=== PATIENT | female | born 1990 | race Caucasian/White ===

== ENCOUNTER 2017-08-26 15:57 | Emergency (ER) | payer OTHER ==
[~2017-08-26] VITALS: Ht 165.1 cm; Wt 72.6 kg
[~2017-08-26 15:57] MED LIST: FLEXERIL10 MG PO; PRENATAL COMPL1 EACH PO; PROVENTIL HFA6.7 GM INH; TYLENOL325 MG PO; [UNRECOGNIZED DRUG - REMARK] NEB
== END 2017-08-26 17:53 | disposition home or self-care (01) ==
LOC: ED 15:57
DX: S16.1XXA Strain of muscle, fascia and tendon at neck level, initial encounter (principal); S20.212A Contusion of left front wall of thorax, initial encounter; S50.01XA Contusion of right elbow, initial encounter; W17.89XA Other fall from one level to another, initial encounter
CPT/HCPCS: 71046; 72040; 73080; 99283

== ENCOUNTER 2017-08-29 15:35 | Emergency (ER) | payer OTHER ==
[~2017-08-29] VITALS: Ht 165.1 cm; Wt 77.1 kg
== END 2017-08-29 17:35 | disposition home or self-care (01) ==
LOC: ED 15:35
DX: S16.1XXA Strain of muscle, fascia and tendon at neck level, initial encounter (principal); S40.012A Contusion of left shoulder, initial encounter; S50.12XA Contusion of left forearm, initial encounter; F17.200 Nicotine dependence, unspecified, uncomplicated; Z79.899 Other long term (current) drug therapy; W06.XXXA Fall from bed, initial encounter; Y92.149 Unspecified place in prison as the place of occurrence of the external cause
CPT/HCPCS: 72040; 73030; 73090; 99283

== ENCOUNTER 2019-03-11 09:33 | Emergency (ER) | payer OTHER ==
[~2019-03-11] VITALS: Ht 165.1 cm; Wt 77.5 kg
[2019-03-11] MEDS ORDERED: VENTOLIN HFA18 GM INH (09:54)
[2019-03-11] MEDS ORDERED: REGLAN10 MG PO (13:06)
== END 2019-03-11 13:41 | disposition home or self-care (01) ==
LOC: ED 09:33
DX: R11.2 Nausea with vomiting, unspecified (principal); F17.200 Nicotine dependence, unspecified, uncomplicated
CPT/HCPCS: 80053; 84703; 85025; 85651; 86141; 96361; 96374; 96375; 99284-25; J1200; J2405; J2765; J7120

== ENCOUNTER 2019-04-05 13:41 | Emergency (ER) | payer OTHER ==
[~2019-04-05] VITALS: Ht 165.1 cm; Wt 77.5 kg
--- OUTSIDE RECORDS SUMMARY | ~2019-04-05 | XMS | Encounter Summary ---
Demographics + + + | Address | [address] | | | [place] [address] | + + + | Home Phone | | + + + | Preferred Language | Unknown | + + + | Marital Status | Single | + + + | Judaism Affiliation | Unknown | + + + | Race | Unknown | + + + | Ethnic Group | Unknown | + + + Author + + + | Author | [facility] | | | and rPashanthana | + + + | Organization | [facility] | | | and [place] | + + + | Address | Unknown | + + + | Phone | Unavailable | + + + Support + + +---------+ + | Name | Relationship | Address | Phone | + + +---------+ + | Fausto Solomon | ECON | Unknown | | + + +---------+ + | Adrianna Reynoso | ECON | Unknown | | + + +---------+ + | Fausto Solomon | ECON | Unknown | | + + +---------+ + Care Team Providers + +------+ + | Care Information Delivery Analyst Name | Role | Phone | + +------+ + PCP | Unavailable | + +------+ + Encounter Details +--------+ + + + + | Date | Type | Department | Care Team | Description | +--------+ + + + + | 02/17/ | Orders Only | [facility] | [facility], | Osteomyelitis of | | 2019 | | MEDICAL CENTER ACUTE | MD Carol 833 | vertebra ([facility]) | | | | CARE FLOOR [address] | | | | | [address] | [place] [address] | | | | | [place], [place] | [phone] | | | | | [address] | | | | | | [phone] | | | +--------+ + + + [...] as of this encounter Plan of Treatment + +--------+ + + | Name | Priori | Associated Diagnoses | Order Schedule | | | ty | | | + +--------+ + + | Comprehensive Metabolic Panel | Routin | Osteomyelitis of | Expected: | | | e | vertebra ([facility]) | 06/12/2018, Expires: | | | | | 06/12/2019 | + +--------+ + + | Sedimentation Rate | Routin | Osteomyelitis of | Expected: | | | e | vertebra ([facility]) | 06/12/2018, Expires: | | | | | 06/12/2019 | + +--------+ + + | C-Reactive Protein | Routin | Osteomyelitis of | Expected: | | | e | vertebra ([facility]) | 06/12/2018, Expires: | | | | | 06/12/2019 | + +--------+ + + | CBC with Manual Differential | Routin | Osteomyelitis of | Expected: | | | e | vertebra ([facility]) | 06/12/2018, Expires: | | | | | 06/13/2019 | + +--------+ + + | Vancomycin, Trough | Routin | Osteomyelitis of | Expected: | | | e | vertebra ([facility]) | 06/12/2018, Expires: | | | | | 06/12/2019 | + +--------+ + + | Creatinine | Routin | Osteomyelitis of | Expected: | | | e | vertebra ([facility]) | 06/12/2018, Expires: | | | | | 06/12/2019 | + +--------+ + + documented as of this encounter Visit Diagnoses + + | Diagnosis | + + | Osteomyelitis of vertebra (HCC) Unspecified osteomyelitis, other specified site | + + documented in this encounter"
--- OUTSIDE RECORDS SUMMARY | ~2019-04-05 | XMS | Encounter Summary ---
Demographics + + + | Address | [address] | | | [place] [address] | + + + | Home Phone | | + + + | Preferred Language | Unknown | + + + | Marital Status | Single | + + + | Sikh Affiliation | Unknown | + + + | Race | Unknown | + + + | Ethnic Group | Unknown | + + + Author + + + | Author | [facility] | | | and Prashanthana | + + + | Organization | [facility] | | [...] Team Providers + +------+ + | Care Health Education Director Name | Role | Phone | + +------+ + PCP | Unavailable | + +------+ + Encounter Details +--------+ + + + + | Date | Type | Department | Care Team | Description | +--------+ + + + + | 02/17/ | Orders Only | [facility] | [facility], | Osteomyelitis of | | 2019 | | MEDICAL CENTER ACUTE | MD Carol [address] | vertebra ([facility]) | | | | CARE FLOOR [address] | | | | | [address] | [place] [address] | | | | | [place], [place] | [phone] | | | | | [address] | | | | | | [phone] | | | +--------+ + + + [...] Expected: | | | e | vertebra ([facility]) | 06/12/2018, Expires: | | | | | 06/12/2019 | + +--------+ + + | Sedimentation Rate | Routin | Osteomyelitis of | Expected: | | | e | vertebra ([facility]) | 06/12/2018, Expires: | | | | | 06/12/2019 | + +--------+ + + | C-Reactive Protein | Routin | Osteomyelitis of | Expected: | | | e | vertebra ([facility]) | 06/12/2018, Expires: | | | | | 06/12/2019 | + +--------+ + + | CBC with Manual Differential | Routin | Osteomyelitis of | Expected: | | | e | vertebra ([facility]) | 06/12/2018, Expires: | | | | | 06/13/2019 | + +--------+ + + | Vancomycin, Trough | Routin | Osteomyelitis of | Expected: | | | e | vertebra ([facility]) | 06/12/2018, Expires: | | | | | 06/12/2019 | + +--------+ + + | Creatinine | Routin | Osteomyelitis of | Expected: | | | e | vertebra ([facility]) | 06/12/2018, Expires: | | | | | 06/12/2019 | + +--------+ + + documented as of this encounter Visit Diagnoses + + | Diagnosis | + + | Osteomyelitis of vertebra (HCC) Unspecified osteomyelitis, other specified site | + + documented in this encounter"
--- OUTSIDE RECORDS SUMMARY | ~2019-04-05 | XMS | Clinical Summary ---
Demographics + + + | Address | [address] | | | [place] [address] | + + + | Home Phone | | + + + | Preferred Language | Unknown | + + + | Marital Status | Single | + + + | Voodoo Affiliation | Unknown | + + + | Race | Unknown | + + + | Ethnic Group | Unknown | + + + Author + + + | Author | [facility] | | | and Prashanthana | + + + | Organization | [facility] | | | and [place] | + + + | Address | Unknown | + + + | Phone | Unavailable | + + + Support + + +---------+ + | Name | Relationship | Address | Phone | + + +---------+ + | Fausto Solomon | ECON | Unknown | | + + +---------+ + | AngelesAdrianna | ECON | Unknown | | + + +---------+ + | Fausto Solomon | ECON | Unknown | | + + +---------+ + Care Team Providers + +------+ + | Care Acetone Recovery Worker Name | Role | Phone | + +------+ + PCP | Unavailable | + +------+ + Allergies No Known [...] Noted Date | + + + | IV drug abuse | 06/11/2018 | + + + | IVDA (intravenous drug abuse) complicating | 06/10/2018 | + + + | Vertebral osteomyelitis | 06/10/2018 | + + + | LBP | 06/10/2018 | + + + Encounters +--------+ + + + + | Date | Type | Specialty | Care Team | Description | +--------+ + + + + | 02/23/ | Orders Only | Internal Medicine | Heidi, | Vertebral | | 2018 | | | MD Carol | osteomyelitis (HCC) | | | | | | (Primary Dx) | +--------+ + + + + | 02/17/ | Orders Only | Internal Medicine | Heidi, | Osteomyelitis of | | 2018 | | | MD Carol | vertebra (HCC) | +--------+ + + + + from Last 3 Months Immunizations + + + + | Name | Dates Previously Given | Next Due | + + + [...] Filed Vital Signs + + + + | Vital Sign | Reading | Time Taken | + + + + | Blood Pressure | 142/90 | 06/15/2018 1140 PST | + + + + | Pulse | 106 | 06/15/2018 1140 PST | + + + + | Temperature | 37 C (98.6 F) | 06/15/2018 1140 PST | + + + + | Respiratory Rate | 16 | 06/15/2018 1140 PST | + + + + | Oxygen Saturation | - | - | + + + + | Inhaled Oxygen | - | - | | Concentration | | | + + + + | Weight | 73.5 kg (162 lb 0.6 | 06/15/2018 1140 PST | | | oz) | | + + + + | Height | 165.1 cm (5' 5") | 06/15/2018 1140 PST | + + + + | Body Mass Index | 26.96 | 06/15/2018 1140 PST | + + + + Plan of Treatment + + + + + | Health Maintenance | Due Date | Last Done | Comments | + + + + + | Vaccine: | | | | | Dtap/Tdap/Td (1 - | 7 | | | | Tdap) | | | | + + + + + | Cervical Cancer | | | | | Screening (Pap) | 8 | | | + + + + + | Vaccine: Influenza | | | | | (#1) | 9 | | | + + + + + Results Not on filefrom Last 3 Months
--- OUTSIDE RECORDS SUMMARY | ~2019-04-05 | XMS | Clinical Summary ---
Demographics + + + | Address | [address] | | | [place] [address] | + + + | Home Phone | | + + + | Preferred Language | Unknown | + + + | Marital Status | Single | + + + | Scientology Affiliation | Unknown | + + + | Race | Unknown | + + + | Ethnic Group | Unknown | + + + Author + + + | Author | [facility] (Historical as of | | | 02-18-19) | + + + | Organization | [facility] (Historical as of | | | 02-18-19) | + + + | Address | Unknown | + + + | Phone | Unavailable | + + + Support + + +---------+ + | Name | Relationship | Address | Phone | + + +---------+ + | Fausto Solomon | ECON | Unknown | | + + +---------+ + | Detailed,Message | ECON | Unknown | | + + +---------+ + | Adrianna Reynoso | ECON | Unknown | | + + +---------+ + Care Team Providers + +------+ + | Care Java Software Architect Name | Role | Phone | + +------+ + | None, Per Pt | PP | [phone] | + +------+ + Allergies No Known Allergies Current Medications + + +---------+---------+------+------+-------+ | Prescription | Sig. | Disp. | Refills | Star | End | Statu | | | | | | t | Date | s | | | | | | Date | | | + + +---------+---------+------+------+-------+ | albuterol | Take 2.5 mg by | | | | | Activ | | (PROVENTIL) (2.5 | nebulization every 6 | | | | | e | | MG/3ML) 0.083% | (six) hours as | | | | | | | nebulizer | needed. Indications: | | | | | | | solutionIndications: | Acute Bronchospasm | | | | | | | Acute | | | | | | | | Bronchospastic | | | | | | | | Disease | | | | | | | + + +---------+---------+------+------+-------+ | MV-Min-Fe | Take by mouth. | | | | | Activ | | Fum-FA-DHA | | | | | | e | | ( 1 PO) | | | | | | | + + +---------+---------+------+------+-------+ | docusate calcium | Take 1 capsule by | 90 | 3 | 06/2 | | Activ | | (SURFAK) 240 MG | mouth daily. | capsule | | 3/20 | | e | | capsule | | | | 14 | | | + + +---------+---------+------+------+-------+ | labetalol | Take 1 tablet by | 60 | 11 | 06/2 | | Activ | | (NORMODYNE) 200 MG | mouth every 12 | tablet | | 3/20 | | e | | tablet | (twelve) hours. | | | 14 | | | + + +---------+---------+------+------+-------+ | ferrous gluconate | Take 1 tablet by | 90 | 3 | 06/2 | | Activ | | (FERGON) 324 MG | mouth daily with | tablet | | 3/20 | | e | | tablet | breakfast. | | | 14 | | | + + +---------+---------+------+------+-------+ Active Problems + + + | Problem | Noted Date | + + + | IV drug abuse ([facility]) | 06/11/2018 | + + + | IVDA (intravenous drug abuse) complicating ([facility]) | 06/10/2018 | + + + | Vertebral osteomyelitis ([facility]) | 06/10/2018 | + + + | LBP | 06/10/2018 | + + + Immunizations + + + + | Name | Dates Previously Given | Next Due | + + + + | INFLUENZA PF, | 06/11/2018 (Deferred: ) | | | QUADRIVALENT | | | | (PED/ADOL/ADULT) | | | + + + + | Pneumococcal | 06/11/2018 (Deferred: ), 09/28/2012 | | | Polysaccharide | | | | 23-valent | | | + + + + Family History + + +------+ + | Medical History | Relation | Name | Comments | + + +------+ + | Asthma | Brother | | | + + +------+ + | Cancer | Brother | | | + + +------+ + | Cancer | Cousin | | | + + +------+ + | Asthma | Father | | | + + +------+ + | Diabetes type II | Maternal | | | | | Grandmoth | | | | | er | | | + + +------+ + | Hypertension | Maternal | | | | | Grandmoth | | | | | er | | | + + +------+ + | Diabetes type II | Mother | | | + + +------+ + | Hypertension | Mother | | | + + +------+ + | Hypertension | Sister | | | + + +------+ + + +------+--------+ + | Relation | Name | Status | Comments | + +------+--------+ + | Brother | | | | + +------+--------+ + | Cousin | | | | + +------+--------+ + | Father | | | | + +------+--------+ + | Maternal Grandmother | | | | + +------+--------+ + | Mother | | | | + +------+--------+ + | Sister | | | | + +------+--------+ + Social History + + + +--------+------+ | Tobacco Use | Types | Packs/Day | Years | Date | | | | | Used | | + + + +--------+------+ | Current Every Day | Cigarettes | 0.25 | 10 | | | Smoker | | | | | + + + +--------+------+ + +---+---+---+ | Smokeless Tobacco: | | | | | Never Used | | | | + +---+---+---+ + + | Tobacco Cessation: Counseling Given: Yes | + + + + +---------+ + | Alcohol Use | Drinks/We | oz/Week | Comments | | | ek | | | + + +---------+ + | No | | | | + + +---------+ + + + + | Sex Assigned at | Date Recorded | | | | + + + | Not on file | | + + + Last Filed Vital Signs + + + + | Vital Sign | Reading | Time Taken | + + + + | Blood Pressure | 142/90 | 06/15/2018 11:38 AM PST | + + + + | Pulse | 106 | 06/15/2018 11:38 AM PST | + + + + | Temperature | 37 C (98.6 F) | 06/15/2018 11:38 AM PST | + + + + | Respiratory Rate | 16 | 06/15/2018 11:38 AM PST | + + + + | Oxygen Saturation | 98% | 06/15/2018 11:38 AM PST | + + + + | Inhaled Oxygen | - | - | | Concentration | | | + + + + | Weight | 73.5 kg (162 lb 0.6 | 06/12/2018 7:50 PM PST | | | oz) | | + + + + | Height | 165.1 cm (5' 5") | 06/10/2018 9:28 AM PST | + + + + | Body Mass Index | 26.96 | 06/12/2018 7:50 PM PST | + + + + Plan [...] | Pneumococcal 19-64 | | | | | (PPSV23 only) Medium | | | | | Risk | | | | + + + + + Results Not on filefrom Last 3 Months Insurance + +--------+ +------+-------+ + | Payer | Benefi | Subscriber | Type | Phone | Address | | | t Plan | ID | | | | | | / | | | | | | | Group | | | | | + +--------+ +------+-------+ + | MEDICAID | [place] | [id number] | | | [address] | | | N | | | | [place] | | | [place] | | | | [phone] | | | ELIGIBILITY SUPERVISOR | | | | | + +--------+ +------+-------+ + + +--------+ +--------+ + + | Guarantor Name | Accoun | Relation to | Date | Phone | Billing Address | | | t Type | Patient | of | | | | | | | | | | + +--------+ +--------+ + + | SOLANGE PEDERSON | Person | Self | [birth year] Home: | [address] | | | [place] | | 1989 | [phone] | [address] [place] | | | [place] | | | [phone] | [phone] | + +--------+ +--------+ + +
--- OUTSIDE RECORDS SUMMARY | ~2019-04-05 | XMS | Clinical Summary ---
Demographics + + + | Address | [address] | | | [place] [address] | + + + | Home Phone | | + + + | Preferred Language | Unknown | + + + | Marital Status | Single | + + + | Zoroastrian Affiliation | Unknown | + + + | Race | Unknown | + + + | Ethnic Group | Unknown | + + + Author + + + | Author | [facility] | | | and Prashanthana | + + + | Organization | [facility] | | | [...] Team Providers + +------+ + | Care Clerk Guide Name | Role | Phone | + [...]
--- OUTSIDE RECORDS SUMMARY | ~2019-04-05 | XMS | Clinical Summary ---
Demographics + + + | Address | [address] | | | [place] [address] | + + + | Home Phone | | + + + | Preferred Language | Unknown | + + + | Marital Status | Single | + + + | Mormon Affiliation | Unknown | + + + | Race | Unknown | + + + | Ethnic Group | Unknown | + + + Author + + + | Author | [facility] (Historical as of | | | 02-18-19) | + + + | Organization | [facility] (Historical as of | | | [...] Team Providers + +------+ + | Care Cardiac Nurse Practitioner Name | Role | Phone | + [...] + + + | IV drug abuse ([facility]) | 06/11/2018 | + + + | IVDA (intravenous drug abuse) complicating ([facility]) | 06/10/2018 | + + + | Vertebral osteomyelitis ([facility]) | 06/10/2018 | + + + | [...] +------+-------+ + | MEDICAID | [place] | [id number] | | | [address] | | | N | | | | [place] | | | [place] | | | | [phone] | | | POWDER PRESS OPERATOR | | | | | + +--------+ [...] Self | [birth year] | Home: | [address] | | | [place] | | 1989 | [phone] | [address] [place] [address] | | | [place] | | | [phone] | [phone] | + +--------+ +--------+ + +
--- OUTSIDE RECORDS SUMMARY | ~2019-04-05 | XMS | Encounter Summary ---
Demographics + + + | Address | [address] | | | [place] [address] | + + + | Home Phone | | + + + | Preferred Language | Unknown | + + + | Marital Status | Single | + + + | Samaritan Affiliation | Unknown | + + + | Race | Unknown | + + + | Ethnic Group | Unknown | + + + Author + + + | Author | [facility] | | | and Prashanthana | + + + | Organization | [facility] | | [...] | | + + +---------+ + | Fasuto Solomon | ECON | Unknown | | + + +---------+ + Care Team Providers + +------+ + | Care Food Service Lead Name | Role | Phone | + +------+ + PCP | Unavailable | + +------+ + Encounter Details +--------+ + + + + | Date | Type | Department | Care Team | Description | +--------+ + + + + | 02/23/ | Orders Only | [facility] | [place], | Vertebral | | 2019 | | MEDICAL CENTER ACUTE | MD Carol [address] | osteomyelitis (HCC) | | | | CARE FLOOR [address] | (Primary Dx) | | | | [address] | [place] [address] | | | | | [place], [place] | [phone] | | | | | [address] | | | | | | [phone] | | | +--------+ + + + [...] | | + +--------+ + + | Misc Lab Referral | Routin | Vertebral | 1 Occurrences | | | e | osteomyelitis (HCC) | starting 02/23/2019 | | | | | until 06/12/2019 | + +--------+ + + documented as of this encounter Visit Diagnoses + + | Diagnosis | + + | Vertebral osteomyelitis (HCC) - Primary Unspecified osteomyelitis, other specified | | site | + + documented in this encounter"
--- OUTSIDE RECORDS SUMMARY | ~2019-04-05 | XMS | Encounter Summary ---
Demographics + + + | Address | [address] | | | [place] [address] | + + + | Home Phone | | + + + | Preferred Language | Unknown | + + + | Marital Status | Single | + + + | Catholic Affiliation | Unknown | + + + | Race | Unknown | + + + | Ethnic Group | Unknown | + + + Author + + + | Author | [facility] | | | and Prashanthana | + + + | Organization | [facility] | | | and [...] Team Providers + +------+ + | Care Technician Submarine Cable Equipment Name | Role | Phone | + +------+ + PCP | Unavailable | + +------+ + Encounter Details +--------+ + + + + | Date | Type | Department | Care Team | Description | +--------+ + + + + | 02/23/ | Orders Only | [facility] | [place], | Vertebral | | 2019 | | MEDICAL CENTER ACUTE | MD Carol [address] | osteomyelitis (HCC) | | | | CARE FLOOR [address] | (Primary Dx) | | | | [address] | [place] [address] | | | | | [place], [place] | [phone] | | | | | [address] | | | | | | [phone] | | | +--------+ + + + [...]
[~2019-04-05 13:41] MED LIST changes: +CEPHALEXIN500 MG PO; +METHADONE HCL10 MG; +REGLAN10 MG PO; +VENTOLIN HFA18 GM INH
--- OUTSIDE RECORDS SUMMARY | 2019-04-05 13:44 | XMS ---
PreManage Notification: ELIZABETH MCKEON Security Hadoop Developer Events No recent Security Events currently on file CRITERIA MET - Group Notification - [facility] - Has Care Guidelines - [facility] - 2 Visits in 30 Days CARE PROVIDERS LEGACY PATIENT Primary Care Current [employer] PHONE: Unknown [facility] Primary Care Current [employer] PHONE: Unknown Chantel Guajardo Case or Chlorine Cell Tender 07/27/2016-[facility] PHONE: [phone] Guidelines Source: [facility] [place] Guidelines Date: 03/20/2019 Care Coordination: Receives mental health services with [employer].\T\nbsp; Please contact [employer] for mental health concerns.\T\nbsp; Myriam/Dre Richard:\T\nbsp; [phone]\T\nbsp; Ajit:\T\nbsp; [phone]. Care History Medical/Surgical 04/05/2019 [facility] CASE MANAGEMENT REFERRAL MADE- PATIENT HAS [facility] AND NO PCP. E.D. VISIT COUNT (12 MO.) [address] [facility] NOTE: Visits indicate total known visits. ED/UCC VISIT TRACKING (12 MO.) [facility]05[facility]2019 [facility] [place] [facility] COMPLAINT: - ABD PAIN 04/04/2019 17:59 [facility] [place] TYPE: Emergency COMPLAINT: - ABDOMINAL CRAMPING 03/11/2019 09:34 WARREN Hinds TYPE: Emergency COMPLAINT: - WITHDRAWLS, VOMMITING DIAGNOSES: - Nausea with vomiting, unspecified - Nicotine dependence, unspecified, uncomplicated 06/25/2018 01:31 [facility] [place] TYPE: Emergency DIAGNOSES: - Subacute osteomyelitis, other site - BACK TROUBLE [facility]10[facility]2018 [facility] DIAGNOSES: - Pain, unspecified - Osteomyelitis of vertebra, lumbar region 06/10/2018 00:45 [facility] DIAGNOSES: - LOWER BACK PAIN - Low back pain 06/06/2018 18:41 [facility] [place] [facility] DIAGNOSES: - Low back pain - Back pain and leg pain 04/27/2018 21:27 [facility] [place] [facility] COMPLAINT: - UNCONCIOUS 04/16/2018 16:11 Jame Solis [facility] [place] TYPE: Emergency COMPLAINT: - LOW BACK PAIN INPATIENT VISIT TRACKING (12 MO.) 06/10/2018 04:47 [facility] [place] TYPE: General Medicine DIAGNOSES: - Osteomyelitis of vertebra, lumbar region - Pain, unspecified - Osteomyelitis of vertebra, site unspecified [email or web address]
== END 2019-04-05 14:24 | disposition home or self-care (01) ==
LOC: ED 13:41
DX: N39.0 Urinary tract infection, site not specified (principal); Z87.891 Personal history of nicotine dependence
CPT/HCPCS: 99283

== ENCOUNTER 2019-11-25 18:39 | Emergency (ER) | payer SELFPAY ==
[~2019-11-25] VITALS: Ht 165.1 cm; Wt 99.8 kg
--- OUTSIDE RECORDS SUMMARY | ~2019-11-25 | XMS | Encounter Summary ---
Demographics + + + | Address | [address] | | | [place] [address] | + + + | Home Phone | | + + + | Preferred Language | Unknown | + + + | Marital Status | Single | + + + | Jewish Affiliation | Unknown | + + + | Race | Unknown | + + + | Ethnic Group | Unknown | + + + Author + + + | Author | [facility] | | | and [place] | + + + | Organization | [facility] | | | and [place] | + + + | Address | Unknown | + + + | Phone | Unavailable | + + + Support + + +---------+ + | Name | Relationship | Address | Phone | + + +---------+ + | Adrianna Reynoso | ECON | Unknown | | + + +---------+ + | Vicente Scott | ECON | Unknown | | + + +---------+ + Care Team Providers + +------+ + | Care Sketcher Name | Role | Phone | + +------+ + PCP | Unavailable | + +------+ + Encounter Details +--------+ + + + + | Date | Type | Department | Care Team | Description | +--------+ + + + + | 01/27/ | Emergency | [facility] | Adal [facility] | Abdominal Pain, | | 2007 | | [facility] | [place] [address] | Periumbilic | | | [facility] | [address] [place], [place] | | | | | [address] | [address] | | | | | [place], [place] | [phone] | | | | | [address] | | | | | | [phone] | | | +--------+ + + + + Social History + +-------+ +--------+------+ | Tobacco Use | Types | Packs/Day | Years | Date | | | | | Used | | + +-------+ +--------+------+ | Never Assessed | | | | | + +-------+ +--------+------+ + + + | Sex Assigned at | Date Recorded | | | | + + + | Not on file | | + + + + + + + | Job Start Date | Occupation | Industry | + + + + | Not on file | Not on file | Not on file | + + + + + + + + | Travel History | Travel Start | Travel End | + + + + + + | No recent travel history available. | + + documented as of this encounter Plan of Treatment Not on filedocumented as of this encounter Visit Diagnoses + + | Diagnosis | + + | Abdominal pain, periumbilic | + + documented in this encounter"
--- OUTSIDE RECORDS SUMMARY | ~2019-11-25 | XMS | Encounter Summary ---
Demographics + + + | Address | [address] | | | [place] [address] | + + + | Home Phone | | + + + | Preferred Language | Unknown | + + + | Marital Status | Single | + + + | Taoist Affiliation | Unknown | + + + | Race | Unknown | + + + | Ethnic Group | Unknown | + + + Author + + + | Author | [facility] | | | and [place] | + + + | Organization | [facility] | | | and [...] Team Providers + +------+ + | Care Staff Physician Name | Role | Phone | + +------+ + | Evelyn Whitehead DO | PCP | | + +------+ + Encounter Details +--------+ + + + + | Date | Type | Department | Care Team | Description | +--------+ + + + + | 11/01/ | Routine | [facility] | Shlomo Wright, | [place]: 38w4d | | 2020 | | [facility] | [address] | | | | | [facility] | [address] [place], | | | | | [address] | [place] [address] | | | | | [address] [place], | [phone] | | | | | [place] [address] | | | | | | [phone] | | | +--------+ + + + + Social History + +-------+ +--------+------+ | Tobacco Use | Types | Packs/Day | Years | Date | | | | | Used | | + +-------+ +--------+------+ | Current Every Day | | 0.25 | | | | Smoker | | | | | + +-------+ +--------+------+ + +---+---+---+ | Smokeless Tobacco: | | | | | Never Used | | | | + +---+---+---+ + + + | Sex Assigned at [...] + + documented as of this encounter Last Filed Vital Signs + + + + + | Vital Sign | Reading | Time Taken | Comments | + + + + + | Blood Pressure | 135/82 | 11/02/2019 1:51 PM | | | | | PDT | | + + + + + | Pulse | - | - | | + + + + + | Temperature | - | - | | + + + + + | Respiratory Rate | - | - | | + + + + + | Oxygen Saturation | - | - | | + + + + + | Inhaled Oxygen | - | - | | | Concentration | | | | + + + + + | Weight | 99 kg (218 lb 4.1 | 11/02/2019 1:51 PM | | | | oz) | PDT | | + + + + + | Height | - | - | | + + + + + | Body Mass Index | 35.77 | 10/19/2019 3:05 PM | | | | | PDT | | + + + + + documented in this encounter Progress Notes Shlomo Wright MD - 11/02/2019 2:20 PM [id number] x5 38w4d BP 135/82 | Wt 99 kg (218 lb 4.1 oz) | BMI 35.77 kg/m TWG:Not found. Pre weight:Pregravid weight not on file Concerns: None She is doing well, continues methadone. Follow up in 1 week Consider induction next week. "I, Shlomo Wright MD , personally performed the services described in this documentation, as scribed by ELIZABETH Andrews in my presence, and is both accurate and complete". Amelia Prajapati , Return To Service Inspector - 11/02/2019 2:20 PM [id number] x5 38w4d BP 135/82 | Wt 99 kg (218 lb 4.1 oz) | BMI 35.77 kg/m TWG:Not found. Pre weight:Pregravid weight not on file Concerns: None d ocumented in this encounter Plan of Treatment Not on filedocumented as of this encounter Visit Diagnoses + + | Diagnosis | + + | Supervision of high risk , antepartum - Primary | + + | Intravenous drug use during in third trimester | + + | Methadone use (HCC) Opioid type dependence, unspecified | + + | Tobacco abuse Tobacco use disorder | + + documented in this encounter
--- OUTSIDE RECORDS SUMMARY | ~2019-11-25 | XMS | Clinical Summary ---
Demographics + + + | Address | [address] | | | [place] [address] | + + + | Home Phone | | + + + | Preferred Language | Unknown | + + + | Marital Status | Single | + + + | Adventism Affiliation | Unknown | + + + | Race | Unknown | + + + | Ethnic Group | Unknown | + + + Author + + + | Author | [facility] | | | and [place] | + + + | Organization | [facility] | | | and [...] Team Providers + +------+ + | Care Bottled Beverage Inspector Name | Role | Phone | + +------+ + | Evelyn Whitehead DO | PCP | | + +------+ + Allergies No Known Allergies Medications + + + +---------+------+------+-------+ | Medication | Sig | Dispensed | Refills | Star | End | Statu | | | | | | t | Date | s | | | | | | Date | | | + + + +---------+------+------+-------+ | MV-MIN-FE | Take by mouth. | | 0 | 03/2 | | Activ | | FUM-FA-DHA PO | | | | 6/20 | | e | | | | | | 13 | | | + + + +---------+------+------+-------+ | albuterol 2.5 mg/3 | Take 2.5 mg by | | 0 | 03/2 | | Activ | | mL nebulizer | nebulization every 6 | | | 6/20 | | e | | solution | (six) hours as | | | 13 | | | | | needed. Indications: | | | | | | | | Acute Bronchospasm | | | | | | + + + +---------+------+------+-------+ | methadone 10 mg | Take 75 mg by mouth | | 0 | | | Activ | | tablet | Daily. | | | | | e | + + + +---------+------+------+-------+ | aspirin 81 mg | | | 0 | 12/2 | | Activ | | chewable tablet | | | | 8/20 | | e | | | | | | 19 | | | + + + +---------+------+------+-------+ | NARCAN 4 MG/0.1ML | | | 0 | 09/2 | | Activ | | | | | | 320 | | e | | | | | | 19 | | | + + + +---------+------+------+-------+ | albuterol 90 | Inhale 2 puffs into | 1 | 0 | 03/1 | 03/1 | Activ | | mcg/puff inhaler | the lungs every 4 | Inhaler | | 9/ | 9/20 | e | | | hours as needed. | | | 20 | 21 | | + + + +---------+------+------+-------+ | famotidine | take 1 tablet by | 60 | 0 | 05/1 | | Activ | | (PEPCID) 20 mg | mouth twice a day | tablet | | 3/20 | | e | | tabletIndications: | | | | 20 | | | | Heartburn in | | | | | | | | in third | | | | | | | | trimester | | | | | | | + + + +---------+------+------+-------+ | acetaminophen | Take 2 tablets by | 30 | 0 | 05/1 | | Activ | | (TYLENOL) 500 mg | mouth every 8 hours. | tablet | | 8/20 | | e | | tablet | | | | 20 | | | + + + +---------+------+------+-------+ | ibuprofen | Take 1 tablet by | 30 | 0 | 05/1 | | Activ | | (ADVIL,MOTRIN) 800 | mouth every 8 hours. | tablet | | 8/20 | | e | | MG tablet | | | | 20 | | | + + + +---------+------+------+-------+ | labetalol | Take 1 tablet by | 60 | 0 | 05/1 | | Activ | | (NORMODYNE) 200 mg | mouth 2 times daily. | tablet | | 8/20 | | e | | tablet | | | | 20 | | | + + + +---------+------+------+-------+ | docusate sodium | Take 100 mg by mouth | 60 | 0 | 05/1 | | Activ | | (COLACE) 100 MG | Twice daily as | capsule | | 820 | | e | | capsule | needed for | | | 20 | | | | | Constipation. | | | | | | + + + +---------+------+------+-------+ | famotidine | Take 1 tablet by | 60 | 0 | 04/1 | 11/02 | Disco | | (PEPCID) 20 mg | mouth 2 times daily. | tablet | | 3/20 | 3/20 | ntinu | | tabletIndications: | | | | 20 | 20 | ed | | Heartburn in | | | | | | | | in third | | | | | | | | trimester | | | | | | | + + + +---------+------+------+-------+ | azithromycin | Take 2 tablets by | 6 | 0 | 04/1 | 05/1 | Disco | | (ZITHROMAX) 250 mg | mouth on day 1, and | tablet | | 6/20 | 8/20 | ntinu | | tabletIndications: | 1 tablet by mouth | | | 20 | 20 | ed | | Nasal congestion | every day | | | | | | + + + +---------+------+------+-------+ Active Problems + + + | Problem | Noted Date | + + + | Normal spontaneous vaginal delivery | 11/19/2019 | + + + | Delivery outcome of single liveborn male | 11/19/2019 | + + + | Gestational hypertension, third trimester | 11/18/2019 | + + + | 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 Presently on | | methadone. [facility] | + + + + + | Tobacco abuse | 09/12/2019 | + + + + + | Overview: 11/10/2019: reports cut back to 1-2 cigarettes per | | day | + + + + + | History of gestational hypertension | 09/12/2019 | + + + + + | Overview: 09/21/2019 | | | | low-dose aspirin since early in the . | + + + + + | Supervision of high risk , antepartum | 04/25/2019 | + + + + + | Overview: 09/21/2019 | | | | 1. Drug abuse -history of both methamphetamine and heroin use; on | | methadone, ongoing tobacco use. - recommend growth ultrasound | | every 4-6 weeks.2. Per ED notes 04/04/19 for UTI - placed on | | Cephalexin. SYLVIE 07/17/19 negative culture ordered today.3. Hx of | | elevated BP in previous pregnancies - started on 1.5 tabs ASA | | daily. Protein/creat urine was normal . Late to | | care1. Drug abuse - on methadone, methamphetamine, tobacco use. - | | recommend growth ultrasound every 4-6 weeks.2. Per ED notes | | 04/04/19 for UTI - placed on Cephalexin. SYLVIE 07/17/19 negative3. Hx | | of elevated BP in previous pregnancies - started on 1.5 tabs ASA | | daily. Protein/creat urine was normal . Late to | | careEstablished with aubrey DONNIE Wright | + + + + + | IV drug abuse | 06/11/2018 | + + + + + | Overview: 09/21/2019 | | | | history of heroin use, last time apparently early in the | | . Presently on methadone.M[facility]: [facility] 75[facility] | + + + + + | Intravenous drug use in | 06/10/2018 | + + + | Mild intermittent asthma without complication | 06/03/2015 | + + + + + | Overview: 09/21/2019 | | | | she continues to use an inhaler almost daily. She continues to | | smoke, though states less than a pack a day. Admitted Good | | [facility] 05/28/2015 | + + + + + | Generalized anxiety disorder | 12/16/2011 | + + + | Depression during in third trimester | 12/16/2011 | + + + | H/O chlamydia infection | 10/06/2011 | + + + + + | Overview: 09/21/2019 | | | | GC and Chlamydia screen early in this were negative. | | Positive Chlamydia (January 11, 2014 positive for chlamydia | | treated)Dx Name changed by system update on 04/16/2017 | + + + + + | Allergic rhinitis | 01/09/2010 | + + + | Obesity | 06/15/2007 | + + + Resolved Problems + + + + | Problem | Noted | Resolved | | | Date | Date | + + + + | History of retained placenta | 11/18/19 | | | | 20 | 0 | + + + + | Encounter for induction of labor | 11/18/19 | | | | 20 | 0 | + + + + | Methamphetamine abuse | 09/12/19 | | | | 20 | 0 | + + + + | Trichimoniasis | 06/29/20 | | | | 19 | 0 | + + + + + + | Overview: Found on June 2019 | + + + + + + | Vertebral osteomyelitis | 06/10/20 | | | | 18 | 0 | + + + + | LBP | 06/10/20 | | | | 18 | 0 | + + + + Encounters +--------+ + + + + | Date | Type | Specialty | Care Team | Description | +--------+ + + + + | 11/17/ | Anesthesia | Anesthesiology | Lebron Rodriguez, | | 2019 | Event | | DOCK CLERK | | +--------+ + + + + | 11/17/ | Hospital | Obstetrics and | Sammy Colunga, | | | 2019 - | Encounter | Gynecology | MD | | | | | | | | | 11/19/ | | | | | | 2019 | | | | | +--------+ + + + + | 11/15/ | Routine | Obstetrics and | Henrietta Soto | GA: 40w4d | | 2020 | | Gynecology | LILO Marie | | +--------+ + + + + | 11/13/ | Refill | Obstetrics and | Shlomo Wright, | Medication Refill | | 2019 | | Gynecology | MD | | +--------+ + + + + | 11/12/ | Telephone | Obstetrics and | Tanya Nix RN | Scheduled Induction | | 2020 | | Gynecology | | | +--------+ + + + + | 11/09/ | Routine | Obstetrics and | Ashley Ramirez, | GA: 39w5d | | 2019 | | Gynecology | MD | | +--------+ + + + + | 11/01/ | Routine | Obstetrics and | Shlomo Wright, | GA: 38w4d | | 2019 | | Gynecology | MD | | +--------+ + + + + | 10/18/ | Routine | Obstetrics and | Shlomo Wright, | GA: 36w4d | | 2019 | | Gynecology | MD | | +--------+ + + + + | 10/11/ | Routine | Obstetrics and | Shlomo Wright, | GA: 35w4d | | 2019 | | Gynecology | MD | | +--------+ + + + + | 10/11/ | Hospital | Radiology | Shlomo Wright, | Methadone use (HCC); | | 2019 | Encounter | | MD | Tobacco abuse; | | | | | | Supervision of high | | | | | | risk , | | | | | | antepartum | +--------+ + + + + | 10/11/ | Orders Only | Obstetrics and | Shlomo Wright, | Supervision of high | | 2019 | | Gynecology | MD | risk , | | | | | | antepartum (Primary | | | | | | Dx); Methadone use | | | | | | ([facility]); Tobacco abuse | +--------+ + + + + | 09/20/ | Initial | Obstetrics and | Shlomo Wright, | GA: 32w4d | | 2019 | | Gynecology | MD | | +--------+ + + + + | 09/20/ | Orders Only | | Lindsey Wu, | Supervision of high | 2019 | | | Coater Associate | risk , | | | | | | antepartum | +--------+ + + + + | 09/13/ | Documentati | Obstetrics and | Tres, | Other (Referral - | | 2020 | on | Gynecology | Carol Gaviria MD | [facility] | | | | | | [facility] [[email or web address]], | | | | | | ) | +--------+ + + + + from Last 3 Months Immunizations + + + + | Name | Administration Dates | Next Due | + + + + | PNEUMOCOCCAL | 09/28/2012 | | | POLYSACCHARIDE | | | | 23-VALENT (PPSV23) | | | + + + + Family History + + +------+ + | Medical History | Relation | Name | Comments | + + +------+ + | Asthma | Brother | | | + + +------+ + | Cancer | Brother | | | + + +------+ + | Asthma | Father | | | + + +------+ + | Diabetes, NIDDM | Maternal | | | | | Grandmoth | | | | | er | | | + + +------+ + | Hypertension | Maternal | | | | | Grandmoth | | | | | er | | | + + +------+ + | Diabetes, NIDDM | Mother | | | + + +------+ + | Hypertension | Mother | | | + + +------+ + | Cancer | Other | | | + + +------+ + | Hypertension | Sister | | | + + +------+ + + +------+--------+ + | Relation | Name | Status | Comments | + +------+--------+ + | Brother | | | | + +------+--------+ + | Brother | | | | + +------+--------+ + | Father | | | | + +------+--------+ + | Maternal Grandmother | | | | + +------+--------+ + | Mother | | | | + +------+--------+ + | Other | | | | + +------+--------+ + | Sister | | | | + +------+--------+ + Social History + +-------+ +--------+------+ | [...] recent travel history available. | + + Last Filed Vital Signs + + + + + | Vital Sign | Reading | Time Taken | Comments | + + + + + | Blood Pressure | 138/88 | 11/20/2019 7:24 AM | | | | | PDT | | + + + + + | Pulse | 87 | 11/20/2019 7:24 AM | | | | | PDT | | + + + + + | Temperature | 36.7 C (98.1 F) | 11/20/2019 7:24 AM | | | | | PDT | | + + + + + | Respiratory Rate | 16 | 11/20/2019 7:24 AM | | | | | PDT | | + + + + + | Oxygen Saturation | 96% | 11/20/2019 7:24 AM | | | | | PDT | | + + + + + | Inhaled Oxygen | - | - | | | Concentration | | | | + + + + + | Weight | 103 kg (227 lb 1.2 | 11/18/2019 8:08 PM | | | | oz) | PDT | | + + + + + | Height | 166.4 cm (5' 5.5") | 11/18/2019 8:08 PM | | | | | PDT | | + + + + + | Body Mass Index | 37.21 | 11/18/2019 8:08 PM | | | | | PDT | | + + + + + Plan of Treatment + + + + + | Health Maintenance | Due Date | Last Done | Comments | + + + + + | Cervical Cancer | | | | | Screening (Pap) | 8 | | | + + + + + | Vaccine: Influenza | | 07/12/2012, 04/11/2010, | | | (Season Ended) | 0 | 04/12/2009, Additional history | | | | | exists | | + + + + + | Vaccine: | | 09/12/2019, 12/18/2014 | | | Dtap/Tdap/Td (3 - | 0 | | | | Td) | | | | + + + + + | Vaccine: | Completed | 09/28/2012 | | | Pneumococcal 19-64 | | | | + + + + + Procedures + +--------+ + + + | Procedure Name | Priori | Date/Time | Associated Diagnosis | Comments | | | ty | | | | + +--------+ + + + | CBC NO DIFFERENTIAL | Routin | 11/19/2019 | | Results for this | | | e | 5:22 AM | | procedure are in the | | | | PDT | | results section. | + +--------+ + + + | ANE EPIDURAL NOTE | Routin | 11/18/2019 | | Results for this | | | e | 11:43 PM | | procedure are in the | | | | PDT | | results section. | + +--------+ + + + | PROTEIN, URINE, | Routin | 11/18/2019 | | Results for this | | RANDOM | e | 10:08 PM | | procedure are in the | | | | PDT | | results section. | + +--------+ + + + | CREATININE, URINE, | Routin | 11/18/2019 | | Results for this | | RANDOM | e | 10:08 PM | | procedure are in the | | | | PDT | | results section. | + +--------+ + + + | PROTEIN/CREATININE | Routin | 11/18/2019 | | Results for this | | RATIO, URINE | e | 10:08 PM | | procedure are in the | | | | PDT | | results section. | + +--------+ + + + | TYPE AND SCREEN | STAT | 11/18/2019 | | Results for this | | | | 8:26 PM | | procedure are in the | | | | PDT | | results section. | + +--------+ + + + | URIC ACID | STAT | 11/18/2019 | | Results for this | | | | 8:16 PM | | procedure are in the | | | | PDT | | results section. | + +--------+ + + + | LACTATE | STAT | 11/18/2019 | | Results for this | | DEHYDROGENASE | | 8:16 PM | | procedure are in the | | | | PDT | | results section. | + +--------+ + + + | ALT | STAT | 11/18/2019 | | Results for this | | | | 8:16 PM | | procedure are in the | | | | PDT | | results section. | + +--------+ + + + | AST | STAT | 11/18/2019 | | Results for this | | | | 8:16 PM | | procedure are in the | | | | PDT | | results section. | + +--------+ + + + | CREATININE | STAT | 11/18/2019 | | Results for this | | | | 8:16 PM | | procedure are in the | | | | PDT | | results section. | + +--------+ + + + | BUN | STAT | 11/18/2019 | | Results for this | | | | 8:16 PM | | procedure are in the | | | | PDT | | results section. | + +--------+ + + + | CBC NO DIFFERENTIAL | STAT | 11/18/2019 | | Results for this | | | | 8:16 PM | | procedure are in the | | | | PDT | | results section. | + +--------+ + + + | STREP B SCREEN | Routin | 10/19/2019 | Supervision of | Results for this | | | e | 3:31 PM | high risk , | procedure are in the | | | | PDT | antepartum | results section. | + +--------+ + + + | US OB FOLLOW UP | Routin | 10/12/2019 | Methadone use | Results for this | | TRANSABDOMINAL | e | 3:12 PM | (HCC) Tobacco abuse | procedure are in the | | | | PDT | Supervision of | results section. | | | | | high risk , | | | | | | antepartum | | + +--------+ + + + | MRSA NAAT | Routin | 09/21/2019 | Supervision of | Results for this | | | e | 2:56 PM | high risk , | procedure are in the | | | | PDT | antepartum | results section. | + +--------+ + + + from Last 3 Months Results CBC no Differential (11/19/2019 5:22 AM PDT)Only the most recent of 2 results within the kenneth period is included. + + + + + + | Component | Value | Ref Range | Performed | Pathologist | | | | | At | Signature | + + + + + + | WBC | 16.77 (H) | 3.80 - 11.00 | [facility] | | | | | K/uL | LABORATORY | | + + + + + + | RBC | 4.09 | 3.70 - 5.10 | [facility] | | | | | M/uL | LABORATORY | | + + + + + + | Hemoglobin | 11.5 | 11.3 - 15.5 | [facility] | | | | | g/dL | LABORATORY | | + + + + + + | Hematocrit | 35.2 | 34.0 - 46.0 % | [facility] | | | | | | LABORATORY | | + + + + + + | MCV | 86.1 | 80.0 - 100.0 fl | [facility] | | | | | | LABORATORY | | + + + + + + | MCH | 28.1 | 27.0 - 34.0 pg | [facility] | | | | | | LABORATORY | | + + + + + + | MCHC | 32.7 | 32.0 - 35.5 | [facility] | | | | | g/dL | LABORATORY | | + + + + + + | RDW-SD | 40.8 | 37 - 53 fl | [facility] | | | | | | LABORATORY | | + + + + + + | Platelet | 204 | 150 - 400 K/uL | [facility] | | | Count | | | LABORATORY | | + + + + + + | MPV | 10.3Comment: NO NORMAL | fl | [facility] | | | | [facility] | | LABORATORY | | | | performed at [facility], [address], | | | | | | [place] [address] | | | | + + + + + + + + | Specimen | + + | Blood | + + + + + + + | Performing | Address | City/State/Zipcode | Phone Number | | Organization | | | | + + + + + | [facility] | [address] | [place] [address] | [phone] | + + + + + Neuraxial (11/18/2019 11:43 PM PDT) + + + | Narrative | Performed At | + + + | Lebron Rodriguez CRNA 11/18/2019 11:43 PM Neuraxial Procedure | | | Note 11/18/2019 11:18 PM Procedure: combined spinal-epidural | | | Indication: labor analgesia Preprocedure check: patient identified, | | | procedure and rescue equipment checked, preevaluation including | | | airway assessment complete, risks/benefits discussed, consent | | | obtained, timeout performed and monitors applied Preparation: | | | chlorhexidine/isopropyl alcohol, Procedure level: L2-3 Approach: | | | midline Needle: Tuohy Needle size: 17 g Needle length: 4 in Loss | | | of resistance: 8 cm Catheter depth at skin: 18 cm Medication | | | administered through: catheter Negative findings: no blood aspirated, | | | no CSF and no paresthesia Test dose response: negative Attempts: 1 | | | Ease of procedure: easy Dressing: transparent dressing and tape | | | Performing provider: Lebron Rodriguez CRNA Authorizing provider: Lebron Rodriguez CRNA Please see anesthesia record or flowsheet | | | for vital sign documentation and see anesthesia record or MAR for | | | additional medication documentation. | | + + + Protein/Creatinine Ratio, Urine (11/18/2019 10:08 PM PDT) + + + + + + | Component | Value | Ref Range | Performed | Pathologist | | | | | At | Signature | + + + + + + | PRO/CREA | 0.222Comment: Testing | | [facility] | | | RATIO,URINE | performed at [facility], [address] | | LABORATORY | | | | [address], | | | | | | [place] [address] | | | | + + + + + + + + | Specimen | + + | Urine - Urine | | specimen obtained by | | clean catch | | procedure (specimen) | + + + + + + + | Performing | Address | City/State/Zipcode | Phone Number | | Organization | | | | + + + + + | [facility] | [address] | [place] [address] | [phone] | + + + + + Protein, Urine, Random (11/18/2019 10:08 PM PDT) + + + + + + | Component | Value | Ref Range | Performed | Pathologist | | | | | At | Signature | + + + + + + | Protein, | 10Comment: NO NORMAL | mg/dL | [facility] | | | Urine | [facility] | | LABORATORY | | | | performed at [facility], [address], | | | | | | [place] [address] | | | | + + + + + + + + | Specimen | + + | | + + + + + + + | Performing | Address | City/State/Zipcode | Phone Number | | Organization | | | | + + + + + | [facility] | [address] | [place] [address] | [phone] | + + + + + Creatinine, Urine, Random (11/18/2019 10:08 PM PDT) + + + + + + | Component | Value | Ref Range | Performed | Pathologist | | | | | At | Signature | + + + + + + | Creatinine, | 45.0Comment: NO NORMAL | mg/dL | [facility] | | | random | [facility] | | LABORATORY | | | urine | performed at [facility], [address], | | | | | | [place] [address] | | | | + + + + + + + + | Specimen | + + | | + + + + + + + | Performing | Address | City/State/Zipcode | Phone Number | | Organization | | | | + + + + + | [facility] | [address] | [place] [address] | [phone] | + + + + + Type and Screen (11/18/2019 8:26 PM PDT) + + + + + + | Component | Value | Ref Range | Performed | Pathologist | | | | | At | Signature | + + + + + + | ABO Rh | O POSITIVE | | [facility] | | | | | | LABORATORY | | + + + + + + | Antibody | NEGATIVE | | [facility] | | | Screen | | | LABORATORY | | + + + + + + | BB BAND | [id number] | | [facility] | | | | | | LABORATORY | | + + + + + + | BB BAND | Testing performed at | | [facility] | | | | [facility];[address] | | LABORATORY | | | | [address];[place] [address] | | | | + + + + + + + + | Specimen | + + | Blood | + + + + + + + | Performing | Address | City/State/Zipcode | Phone Number | | Organization | | | | + + + + + | [facility] | [address] | [place] [address] | [phone] | + + + + + ALT (11/18/2019 8:16 PM PDT) + + + + + + | Component | Value | Ref Range | Performed | Pathologist | | | | | At | Signature | + + + + + + | ALT | 10Comment: Testing | 10 - 65 U/L | [facility] | | | | performed at [facility];[address] | | LABORATORY | | | | [address];[place] | | | | | | [address] | | | | + + + + + + + + | Specimen | + + | Blood | + + + + + + + | Performing | Address | City/State/Zipcode | Phone Number | | Organization | | | | + + + + + | [facility] | [address] [facility] | [place] [address] | [phone] | + + + + + Uric Acid (11/18/2019 8:16 PM PDT) + + + + + + | Component | Value | Ref Range | Performed | Pathologist | | | | | At | Signature | + + + + + + | Uric Acid | 6.7Comment: Testing | 2.2 - 7.1 mg/dL | [facility] | | | | performed at [facility];[address] | | LABORATORY | | | | [address];[place], [place] | | | | | | [address] | | | | + + + + + + + + | Specimen | + + | Blood | + + + + + + + | Performing | Address | City/State/Zipcode | Phone Number | | Organization | | | | + + + + + | [facility] | [address] | [place] [address] | [phone] | + + + + + BUN (11/18/2019 8:16 PM PDT) + + + + + + | Component | Value | Ref Range | Performed | Pathologist | | | | | At | Signature | + + + + + + | BUN | 9Comment: Testing | 8 - 25 mg/dL | [facility] | | | | performed at [facility];[address] | | LABORATORY | | | | [address];[place] | | | | | | [address] | | | | + + + + + + + + | Specimen | + + | Blood | + + + + + + + | Performing | Address | City/State/Zipcode | Phone Number | | Organization | | | | + + + + + | [facility] | [address] | [place] [address] | [phone] | + + + + + AST (11/18/2019 8:16 PM PDT) + + + + + + | Component | Value | Ref Range | Performed | Pathologist | | | | | At | Signature | + + + + + + | AST | 21Comment: Testing | 10 - 45 U/L | [facility] | | | | performed at [facility];[address] | | LABORATORY | | | | [address];[place], [place] | | | | | | [address] | | | | + + + + + + + + | Specimen | + + | Blood | + + + + + + + | Performing | Address | City/State/Zipcode | Phone Number | | Organization | | | | + + + + + | [facility] | [address] | [place] [address] | [phone] | + + + + + Lactate Dehydrogenase (11/18/2019 8:16 PM PDT) + + + + + + | Component | Value | Ref Range | Performed | Pathologist | | | | | At | Signature | + + + + + + | LDH TOTAL | 247 (H)Comment: Testing | 120 - 246 U/L | [facility] | | | | performed at [facility];[address] | | LABORATORY | | | | [address];[place] | | | | | | [address] | | | | + + + + + + + + | Specimen | + + | Blood | + + + + + + + | Performing | Address | City/State/Zipcode | Phone Number | | Organization | | | | + + + + + | [facility] | [address] | [place] [address] | [phone] | + + + + + Creatinine (11/18/2019 8:16 PM PDT) + + + + + + | Component | Value | Ref Range | Performed | Pathologist | | | | | At | Signature | + + + + + + | Creatinine | 0.66 | 0.50 - 1.00 | [facility] | | | | | mg/dL | LABORATORY | | + + + + + + | Estimated | >60Comment: GFR <60: | >60 | [facility] | | | GFR | CHRONIC KIDNEY DISEASE, | mL/min/1.73m2 | LABORATORY | | | | IF FOUND OVER A 3 MONTH | | | | | | PERIOD.GFR <15: KIDNEY | | | | | | FAILURE.FOR | | | | | | AMERICANS, MULTIPLY THE | | | | | | CALCULATED GFR BY | | | | | | 1.210.This eGFR is | | | | | | calculated using the | | | | | | MDRD IDMS traceable | | | | | | equation.Testing | | | | | | performed at [facility] [place];[address] | | | | | | [facility];[place], [place] | | | | | | [address] | | | | + + + + + + + + | Specimen | + + | Blood | + + + + + + + | Performing | Address | City/State/Zipcode | Phone Number | | Organization | | | | + + + + + | [facility] | [address] | [place] [address] | [phone] | + + + + + Strep B screen (10/19/2019 3:31 PM PDT) + + + + + + | Component | Value | Ref Range | Performed | Pathologist | | | | | At | Signature | + + + + + + | RESULT | NO GROUP B STREP | | REFERENCE | | | | ISOLATED | | LAB | | | | | | [facility] | | | | | | LABORATORY | | + + + + + + | RESULT | Testing performed at | | REFERENCE | | | | TCL;[address] | | LAB | | | | [address];[place] | | [facility] | | | | [id number]: Testing | | LABORATORY | | | | performed at TCL, [address], | | | | | | [place] [address] | | | | + + + + + + + + | Specimen | + + | Tissue - Structure | | of lower third of | | vagina (body | | structure) | + + + + + + + | Performing | Address | City/State/Zipcode | Phone Number | | Organization | | | | + + + + + | REFERENCE LAB | [address] [place] [address] | [place], [place] | [phone] | | [facility] | Blvd. | [address] | | | LABORATORY | | | | + + + + + | REFERENCE LAB | [address] [place], [place] [address] | [place] | | | [facility] | Blvd. | [address] | | | LABORATORY | | | | + + + + + US OB Follow Up Transabdominal (10/12/2019 3:12 PM PDT) + + | Specimen | + + | | + + + + + | Narrative | Performed At | + + + | Indication ========= Growth, ISMAEL Method | [facility] | | ====== Transabdominal ultrasound examination. View: Sufficient | | | ========= Nieto . Number of fetuses: | | | 1. Dating ====== | | | Date | | | Details | | | | | | Gest. age CLINT External assessment | | | | | | | | | | | | 35 w + 4 d 11/12/2019 U/S | | | 10/12/2019 | | | based upon AC, BPD, Femur, HC | | | 35 w + 1 d | | | 11/15/2019 Assigned dating | | | Dating performed on 10/12/2019, based on the external | | | assessment 35 | | | w + 4 d 11/12/2019 General | | | Evaluation Cardiac activity present. FHR 135 | | | bpm. Presentation cephalic. Placenta Placental site: anterior. | | | Amniotic fluid MVP 4.3 cm. ISMAEL 12.6 cm. Q1 4.3 cm, Q2 4.1 cm, Q3 4.3 | | | cm, Q4 0.0 cm. Biometry Main | | | Biometry: BPD | | | 86.1 mm | | | 34w 5d 31% | | | Hadlock OFD | | | 117.8 mm | | | -/- 78% | | | Nicolaides HC | | | 322.8 mm | | | 36w 3d 40% | | | Hadlock AC | | | 303.3 mm | | | 34w 2d 23% | | | Hadlock Femur | | | 68.1 mm | | | 35w 0d 29% | | | Hadlock HC / AC | | | 1.06 | | | -/- 77% | | | Jeronimo Weight Calculation: EFW | | | 2,507 g | | | 34w 4d | | | 28% Hadlock EFW (lb,oz) | | | 5 lb 8 oz | | | EFW by | | | Hadlock ([id number]) Head / Face / Neck Biometry: Cephalic | | | index 0.73 | | | | | | 6% Chitty | | | Extremities / Bony Struc Biometry: FL / BPD | | | 0.79 | | | -/- | | | Hadlock FL / HC | | | 0.21 | | | -/- | | | Hadlock FL | | | / AC 0.22 | | | -/- | | | | | | Hadlock Other Structures Biometry: AF MVP | | | 4.3 cm | | | | | | ISMAEL | | | 12.6 | | | cm | | | FHR | | | 135 | | | bpm | | | Financial Solutions Advisor Comments Measurements compatible | | | with dates. The patient received thermal prints. Impression | | | ========= Nieto IUP. Biometrics reveal estimated weight | | | of 2507 g, 28th percentile overall. Measurements relatively | | | symmetric. Amniotic fluid normal with an ISMAEL of 12.6 Maximum | | | vertical pocket of 4.3. Recommendation Good | | | interval growth, normal fluid, Reassuring ultrasound findings. | | | at | | | 15:40 | | + + + + + | Procedure Note | + + | Nima, Rad Results In - 10/12/2019 3:40 PM PDT Indication ========= Growth, ISMAEL | | Method ====== Transabdominal ultrasound examination. View: Sufficient | | ========= Nieto . Number of fetuses: 1. Dating ====== | | Date Details | | Gest. age | | CLINT External assessment | | | | 35 w + 4 d 11/12/2019 U/S 10/12/2019 | | based upon AC, BPD, Femur, HC | | 35 w + 1 d 11/15/2019 Assigned dating | | Dating performed on 10/12/2019, based on the external assessment | | 35 w + 4 d 11/12/2019 General Evaluation | | Cardiac activity present. FHR 135 bpm. Presentation cephalic. Placenta | | Placental site: anterior. Amniotic fluid MVP 4.3 cm. ISMAEL 12.6 cm. Q1 4.3 cm, Q2 4.1 cm, | | Q3 4.3 cm, Q4 0.0 cm. Biometry Main Biometry: BPD | | 86.1 mm 34w 5d | | 31% Hadlock OFD | | 117.8 mm -/- 78% | | Nicolaides HC 322.8 | | mm 36w 3d 40% Hadlock AC | | 303.3 mm 34w | | 2d 23% Hadlock Femur | | 68.1 mm 35w 0d 29% | | Hadlock HC / AC 1.06 | | -/- 77% Jeronimo | | Weight Calculation: EFW 2,507 | | g 34w 4d 28% Hadlock | | EFW (lb,oz) 5 lb 8 oz EFW by | | Hadlock ([id number]-FL) Head / Face / Neck Biometry: Cephalic | | index 0.73 | | 6% Chitty Extremities / Bony Struc Biometry: | | FL / BPD 0.79 | | -/- Hadlock FL / HC | | 0.21 -/- | | Hadlock FL / AC | | 0.22 -/- | | Hadlock Other Structures Biometry: AF MVP | | 4.3 cm | | ISMAEL 12.6 | | cm | | FHR 135 bpm | | Financial Solutions Advisor Comments Measurements compatible with dates. The | | patient received thermal prints. Impression ========= Nieto IUP. Biometrics reveal | | estimated weight of 2507 g, 28th percentile overall. Measurements relatively | | symmetric. Amniotic fluid normal with an ISMAEL of 12.6 Maximum vertical pocket of 4.3. | | Recommendation Good interval growth, normal fluid, Reassuring ultrasound | | findings. | |EFW by Hadgelacio ([id number]) | |Head / Face / Neck Biometry: | |Cephalic index 0.73 6% Chitty | |Extremities / Bony Struc Biometry: | |FL / BPD 0.79 -/- Hadlock | |FL / HC 0.21 -/- Hadlock | |FL / AC 0.22 -/- Hadlock | |Other Structures Biometry: | |AF MVP 4.3 cm | |ISMAEL 12.6 cm | |FHR 135 bpm | | | |Financial Solutions Advisor Comments | | | | | |Measurements compatible with dates. The patient received thermal prints. | | | |Impression | |========= | | | |Nieto IUP. Biometrics reveal estimated weight of 2507 g, 28th percentile overall. Measurements relatively symmetric. Amniotic fluid normal with an ISMAEL of 12.6 | |Maximum vertical pocket of 4.3. | | | |Recommendation | | | | | |Good interval growth, normal fluid, Reassuring ultrasound findings. | | | | | | | + + + +---------+ + + | Performing | Address | City/State/Zipcode | Phone Number | | Organization | | | | + +---------+ + + | [facility] | | | | + +---------+ + + MRSA NAAT (09/21/2019 2:56 PM PDT) + + + + + + | Component | Value | Ref Range | Performed | Pathologist | | | | | At | Signature | + + + + + + | SOURCE: | [facility](NOSE) | | REFERENCE | | | | | | LAB | | | | | | [facility] | | | | | | LABORATORY | | + + + + + + | Result | NEGATIVEComment: Testing | MRSNEG | | | | | performed at [facility];[address] | | | [address] | | | | | | [address];[place] [address] | | | | + + + + + + + + | Specimen | + + | Tissue - Both | | anterior nares (body | | structure) | + + + + + + + | Performing | Address | City/State/Zipcode | Phone Number | | Organization | | | | + + + + + | REFERENCE LAB | [address] [place], [place] [address] | [place], [place] | [phone] | | [facility] | Blvd. | [address] | | | LABORATORY | | | | + + + + + | REFERENCE LAB | [facility] | [place], [place] | | | [facility] | Blvd. | [address] | | | LABORATORY | | | | + + + + + from Last 3 Months Insurance + +--------+ +--------+ +---------+--------+ | Payer | Benefi | Subscriber | Effect | Phone | Address | Type | | | t Plan | ID | maeve | | | | | | / | | Dates | | | | | | Group | | | | | | + +--------+ +--------+ +---------+--------+ | [employer] | [employer] | [id number] | | [phone] | | Medica | | MEDICAID HMO | HEALTH | | 020-Pr | 1 | | id | | | MDCD | | esent | | | | | | HMO [place] | | | | | | + +--------+ +--------+ +---------+--------+ + +--------+ +--------+ + + | Guarantor Name | Accoun | Relation to | Date | Phone | Billing Address | | | t Type | Patient | of | | | | | | | | | | + +--------+ +--------+ + + | BgSolange Lawrence | Person | Self [birth year] | [address] | | | al/Fam | | 1990 | [phone] | [address] | | | maria fernanda | | | 9 (Home) | [address] | + +--------+ +--------+ + + Advance Directives + + + + + | Type | Date Recorded | Patient | Explanation | | | | Rn Baby | | + + + + + | Power of | | | | | Vehicle Care Specialist | | | | + + + + + | Advance | 11/18/2019 7:35 | | | | Directive | PM | | | + + + + + + + + + + | Code Status | Date | Date | Comments | | | Activated | Inactivated | | + + + + + | Full Code | 11/18/2019 | 11/20/2019 | | | | 8:24 PM | 11:05 AM | | + + + + +
--- OUTSIDE RECORDS SUMMARY | ~2019-11-25 | XMS | Encounter Summary ---
Demographics + + + | Address | [address] | | | [place] [address] | + + + | Home Phone | | + + + | Preferred Language | Unknown | + + + | Marital Status | Single | + + + | Hindu Affiliation | Unknown | + + + | Race | Unknown | + + + | Ethnic Group | Unknown | + + + Author + + + | Author | [facility] | | | and [place] | + + + | Organization | [facility] | | | and [...] Team Providers + +------+ + | Care Manager Configuration Name | Role | Phone | + +------+ + | Evelyn Whitehead DO | PCP | | + +------+ + Encounter Details +--------+ + + + + | Date | Type | Department | Care Team | Description | +--------+ + + + + | 12/25/ | Orders Only | [facility] | Khari Cordova | | | 2013 | | CONVERSION DEP [address] | MD [address] | | | | | [address] | [address] [place], [place] | | | | | [place], [place] | [address] | | | | | [address] | [phone] | | | | | [phone] | | | +--------+ + + + [...] filedocumented as of this encounter Visit Diagnoses Not on filedocumented in this encounter"
--- OUTSIDE RECORDS SUMMARY | ~2019-11-25 | XMS | Encounter Summary ---
Demographics + + + | Address | [address] | | | [place] [address] | + + + | Home Phone | | + + + | Preferred Language | Unknown | + + + | Marital Status | Single | + + + | Presybeterian Affiliation | Unknown | + + + | Race | Unknown | + + + | Ethnic Group | Unknown | + + + Author + + + | Author | [facility] | | | and [place] | + + + | Organization | [facility] | | [...] Team Providers + +------+ + | Care Automotive Software Engineer Name | Role | Phone | + +------+ + | Evelyn Whitehead DO | PCP | | + +------+ + Reason for Visit + + + | Reason | Comments | + + + | Medication Refill | | + + + Encounter Details +--------+--------+ + + + | Date | Type | Department | Care Team | Description | +--------+--------+ + + + | 11/13/ | Refill | [facility] | Shlomo Wright, | Medication Refill | | 2019 | | [facility]ATED | [address] | | | | | [facility] | [address], | | | | | [address] | [place] [address] | | | | | [address], | [phone] | | | | | [place] [address] | | | | | | [phone] | | | +--------+--------+ + + + Social History + +-------+ [...] + | Diagnosis | + + | Heartburn in in third trimester | + + documented in this encounter"
--- OUTSIDE RECORDS SUMMARY | ~2019-11-25 | XMS | Encounter Summary ---
Demographics + + + | Address | [address] | | | [place] [address] | + + + | Home Phone | | + + + | Preferred Language | Unknown | + + + | Marital Status | Single | + + + | Moravian Affiliation | Unknown | + + + | Race | Unknown | + + + | Ethnic Group | Unknown | + + + Author + + + | Author | [facility] | | | and [place] | + + + | Organization | [facility] | | | and [...] Team Providers + +------+ + | Care Cdl Company Flatbed Driver Name | Role | Phone | + +------+ + | Evelyn Whitehead DO | PCP | | + +------+ + Reason for Visit + + + | Reason | Comments | + + + | Routine | | | Visit | | + + + Encounter Details +--------+ + + + + | Date | Type | Department | Care Team | Description | +--------+ + + + + | 11/15/ | Routine | [facility] | Henrietta Soto | [place]: 40w4d | | 2020 | | ASSOC[facility]ATED | [address] | | | | | [facility] | [address] | | | | | [address] | [place] [address] | | | | | [address], | [phone] | | | | | [place] [address] | | | | | | [phone] | | | +--------+ + + + [...] + + + | Blood Pressure | 144/86 | 11/16/2019 3:51 PM | | | | | PDT [...] + + + + | Weight | 101.6 kg (224 lb) | 11/16/2019 3:51 PM | | | | | PDT | | + + + + + | Height | - | - | | + + + + + | Body Mass Index | 36.71 | 10/19/2019 3:05 PM | | | | | PDT | | + + + + + documented in this encounter Patient Instructions Patient Instructions Henrietta Soto ARNP - 11/16/2019 3:40 PM PDTInduction on Wednesday at 4pm. Go to [facility] to check in. documented in this encounter Progress Notes Henrietta Soto ARNP - 11/16/2019 3:40 PM PDTComplaints: no complaints. Denies VB, LoF, consistent cx. Reports good movement. 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 Unable to leave more that a drip of urine, informed this would be check at L&D. Medical induction scheduled 11/19/19 @1600 Discussed signs of labor. F/U at induction. P Yaa Chino, Belt Changer - 11/16/2019 3:40 PM [id number] 40w4d BP 144/86 | Wt 90.7 kg (200 lb) | BMI 32.78 kg/m TWG:Not found. IWG: +2 LB Concerns: none. documented in this encounter Plan of Treatment Not on filedocumented as of this encounter Visit Diagnoses + + | Diagnosis | + + | Supervision of high risk , antepartum - Primary | + + documented in this encounter"
--- OUTSIDE RECORDS SUMMARY | ~2019-11-25 | XMS | Encounter Summary ---
Demographics + + + | Address | [address] | | | [place] [address] | + + + | Home Phone | | + + + | Preferred Language | Unknown | + + + | Marital Status | Single | + + + | Hindu Affiliation | Unknown | + + + | Race | Unknown | + + + | Ethnic Group | Unknown | + + + Author + + + | Author | [facility] | | | and [place] | + + + | Organization | [facility] | | | and [...] Team Providers + +------+ + | Care Principal Consultant Name | Role | Phone | + +------+ + PCP | Unavailable | + +------+ + Encounter Details +--------+ + + + + | Date | Type | Department | Care Team | Description | +--------+ + + + + | 06/10/ | Orders Only | [facility] | Hank Rico MD | | | 2017 | | CONVERSION [address] | [address] | | | | | [address] | [place] [address] | | | | | [place], [place] | [phone] | | | | | [address] | | | | | | [phone] | | | +--------+ + + + [...] Not on filedocumented as of this encounter Procedures + +--------+ + + + | Procedure Name | Priori | Date/Time | Associated Diagnosis | Comments | | | ty | | | | + +--------+ + + + | CULTURE, CSF, SMEAR | RASHAD | 06/10/2018 | | Results for this | | | | 11:50 AM | | procedure are in the | | | | PST | | results section. | + +--------+ + + + documented in this encounter Results Culture, CSF, Smear (06/10/2018 11:50 AM PST) + + | Specimen | + + | | + + + + + | Narrative | Performed At | + + + | Specimen Description CEREBROSPINAL FLUID | EXTERNAL LAB | | SPECIAL REQUESTS LUMBAR SPINE DISC | | | ASPIRATION GRAM STAIN NO CELLS OR | | | ORGANISMS SEEN | | | STAIN PERFORMED ON CYTOSPIN CULTURE | | | NO GROWTH 4 DAYS | | + + + + +---------+ + + | Performing | Address | City/State/Zipcode | Phone Number | | Organization | | | | + +---------+ + + | EXTERNAL LAB | | | | + +---------+ + + documented in this encounter Visit Diagnoses Not on filedocumented in this encounter"
--- OUTSIDE RECORDS SUMMARY | ~2019-11-25 | XMS | Encounter Summary ---
Demographics + + + | Address | [address] | | | [place] [address] | + + + | Home Phone | | + + + | Preferred Language | Unknown | + + + | Marital Status | Single | + + + | Nondenominational Affiliation | Unknown | + + + | Race | Unknown | + + + | Ethnic Group | Unknown | + + + Author + + + | Author | [facility] | | | and [place] | + + + | Organization | [facility] | | [...] Team Providers + +------+ + | Care Biology Instructor Name | Role | Phone | + +------+ + PCP | Unavailable | + +------+ + Encounter Details +--------+ + + + + | Date | Type | Department | Care Team | Description | +--------+ + + + + | 04/02/ | Hospital | [facility] | Hiren Becker MD | | | 2013 | Encounter | [facility] | [address] | | | | | [address] | [address] [place], | | | | | [address] | [place] [address] | | | | | [place], [place] | [phone] | | | | | [address] | | | | | | [phone] | | | +--------+ + + + [...] + + documented as of this encounter Discharge Summaries Hiren Becker MD - 10/05/2012 8:32 AM PDT Discharge Summaries by Hiren Becker MD at 10/05/1285 Author: Hiren Becker MD Service: (none) Author Type: Physician Filed: 10/13/12 0969 Date of Service: 10/05/12831 Status: Addendum Senior Project Manager: Hiren Becker MD (Physician) Related Notes: Original Note by Hiren Becker MD (Physician) filed at 10/06/12 1058 The patient was seen in my office for a second opinion as far as IUGR. She is 34 weeks 5 days, sent over to labor and delivery for monitoring and updated biometrics. Biometrics revealed a 35th percentile baby with an ISMAEL close to 9. The patient is without complaints, desires to remain . Plan is to follow up in 48 hours in our office or Wednesday with Dr. Martinez if I can get her in there. Disposition is to home since all data supports a normal . [facility] documented in this en counter Medications at Time of Discharge + + + +---------+ + + | Medication | Sig | Dispensed | Refills | Start | End Date | | | | | | Date | | + + + +---------+ + + | albuterol 2.5 mg/3 | Take 2.5 mg by | | 0 | 03// | | | mL nebulizer | nebulization every 6 | | | 13 | | | solution | (six) hours as | | | | | | | needed. Indications: | | | | | | | Acute Bronchospasm | | | | | + + + +---------+ + + | MV-MIN-FE | Take by mouth. | | 0 | 09/28/19 | | | FUM-FA-DHA PO | | | | 13 | | + + + +---------+ + + documented as of this encounter Progress Notes Hiren Becker MD - 10/04/2012 5:54 PM PDT Progress Notes by Hiren Becker MD at 10/04/121753 Author: Hiren Becker MD Service: (none) Author Type: Physician Filed: 10/05/121749 Date of Service: 10/04/121753 Status: Signed Senior Project Manager: Hiren Becker MD (Physician) Related Notes: Original Note by Hiren Becker MD (Physician) filed at 10/05/12 0831 [facility] Service: Obstetrics & Gynecology Triage Progress Note Hospital Day: LOS: 0 days SUBJECTIVE The patient is a 22 y.o. female at 34w4d admitted for observation. The patient with IUGR per visits with Dr. Reyez. The patient called me last Wednesday for a second opinion. We instructed her to come in for evaluation because I could not give a formal one over the phone. I have discussed this patient with both Dr. Reyez and Dr. Martinez. The patient came to see me in the office today, and I re-stressed to her that the best recommendation at this point would be updated biophysical, estimated weight and cord Dopplers to guide us in management of this patient. She says that the baby is moving well. She feels great. She denies any recent drug use. She has no bleeding, no discharge, no regular contractions. She was adamant that she would to stay as long as it was safe. Scheduled Medications Continuous Infusions PRN Medications OBJECTIVE Vital Signs: BP 136/74 | Pulse 106 | Temp(Src) 98.2 F (36.8 C) (Oral) | Resp 16 | LMP 02/06/2012 | B reastfeeding? Yes General: alert, appears stated age and cooperative Fundal Height: size less than dates FHT: Baseline FHR: 136 beats per minute TOCO: none Cervical Exam: Deferred Roper Score: Deferred DATA Radiology Review: Ultrasound: cord doppler PROBLEM LIST Active Problems: * No active hospital problems. * ASSESSMENT & PLAN Assessment: IUGR and Oligohydramnios Plan: Observation The patient was seen in the office and we are unable to obtain Doppler or additional ultrasounds at 4:40 p.m., so she is sent to labor and delivery. Plan is to obtain estimated weight, cord Doppler, and biophysical profile. I expect these will come back 1 of 3 statuses; one is totally reassuring, at which point I will discuss again with the patient the best management still is hospitalization with very close monitoring to try to get to a safe age, with the exception being if somehow the weight is surprisingly good, everything is surprisingly wonderful, continued expectant management outpatient is a good idea. Second, if they are moderate then definitely hospital management and, of course, if anything is more concerning, especially cord Doppler, then proceed with delivery. It is also stressed to the patient that I am seeing her as a second opinion; in no way do I desire to assume care of her or disagree with the management otherwise. I have explained to her that there are multiple ways to manage IUGR including expectant at 34, with delivery for 34 with severe IUGR; however, in her case I discussed with Dr. Martinez, who is adamant that continued with surveillance is the best case, and at this point I will await the testing and re-discuss this with her and again present her with the options. HIREN BECKER MD 10/04/2012 documented in this en counter Plan of Treatment Not on filedocumented as of this encounter Procedures + +--------+ + + + | Procedure Name | Priori | Date/Time | Associated Diagnosis | Comments | | | ty | | | | + +--------+ + + + | US BIOPHYSICAL | Routin | 10/04/2012 | | Results for this | | PROFILE WO NON | e | 6:56 PM | | procedure are in the | | STRESS | | PDT | | results section. | + +--------+ + + + | US OB LIMITED 1 OR | Routin | 10/04/2012 | | Results for this | | MORE FETUS | e | 6:56 PM | | procedure are in the | | | | PDT | | results section. | + +--------+ + + + documented in this encounter Results US BPP wo Non Stress (10/04/2012 6:56 PM PDT) + + | Specimen | + + | | + + + + + | Narrative | Performed At | + + + | [facility] BIOPHYSICAL PROFILE WO NON STRESS TESTING | | | 10/04/2012 6:02 PM HISTORY: 22 years. Female. Biophysical | | | profile requested to assess well being. Mother is . | | | TECHNIQUE: Imaging was performed using a curved array transabdominal | | | transducer. Grayscale, color flow and M-mode techniques were | | | utilized. COMPARISON: 09/30/2012 FINDINGS: The cervical os is | | | closed. The cervix length measures 5.4 cm. The placenta is | | | located anteriorly. Possible low lying placenta noted versus a | | | contraction. Tip of the placenta to os measures 2.5 cm. The | | | position: Cephalic. Amniotic fluid index: 8.5 cm. Previous | | | amniotic fluid index measured 7.8 cm on 09/30/2012. The largest single | | | pocket of amniotic fluid measures 4.4 cm. BIOPHYSICAL PROFILE: | | | Movement = 2 Tone = 2 Breathing = 2 AFV = 2 Biophysical Profile | | | Score = 8/8 heart rate = 147 beats/min IMPRESSION: 1. | | | Biophysical Profile Score = 8/8 2. heart rate = 147 | | | beats/min 3. Amniotic fluid index: 8.5 cm. Electronically | | | signed by John Schumacher DO on 10/04/2012 7:30 PM | | + + + + + | Procedure Note | + + | Enio Herring Conversion - 02/24/2019 10:43 PM [facility] | | PROFILE WO NON STRESS TESTING10/04/2012 6:02 PM HISTORY:22 years. Female. Biophysical | | profile requested to assess well being. Mother is . TECHNIQUE:Imaging was | | performed using a curved array transabdominal transducer. Grayscale, color flow and | | M-mode techniques were utilized. COMPARISON:09/30/2012 FINDINGS:The cervical os is | | closed. The cervix length measures 5.4 cm. The placenta is located anteriorly. | | Possible low lying placenta noted versus a contraction. Tip of the placenta to os | | measures 2.5 cm. The position: Cephalic. Amniotic fluid index: 8.5 cm.Previous | | amniotic fluid index measured 7.8 cm on 09/30/2012.The largest single pocket of amniotic | | fluid measures 4.4 cm. BIOPHYSICAL PROFILE:Movement = 2Tone = 2Breathing = 2AFV = | | 2Biophysical Profile Score = 8/8 heart rate = 147 beats/min IMPRESSION:1. | | Biophysical Profile Score = 8/82. heart rate = 147 beats/min3. Amniotic fluid | | index: 8.5 cm. | |FINDINGS: | |The cervical os is closed. The cervix length measures 5.4 cm. The placenta is located ant eriorly. Possible low lying placenta noted versus a contraction. Tip of the placenta to os measures 2.5 cm. | | | |The position: Cephalic. | | | |Amniotic fluid index: 8.5 cm. | |Previous amniotic fluid index measured 7.8 cm on 09/30/2012. | |The largest single pocket of amniotic fluid measures 4.4 cm. | | | |BIOPHYSICAL PROFILE: | |Movement = 2 | |Tone = 2 | |Breathing = 2 | |AFV = 2 | |Biophysical Profile Score = 8/8 | | | | heart rate = 147 beats/min | | | |IMPRESSION: | |1. Biophysical Profile Score = 8/8 | |2. heart rate = 147 beats/min | |3. Amniotic fluid index: 8.5 cm. | | | | | + + US OB Limited 1 or More Fetus (10/04/2012 6:56 PM PDT) + + | Specimen | + + | | + + + + + | Narrative | Performed At | + + + | [facility] US OB LIMITED 10/04/2012 6:02 PM HISTORY: 22 | | | years. Female. mother. Assess size, dates and | | | cord Dopplers. TECHNIQUE: Transabdominal ultrasound evaluation of | | | the pelvis performed. COMPARISON: None. FINDINGS: A single | | | intrauterine is identified in cephalic presentation. | | | MEASUREMENTS AND CALCULATIONS: Biparietal diameter: 8.56 cm = 48% = | | | 34 weeks 4 days. Head Circumference: 31.33 cm = 28% = 35 weeks 1 | | | days. Abdominal Circumference: 30.25 cm = 45% = 34 weeks 1 days. | | | Femur Length: 6.39 cm = 9% = 33 weeks 0 days. Humerus Length: 11.05 | | | cm = 40% = 33 weeks 6 days. Estimated Weight: 2324 g +/- 349 g | | | = 34.6%. Sonographic age based on current scan: 34 weeks, 2 days. | | | Ultrasound CLINT based on current scan: 11/13/2012. heart rate: | | | 157 beats/min. Cord Dopplers: Umbilical artery at placenta: Peak | | | systolic: 49.0 cm/sec. End diastolic: 19.8 cm/sec. Resistive index: | | | 0.60. Peak systolic / end diastolic ratio: 2.5 Umbilical artery | | | at abdominal cord insertion: Peak systolic: 55.3 cm/sec. End | | | diastolic: 20.3 cm/sec. Resistive index: 0.63. Peak systolic / end | | | diastolic ratio: 2.7 Middle cerebral artery: Peak systolic: 60.0 | | | cm/sec. End diastolic: 18.2 cm/sec. Resistive index: 0.70. Peak | | | systolic / end diastolic ratio: 3.3 Ratio of the MCA / UA peak | | | systolic to end diastolic ratios: 1.32 IMPRESSION: 1. Single, | | | living intrauterine at 34 weeks, 2 days. 2. heart | | | rate: 157 beats/min. 3. Umbilical cord and middle through artery | | | Doppler measurements as above. Ratio of the MCA / UA peak systolic | | | to end diastolic ratios: 1.32. | | + + + + + | Procedure Note | + + | Enio Herring Conversion - 02/24/2019 10:43 PM PDT [facility] OB LIMITED10/04/2012 | | 6:02 PM HISTORY:22 years. Female. mother. Assess size, dates and cord | | Dopplers. TECHNIQUE:Transabdominal ultrasound evaluation of the pelvis performed. | | COMPARISON:None. FINDINGS:A single intrauterine is identified in cephalic | | presentation. MEASUREMENTS AND CALCULATIONS:Biparietal diameter: 8.56 cm = 48% = 34 | | weeks 4 days.Head Circumference: 31.33 cm = 28% = 35 weeks 1 days.Abdominal | | Circumference: 30.25 cm = 45% = 34 weeks 1 days.Femur Length: 6.39 cm = 9% = 33 weeks 0 | | days.Humerus Length: 11.05 cm = 40% = 33 weeks 6 days.Estimated Weight: 2324 g +/- | | 349 g = 34.6%.Sonographic age based on current scan: 34 weeks, 2 days.Ultrasound CLINT | | based on current scan: 11/13/2012. heart rate: 157 beats/min. Cord | | Dopplers:Umbilical artery at placenta:Peak systolic: 49.0 cm/sec.End diastolic: 19.8 | | cm/sec.Resistive index: 0.60.Peak systolic / end diastolic ratio: 2.5 Umbilical artery | | at abdominal cord insertion:Peak systolic: 55.3 cm/sec.End diastolic: 20.3 | | cm/sec.Resistive index: 0.63.Peak systolic / end diastolic ratio: 2.7 Middle cerebral | | artery:Peak systolic: 60.0 cm/sec.End diastolic: 18.2 cm/sec.Resistive index: 0.70.Peak | | systolic / end diastolic ratio: 3.3 Ratio of the MCA / UA peak systolic to end diastolic | | ratios: 1.32 IMPRESSION:1. Single, living intrauterine at 34 weeks, 2 | | days.2. heart rate: 157 beats/min.3. Umbilical cord and middle through artery | | Doppler measurements as above. Ratio of the MCA / UA peak systolic to end diastolic | | ratios: 1.32. | |Femur Length: 6.39 cm = 9% = 33 weeks 0 days. | |Humerus Length: 11.05 cm = 40% = 33 weeks 6 days. | |Estimated Weight: 2324 g +/- 349 g = 34.6%. | |Sonographic age based on current scan: 34 weeks, 2 days. | |Ultrasound CLINT based on current scan: 11/13/2012. | | heart rate: 157 beats/min. | | | |Cord Dopplers: | |Umbilical artery at placenta: | |Peak systolic: 49.0 cm/sec. | |End diastolic: 19.8 cm/sec. | |Resistive index: 0.60. | |Peak systolic / end diastolic ratio: 2.5 | | | |Umbilical artery at abdominal cord insertion: | |Peak systolic: 55.3 cm/sec. | |End diastolic: 20.3 cm/sec. | |Resistive index: 0.63. | |Peak systolic / end diastolic ratio: 2.7 | | | |Middle cerebral artery: | |Peak systolic: 60.0 cm/sec. | |End diastolic: 18.2 cm/sec. | |Resistive index: 0.70. | |Peak systolic / end diastolic ratio: 3.3 | | | |Ratio of the MCA / UA peak systolic to end diastolic ratios: 1.32 | | | |IMPRESSION: | |1. Single, living intrauterine at 34 weeks, 2 days. | |2. heart rate: 157 beats/min. | |3. Umbilical cord and middle through artery Doppler measurements as above. Ratio of the M CA / UA peak systolic to end diastolic ratios: 1.32. | | | | | + + documented in this encounter Visit Diagnoses Not on filedocumented in this encounter"
--- OUTSIDE RECORDS SUMMARY | ~2019-11-25 | XMS | Encounter Summary ---
Demographics + + + | Address | [address] | | | [place] [address] | + + + | Home Phone | | + + + | Preferred Language | Unknown | + + + | Marital Status | Single | + + + | Confucianist Affiliation | Unknown | + + + | Race | Unknown | + + + | Ethnic Group | Unknown | + + + Author + + + | Author | [facility] | | | and [place] | + + + | Organization | [facility] | | [...] Team Providers + +------+ + | Care Casino Cashier Manager Name | Role | Phone | + +------+ + PCP | Unavailable | + +------+ + Encounter Details +--------+ + + + + | Date | Type | Department | Care Team | Description | +--------+ + + + + | 04/02/ | Hospital | [facility] | Hiren Becker MD | | | 2013 | Encounter | MEDICAL [facility]ENTER [facility] | [address] | | | | | [address] | [address] [place], | | | | | [address] | [place] [address] | | | | | [place], [place] | [phone] | | | | | [address] | | | | | | [phone] | | | +--------+ + + + [...] Service: (none) Author Type: Physician Filed: 10/13/12 0963 Date of Service: 10/05/12831 Status: Addendum Headwaiter/Headwaitress: Hiren Becker MD (Physician) Related Notes: Original [...] data supports a normal . [facility] documented in this [...] 10/05/121749 Date of Service: 10/04/121753 Status: Signed Headwaiter/Headwaitress: Hiren Becker MD (Physician) Related Notes: Original Note by Hiren Becker MD (Physician) filed at 10/05/12 0831 [facility] Service: Obstetrics & Gynecology Triage Progress [...]
--- OUTSIDE RECORDS SUMMARY | ~2019-11-25 | XMS | Encounter Summary ---
Demographics + + + | Address | [address] | | | [place] [address] | + + + | Home Phone | | + + + | Preferred Language | Unknown | + + + | Marital Status | Single | + + + | Pentecostal Affiliation | Unknown | + + + [...] Team Providers + +------+ + | Care Instrumentation And Controls Technician Name | Role | Phone | + +------+ + PCP | Unavailable | + +------+ + Encounter Details +--------+ + + + + | Date | Type | Department | Care Team | Description | +--------+ + + + + | 06/10/ | Hospital | [facility] | Ariel Bai DO | Pain; Osteomyelitis | | 2018 - | Encounter | [facility] | [address] | of lumbar spine | | | | CARE FLOOR [address] | [place] [address] | ([facility]); Vertebral | | 06/15/ | [address] | [phone] | osteomyelitis ([facility]) | | 2018 | | [place], [place] | | | | | | [address] | | | | | | [phone] | | | +--------+ + + + [...] + + + | Blood Pressure | 142/90 | 06/15/2018 11:40 AM | | | | | PST | | + + + + + | Pulse | 106 | 06/15/2018 11:40 AM | | | | | PST | | + + + + + | Temperature | 37 C (98.6 F) | 06/15/2018 11:40 AM | | | | | PST | | + + + + + | Respiratory Rate | 16 | 06/15/2018 11:40 AM | | | | | PST | | + + + + + | Oxygen Saturation | - | - | | + + + + + | Inhaled Oxygen | - | - | | | Concentration | | | | + + + + + | Weight | 73.5 kg (162 lb 0.6 | 06/15/2018 11:40 AM | | | | oz) | PST | | + + + + + | Height | 165.1 cm (5' 5") | 06/15/2018 11:40 AM | | | | | PST | | + + + + + | Body Mass Index | 26.96 | 06/15/2018 11:40 AM | | | | | PST | | + + + + + documented in this encounter Discharge Summaries Chucky Perez MD - 06/15/2018 12:20 PM PST Discharge Summaries by Chucky Perez DO at 06/15/18 1220 Author: Chucky Perez DO Service: Hospitalist Author Type: Physician Filed: 06/15/18 8540 Date of Service: 06/15/18 1220 Status: Signed Interface Analyst: Chucky Perez DO (Physician) [facility] Service: Hospitalist Discharge Summary Date of Admission: 06/10/2018 Date of Discharge (Left AMA): 06/15/2018 Discharge Physician: Chucky Perez DO Treatment Team: Consulting Physician: Carol Casillas MD Admitting Provider: Ariel Bai DO Discharge Diagnoses: Principal Problem: Vertebral osteomyelitis (HCC) Active Problems: LBP IV drug abuse (HCC) Resolved Problems: * No resolved hospital problems. * Procedures: * No surgery found * BRIEF HISTORY OF PRESENTATION: Elizabeth Pederson is a 28 y.o. female who presented to [facility] with LBP x several weeks and some off and on fevers. Admits to active IVDA with heroin. Denies history of problems/infections with IVDA in the past. [facility] transferred patient to [facility] for MRI l-spine, which was done this morning and shows osteomyelitis L4-5 with phlegmon. T he patient denies major neurologic deficits and can still walk, albeit somewhat limited from the back pain. Last IV heroin use was yesterday. She was intending to check herself into a rehab in [place], [place] soon because "these days your heroin is cut with all kinds of crazy stuff, it's not even heroin any more, and I need to be around to take care of my 5 kids." Roselia pappas now the kids' dad is taking care of the kids in [place]. HOSPITAL COURSE: Patient was admitted and treated for: Vertebral osteomyelitis - Presented worsening back pain, fevers withIVDA - MRI indicative of L4-L5 diskitis, osteomyelitis with anterior epidural phlegmon without a bscess - Neurosurgery consulted on admission, no indication for neurosurgical intervention, may ne ed re-imaging for evaluation for abscess formation - ID consulted, on Rocephin, Vancomycin; anticipate 6 weeks of IV antibiotics - Lumbar vertebral CT-guided needle biopsy on 06/10, cultures pending - TTE: No Vegetations; Blood cultures no growth to date - Continue antibiotics, pain control, Flexeril, Valium PRN Heroin IVDA - Reports she was wanting to quit - Was started on Methadone for her pain,addiction, 2.5 mg PO q6h PRN pain - Pain control significantly heating pad, will decrease Methadone back to 2.5 mg PRN;Incr eases should be by 2.5 mg PO per dose once per day History of asthma - Not in acute exacerbation - PRN albuterol Patient decided to leave AMA after of family member. Discussed at length that patient needed to continue with treatment with significant risks of leaving AMA. Past Medical History Diagnosis Date Anemia Anxiety Asthma Depression Smoking 1/2 pack a day or less 1/2 ppd for 9 yrs STD (sexually transmitted disease) Hx of Chlamydia Treated Substance abuse (HCC) Hx of meth last use 06-04-2012 Past Surgical History Procedure Laterality Date OVARIAN CYST REMOVAL No Known Allergies Prescriptions Prior to Admission Medication Sig Dispense Refill Last Dose albuterol (PROVENTIL) (2.5 MG/3ML) 0.083% nebulizer solution Take 2.5 mg by nebulizatio n every 6 (six) hours as needed. Indications: Acute Bronchospasm Taking at Unknown time docusate calcium (SURFAK) 240 MG capsule Take 1 capsule by mouth daily. 90 capsule 3 ferrous gluconate (FERGON) 324 MG tablet Take 1 tablet by mouth daily with breakfast. 9 0 tablet 3 labetalol (NORMODYNE) 200 MG tablet Take 1 tablet by mouth every 12 (twelve) hours. 60 tablet 11 MV-Min-Fe Fum-FA-DHA ( 1 PO) Take by mouth. Not Taking at Unknown t kenneth DISCHARGE EXAM Vital Signs: BP 142/90 (BP Location: Right upper arm) | Pulse 106 | Temp 98.6 F (37 C) (Oral) | R daphney 16 | Ht 1.651 m (5' 5") | Wt 73.5 kg (162 lb 0.6 oz) | SpO2 98% | ? No | BMI 26.96 kg/m Temp: [97.9 F (36.6 C)-99.3 F (37.4 C)] 98.6 F (37 C) (06/15 1138) BP: (119-145)/(72-104) 142/90 (06/15 1138) Heart Rate: [75-106] 106 (06/15 1138) Resp: [16-20] 16 (06/15 1138) SpO2: [96 %-100 %] 98 % (06/15 1138) Physical Exam Constitutional: She is oriented to person, place, and time. She appears well-developed and well-nourished. HENT: Head: Normocephalic and atraumatic. Eyes: Pupils are equal, round, and reactive to light. Conjunctivae are normal. Neck: Normal range of motion. Neck supple. No tracheal deviation present. No thyromegaly pr esent. Cardiovascular: Normal rate and regular rhythm. Pulmonary/Chest: Effort normal and breath sounds normal. No respiratory distress. Abdominal: Soft. Bowel sounds are normal. She exhibits no distension. There is no tendernes s. Musculoskeletal: She exhibits tenderness. She exhibits no edema. Neurological: She is alert and oriented to person, place, and time. No cranial nerve defici t. Coordination normal. Skin: Skin is warm and dry. Psychiatric: She has a normal mood and affect. Her behavior is normal. DATA CBC: Lab Results Component Value Date WBC 9.40 06/15/2018 RBC 3.94 06/15/2018 HGB 10.5 (L) 06/15/2018 HCT 32.0 (L) 06/15/2018 MCV 81.1 06/15/2018 MCH 26.6 (L) 06/15/2018 MCHC 32.8 06/15/2018 RDW 40.3 06/15/2018 PLT 394 06/15/2018 MPV 7.0 06/15/2018 DIFFTYPE AUTOMATED 06/15/2018 CMP: Lab Results Component Value Date NA 140 06/15/2018 K 3.9 06/15/2018 CL 105 06/15/2018 CO2 27 06/15/2018 ANIONGAP 12 06/15/2018 GLUF 80 06/15/2018 BUN 9 06/15/2018 CREATININE 0.5 06/15/2018 BCR 18 06/15/2018 CA 8.5 06/15/2018 PROT 6.6 06/15/2018 ALB 2.4 (L) 06/15/2018 GLOB 4.2 06/15/2018 BILITOT 0.2 06/15/2018 ALP 109 06/15/2018 AST 9 (L) 06/15/2018 ALT 14 06/15/2018 EGFR >60 06/15/2018 Discharge took 45 minutes, to include final examination, discussion of admission, and prepa ration of prescriptions, instructions for on-going care, follow-up and documentation of disc harge summary. Chucky Perez DO 06/15/2018 12:20 PM documented in this encoun ter Medications at Time of Discharge + + + +---------+ + + | Medication | Sig | Dispensed | Refills | Start | End Date | | | | | | Date | | + + + +---------+ + + | albuterol 2.5 mg/3 | Take 2.5 mg by | | 0 | 09/28/19 | | | mL nebulizer | nebulization [...] documented as of this encounter Progress Notes Conversion Transaction, Provider Unknown - 06/15/2018 12:42 PM PSTFormatting of this note m ight be different from the original. Nurse Progress Note by Lissette Rios RN at 06/15/18 1390 Author: Lissette Rios RN Service: (none) Author Type: Registered Nurse Filed: 06/15/18 1641 Date of Service: 06/15/181241 Status: Signed Interface Analyst: Lissette Rios RN (Registered Nurse) Patient stating she wants to leave. Dr. Perez discussed risks involved. Patient states her g randmother just , and she needs to check on her family. This RN attempted to offer alter natives, suggesting her family visit from [place]. Patient states this isn't possible. Ashley knapp also states she cannot even call family d/t long distance. This RN offered a calling ca rd, patient refused. Patient stating "I just want to leave, I just want this thing out". IV removed. AMA form signed. Security called for belongings. Per patient, a friend will provide transportation. Lissette Rios RN Chucky Purvis MD - 06/15/2018 11:35 AM PSTFormatting of this note might be different from the origin al. Progress Notes by Chucky Perez DO at 06/15/18 2552 Author: Chucky Perez DO Service: Hospitalist Author Type: Physician Filed: 12/06/21 1138 Date of Service: 06/15/181134 Status: Signed Interface Analyst: Chucky Perez DO (Physician) [facility] Service: Hospitalist Progress Note Pt: Elizabeth Pederson AGE/SEX: 28 y.o. female ROOM: 7105/7105-1 PCP: Per PT None : 1990 TODAY'S DATE: 06/15/2018 Hospital Day: LOS: 5 days Post-Op Day: * No surgery found * SUBJECTIVE Patient Summary: Per H&P: presented to [facility] with LBP x several week s and some off and on fevers. Admits to active IVDA with heroin. Denies history of problems/ infections with IVDA in the past. [facility] transferred patient to [facility] ED for MRI l-s pine, which was done this morning and shows osteomyelitis L4-5 with phlegmon. The patient de nies major neurologic deficits and can still walk, albeit somewhat limited from the back telly n. Last IV heroin use was yesterday. She was intending to check herself into a rehab in [facility], [place] soon because "these days your heroin is cut with all kinds of crazy stuff, it's n ot even heroin any more, and I need to be around to take care of my 5 kids." Right now the fadi mayo' dad is taking care of the kids in [place]. Events Overnight: Patient seen and examined. Reports having more difficulty overnight with back pain, anxiety. Afebrile. Tolerating PO diet. Pain now well controlled. Scheduled Medications cefTRIAXone 1 g Intravenous Q24H enoxaparin 40 mg Subcutaneous Q24H lidocaine 10 mL Intradermal Once sodium bicarbonate buffer 5 mL Infiltration Once sodium chloride 10 mL Intravenous Q8H vancomycin 1,250 mg Intravenous Q8H Continuous Infusions PRN Medications acetaminophen OR acetaminophen, albuterol, cyclobenzaprine, diazepam, methadone, ondans etron OR ondansetron, polyethylene glycol OBJECTIVE Vital Signs: BP (!) 137/104 (BP Location: Right upper arm) | Pulse 75 | Temp 98.6 F (37 C) (Oral) | Resp 16 | Ht 1.651 m (5' 5") | Wt 73.5 kg (162 lb 0.6 oz) | SpO2 100% | ? No | BMI 26.96 kg/m Temp: [97.9 F (36.6 C)-99.3 F (37.4 C)] 98.6 F (37 C) (06/15 815) BP: (119-145)/(72-104) 137/104 (06/15 815) Heart Rate: [75-93] 75 (06/15 815) Resp: [16-20] 16 (06/15 815) SpO2: [96 %-100 %] 100 % (06/15 815) GENERAL: Alert and oriented x3. No acute distress. HEENT: Moist mucous membranes. Pupils equally round and reactive to light. Extraocular musc les intact. HEART: Regular rhythm. No murmurs. LUNGS: Clear to auscultation bilaterally. ABDOMEN: Bowel sounds present. Nontender, nondistended. No guarding, no rebound. EXTREMITIES: Negative for clubbing, cyanosis, or edema. Decreased ROM of RLE secondary to p ain, improved NEUROLOGIC: Within normal limits. Cranial nerves II to XII grossly intact. SKIN: Wounds, ulcers, or skin lesions negative. DATA CBC: Lab Results Component Value Date WBC 9.40 06/15/2018 RBC 3.94 06/15/2018 HGB 10.5 (L) 06/15/2018 HCT 32.0 (L) 06/15/2018 MCV 81.1 06/15/2018 MCH 26.6 (L) 06/15/2018 MCHC 32.8 06/15/2018 RDW 40.3 06/15/2018 PLT 394 06/15/2018 MPV 7.0 06/15/2018 DIFFTYPE AUTOMATED 06/15/2018 CMP: Lab Results Component Value Date NA 140 06/15/2018 K 3.9 06/15/2018 CL 105 06/15/2018 CO2 27 06/15/2018 ANIONGAP 12 06/15/2018 GLUF 80 06/15/2018 BUN 9 06/15/2018 CREATININE 0.5 06/15/2018 BCR 18 06/15/2018 CA 8.5 06/15/2018 PROT 6.6 06/15/2018 ALB 2.4 (L) 06/15/2018 GLOB 4.2 06/15/2018 BILITOT 0.2 06/15/2018 ALP 109 06/15/2018 AST 9 (L) 06/15/2018 ALT 14 06/15/2018 EGFR >60 06/15/[address] Guided Needle Placement Result Date: 06/10/2018 CT-guided aspiration of L4-L5 disc. Electronically signed by Hank Rico MD on 018 1:23 PM Mri Lumbar Spine With And Without Contrast Result Date: 06/10/2018 1. L4-L5 diskitis and osteomyelitis. 2. L4 and L5 anterior epidural phlegmon with moderate central canal narrowing. 3. Enhancement of anterior paravertebral soft tissues at the L4 and L5 levels consistent with cellulitis/myositis. No abscess identified. RADIA Electronically signed by Jonas Olvera on Jun 10 2018 6:40AM Referring Provider Line: [phone] ID: [id number] Echo Cardiac Adult Complete Result Date: 06/10/2018 1. No vegetation visualized. PROBLEM LIST Principal Problem: Vertebral osteomyelitis (HCC) Active Problems: LBP IV drug abuse ([facility]) ASSESSMENT & PLAN Vertebral osteomyelitis - Presented worsening back pain, fevers withIVDA - MRI indicative of L4-L5 diskitis, osteomyelitis with anterior epidural phlegmon without a bscess - Neurosurgery consulted on admission, no indication for neurosurgical intervention, may ne ed re-imaging for evaluation for abscess formation - ID consulted, on Rocephin, Vancomycin; anticipate 6 weeks of IV antibiotics - Lumbar vertebral CT-guided needle biopsy on 06/10, cultures pending - TTE: No Vegetations; Blood cultures no growth to date - Continue antibiotics, pain control, Flexeril, Valium PRN Heroin IVDA - Reports she was wanting to quit - Was started on Methadone for her pain,addiction, 2.5 mg PO q6h PRN pain - Pain control significantly heating pad, will decrease Methadone back to 2.5 mg PRN;Incr eases should be by 2.5 mg PO per dose once per day History of asthma - Not in acute exacerbation - PRN albuterol Disposition: Continue antibiotics, pain control, awaiting placement Code Status: Full Code Chucky Perez DO 06/15/2018 11:35 AM Carol Serra MD - 06/15/2018 8:29 AM PST Progress Notes by Carol Casillas MD at 06/15/18828 Author: Carol Casillas MD Service: Infectious Disease Author Type: Physician Filed: 06/15/18 1227 Date of Service: 06/15/18828 Status: Signed Interface Analyst: Carol Casillas MD (Physician) [facility] Service: Infectious Disease Progress Note Hospital Day: LOS: 5 days Post-Op Day: * No surgery found * SUBJECTIVE Patient Summary: Re: Lumbar discitis/osteomyelitis From ID consult note on 06/10: The patient is a 28 y.o. female with significant past medica l history of substance abuse, uses IV heroin with last use the day prior to admission, anxie ty, depression, asthma, history of treated Chlamydia. The patient has been having low back pain for several weeks with intermittent fever. She de nies lower extremity weakness or numbness, bladder or bowel incontinence. She went to [facility] ER and transferred to the [facility] ER for lumbar spine MRI which showed L4-L5 osteomye litis/discitis with phlegmon. In the ER, she was afebrile, hemodynamically stable. CT-guided aspiration biopsy of the lumbar space was carried out prior to initiation of antibiotics. 2 sets of blood cultures were also obtained. Patient was started afterwards on IV vancomycin and ceftriaxone. The patient is currently very tired and sleepy. She denies nausea, vomiting, chest pain, co ugh. Events Overnight: Afebrile and hemodynamically stable. Reportedly was anxious and thomas d back pain last night. Pain better controlled this morning; currently resting. No reported diarrhea. Scheduled Medications cefTRIAXone 1 g Intravenous Q24H enoxaparin 40 mg Subcutaneous Q24H lidocaine 10 mL Intradermal Once sodium bicarbonate buffer 5 mL Infiltration Once sodium chloride 10 mL Intravenous Q8H vancomycin 1,250 mg Intravenous Q8H Continuous Infusions PRN Medications acetaminophen OR acetaminophen, albuterol, cyclobenzaprine, diazepam, methadone, ondans etron OR ondansetron, polyethylene glycol OBJECTIVE Vital Signs: BP (!) 137/104 (BP Location: Right upper arm) | Pulse 75 | Temp 98.6 F (37 C) (Oral) | Resp 16 | Ht 1.651 m (5' 5") | Wt 73.5 kg (162 lb 0.6 oz) | SpO2 100% | ? No | BMI 26.96 kg/m Temp: [97.9 F (36.6 C)-99.3 F (37.4 C)] 98.6 F (37 C) (06/15 1138) BP: (119-145)/(72-104) 142/90 (06/15 1138) Heart Rate: [75-106] 106 (06/15 1138) Resp: [16-20] 16 (06/15 1138) SpO2: [96 %-100 %] 98 % (06/15 1138) Physical Exam Vital signs have been reviewed Gen.: Not in acute physical distress; resting Lungs: No adventitious breath sounds Cardiovascular: Normal rate. Regular rhythm. No murmur or rubs Abdomen: No distention. Soft. Musculoskeletal: No inflamed looking joints. DATA CBC: Lab Results Component Value Date WBC 9.40 06/15/2018 RBC 3.94 06/15/2018 HGB 10.5 (L) 06/15/2018 HCT 32.0 (L) 06/15/2018 MCV 81.1 06/15/2018 MCH 26.6 (L) 06/15/2018 MCHC 32.8 06/15/2018 RDW 40.3 06/15/2018 PLT 394 06/15/2018 MPV 7.0 06/15/2018 DIFFTYPE AUTOMATED 06/15/2018 WBC: Lab Results Component Value Date WBC 9.40 06/15/2018 NEUTROABS 6.14 06/15/2018 LYMPHSABS 2.23 06/15/2018 LYMPHOPCT 23.75 06/15/2018 MONOPCT 5.85 06/15/2018 EOSABS 0.35 06/15/2018 EOSPCT 3.72 06/15/2018 BASOSABS 0.13 (H) 06/15/2018 BASOPCT 1.39 06/15/2018 CMP: Lab Results Component Value Date NA 140 06/15/2018 K 3.9 06/15/2018 CL 105 06/15/2018 CO2 27 06/15/2018 ANIONGAP 12 06/15/2018 GLUF 80 06/15/2018 BUN 9 06/15/2018 CREATININE 0.5 06/15/2018 BCR 18 06/15/2018 CA 8.5 06/15/2018 PROT 6.6 06/15/2018 ALB 2.4 (L) 06/15/2018 GLOB 4.2 06/15/2018 BILITOT 0.2 06/15/2018 ALP 109 06/15/2018 AST 9 (L) 06/15/2018 ALT 14 06/15/2018 EGFR >60 06/15/2018 Lab Results Component Value Date CRP 13.0 (H) 06/10/2018 Lab Results Component Value Date ESR 79 (H) 06/10/2018 Component Latest Ref Rng & Units 06/14/2018 1:42 PM VANCOMYCIN,TROUGH 10 - 20 ug/mL 16.3 Component Latest Ref Rng & Units 06/10/2018 5:43 PM Preg Test, Ur NEGATIVE NEGATIVE Component Latest Ref Rng & Units 06/11/2018 5:36 AM HIV1/HIV2 NON REACTIVE NON REACTIVE Component Latest Ref Rng & Units 06/11/2018 5:36 AM Hep A Total Ab NON REACTIVE NON REACTIVE HEP B SURFACE AG NON REACTIVE NON REACTIVE HEP B CORE AB,TOTAL NON REACTIVE NON REACTIVE HEP B SURFACE ANTIBODY <1.00 IV 2.76 (H) HEPATITIS C NON REACTIVE NON REACTIVE HEPATITIS INTERP No serologic evidence of HAV or HCV infection. Reactive anti HBs suggests vaccine or p revious Hepatitis B. Microbiology data: 06/10 blood cultures with no growth to date 06/10 lumbar disc aspirate with no growth Radiology data: MRI of the lumbar spine with and without contrast Impression 1. L4-L5 diskitis and osteomyelitis. 2. L4 and L5 anterior epidural phlegmon with moderate central canal narrowing. 3. Enhancement of anterior paravertebral soft tissues at the L4 and L5 levels consistent with cellulitis/myositis. No abscess identified. Brodie PATTEN Electronically signed by Jonas Olvera on Jun 10 2018 6:40AM Referring Provi pineda Line: [phone] ID: [id number] Transthoracic echocardiogram Impression 1. No vegetation visualized. PROBLEM LIST Principal Problem: Vertebral osteomyelitis (HCC) Active Problems: LBP IV drug abuse (HCC) ASSESSMENT & PLAN L4-L5 osteomyelitis/discitis with phlegmon but no abscess -Neurologically intact -This is in the context of IV drug use, with last use of heroin the day prior to admission -2 sets of blood cultures with no growth -CT-guided aspiration biopsy culture with no growth and Gram stain with no organisms; spec imen obtained off antibiotics -Transthoracic echocardiogram shows no evidence of endocarditis -Continue IV vancomycin with pharmacy monitoring dosing - currently therapeutic; recommend ed target trough of 15-20. Continue IV ceftriaxone. Given history of IV drug use, not safe for discharge with home IV antibiotic therapy. She will need to continue IV antibiotic treatment in a monitored setting -Case management consulted for IV antibiotics on discharge - 6 weeks duration. -Orders for IV vancomycin/ceftriaxone, antibiotic stop date 07/22/2018 in [facility] and paper art. Weekly lab orders also in place Discharge planning ongoing -PICC placement when there is definite discharge plan History of IV drug use -HIV negative -No evidence of hepatitis C infection; immune to hepatitis B most likely from vaccination - test negative -patient intends to proceed with stopping illicit drug use Code Status: Full Code CAROL CASILLAS MD 06/15/2018 onversion Membreno saction, Provider Unknown - 06/14/2018 2:25 PM PSTFormatting of this note might be differen t from the original. Pharmacy Note by Carrie Covarrubias RPH at 06/14/181424 Author: Carrie Covarrubias RPH Service: Pharmacy Author Type: Pharmacist Filed: 06/14/181424 Date of Service: 06/14/181424 Status: Signed Interface Analyst: Carrie Covarrubias RPH (Pharmacist) Clinical Pharmacy Note: Pharmacy Dosing Vancomycin; Day 5 Ht Readings from Last 1 Encounters: 06/10/18 1.651 m (5' 5") Wt Readings from Last 1 Encounters: 06/12/18 73.5 kg (162 lb 0.6 oz) Lab Results Component Value Date WBC 9.72 06/14/2018 Serum creatinine: 0.5 mg/dL 06/14/18 0509 Estimated creatinine clearance: 165.2 mL/min INDICATION: Osteomyelitis Recent level drawn 06/14 at 13:42 - 16.3 mcg/mL; trough goal 15 to 20 mcg/mL. Level within goal range. Continue current regimen: Vancomycin 1250 mg IV Q8H. Next level due 06/15 at 13:00. Carrie Covarrubias RPh 06/14/2018 2:24 PM onver maureen Transaction, Provider Unknown - 06/14/2018 10:45 AM PST Case Management by Mariya Sanchez RN at 06/14/18 1045 Author: Mariya Sanchez RN Service: (none) Author Type: Registered Nurse Filed: 06/14/18 1341 Date of Service: 06/14/18 104 Status: Addendum Interface Analyst: Mariya Sanchez RN (Registered Nurse) Related Notes: Original Note by Mariya Sanchez RN (Registered Nurse) filed at 06/14/18 1102 1045: spoke with Dr Perez- pt is medically ready for discharge. She will need a PICC placed once accepted. I called Darian at [facility] in [place]- no answer, left voice mail. 1055: Darian from [facility] called back saying that they are unable to accept the pt. She said that they have had these pt's in the past but that they seem to do better if they are not from the area. 1100: spoke with pt and informed him about other options- informed her about [facility] in [place], [place], and [place]. She said that she would prefer [place], referral sent to [facility]. Attended afternoon rounds with Dr Perez: working on placement. IV Abx for 6 weeks. Chucky Purvis MD - 06/14/2018 9:12 AM PSTFormatting of this note might be different from the origin al. Progress Notes by Chucky Perez DO at 06/14/18911 Author: Chucky Perez DO Service: Hospitalist Author Type: Physician Filed: 06/14/18914 Date of Service: 06/14/18911 Status: Signed Interface Analyst: Chucky Perez DO (Physician) [facility] Service: Hospitalist Progress Note Pt: Elizabeth Pederson AGE/SEX: 28 y.o. female ROOM: [address] [place] [address] PCP: Per PT None : 1990 TODAY'S DATE: 06/14/2018 Hospital Day: LOS: 4 days Post-Op Day: * No surgery found * SUBJECTIVE Patient Summary: Per H&P: presented to [facility] with LBP x several week s and some off and on fevers. Admits to active IVDA with heroin. Denies history of problems/ infections with IVDA in the past. [facility] transferred patient to [facility] ED for MRI l-s pine, which was done this morning and shows osteomyelitis L4-5 with phlegmon. The patient de nies major neurologic deficits and can still walk, albeit somewhat limited from the back telly n. Last IV heroin use was yesterday. She was intending to check herself into a rehab in [facility], [place] soon because "these days your heroin is cut with all kinds of crazy stuff, it's n ot even heroin any more, and I need to be around to take care of my 5 kids." Right now the fadi mayo' dad is taking care of the kids in [place]. Events Overnight: Patient seen and examined. Reports no significant problems overnigh t. Afebrile. Reports more muscle spasms of lower back. Tolerating PO diet. No changes in sen sation, loss of bladder/bowel. Ambulating well. Scheduled Medications cefTRIAXone 1 g Intravenous Q24H enoxaparin 40 mg Subcutaneous Q24H lidocaine 10 mL Intradermal Once sodium bicarbonate buffer 5 mL Infiltration Once sodium chloride 10 mL Intravenous Q8H vancomycin 1,250 mg Intravenous Q8H Continuous Infusions PRN Medications acetaminophen OR acetaminophen, albuterol, cyclobenzaprine, LORazepam, methadone, ondan setron OR ondansetron, polyethylene glycol OBJECTIVE Vital Signs: BP 141/88 (BP Location: Left upper arm) | Pulse 71 | Temp 98.8 F (37.1 C) (Oral) | R daphney 16 | Ht 1.651 m (5' 5") | Wt 73.5 kg (162 lb 0.6 oz) | SpO2 97% | ? No | BMI 26.96 kg/m Temp: [98 F (36.7 C)-99.2 F (37.3 C)] 98.8 F (37.1 C) (06/14 735) BP: (123-158)/(72-95) 141/88 (06/14 735) Heart Rate: [71-85] 71 (06/14 735) Resp: [16-20] 16 (06/14 735) SpO2: [96 %-98 %] 97 % (06/14 735) GENERAL: Alert and oriented x3. No acute distress. HEENT: Moist mucous membranes. Pupils equally round and reactive to light. Extraocular musc les intact. HEART: Regular rhythm. No murmurs. LUNGS: Clear to auscultation bilaterally. ABDOMEN: Bowel sounds present. Nontender, nondistended. No guarding, no rebound. EXTREMITIES: Negative for clubbing, cyanosis, or edema. Decreased ROM of RLE secondary to p ain, improved NEUROLOGIC: Within normal limits. Cranial nerves II to XII grossly intact. SKIN: Wounds, ulcers, or skin lesions negative. DATA CBC: Lab Results Component Value Date WBC 9.72 06/14/2018 RBC 3.99 06/14/2018 HGB 10.5 (L) 06/14/2018 HCT 32.2 (L) 06/14/2018 MCV 80.7 06/14/2018 MCH 26.2 (L) 06/14/2018 MCHC 32.5 06/14/2018 RDW 39.4 06/14/2018 PLT 383 06/14/2018 MPV 7.0 06/14/2018 DIFFTYPE AUTOMATED 06/14/2018 CMP: Lab Results Component Value Date NA 140 06/14/2018 K 3.8 06/14/2018 CL 105 06/14/2018 CO2 26 06/14/2018 ANIONGAP 13 06/14/2018 GLUF 79 06/14/2018 BUN 10 06/14/2018 CREATININE 0.5 06/14/2018 BCR 20 06/14/2018 CA 8.5 06/14/2018 PROT 6.8 06/14/2018 ALB 2.3 (L) 06/14/2018 GLOB 4.5 06/14/2018 BILITOT 0.1 06/14/2018 ALP 101 06/14/2018 AST 11 06/14/2018 ALT 14 06/14/2018 EGFR >60 06/14/[address] Guided Needle Placement Result Date: 06/10/2018 CT-guided aspiration of L4-L5 disc. Electronically signed by Hank Rico MD on 018 1:23 PM Mri Lumbar Spine With And Without Contrast Result Date: 06/10/2018 1. L4-L5 diskitis and osteomyelitis. 2. L4 and L5 anterior epidural phlegmon with moderate central canal narrowing. 3. Enhancement of anterior paravertebral soft tissues at the L4 and L5 levels consistent with cellulitis/myositis. No abscess identified. RADIA Electronically signed by Jonas Olvera on Jun 10 2018 6:40AM Referring Provider Line: [phone] ID: [id number] Echo Cardiac Adult Complete Result Date: 06/10/2018 1. No vegetation visualized. PROBLEM LIST Principal Problem: Vertebral osteomyelitis (HCC) Active Problems: LBP IV drug abuse (HCC) ASSESSMENT & PLAN Vertebral osteomyelitis - Presented worsening back pain, fevers withIVDA - MRI indicative of L4-L5 diskitis, osteomyelitis with anterior epidural phlegmon without a bscess - Neurosurgery consulted on admission, no indication for neurosurgical intervention, may ne ed re-imaging for evaluation for abscess formation - ID consulted, on Rocephin, Vancomycin; anticipate 6 weeks of IV antibiotics - Lumbar vertebral CT-guided needle biopsy on 06/10, cultures pending - TTE: No Vegetations; Blood cultures no growth to date - Continue antibiotics, pain control, will add Flexeril Heroin IVDA - Reports she was wanting to quit - Was started on Methadone for her pain,addiction, 2.5 mg PO q6h PRN pain - Pain control significantly heating pad, will decrease Methadone back to 2.5 mg PRN;Incr eases should be by 2.5 mg PO per dose once per day History of asthma - Not in acute exacerbation - PRN albuterol Disposition: Continue antibiotics, awaiting placement Code Status: Full Code Chucky Perez DO 06/14/2018 9:12 AM Carol Serra MD - 06/14/2018 8:30 AM PST Progress Notes by Carol Casillas MD at 06/14/18829 Author: Carol Casillas MD Service: Infectious Disease Author Type: Physician Filed: 06/14/18 103 Date of Service: 06/14/18829 Status: Signed Interface Analyst: Carol Casillas MD (Physician) [facility] Service: Infectious Disease Progress Note Hospital Day: LOS: 4 days Post-Op Day: * No surgery found * SUBJECTIVE Patient Summary: Re: Lumbar discitis/osteomyelitis From ID consult note on 06/10: The patient is a 28 y.o. female with significant past medica l history of substance abuse, uses IV heroin with last use the day prior to admission, anxie ty, depression, asthma, history of treated Chlamydia. The patient has been having low back pain for several weeks with intermittent fever. She de nies lower extremity weakness or numbness, bladder or bowel incontinence. She went to [facility] ER and transferred to the [facility] ER for lumbar spine MRI which showed L4-L5 osteomye litis/discitis with phlegmon. In the ER, she was afebrile, hemodynamically stable. CT-guided aspiration biopsy of the lumbar space was carried out prior to initiation of antibiotics. 2 sets of blood cultures were also obtained. Patient was started afterwards on IV vancomycin and ceftriaxone. The patient is currently very tired and sleepy. She denies nausea, vomiting, chest pain, co ugh. Events Overnight: No acute issues reported. Continues to have pain relief with curre nt pain medications. Afebrile. No new neurologic deficits. Scheduled Medications cefTRIAXone 1 g Intravenous Q24H enoxaparin 40 mg Subcutaneous Q24H lidocaine 10 mL Intradermal Once sodium bicarbonate buffer 5 mL Infiltration Once sodium chloride 10 mL Intravenous Q8H vancomycin 1,250 mg Intravenous Q8H Continuous Infusions PRN Medications acetaminophen OR acetaminophen, albuterol, LORazepam, methadone, ondansetron OR ond ansetron, polyethylene glycol OBJECTIVE Vital Signs: BP 141/88 (BP Location: Left upper arm) | Pulse 71 | Temp 98.8 F (37.1 C) (Oral) | R daphney 16 | Ht 1.651 m (5' 5") | Wt 73.5 kg (162 lb 0.6 oz) | SpO2 97% | ? No | BMI 26.96 kg/m Temp: [98 F (36.7 C)-99.2 F (37.3 C)] 98.8 F (37.1 C) (06/14 735) BP: (123-158)/(72-95) 141/88 (06/14 07) Heart Rate: [71-85] 71 (06/14 735) Resp: [16-20] 16 (06/14 735) SpO2: [96 %-98 %] 97 % (06/14 735) Physical Exam Vital signs have been reviewed Gen.: Not in acute physical distress HEENT: Normocephalic. Anicteric sclera. No conjunctival lesions. No nasal mucosal lesions. No oral thrush or ulcers. Supple neck with no cervical lymphadenopathy Lungs: No adventitious breath sounds Cardiovascular: Normal rate. Regular rhythm. No murmur or rubs Abdomen: No distention. Soft. No tenderness, rebound or guarding Musculoskeletal: No inflamed looking joints. No spine tenderness Neurologic: Oriented 3. Motor strength intact in lower extremities. Appreciates light karli ch at both lower extremities Psychiatric: Cooperative and appropriate affect DATA CBC: Lab Results Component Value Date WBC 9.72 06/14/2018 RBC 3.99 06/14/2018 HGB 10.5 (L) 06/14/2018 HCT 32.2 (L) 06/14/2018 MCV 80.7 06/14/2018 MCH 26.2 (L) 06/14/2018 MCHC 32.5 06/14/2018 RDW 39.4 06/14/2018 PLT 383 06/14/2018 MPV 7.0 06/14/2018 DIFFTYPE AUTOMATED 06/14/2018 WBC: Lab Results Component Value Date WBC 9.72 06/14/2018 NEUTROABS 6.55 06/14/2018 LYMPHSABS 2.16 06/14/2018 LYMPHOPCT 22.23 06/14/2018 MONOPCT 5.74 06/14/2018 EOSABS 0.31 06/14/2018 EOSPCT 3.18 06/14/2018 BASOSABS 0.14 (H) 06/14/2018 BASOPCT 1.48 06/14/2018 CMP: Lab Results Component Value Date NA 140 06/14/2018 K 3.8 06/14/2018 CL 105 06/14/2018 CO2 26 06/14/2018 ANIONGAP 13 06/14/2018 GLUF 79 06/14/2018 BUN 10 06/14/2018 CREATININE 0.5 06/14/2018 BCR 20 06/14/2018 CA 8.5 06/14/2018 PROT 6.8 06/14/2018 ALB 2.3 (L) 06/14/2018 GLOB 4.5 06/14/2018 BILITOT 0.1 06/14/2018 ALP 101 06/14/2018 AST 11 06/14/2018 ALT 14 06/14/2018 EGFR >60 06/14/2018 Component Latest Ref Rng & Units 06/13/2018 12:42 PM VANCOMYCIN,TROUGH 10 - 20 ug/mL 14.9 Lab Results Component Value Date ESR 79 (H) 06/10/2018 Lab Results Component Value Date CRP 13.0 (H) 06/10/2018 Component Latest Ref Rng & Units 06/10/2018 5:43 PM Preg Test, Ur NEGATIVE NEGATIVE Component Latest Ref Rng & Units 06/11/2018 5:36 AM HIV1/HIV2 NON REACTIVE NON REACTIVE Component Latest Ref Rng & Units 06/11/2018 5:36 AM Hep A Total Ab NON REACTIVE NON REACTIVE HEP B SURFACE AG NON REACTIVE NON REACTIVE HEP B CORE AB,TOTAL NON REACTIVE NON REACTIVE HEP B SURFACE ANTIBODY <1.00 IV 2.76 (H) HEPATITIS C NON REACTIVE NON REACTIVE HEPATITIS INTERP No serologic evidence of HAV or HCV infection. Reactive anti HBs suggests vaccine or p revious Hepatitis B. Microbiology data: 06/10 blood cultures with no growth to date 06/10 lumbar disc aspirate with no growth Radiology data: MRI of the lumbar spine with and without contrast Impression 1. L4-L5 diskitis and osteomyelitis. 2. L4 and L5 anterior epidural phlegmon with moderate central canal narrowing. 3. Enhancement of anterior paravertebral soft tissues at the L4 and L5 levels consistent with cellulitis/myositis. No abscess identified. R SANDOR Electronically signed by Jonas Olvera on Jun 10 2018 6:40AM Referring Provi pineda Line: [phone] ID: [id number] Transthoracic echocardiogram Impression 1. No vegetation visualized. PROBLEM LIST Principal Problem: Vertebral osteomyelitis (HCC) Active Problems: LBP IV drug abuse (HCC) ASSESSMENT & PLAN L4-L5 osteomyelitis/discitis with phlegmon but no abscess -Neurologically intact -This is in the context of IV drug use, with last use of heroin the day prior to admission -2 sets of blood cultures with no growth to date -CT-guided aspiration biopsy culture with no growth and Gram stain with no organisms; spec imen obtained off antibiotics -Transthoracic echocardiogram shows no evidence of endocarditis -Continue IV vancomycin with pharmacy monitoring dosing - currently therapeutic; recommend ed target trough of 15-20. Continue IV ceftriaxone. Given history of IV drug use, not safe for discharge with home IV antibiotic therapy. She will need to continue IV antibiotic treatment in a monitored setting -Case management consulted for IV antibiotics on discharge - 6 weeks duration. Patient pr efers discharge to SNF in [place] -Orders for IV vancomycin/ceftriaxone, antibiotic stop date 07/22/2018 in Epic and paper art. Weekly lab orders also in place -PICC placement only when there is definite discharge plan History of IV drug use -HIV negative -No evidence of hepatitis C infection; immune to hepatitis B most likely from vaccination - test negative -patient intends to proceed with stopping illicit drug use Case discussed with Dr. Perez Will follow peripherally while in-hospital Code Status: Full Code CAROL CASILLAS MD 06/14/2018 onversion Membreno saction, Provider Unknown - 06/14/2018 6:34 AM PSTFormatting of this note might be differen t from the original. Nurse Progress Note by Cherry Sierra RN at 06/14/18633 Author: Cherry Sierra RN Service: (none) Author Type: Registered Nurse Filed: 06/14/18633 Date of Service: 06/14/18633 Status: Signed Interface Analyst: Cherry Sierra RN (Registered Nurse) IV abx administered. No acute changes during shift. VSS. 24 hour chart check and end of ana cristina ft review completed. Cherry Sierra RN onver maureen Transaction, Provider Unknown - 06/13/2018 1:27 PM PST Progress Notes by Ara Kraus RPH at 06/13/181326 Author: Ara Kraus RPH Service: Pharmacy Author Type: Pharmacist Filed: 06/13/181326 Date of Service: 06/13/181326 Status: Signed Interface Analyst: Ara Kraus RPH (Pharmacist) Clinical Pharmacy Note: Vancomycin Day 4 Goal Trough: 15-20 mcg/mL Current dose: 1250 mg IV Q8H Last trough: 14.9 mcg/mL 06/13 @ 1242 Serum creatinine: 0.5 mg/dL 06/13/18 0454 Estimated creatinine clearance: 165.2 mL/min. Plan: Continue same dose. Next trough level 06/14 @ 1300. Elise Barry.D. 06/13/2018 1:24 PM Chucky Purvis MD - 06/13/2018 12:18 PM PSTFormatting of this note might be different from the origin al. Progress Notes by Chucky Perez DO at 06/13/18 1218 Author: Chucky Perez DO Service: Hospitalist Author Type: Physician Filed: 06/13/18 1222 Date of Service: 06/13/181217 Status: Signed Interface Analyst: Chucky Perez DO (Physician) [facility] Service: Hospitalist Progress Note Pt: Elizabeth Pederson AGE/SEX: 28 y.o. female ROOM: [address] [place] [address] PCP: Per PT None : 1990 TODAY'S DATE: 06/13/2018 Hospital Day: LOS: 3 days Post-Op Day: * No surgery found * SUBJECTIVE Patient Summary: Per H&P: presented to [facility] with LBP x several week s and some off and on fevers. Admits to active IVDA with heroin. Denies history of problems/ infections with IVDA in the past. [facility] transferred patient to [facility] ED for MRI l-s pine, which was done this morning and shows osteomyelitis L4-5 with phlegmon. The patient de nies major neurologic deficits and can still walk, albeit somewhat limited from the back telly n. Last IV heroin use was yesterday. She was intending to check herself into a rehab in [facility], [place] soon because "these days your heroin is cut with all kinds of crazy stuff, it's n ot even heroin any more, and I need to be around to take care of my 5 kids." Right now the fadi mayo' dad is taking care of the kids in [place]. Events Overnight: Patient seen and examined. Reports feeling better today, pain signi ficantly improved with heating pad. Afebrile. Tolerating PO diet. Ambulating. No chest pain, shortness of breath. Scheduled Medications cefTRIAXone 1 g Intravenous Q24H enoxaparin 40 mg Subcutaneous Q24H lidocaine 10 mL Intradermal Once sodium bicarbonate buffer 5 mL Infiltration Once sodium chloride 10 mL Intravenous Q8H vancomycin 1,250 mg Intravenous Q8H Continuous Infusions PRN Medications acetaminophen OR acetaminophen, albuterol, LORazepam, methadone, ondansetron OR ond ansetron, polyethylene glycol OBJECTIVE Vital Signs: BP 123/72 (BP Location: Left upper arm) | Pulse 85 | Temp 98.8 F (37.1 C) (Oral) | R daphney 20 | Ht 1.651 m (5' 5") | Wt 73.5 kg (162 lb 0.6 oz) | SpO2 97% | ? No | BMI 26.96 kg/m Temp: [98.4 F (36.9 C)-98.8 F (37.1 C)] 98.8 F (37.1 C) (06/13 1131) BP: (120-155)/(72-95) 123/72 (06/13 1131) Heart Rate: [72-95] 85 (06/13 1131) Resp: [17-20] 20 (06/13 1131) SpO2: [95 %-100 %] 97 % (06/13 1131) Weight: [73.5 kg (162 lb 0.6 oz)] 73.5 kg (162 lb 0.6 oz) (06/12 1950) GENERAL: Alert and oriented x3. No acute distress. HEENT: Moist mucous membranes. Pupils equally round and reactive to light. Extraocular musc les intact. HEART: Regular rhythm. No murmurs. LUNGS: Clear to auscultation bilaterally. ABDOMEN: Bowel sounds present. Nontender, nondistended. No guarding, no rebound. EXTREMITIES: Negative for clubbing, cyanosis, or edema. Decreased ROM of RLE secondary to p ain, improved NEUROLOGIC: Within normal limits. Cranial nerves II to XII grossly intact. SKIN: Wounds, ulcers, or skin lesions negative. DATA CBC: Lab Results Component Value Date WBC 9.84 06/13/2018 RBC 4.00 06/13/2018 HGB 10.5 (L) 06/13/2018 HCT 32.5 (L) 06/13/2018 MCV 81.3 06/13/2018 MCH 26.2 (L) 06/13/2018 MCHC 32.2 06/13/2018 RDW 40.3 06/13/2018 PLT 365 06/13/2018 MPV 7.1 06/13/2018 DIFFTYPE AUTOMATED 06/13/2018 CMP: Lab Results Component Value Date NA 141 06/13/2018 K 4.1 06/13/2018 CL 106 06/13/2018 CO2 28 06/13/2018 ANIONGAP 11 06/13/2018 GLUF 76 06/13/2018 BUN 10 06/13/2018 CREATININE 0.5 06/13/2018 BCR 20 06/13/2018 CA 8.6 06/13/2018 PROT 6.9 06/13/2018 ALB 2.4 (L) 06/13/2018 GLOB 4.5 06/13/2018 BILITOT 0.2 06/13/2018 ALP 102 06/13/2018 AST 9 (L) 06/13/2018 ALT 11 06/13/2018 EGFR >60 06/13/[address] Guided Needle Placement Result Date: 06/10/2018 CT-guided aspiration of L4-L5 disc. Electronically signed by Hank Rico MD on 018 1:23 PM Mri Lumbar Spine With And Without Contrast Result Date: 06/10/2018 1. L4-L5 diskitis and osteomyelitis. 2. L4 and L5 anterior epidural phlegmon with moderate central canal narrowing. 3. Enhancement of anterior paravertebral soft tissues at the L4 and L5 levels consistent with cellulitis/myositis. No abscess identified. RADIA Electronically signed by Jonas Olvera on Jun 10 2018 6:40AM Referring Provider Line: [phone] ID: [id number] Echo Cardiac Adult Complete Result Date: 06/10/2018 1. No vegetation visualized. PROBLEM LIST Principal Problem: Vertebral osteomyelitis (HCC) Active Problems: LBP IV drug abuse (HCC) ASSESSMENT & PLAN Vertebral osteomyelitis - Presented worsening back pain, fevers withIVDA - MRI indicative of L4-L5 diskitis, osteomyelitis with anterior epidural phlegmon without a bscess - Neurosurgery consulted on admission, no indication for neurosurgical intervention, may ne ed re-imaging for evaluation for abscess formation - ID consulted, on Rocephin, Vancomycin; anticipate 6 weeks of IV antibiotics - Lumbar vertebral CT-guided needle biopsy on 06/10, cultures pending - TTE: No Vegetations; Blood cultures no growth to date Heroin IVDA - Reports she was wanting to quit - Was started on Methadone for her pain,addiction, 2.5 mg PO q6h PRN pain - Pain control significantly heating pad, will decrease Methadone back to 2.5 mg PRN;Incr eases should be by 2.5 mg PO per dose once per day History of asthma - Not in acute exacerbation - PRN albuterol Disposition: Continue antibiotics, pain control, awaiting placement for continued IV antib iotics Code Status: Full Code Chucky Perez DO 06/13/2018 12:19 PM onAd [place] Unknown - 06/13/2018 10:11 AM PST Case Management by Derick Ulloa RN at 06/13/18 1011 Author: Derick Ulloa RN Service: (none) Author Type: Registered Nurse Filed: 06/13/18 1014 Date of Service: 06/13/18 1011 Status: Signed Interface Analyst: Derick Ulloa RN (Registered Nurse) 10:11 AM Met with Elizabeth and discussed the need of six weeks of IVAB and the need for he to discharge to a facility. She is not a candidate for home IVAB. She expressed interest of being in [facility] and wanting to be near her kids. She asked that I send a referral to [facility] in [facility]. I sent that referral and will be looking into other options for her. Carol Diaz MD - 06/13/2018 8:01 AM PST Progress Notes by Carol Casillas MD at 06/13/18 08 Author: Carol Casillas MD Service: Infectious Disease Author Type: Physician Filed: 06/13/18 1239 Date of Service: 06/13/18 08 Status: Signed Interface Analyst: Carol Casillas MD (Physician) [facility] Service: Infectious Disease Progress Note Hospital Day: LOS: 3 days Post-Op Day: * No surgery found * SUBJECTIVE Patient Summary: Re: Lumbar discitis/osteomyelitis From ID consult note on 06/10: The patient is a 28 y.o. female with significant past medica l history of substance abuse, uses IV heroin with last use the day prior to admission, anxie ty, depression, asthma, history of treated Chlamydia. The patient has been having low back pain for several weeks with intermittent fever. She de nies lower extremity weakness or numbness, bladder or bowel incontinence. She went to [facility] ER and transferred to the [facility] ER for lumbar spine MRI which showed L4-L5 osteomye litis/discitis with phlegmon. In the ER, she was afebrile, hemodynamically stable. CT-guided aspiration biopsy of the lumbar space was carried out prior to initiation of antibiotics. 2 sets of blood cultures were also obtained. Patient was started afterwards on IV vancomycin and ceftriaxone. The patient is currently very tired and sleepy. She denies nausea, vomiting, chest pain, co ugh. Events Overnight: Afebrile and hemodynamically stable. Feeling much better Back pain is much improved that she has not asked for pain medications today Has been ambulating in her room No lower extremity numbness No diarrhea No pruritus, new skin rash Discharge planning ongoing.- Patient talked to her deck officer about her medical cond ition. Patient expresses wanting to go to [place] since her family is there Scheduled Medications cefTRIAXone 1 g Intravenous Q24H enoxaparin 40 mg Subcutaneous Q24H lidocaine 10 mL Intradermal Once sodium bicarbonate buffer 5 mL Infiltration Once sodium chloride 10 mL Intravenous Q8H vancomycin 1,250 mg Intravenous Q8H Continuous Infusions PRN Medications acetaminophen OR acetaminophen, albuterol, LORazepam, methadone, ondansetron OR ond ansetron, polyethylene glycol OBJECTIVE Vital Signs: BP (!) 140/95 (BP Location: Left upper arm) | Pulse 72 | Temp 98.5 F (36.9 C) (Oral) | Resp 20 | Ht 1.651 m (5' 5") | Wt 73.5 kg (162 lb 0.6 oz) | SpO2 100% | ? No | BMI 26.96 kg/m Temp: [98.4 F (36.9 C)-98.8 F (37.1 C)] 98.8 F (37.1 C) (06/13 1131) BP: (120-155)/(72-95) 123/72 (06/13 1131) Heart Rate: [72-95] 85 (06/13 1131) Resp: [17-20] 20 (06/13 1131) SpO2: [95 %-100 %] 97 % (06/13 1131) Weight: [73.5 kg (162 lb 0.6 oz)] 73.5 kg (162 lb 0.6 oz) (06/12 1950) Physical Exam Vital signs have been reviewed Gen.: Not in acute physical distress HEENT: Normocephalic. Anicteric sclera. No conjunctival lesions. No nasal mucosal lesions. No oral thrush or ulcers. Supple neck with no cervical lymphadenopathy Lungs: No adventitious breath sounds Cardiovascular: Normal rate. Regular rhythm. No murmur or rubs Abdomen: No distention. Soft. No tenderness, rebound or guarding Musculoskeletal: No inflamed looking joints. No spine tenderness Neurologic: Oriented 3. Motor strength intact in lower extremities. Appreciates light karli ch at both lower extremities Psychiatric: Cooperative and appropriate affect DATA CBC: Lab Results Component Value Date WBC 9.84 06/13/2018 RBC 4.00 06/13/2018 HGB 10.5 (L) 06/13/2018 HCT 32.5 (L) 06/13/2018 MCV 81.3 06/13/2018 MCH 26.2 (L) 06/13/2018 MCHC 32.2 06/13/2018 RDW 40.3 06/13/2018 PLT 365 06/13/2018 MPV 7.1 06/13/2018 DIFFTYPE AUTOMATED 06/13/2018 WBC: Lab Results Component Value Date WBC 9.84 06/13/2018 NEUTROABS 6.52 06/13/2018 LYMPHSABS 2.41 06/13/2018 LYMPHOPCT 24.51 06/13/2018 MONOPCT 6.15 06/13/2018 EOSABS 0.20 06/13/2018 EOSPCT 2.04 06/13/2018 BASOSABS 0.11 (H) 06/13/2018 BASOPCT 1.10 06/13/2018 CMP: Lab Results Component Value Date NA 141 06/13/2018 K 4.1 06/13/2018 CL 106 06/13/2018 CO2 28 06/13/2018 ANIONGAP 11 06/13/2018 GLUF 76 06/13/2018 BUN 10 06/13/2018 CREATININE 0.5 06/13/2018 BCR 20 06/13/2018 CA 8.6 06/13/2018 PROT 6.9 06/13/2018 ALB 2.4 (L) 06/13/2018 GLOB 4.5 06/13/2018 BILITOT 0.2 06/13/2018 ALP 102 06/13/2018 AST 9 (L) 06/13/2018 ALT 11 06/13/2018 EGFR >60 06/13/2018 Component Latest Ref Rng & Units 06/12/2018 11:51 AM VANCOMYCIN,TROUGH 10 - 20 ug/mL 18.8 Lab Results Component Value Date CRP 13.0 (H) 06/10/2018 Lab Results Component Value Date ESR 79 (H) 06/10/2018 Component Latest Ref Rng & Units 06/10/2018 5:43 PM Preg Test, Ur NEGATIVE NEGATIVE Component Latest Ref Rng & Units 06/11/2018 5:36 AM HIV1/HIV2 NON REACTIVE NON REACTIVE Component Latest Ref Rng & Units 06/11/2018 5:36 AM Hep A Total Ab NON REACTIVE NON REACTIVE HEP B SURFACE AG NON REACTIVE NON REACTIVE HEP B CORE AB,TOTAL NON REACTIVE NON REACTIVE HEP B SURFACE ANTIBODY <1.00 IV 2.76 (H) HEPATITIS C NON REACTIVE NON REACTIVE HEPATITIS INTERP No serologic evidence of HAV or HCV infection. Reactive anti HBs suggests vaccine or p revious Hepatitis B. Component Latest Ref Rng & Units 06/11/2018 11:44 AM VANCOMYCIN,RANDOM ug/mL 15.52 Microbiology data: 06/10 blood cultures with no growth to date 06/10 lumbar disc aspirate culture with no growth to date; Gram stain shows no cells or [facility] Radiology data: MRI of the lumbar spine with and without contrast Impression 1. L4-L5 diskitis and osteomyelitis. 2. L4 and L5 anterior epidural phlegmon with moderate central canal narrowing. 3. Enhancement of anterior paravertebral soft tissues at the L4 and L5 levels consistent with cellulitis/myositis. No abscess identified. R SANDOR Electronically signed by Jonas Olvera, on Jun 10 2018 6:40AM Referring Provi pineda Line: [phone] ID: [id number] Transthoracic echocardiogram Impression 1. No vegetation visualized. PROBLEM LIST Principal Problem: Vertebral osteomyelitis (HCC) Active Problems: LBP IV drug abuse (HCC) ASSESSMENT & PLAN L4-L5 osteomyelitis/discitis with phlegmon but no abscess -Neurologically intact -This is in the context of IV drug use, with last use of heroin the day prior to admission -2 sets of blood cultures with no growth to date -CT-guided aspiration biopsy culture with no growth and Gram stain with no organisms; spec imen obtained off antibiotics -Transthoracic echocardiogram shows no evidence of endocarditis -Continue IV vancomycin with pharmacy monitoring dosing - currently therapeutic; recommend ed target trough of 15-20. Continue IV ceftriaxone. Given history of IV drug use, not safe for discharge with home IV antibiotic therapy. She will need to continue IV antibiotic treatment in a monitored setting -Case management consulted for IV antibiotics on discharge - 6 weeks duration. Patient pr efers discharge to SNF in [place] -Orders for IV vancomycin/ceftriaxone, antibiotic stop date 07/22/2018 in [facility] and paper art. Weakly lab orders also in place -PICC placement only when there is definite discharge plan History of IV drug use -HIV negative -No evidence of hepatitis C infection; immune to hepatitis B most likely from vaccination - test negative -patient intends to proceed with drug rehabiltation Code Status: Full Code CAROL CASILLAS MD 06/13/2018 onversion Membreno saction, Provider Unknown - 06/12/2018 12:54 PM PSTFormatting of this note might be differen t from the original. Pharmacy Note by Sandy Persaud RPH at 06/12/18 1837 Author: Sandy Persaud RPH Service: Pharmacy Author Type: Pharmacist Filed: 06/12/18 3223 Date of Service: 06/12/181253 Status: Signed Interface Analyst: Sandy Persaud RPH (Pharmacist) Clinical Pharmacy Note: Vanco Day 3 Scr = 0.5 WBC = 11.51 Estimated CrCl 163.1 ml/min Current regimen Vanco 1250mg (16mg/kg) IV q8h. Vanco Tr done at 1151 today was 18.8 (15-20 mcg/ml). Only 6 hr between late AM dose & Trough (instead of 7hr). Continue same regimen & recheck level tomorrow. Change admin times to [id number]. INDICATION: Osteomyelitis Pharmacist; SANDY PERSAUD 06/12/2018 12:53 PM Chucky Purvis MD - 06/12/2018 11:36 AM PSTFormatting of this note might be different from the origin al. Progress Notes by Chucky Perez DO at 06/12/18 1136 Author: Chucky Perez DO Service: Hospitalist Author Type: Physician Filed: 06/12/18 1146 Date of Service: 06/12/181135 Status: Signed Interface Analyst: Chucky Perez DO (Physician) [facility] Service: Hospitalist Progress Note Pt: Elizabeth Pederson AGE/SEX: 28 y.o. female ROOM: 7105/7105-1 PCP: Per PT None : 1990 TODAY'S DATE: 06/12/2018 Hospital Day: LOS: 2 days Post-Op Day: * No surgery found * SUBJECTIVE Patient Summary: Per H&P: presented to [facility] with LBP x several week s and some off and on fevers. Admits to active IVDA with heroin. Denies history of problems/ infections with IVDA in the past. [facility] transferred patient to [facility] ED for MRI l-s pine, which was done this morning and shows osteomyelitis L4-5 with phlegmon. The patient de nies major neurologic deficits and can still walk, albeit somewhat limited from the back telly n. Last IV heroin use was yesterday. She was intending to check herself into a rehab in [facility], [place] soon because "these days your heroin is cut with all kinds of crazy stuff, it's n ot even heroin any more, and I need to be around to take care of my 5 kids." Right now the fadi mayo' dad is taking care of the kids in [place]. Events Overnight: Patient seen and examined. Reports feeling better today, pain zeyad r controlled with heating pad. Afebrile. Tolerating PO diet. Did have some anxiety overnight , requiring Ativan. Scheduled Medications cefTRIAXone 1 g Intravenous Q24H enoxaparin 40 mg Subcutaneous Q24H influenza vaccine quadrivalent 0.5 mL Intramuscular Once Immunization lidocaine 10 mL Intradermal Once pneumococcal 23-valent vaccine 0.5 mL Intramuscular Once Immunization sodium bicarbonate buffer 5 mL Infiltration Once sodium chloride 10 mL Intravenous Q8H vancomycin 1,250 mg Intravenous Q8H Continuous Infusions PRN Medications acetaminophen OR acetaminophen, albuterol, LORazepam, methadone, ondansetron OR ond ansetron, polyethylene glycol OBJECTIVE Vital Signs: BP 131/77 (BP Location: Left upper arm) | Pulse 77 | Temp 98.9 F (37.2 C) (Oral) | R daphney 20 | Ht 1.651 m (5' 5") | Wt 71.6 kg (157 lb 14.4 oz) | SpO2 99% | ? No | BMI 26.28 kg/m Temp: [98 F (36.7 C)-98.9 F (37.2 C)] 98.9 F (37.2 C) (06/12 819) BP: (126-141)/(76-85) 131/77 (06/12 819) Heart Rate: [73-93] 77 (06/12 819) Resp: [20] 20 (06/12 819) SpO2: [99 %-100 %] 99 % (06/12 819) Weight: [71.6 kg (157 lb 14.4 oz)] 71.6 kg (157 lb 14.4 oz) (06/12 543) GENERAL: Alert and oriented x3. No acute distress. HEENT: Moist mucous membranes. Pupils equally round and reactive to light. Extraocular musc les intact. HEART: Regular rhythm. No murmurs. LUNGS: Clear to auscultation bilaterally. ABDOMEN: Bowel sounds present. Nontender, nondistended. No guarding, no rebound. EXTREMITIES: Negative for clubbing, cyanosis, or edema. Decreased ROM of RLE secondary to p ain, improved NEUROLOGIC: Within normal limits. Cranial nerves II to XII grossly intact. SKIN: Wounds, ulcers, or skin lesions negative. DATA CBC: Lab Results Component Value Date WBC 11.51 (H) 06/12/2018 RBC 3.88 06/12/2018 HGB 10.5 (L) 06/12/2018 HCT 31.3 (L) 06/12/2018 MCV 80.5 06/12/2018 MCH 27.0 06/12/2018 MCHC 33.6 06/12/2018 RDW 39.4 06/12/2018 PLT 370 06/12/2018 MPV 6.9 06/12/2018 DIFFTYPE AUTOMATED 06/12/2018 CMP: Lab Results Component Value Date NA 140 06/12/2018 K 4.0 06/12/2018 CL 103 06/12/2018 CO2 25 06/12/2018 ANIONGAP 16 06/12/2018 GLUF 91 06/12/2018 BUN 7 (L) 06/12/2018 CREATININE 0.5 06/12/2018 BCR 14 06/12/2018 CA 8.7 06/12/2018 PROT 7.4 06/12/2018 ALB 2.4 (L) 06/12/2018 GLOB 5.0 (H) 06/12/2018 BILITOT 0.2 06/12/2018 ALP 106 06/12/2018 AST 7 (L) 06/12/2018 ALT 10 06/12/2018 EGFR >60 06/12/[address] Guided Needle Placement Result Date: 06/10/2018 CT-guided aspiration of L4-L5 disc. Electronically signed by Hank Rico MD on 018 1:23 PM Mri Lumbar Spine With And Without Contrast Result Date: 06/10/2018 1. L4-L5 diskitis and osteomyelitis. 2. L4 and L5 anterior epidural phlegmon with moderate central canal narrowing. 3. Enhancement of anterior paravertebral soft tissues at the L4 and L5 levels consistent with cellulitis/myositis. No abscess identified. RADIA Electronically signed by Jonas Olvera on Jun 10 2018 6:40AM Referring Provider Line: [phone] ID: [id number] Echo Cardiac Adult Complete Result Date: 06/10/2018 1. No vegetation visualized. PROBLEM LIST Principal Problem: Vertebral osteomyelitis (HCC) Active Problems: LBP IV drug abuse (HCC) ASSESSMENT & PLAN Vertebral osteomyelitis - Presented worsening back pain, fevers with IVDA - MRI indicative of L4-L5 diskitis, osteomyelitis with anterior epidural phlegmon without a bscess - Neurosurgery consulted on admission, no indication for neurosurgical intervention, may ne ed re-imaging for evaluation for abscess formation - ID consulted, on Rocephin, Vancomycin; anticipate 6 weeks of IV antibiotics - Lumbar vertebral CT-guided needle biopsy on 06/10, cultures pending - TTE: No Vegetations; Blood cultures no growth to date Heroin IVDA - Reports she was wanting to quit - Was started on Methadone for her pain, addiction, 2.5 mg PO q6h PRN pain - Pain control improved with 5 mg PO q6h PRN, heating pad; Increases should be by 2.5 mg PO per dose once per day History of asthma - Not in acute exacerbation - PRN albuterol Disposition: Continue IV antibiotics, pain control Code Status: Full Code Chucky Perez DO 06/12/2018 11:36 AM aroseas, Carol Connors MD - 06/12/2018 9:54 AM PST Progress Notes by Carol Casillas MD at 06/12/18 0975 Author: Carol Casillas MD Service: Infectious Disease Author Type: Physician Filed: 06/12/18 1149 Date of Service: 06/12/1854 Status: Addendum Interface Analyst: Carol Casillas MD (Physician) Related Notes: Original Note by Carol Casillas MD (Physician) filed at 06/12/18 1142 [facility] Service: Infectious Disease Progress Note Hospital Day: LOS: 2 days Post-Op Day: * No surgery found * SUBJECTIVE Patient Summary: Re: Lumbar discitis/osteomyelitis From ID consult note on 06/10: The patient is a 28 y.o. female with significant past medica l history of substance abuse, uses IV heroin with last use the day prior to admission, anxie ty, depression, asthma, history of treated Chlamydia. The patient has been having low back pain for several weeks with intermittent fever. She de nies lower extremity weakness or numbness, bladder or bowel incontinence. She went to [facility] ER and transferred to the [facility] ER for lumbar spine MRI which showed L4-L5 osteomye litis/discitis with phlegmon. In the ER, she was afebrile, hemodynamically stable. CT-guided aspiration biopsy of the lumbar space was carried out prior to initiation of antibiotics. 2 sets of blood cultures were also obtained. Patient was started afterwards on IV vancomycin and ceftriaxone. The patient is currently very tired and sleepy. She denies nausea, vomiting, chest pain, co ugh. Events Overnight: Afebrile. Had been anxious overnight and noted nursing report the p atient had threatened to leave AGAINST MEDICAL ADVICE due to pain control. Patient was given methadone as needed. Feeling better today; lower back pain severity is less/better controlled. Heating pad is h elping No lower extremity weakness, numbness No bladder or bowel incontinence No pruritus or new skin rash Scheduled Medications cefTRIAXone 1 g Intravenous Q24H enoxaparin 40 mg Subcutaneous Q24H influenza vaccine quadrivalent 0.5 mL Intramuscular Once Immunization lidocaine 10 mL Intradermal Once pneumococcal 23-valent vaccine 0.5 mL Intramuscular Once Immunization sodium bicarbonate buffer 5 mL Infiltration Once sodium chloride 10 mL Intravenous Q8H vancomycin 1,250 mg Intravenous Q8H Continuous Infusions PRN Medications acetaminophen OR acetaminophen, albuterol, methadone, ondansetron OR ondansetron, p olyethylene glycol OBJECTIVE Vital Signs: BP 131/77 (BP Location: Left upper arm) | Pulse 77 | Temp 98.9 F (37.2 C) (Oral) | R daphney 20 | Ht 1.651 m (5' 5") | Wt 71.6 kg (157 lb 14.4 oz) | SpO2 99% | ? No | BMI 26.28 kg/m Temp: [98 F (36.7 C)-98.9 F (37.2 C)] 98.9 F (37.2 C) (06/12 819) BP: (126-141)/(76-85) 131/77 (06/12 819) Heart Rate: [73-93] 77 (06/12 819) Resp: [20] 20 (06/12 819) SpO2: [99 %-100 %] 99 % (06/12 819) Weight: [71.6 kg (157 lb 14.4 oz)] 71.6 kg (157 lb 14.4 oz) (06/12 543) Physical Exam Vital signs have been reviewed Gen.: Not in acute physical distress HEENT: Normocephalic. Anicteric sclera. No conjunctival lesions. No nasal mucosal lesions. No oral thrush or ulcers. Supple neck with no cervical lymphadenopathy Lungs: No adventitious breath sounds Cardiovascular: Normal rate. Regular rhythm. No murmur or rubs Abdomen: No distention. Soft. No tenderness, rebound or guarding Musculoskeletal: No inflamed looking joints Neurologic: Oriented 3. Motor strength intact in lower extremities. Appreciates light karli ch at both lower extremities Psychiatric: Cooperative and appropriate affect DATA CBC: Lab Results Component Value Date WBC 11.51 (H) 06/12/2018 RBC 3.88 06/12/2018 HGB 10.5 (L) 06/12/2018 HCT 31.3 (L) 06/12/2018 MCV 80.5 06/12/2018 MCH 27.0 06/12/2018 MCHC 33.6 06/12/2018 RDW 39.4 06/12/2018 PLT 370 06/12/2018 MPV 6.9 06/12/2018 DIFFTYPE AUTOMATED 06/12/2018 WBC: Lab Results Component Value Date WBC 11.51 (H) 06/12/2018 NEUTROABS 8.84 (H) 06/12/2018 LYMPHSABS 1.92 06/12/2018 LYMPHOPCT 16.71 06/12/2018 MONOPCT 4.77 06/12/2018 EOSABS 0.12 06/12/2018 EOSPCT 1.05 06/12/2018 BASOSABS 0.07 06/12/2018 BASOPCT 0.63 06/12/2018 CMP: Lab Results Component Value Date NA 140 06/12/2018 K 4.0 06/12/2018 CL 103 06/12/2018 CO2 25 06/12/2018 ANIONGAP 16 06/12/2018 GLUF 91 06/12/2018 BUN 7 (L) 06/12/2018 CREATININE 0.5 06/12/2018 BCR 14 06/12/2018 CA 8.7 06/12/2018 PROT 7.4 06/12/2018 ALB 2.4 (L) 06/12/2018 GLOB 5.0 (H) 06/12/2018 BILITOT 0.2 06/12/2018 ALP 106 06/12/2018 AST 7 (L) 06/12/2018 ALT 10 06/12/2018 EGFR >60 06/12/2018 Lab Results Component Value Date ESR 79 (H) 06/10/2018 Lab Results Component Value Date CRP 13.0 (H) 06/10/2018 Component Latest Ref Rng & Units 06/10/2018 5:43 PM Preg Test, Ur NEGATIVE NEGATIVE Component Latest Ref Rng & Units 06/11/2018 5:36 AM HIV1/HIV2 NON REACTIVE NON REACTIVE Component Latest Ref Rng & Units 06/11/2018 5:36 AM Hep A Total Ab NON REACTIVE NON REACTIVE HEP B SURFACE AG NON REACTIVE NON REACTIVE HEP B CORE AB,TOTAL NON REACTIVE NON REACTIVE HEP B SURFACE ANTIBODY <1.00 IV 2.76 (H) HEPATITIS C NON REACTIVE NON REACTIVE HEPATITIS INTERP No serologic evidence of HAV or HCV infection. Reactive anti HBs suggests vaccine or p revious Hepatitis B. Component Latest Ref Rng & Units 06/11/2018 11:44 AM VANCOMYCIN,RANDOM ug/mL 15.52 Microbiology data: 06/10 blood cultures with no growth to date 06/10 lumbar disc aspirate culture with no growth to date; Gram stain shows no cells or [facility] Radiology data: MRI of the lumbar spine with and without contrast Impression 1. L4-L5 diskitis and osteomyelitis. 2. L4 and L5 anterior epidural phlegmon with moderate central canal narrowing. 3. Enhancement of anterior paravertebral soft tissues at the L4 and L5 levels consistent with cellulitis/myositis. No abscess identified. R SANDOR Electronically signed by Jonas Olvera on Jun 10 2018 6:40AM Referring Provi pineda Line: [phone] ID: [id number] Transthoracic echocardiogram Impression 1. No vegetation visualized. PROBLEM LIST Principal Problem: Vertebral osteomyelitis (HCC) Active Problems: LBP IV drug abuse (HCC) ASSESSMENT & PLAN L4-L5 osteomyelitis/discitis with phlegmon but no abscess -Neurologically intact -This is in the context of IV drug use, with last use of heroin the day prior to admission -2 sets of blood cultures with no growth to date -CT-guided aspiration biopsy culture with no growth to date and Gram stain with no organis ms; specimen obtained off antibiotics -Transthoracic echocardiogram shows no evidence of endocarditis -Continue IV vancomycin with pharmacy monitoring dosing - currently therapeutic; recommend ed target trough of 15-20. Continue IV ceftriaxone. Given history of IV drug use, not safe for discharge with home IV antibiotic therapy. She will need to continue IV antibiotic treatment in a monitored setting -Case management for IV antibiotics on discharge - 6 weeks duration. Would discharge to [facility] be viable with Behavioral Health consult? -PICC placement only when there is definite discharge plan History of IV drug use -HIV negative -No evidence of hepatitis C infection; immune to hepatitis B most likely from vaccination - test negative -patient intends to proceed with drug rehabiltation Case discussed with Dr. Perez Code Status: Full Code CAROL CASILLAS MD 06/12/2018 onversion Membreno saction, Provider Unknown - 06/12/2018 6:07 AM PSTFormatting of this note might be differen t from the original. Nurse Progress Note by Hilda Gaujardo RN at 06/12/18606 Author: Hilda Guajardo RN Service: (none) Author Type: Registered Nurse Filed: 06/12/18643 Date of Service: 06/12/18606 Status: Addendum Interface Analyst: Hilda Guajardo RN (Registered Nurse) Related Notes: Original Note by Hilda Guajardo RN (Registered Nurse) filed at 8 0613 Patient initially anxious and restless threatening to leave AMA regarding pain control. NO C hospitalist approved a one-time dose of Ativan, however, patient reported minimal improvem ent with this intervention. Lead RN provided therapeutic communication, which helped to eas e the patient along with a heat pad. Patient's wishes to allow her to sleep were also respe cted; care clustered. VSS throughout shift, with exception for pain (exacerbated by movemen t); patient medicated with PRN methadone as orders allowed. No further concerns identified. Will continue to monitor. End of shift audit complete. 06/12/18 6:13 AM Hilda Guajardo RN onver maureen Transaction, Provider Unknown - 06/11/2018 8:07 PM PST Nurse Progress Note by Elizabeth Lyons RN at 06/11/182006 Author: Elizabeth Lyons RN Service: (none) Author Type: Registered Nurse Filed: 06/11/182009 Date of Service: 06/11/182006 Status: Signed Interface Analyst: Elizabeth Lyons RN (Registered Nurse) Lead RN answered patients call light at 1930- pt clearly in distress pacing the room and st ating she is anxious and in a significant amount of pain. She stated the methadone is not wo rking for her and if she could not get anything else to help her sleep or relax then she wan colten her IV out so she could leave AMA. She stated she understood that if she left she would most likely from the infection but her pain was so significant it would be worth it to sky marie. I contacted Dr. Mendoza and he ordered a one time dose of 0.5mg of ativan IV. Patient wa s agreeable to this plan and stated she just wanted to get comfortable and get some sleep. C onversation passed off to restaurant shift supervisor nurse Hilda and she medicated the patient with the ativan. Elizabeth Lyons RN onver maureen Transaction, Provider Unknown - 06/11/2018 6:38 PM PST Progress Notes by Jyoti Sanders RN at 06/11/181837 Author: Jyoti Sanders RN Service: (none) Author Type: Registered Nurse Filed: 06/11/181840 Date of Service: 06/11/181837 Status: Signed Interface Analyst: Jyoti Sanders RN (Registered Nurse) Pt A/O x4. Afebrile. VSS. Pt denies SOB, nausea and vomiting. Pt reports LBP, currently wit hdrawing from IVDU. Medicated with pain medication x2. Next PRN time for pain medication is at 2030. Pt rested in bed most of the day uncomfortably. Slept on and off most of the time. No acute changes since previous assessment. Will continue to monitor. End of shift chart aud it complete. Jyoti Sanders RN onver maureen Transaction, Provider Unknown - 06/11/2018 12:48 PM PST Pharmacy Note by Sandy Persaud RPH at 06/11/181247 Author: Sandy Persaud RPH Service: Pharmacy Author Type: Pharmacist Filed: 06/11/181247 Date of Service: 06/11/181247 Status: Signed Interface Analyst: Sandy Persaud RPH (Pharmacist) Clinical Pharmacy Note: Vancomycin Day 2 Scr = 0.5 WBC = 11.12 Estimated CrCl 165.2 ml/min Current regimen Vanco 1250mg IV q8h. Vanco Tr at 1200 (prior to 4th dose) was 15.52 (15-20 mcg/ml). Continue same regimen (not at steady state). Recheck level daily with q8h schedule. INDICATION: Osteomyelitis Pharmacist; SANDY PERSAUD 06/11/2018 12:47 PM onver maureencharo Huynh, Provider Unknown - 06/11/2018 11:39 AM PST Case Management by Nayla Julian RN at 06/11/18 8202 Author: Nayla Julian RN Service: (none) Author Type: Personnel Clerks Supervisor Filed: 06/11/18 2551 Date of Service: 06/11/18 1138 Status: Addendum Interface Analyst: Nayla Julian RN (Personnel Clerks Supervisor) Related Notes: Original Note by Nayla Julian RN (Personnel Clerks Supervisor) filed at 06/11/18 1143 06/11/18 1131 Discharge Planning Evaluation Admitting Diagnosis vertebral osteomyelitis Readmission No Living Arrangements Parent Support Systems Parent;Children;Friends/neighbors Type of Residence Private residence House type Apartment Independent with ADL's Yes Independent with Mobility Yes Home Care Services No Caregiver after Discharge No Mental Status Oriented Prior functional status independent Power of Cotton Puller No Anticipated Discharge Plan Post Acute Care Needs Other (comment) (IV ABX after dischage / drug rehab) Plan communicated to patient/family Yes Resources Financial concerns No Transportation issues No Patient/Family concerns No Prescription Plan Yes Name of Pharmacy [facility] Previous home health equipment No Vascular access device No Anticipated Disposition Facility Type Home Met with patient and discussed discharge planning, Pt is a 28 y.o., female admitted due to back pain. Pt currently lives with her mom. Pt's 5 kids are living with their dad. Pt plans to go to rehab so she can be a mom to her kids. Pt has a history of IV Heroin use. Pt wants to go to a rehab in [place]. Patient's PCP is: none, pt agreeable to having a new one in [place]- email sent to [employer] Patient's insurance: medicaid Coverage concerns: no Medication coverage/concerns: no Rx Bedside Delivery: no Community resources utilized / needed: IV ABX for 6 weeks, drug rehab Assistance in transportation: family Identification of any specific education / training: tbd Barriers to Discharge / Alternative housing needed: SNF for IV ABX or home Anticipated DCP: SNF or home Nayla Fearing RN CM Chucky Purvis MD - 06/11/2018 10:34 AM PSTFormatting of this note might be different from the origin al. Progress Notes by Chucky Perez DO at 06/11/18 1034 Author: Chucky Perez DO Service: Hospitalist Author Type: Physician Filed: 06/11/18 1050 Date of Service: 06/11/18 1034 Status: Signed Interface Analyst: Chucky Perez DO (Physician) [facility] Service: Hospitalist Progress Note Pt: Elizabeth Pederson AGE/SEX: 28 y.o. female ROOM: 7105/7105-1 PCP: Per PT None : 1990 TODAY'S DATE: 06/11/2018 Hospital Day: LOS: 1 day Post-Op Day: * No surgery found * SUBJECTIVE Patient Summary: Per H&P: presented to [facility] with LBP x several week s and some off and on fevers. Admits to active IVDA with heroin. Denies history of problems/ infections with IVDA in the past. [facility] transferred patient to [facility] ED for MRI l-s pine, which was done this morning and shows osteomyelitis L4-5 with phlegmon. The patient de nies major neurologic deficits and can still walk, albeit somewhat limited from the back telly n. Last IV heroin use was yesterday. She was intending to check herself into a rehab in [facility], [place] soon because "these days your heroin is cut with all kinds of crazy stuff, it's n ot even heroin any more, and I need to be around to take care of my 5 kids." Right now the fadi mayo' dad is taking care of the kids in [place]. Events Overnight: Patient seen and examined. Reports no significant problems overnigh t. Afebrile. Tolerating PO diet. Continued back pain, no significant changes overnight. No c hest pain, shortness of breath. Tolerating PO diet. Scheduled Medications cefTRIAXone 1 g Intravenous Q24H enoxaparin 40 mg Subcutaneous Q24H influenza vaccine quadrivalent 0.5 mL Intramuscular Once Immunization lidocaine 10 mL Intradermal Once pneumococcal 23-valent vaccine 0.5 mL Intramuscular Once Immunization sodium bicarbonate buffer 5 mL Infiltration Once sodium chloride 10 mL Intravenous Q8H vancomycin 1,250 mg Intravenous Q8H Continuous Infusions PRN Medications acetaminophen OR acetaminophen, albuterol, methadone, ondansetron OR ondansetron, p olyethylene glycol OBJECTIVE Vital Signs: BP 134/84 (BP Location: Right upper arm) | Pulse 74 | Temp 98.7 F (37.1 C) (Oral) | Resp 20 | Ht 1.651 m (5' 5") | Wt 73.6 kg (162 lb 3.2 oz) | SpO2 100% | ? N o | BMI 26.99 kg/m Temp: [96.9 F (36.1 C)-99.3 F (37.4 C)] 98.7 F (37.1 C) (06/11 812) BP: (112-153)/(65-99) 134/84 (06/11 812) Heart Rate: [61-120] 74 (06/11 812) Resp: [16-22] 20 (06/11 812) SpO2: [92 %-100 %] 100 % (06/11 812) Weight: [73.6 kg (162 lb 3.2 oz)] 73.6 kg (162 lb 3.2 oz) (06/11 352) GENERAL: Alert and oriented x3. No acute distress. HEENT: Moist mucous membranes. Pupils equally round and reactive to light. Extraocular musc les intact. HEART: Regular rhythm. No murmurs. LUNGS: Clear to auscultation bilaterally. ABDOMEN: Bowel sounds present. Nontender, nondistended. No guarding, no rebound. EXTREMITIES: Negative for clubbing, cyanosis, or edema. Decreased ROM of RLE secondary to p ain NEUROLOGIC: Within normal limits. Cranial nerves II to XII grossly intact. SKIN: Wounds, ulcers, or skin lesions negative. DATA CBC: Lab Results Component Value Date WBC 11.12 (H) 06/11/2018 RBC 4.31 06/11/2018 HGB 11.1 (L) 06/11/2018 HCT 34.9 06/11/2018 MCV 80.9 06/11/2018 MCH 25.7 (L) 06/11/2018 MCHC 31.7 (L) 06/11/2018 RDW 39.8 06/11/2018 PLT 396 06/11/2018 MPV 6.9 06/11/2018 DIFFTYPE AUTOMATED 06/11/2018 CMP: Lab Results Component Value Date NA 139 06/11/2018 K 4.1 06/11/2018 CL 104 06/11/2018 CO2 25 06/11/2018 ANIONGAP 14 06/11/2018 GLUF 83 06/11/2018 BUN 10 06/11/2018 CREATININE 0.5 06/11/2018 BCR 20 06/11/2018 CA 8.8 06/11/2018 PROT 7.5 06/10/2018 ALB 2.7 (L) 06/10/2018 GLOB 4.8 06/10/2018 BILITOT 0.2 06/10/2018 ALP 115 06/10/2018 AST 8 (L) 06/10/2018 ALT 8 (L) 06/10/2018 EGFR >60 06/11/[address] Guided Needle Placement Result Date: 06/10/2018 CT-guided aspiration of L4-L5 disc. Electronically signed by Hank Rico MD on 018 1:23 PM Mri Lumbar Spine With And Without Contrast Result Date: 06/10/2018 1. L4-L5 diskitis and osteomyelitis. 2. L4 and L5 anterior epidural phlegmon with moderate central canal narrowing. 3. Enhancement of anterior paravertebral soft tissues at the L4 and L5 levels consistent with cellulitis/myositis. No abscess identified. RADIA Electronically signed by Jonas Olvera on Jun 10 2018 6:40AM Referring Provider Line: [phone] ID: [id number] Echo Cardiac Adult Complete Result Date: 06/10/2018 1. No vegetation visualized. PROBLEM LIST Principal Problem: Vertebral osteomyelitis (HCC) Active Problems: LBP IV drug abuse (HCC) ASSESSMENT & PLAN Vertebral osteomyelitis - Presented worsening back pain, fevers with IVDA - MRI indicative of L4-L5 diskitis, osteomyelitis with anterior epidural phlegmon without a bscess - Neurosurgery consulted on admission, no indication for neurosurgical intervention, may ne ed re-imaging for evaluation for abscess formation - ID consulted, on Rocephin, Vancomycin; anticipate 6 weeks of IV antibiotics - Lumbar vertebral CT-guided needle biopsy on 06/10, cultures pending - TTE: No Vegetations; Blood cultures pending Heroin IVDA - Reports she was wanting to quit - Was started on Methadone for her pain, addiction, 2.5 mg PO q6h PRN pain - Reports no significant improvement with pain, will increase to 5 mg PO q6h PRN; Increases should be by 2.5 mg PO per dose once per day History of asthma - Not in acute exacerbation - PRN albuterol Disposition: Continue Vancomycin, Rocephin, increase Methadone, cultures pending Code Status: Full Code Chucky Perez DO 06/11/2018 10:35 AM Carol Serra MD - 06/11/2018 7:12 AM PST Progress Notes by Carol Casillas MD at 06/11/18711 Author: Carol Casillas MD Service: Infectious Disease Author Type: Physician Filed: 06/11/18 1522 Date of Service: 06/11/18711 Status: Signed Interface Analyst: Carol Casillas MD (Physician) [facility] Service: Infectious Disease Progress Note Hospital Day: LOS: 1 day Post-Op Day: * No surgery found * SUBJECTIVE Patient Summary: Re: Lumbar discitis/osteomyelitis From ID consult note on 06/10: The patient is a 28 y.o. female with significant past medica l history of substance abuse, uses IV heroin with last use the day prior to admission, anxie ty, depression, asthma, history of treated Chlamydia. The patient has been having low back pain for several weeks with intermittent fever. She de nies lower extremity weakness or numbness, bladder or bowel incontinence. She went to [facility] ER and transferred to the [facility] ER for lumbar spine MRI which showed L4-L5 osteomye litis/discitis with phlegmon. In the ER, she was afebrile, hemodynamically stable. CT-guided aspiration biopsy of the lumbar space was carried out prior to initiation of antibiotics. 2 sets of blood cultures were also obtained. Patient was started afterwards on IV vancomycin and ceftriaxone. The patient is currently very tired and sleepy. She denies nausea, vomiting, chest pain, co ugh. Events Overnight: T-max of 99.3F. Hemodynamically stable. Evaluated by neurosurgery yesterday with recommendation for continued medical management. Patient complains of 7 out of 10 lumbar pain; has difficulty getting comfortable. No lower extremity weakness or numbness No bladder or bowel incontinence No abdominal pain, nausea, vomiting or diarrhea No pruritus or new skin rash Scheduled Medications cefTRIAXone 1 g Intravenous Q24H enoxaparin 40 mg Subcutaneous Q24H influenza vaccine quadrivalent 0.5 mL Intramuscular Once Immunization lidocaine 10 mL Intradermal Once pneumococcal 23-valent vaccine 0.5 mL Intramuscular Once Immunization sodium bicarbonate buffer 5 mL Infiltration Once sodium chloride 10 mL Intravenous Q8H vancomycin 1,250 mg Intravenous Q8H Continuous Infusions PRN Medications acetaminophen OR acetaminophen, albuterol, methadone, ondansetron OR ondansetron, p olyethylene glycol OBJECTIVE Vital Signs: BP 125/81 (BP Location: Left upper arm) | Pulse 102 | Temp 98.7 F (37.1 C) (Oral) | Resp 20 | Ht 1.651 m (5' 5") | Wt 73.6 kg (162 lb 3.2 oz) | SpO2 100% | ? N o | BMI 26.99 kg/m Temp: [98.7 F (37.1 C)-99.3 F (37.4 C)] 98.7 F (37.1 C) (06/11 1211) BP: (112-139)/(76-93) 126/76 (06/11 1211) Heart Rate: [74-102] 81 (06/11 1211) Resp: [20] 20 (06/11 1211) SpO2: [96 %-100 %] 100 % (06/11 1211) Weight: [73.6 kg (162 lb 3.2 oz)] 73.6 kg (162 lb 3.2 oz) (06/11 352) Physical Exam Vital signs have been reviewed Gen.: Not in acute physical distress; appears uncomfortable HEENT: Normocephalic. Anicteric sclera. No conjunctival lesions. No nasal mucosal lesions. No oral thrush or ulcers. Supple neck with no cervical lymphadenopathy Lungs: No adventitious breath sounds Cardiovascular: Normal rate. Regular rhythm. No murmur or rubs Abdomen: No distention. Soft. No tenderness, rebound or guarding Musculoskeletal: No inflamed looking joints Neurologic: Oriented 3. Motor strength intact in lower extremities but hip flexion somewh at limited by pain. Appreciates light touch at both lower extremities Psychiatric: Cooperative and appropriate affect DATA CBC: Lab Results Component Value Date WBC 11.12 (H) 06/11/2018 RBC 4.31 06/11/2018 HGB 11.1 (L) 06/11/2018 HCT 34.9 06/11/2018 MCV 80.9 06/11/2018 MCH 25.7 (L) 06/11/2018 MCHC 31.7 (L) 06/11/2018 RDW 39.8 06/11/2018 PLT 396 06/11/2018 MPV 6.9 06/11/2018 DIFFTYPE AUTOMATED 06/11/2018 WBC: Lab Results Component Value Date WBC 11.12 (H) 06/11/2018 NEUTROABS 8.54 (H) 06/11/2018 LYMPHSABS 1.71 06/11/2018 LYMPHOPCT 15.40 06/11/2018 MONOPCT 4.91 06/11/2018 EOSABS 0.21 06/11/2018 EOSPCT 1.87 06/11/2018 BASOSABS 0.11 (H) 06/11/2018 BASOPCT 0.99 06/11/2018 CMP: Lab Results Component Value Date NA 139 06/11/2018 K 4.1 06/11/2018 CL 104 06/11/2018 CO2 25 06/11/2018 ANIONGAP 14 06/11/2018 GLUF 83 06/11/2018 BUN 10 06/11/2018 CREATININE 0.5 06/11/2018 BCR 20 06/11/2018 CA 8.8 06/11/2018 PROT 7.5 06/10/2018 ALB 2.7 (L) 06/10/2018 GLOB 4.8 06/10/2018 BILITOT 0.2 06/10/2018 ALP 115 06/10/2018 AST 8 (L) 06/10/2018 ALT 8 (L) 06/10/2018 EGFR >60 06/11/2018 Lab Results Component Value Date ESR 79 (H) 06/10/2018 Lab Results Component Value Date CRP 13.0 (H) 06/10/2018 Component Latest Ref Rng & Units 06/10/2018 5:43 PM Preg Test, Ur NEGATIVE NEGATIVE Component Latest Ref Rng & Units 06/11/2018 5:36 AM HIV1/HIV2 NON REACTIVE NON REACTIVE Component Latest Ref Rng & Units 06/11/2018 5:36 AM Hep A Total Ab NON REACTIVE NON REACTIVE HEP B SURFACE AG NON REACTIVE NON REACTIVE HEP B CORE AB,TOTAL NON REACTIVE NON REACTIVE HEP B SURFACE ANTIBODY <1.00 IV 2.76 (H) HEPATITIS C NON REACTIVE NON REACTIVE HEPATITIS INTERP No serologic evidence of HAV or HCV infection. Reactive anti HBs suggests vaccine or p revious Hepatitis B. Component Latest Ref Rng & Units 06/11/2018 11:44 AM VANCOMYCIN,RANDOM ug/mL 15.52 Microbiology data: 06/10 blood cultures with no growth to date 06/10 lumbar disc aspirate culture with no growth to date; Gram stain shows no cells or [facility] Radiology data: MRI of the lumbar spine with and without contrast Impression 1. L4-L5 diskitis and osteomyelitis. 2. L4 and L5 anterior epidural phlegmon with moderate central canal narrowing. 3. Enhancement of anterior paravertebral soft tissues at the L4 and L5 levels consistent with cellulitis/myositis. No abscess identified. Brodie PATTEN Electronically signed by Jonas Olvera on Jun 10 2018 6:40AM Referring Provi pineda Line: [phone] ID: [id number] Transthoracic echocardiogram Impression 1. No vegetation visualized. PROBLEM LIST ASSESSMENT & PLAN L4-L5 osteomyelitis/discitis with phlegmon but no abscess -Neurologically intact -This is in the context of IV drug use, with last use of heroin the day prior to admission -2 sets of blood cultures in process -CT-guided aspiration biopsy culture in process; specimen obtained off antibiotics -Transthoracic echocardiogram shows no evidence of endocarditis -Continue IV vancomycin with pharmacy monitoring dosing; recommended target trough of 15-2 0. Continue IV ceftriaxone. We will taper down antibiotics based on culture data. Anticipate 6 weeks of IV antibiotic treatment. Given history of IV drug use, not safe for discharge with home IV antibiotic therapy. She will need to continue IV antibiotic treatment in a monitored setting -We will defer specifics of pain management to the hospitalist service History of IV drug use -HIV negative -No evidence of hepatitis C infection; immune to hepatitis B most likely from vaccination - test negative -patient intends to proceed with rehab Case discussed with Dr. Perez Code Status: Full Code CAROL CASILLAS MD 06/11/2018 onversion Membreno saction, Provider Unknown - 06/11/2018 7:07 AM PSTFormatting of this note might be differen t from the original. Nurse Progress Note by Alexandra Torres RN at 06/11/18 0707 Author: Alexandra Torres RN Service: (none) Author Type: Registered Nurse Filed: 06/11/18708 Date of Service: 06/11/18706 Status: Signed Interface Analyst: Alexandra Torres RN (Registered Nurse) Patient rested well between interventions. Given PRN medication as ordered. Pt reports disc omfort, pain 10/10, intermittently diaphoretic. No acute events to note while under the care of this RN. Alexandra Jorge RN onver maureen Transaction, Provider Unknown - 06/10/2018 1:12 PM PST Nurse Progress Note by Kristy Mantilla RN at 06/10/18 1312 Author: Kristy Mantilla RN Service: Radiology Author Type: Registered Nurse Filed: 06/10/18 1313 Date of Service: 06/10/18 1312 Status: Signed Interface Analyst: Kristy Mantilla RN (Registered Nurse) Pt tolerated procedure fairly well, given 400mcg Fentanyl and 8mg Versed IV, was A&Ox4 when transferred back to floor via stretcher. Dressing c/d/i. VSS. Report to Manda ROMANO onver maureen Transaction, Provider Unknown - 06/10/2018 12:33 PM PST Progress Notes by DEANDRE Hartley at 06/10/18 1233 Author: DEANDRE Hartley Service: Pharmacy Author Type: Pharmacist Filed: 06/10/18 1235 Date of Service: 06/10/18 1233 Status: Attested Interface Analyst: DEANDRE Hartley (Pharmacist) Cosigner: Carrie Covarrubias RPH at 06/10/18 12 44 Attestation signed by Carrie Covarrubias RPH at 06/10/18 1244 The following was reviewed with the pharmacist and is in agreement with the pharmacy to dos e vancomycin orders per protocol. Clinical Pharmacy Note: Pharmacy Dosing Vancomycin; Day 1 Ht Readings from Last 1 Encounters: 06/10/18 1.651 m (5' 5") Wt Readings from Last 1 Encounters: 06/10/18 74.1 kg (163 lb 5.8 oz) Lab Results Component Value Date WBC 8.96 06/10/2018 Serum creatinine: 0.61 mg/dL 06/10/18 0745 Estimated creatinine clearance: 135.8 mL/min INDICATION: Osteomyelitis Will initiate vancomycin 1250mg IV q8H per protocol. The trough goal will be 15-20 mcg/mL. Patient is at low risk of accumulation and toxicity. Since patient is on Q8H dosing, levels will be drawn daily. Next level due 06/11 at 11:30. DEANDRE Hartley 06/10/2018 12:28 PM Hank Ruelas MD - 06/10/2018 11:36 AM PSTFormatting of this note might be different from the radha ginal. Progress Notes by Hank Rico MD at 06/10/18 1136 Author: Hank Rico MD Service: (none) Author Type: Physician Filed: 06/10/18 1137 Date of Service: 06/10/18 1136 Status: Signed Interface Analyst: Hank Rico MD (Physician) [facility] Service: Radiology Sedation Note See separate procedure note as indicated. Sedation type: Moderate Indications for procedural sedation: CT guided L4-L5 disc biopsy and aspiration Last meal: Yesterday Moderate Sedation Presedation Assessment completed immediately prior to procedure. ASA Classification: ASA 2: Patient with a mild systemic disease Mallampati Classification: II: Visibility of hard and soft palate, upper portion of tonsils and uvula Preparation: Plan explained to: patient Consent signed: yes Oximetry: yes Capnometry: yes IV access: yes Suction: yes school lunch monitor: yes Sedation agent(s) used: Versed, Fentanyl I personally supervised: sedation and procedure(s). Total sedation time: See nurse's notes for total time. Hank Rico MD 06/10/2018 onversion Transaction , Provider Unknown - 06/10/2018 9:59 AM PST Progress Notes by DEANDRE Hartley at 06/10/18958 Author: DEANDRE Hartley Service: Pharmacy Author Type: Pharmacist Filed: 06/10/18958 Date of Service: 06/10/18958 Status: Signed Interface Analyst: DEANDRE Hartley (Pharmacist) Cosigner: Rosa Herrmann RPH at 06/10/18 1021 Renal Dosing Monitoring: Elizabeth Pederson 28 year old female Pharmacy dosing for renal function per Dr. Bai. Serum creatinine: 0.61 mg/dL 06/10/18744 Estimated creatinine clearance: 135.8 mL/min At this time, no renal adjustments to medications are needed. Pharmacy will continue monitoring patient for appropriate dosing per renal function. 06/10/2018 09:50AM DEANDRE Hartley docume nted in this encounter Plan of Treatment Not on filedocumented as of this encounter Procedures + +--------+ + + + | Procedure Name | Priori | Date/Time | Associated Diagnosis | Comments | | | ty | | | | + +--------+ + + + | EXTERNAL LAB: CBC | Routin | 06/15/2018 | | Results for this | | | e | 5:57 AM | | procedure are in the | | | | PST | | results section. | + +--------+ + + + | MAGNESIUM | Routin | 06/15/2018 | | Results for this | | | e | 5:57 AM | | procedure are in the | | | | PST | | results section. | + +--------+ + + + | COMPREHENSIVE | Routin | 06/15/2018 | | Results for this | | METABOLIC PANEL | e | 5:57 AM | | procedure are in the | | | | PST | | results section. | + +--------+ + + + | VANCOMYCIN, TROUGH | Routin | 06/14/2018 | | Results for this | | | e | 1:42 PM | | procedure are in the | | | | PST | | results section. | + +--------+ + + + | EXTERNAL LAB: CBC | Routin | 06/14/2018 | | Results for this | | | e | 5:09 AM | | procedure are in the | | | | PST | | results section. | + +--------+ + + + | MAGNESIUM | Routin | 06/14/2018 | | Results for this | | | e | 5:09 AM | | procedure are in the | | | | PST | | results section. | + +--------+ + + + | COMPREHENSIVE | Routin | 06/14/2018 | | Results for this | | METABOLIC PANEL | e | 5:09 AM | | procedure are in the | | | | PST | | results section. | + +--------+ + + + | VANCOMYCIN, TROUGH | Routin | 06/13/2018 | | Results for this | | | e | 12:42 PM | | procedure are in the | | | | PST | | results section. | + +--------+ + + + | EXTERNAL LAB: CBC | Routin | 06/13/2018 | | Results for this | | | e | 4:54 AM | | procedure are in the | | | | PST | | results section. | + +--------+ + + + | MAGNESIUM | Routin | 06/13/2018 | | Results for this | | | e | 4:54 AM | | procedure are in the | | | | PST | | results section. | + +--------+ + + + | COMPREHENSIVE | Routin | 06/13/2018 | | Results for this | | METABOLIC PANEL | e | 4:54 AM | | procedure are in the | | | | PST | | results section. | + +--------+ + + + | VANCOMYCIN TROUGH | Routin | 06/12/2018 | | Results for this | | | e | 11:51 AM | | procedure are in the | | | | PST | | results section. | + +--------+ + + + | EXTERNAL LAB: CBC | Routin | 06/12/2018 | | Results for this | | | e | 5:40 AM | | procedure are in the | | | | PST | | results section. | + +--------+ + + + | MAGNESIUM | Routin | 06/12/2018 | | Results for this | | | e | 5:40 AM | | procedure are in the | | | | PST | | results section. | + +--------+ + + + | COMPREHENSIVE | Routin | 06/12/2018 | | Results for this | | METABOLIC PANEL | e | 5:40 AM | | procedure are in the | | | | PST | | results section. | + +--------+ + + + | VANCOMYCIN LEVEL | Routin | 06/11/2018 | | Results for this | | | e | 11:44 AM | | procedure are in the | | | | PST | | results section. | + +--------+ + + + | HIV 1 AND 2 ANTIBODY | Routin | 06/11/2018 | | Results for this | | DIFFERENTIATION | e | 5:36 AM | | procedure are in the | | | | PST | | results section. | + +--------+ + + + | EXTERNAL LAB: CBC | Routin | 06/11/2018 | | Results for this | | | e | 5:36 AM | | procedure are in the | | | | PST | | results section. | + +--------+ + + + | HEPATITIS PANEL, | Routin | 06/11/2018 | | Results for this | | CHRONIC | e | 5:36 AM | | procedure are in the | | | | PST | | results section. | + +--------+ + + + | BASIC METABOLIC | Routin | 06/11/2018 | | Results for this | | PANEL | e | 5:36 AM | | procedure are in the | | | | PST | | results section. | + +--------+ + + + | HCG, URINE, QUAL | Routin | 06/10/2018 | | Results for this | | | e | 5:43 PM | | procedure are in the | | | | PST | | results section. | + +--------+ + + + | CT GUIDED NEEDLE | Routin | 06/10/2018 | | Results for this | | PLACEMENT | e | 12:37 PM | | procedure are in the | | | | PST | | results section. | + +--------+ + + + | ECHO COMPLETE | Routin | 06/10/2018 | | Results for this | | | e | 11:20 AM | | procedure are in the | | | | PST | | results section. | + +--------+ + + + | CULTURE, BLOOD, 2ND | STAT | 06/10/2018 | | Results for this | | SPECIMEN (NON-ORD) | | 7:47 AM | | procedure are in the | | | | PST | | results section. | + +--------+ + + + | CULTURE, BLOOD | STAT | 06/10/2018 | | Results for this | | | | 7:46 AM | | procedure are in the | | | | PST | | results section. | + +--------+ + + + | EXTERNAL LAB: CBC | Routin | 06/10/2018 | | Results for this | | | e | 7:45 AM | | procedure are in the | | | | PST | | results section. | + +--------+ + + + | PTT | Routin | 06/10/2018 | | Results for this | | | e | 7:45 AM | | procedure are in the | | | | PST | | results section. | + +--------+ + + + | SEDIMENTATION RATE, | Routin | 06/10/2018 | | Results for this | | AUTOMATED | e | 7:45 AM | | procedure are in the | | | | PST | | results section. | + +--------+ + + + | PROTIME INR | Routin | 06/10/2018 | | Results for this | | | e | 7:45 AM | | procedure are in the | | | | PST | | results section. | + +--------+ + + + | C-REACTIVE PROTEIN | Routin | 06/10/2018 | | Results for this | | | e | 7:45 AM | | procedure are in the | | | | PST | | results section. | + +--------+ + + + | LACTIC ACID | Routin | 06/10/2018 | | Results for this | | | e | 7:45 AM | | procedure are in the | | | | PST | | results section. | + +--------+ + + + | COMPREHENSIVE | Routin | 06/10/2018 | | Results for this | | METABOLIC PANEL | e | 7:45 AM | | procedure are in the | | | | PST | | results section. | + +--------+ + + + | MRI LUMBAR SPINE W | Routin | 06/10/2018 | | Results for this | | WO CONTRAST | e | 5:43 AM | | procedure are in the | | | | PST | | results section. | + +--------+ + + + | XR LUMBAR SPINE 2 OR | Routin | 06/10/2018 | | Results for this | | 3 VW | e | 3:12 AM | | procedure are in the | | | | PST | | results section. | + +--------+ + + + documented in this encounter Results External Lab: CBC (06/15/2018 5:57 AM PST) + + + + + + | Component | Value | Ref Range | Performed | Pathologist | | | | | At | Signature | + + + + + + | WBC | 9.40 | 3.80 - 11.00 | EXTERNAL | | | | | K/uL | LAB | | + + + + + + | Red Blood | 3.94 | 3.70 - 5.10 | EXTERNAL | | | Cells | | M/uL | LAB | | | Counted | | | | | + + + + + + | Hemoglobin | 10.5 (L) | 11.3 - 15.5 | EXTERNAL | | | | | g/dL | LAB | | + + + + + + | Hematocrit, | 32.0 (L) | 34.0 - 46.0 % | EXTERNAL | | | POC | | | LAB | | + + + + + + | MCV | 81.1 | 80.0 - 100.0 fl | EXTERNAL | | | | | | LAB | | + + + + + + | MCH | 26.6 (L) | 27.0 - 34.0 pg | EXTERNAL | | | | | | LAB | | + + + + + + | MCHC | 32.8 | 32.0 - 35.5 | EXTERNAL | | | | | g/dL | LAB | | + + + + + + | RDW-CV | 40.3 | 37 - 53 fl | EXTERNAL | | | | | | LAB | | + + + + + + | Platelet | 394 | 150 - 400 K/uL | EXTERNAL | | | Count | | | LAB | | | Plasma | | | | | + + + + + + | MPV | 7.0 | fl | EXTERNAL | | | | | | LAB | | + + + + + + | Differentia | AUTOMATED | | EXTERNAL | | | l Type | | | LAB | | + + + + + + | % Segmented | 65.29 | % | EXTERNAL | | | | | | LAB | | | Neutrophils | | | | | + + + + + + | % | 23.75 | % | EXTERNAL | | | Lymphocytes | | | LAB | | + + + + + + | % Monocytes | 5.85 | % | EXTERNAL | | | | | | LAB | | + + + + + + | % | 3.72 | % | EXTERNAL | | | Eosinophils | | | LAB | | + + + + + + | % Basophils | 1.39 | % | EXTERNAL | | | | | | LAB | | + + + + + + | Absolute | 6.14 | 1.90 - 7.40 | EXTERNAL | | | Segmented | | K/uL | LAB | | | Neutrophils | | | | | + + + + + + | Absolute | 2.23 | 1.00 - 3.90 | EXTERNAL | | | Lymphocytes | | K/uL | LAB | | + + + + + + | Absolute | 0.55 | 0.00 - 0.80 | EXTERNAL | | | Monocytes | | K/uL | LAB | | + + + + + + | Absolute | 0.35 | 0.00 - 0.50 | EXTERNAL | | | Eosinophils | | K/uL | LAB | | + + + + + + | Absolute | 0.13 (H)Comment: Testing | 0.00 - 0.10 | EXTERNAL | | | Basophils | performed at [facility], [address] | LAB | | | | [address], | | | | | | [place] [address] | | | | + + + + + + + + | Specimen | + + | Blood specimen | | (specimen) | + + + +---------+ + + | Performing | Address | City/State/Zipcode | Phone Number | | Organization | | | | + +---------+ + + | EXTERNAL LAB | | | | + +---------+ + + Magnesium (06/15/2018 5:57 AM PST) + + + + + + | Component | Value | Ref Range | Performed | Pathologist | | | | | At | Signature | + + + + + + | Magnesium | 2.1Comment: Testing | 1.7 - 2.4 mg/dL | EXTERNAL | | | | performed at [facility], [address] | | LAB | | | | [address], | | | | | | [place] [address] | | | | + + + + + + + + | Specimen | + + | Blood specimen | | (specimen) | + + + +---------+ + + | Performing | Address | City/State/Zipcode | Phone Number | | Organization | | | | + +---------+ + + | EXTERNAL LAB | | | | + +---------+ + + Comprehensive Metabolic Panel (06/15/2018 5:57 AM PST) + + + + + + | Component | Value | Ref Range | Performed | Pathologist | | | | | At | Signature | + + + + + + | Na | 140 | 135 - 145 | EXTERNAL | | | | | mmol/L | LAB | | + + + + + + | K | 3.9 | 3.5 - 4.9 | EXTERNAL | | | | | mmol/L | LAB | | + + + + + + | Cl | 105 | 99 - 109 mmol/L | EXTERNAL | | | | | | LAB | | + + + + + + | CO2 | 27 | 23 - 32 mmol/L | EXTERNAL | | | | | | LAB | | + + + + + + | Anion Gap | 12 | 5 - 20 mmol/L | EXTERNAL | | | | | | LAB | | + + + + + + | Glucose, | 80 | 65 - 99 mg/dL | EXTERNAL | | | Fasting | | | LAB | | + + + + + + | BUN | 9 | 8 - 25 mg/dL | EXTERNAL | | | | | | LAB | | + + + + + + | Creatinine | 0.5 | 0.50 - 1.00 | EXTERNAL | | | | | mg/dL | LAB | | + + + + + + | BUN/Creatin | 18 | | EXTERNAL | | | ine Ratio | | | LAB | | + + + + + + | Calcium | 8.5 | 8.5 - 10.5 | EXTERNAL | | | | | mg/dL | LAB | | + + + + + + | Protein, | 6.6 | 6.3 - 8.2 g/dL | EXTERNAL | | | Total | | | LAB | | + + + + + + | Albumin | 2.4 (L) | 3.6 - 5.0 g/dL | EXTERNAL | | | | | | LAB | | + + + + + + | Globulin | 4.2 | 1.3 - 4.9 g/dL | EXTERNAL | | | | | | LAB | | + + + + + + | A/G Ratio | 0.6 (L) | 1.0 - 2.4 | EXTERNAL | | | | | | LAB | | + + + + + + | Bilirubin | 0.2 | 0.1 - 1.5 mg/dL | EXTERNAL | | | Total | | | LAB | | + + + + + + | ALP, | 109 | 35 - 115 U/L | EXTERNAL | | | External | | | LAB | | + + + + + + | AST | 9 (L) | 10 - 45 U/L | EXTERNAL | | | | | | LAB | | + + + + + + | ALT | 14 | 10 - 65 U/L | EXTERNAL | | | | | | LAB | | + + + + + + | Estimated | >60Comment: GFR <60: | mL/min/1.73m2 | EXTERNAL | | | GFR | CHRONIC KIDNEY DISEASE, | | LAB | | | | IF FOUND OVER [...] | | | | | | MDRD IDDE traceable | | | | | | equation.Testing | | | | | | performed at [facility], [address] | | | | | | [facility], | | | | | | [place] [address] | | | | + + + + + + + + | Specimen | + + | Blood specimen | | (specimen) | + + + +---------+ + + | Performing | Address | City/State/Zipcode | Phone Number | | Organization | | | | + +---------+ + + | EXTERNAL LAB | | | | + +---------+ + + Vancomycin, Trough (06/14/2018 1:42 PM PST) + + + + + + | Component | Value | Ref Range | Performed | Pathologist | | | | | At | Signature | + + + + + + | Vancomycin | 16.3Comment: 15 to 20 | 10 - 20 ug/mL | EXTERNAL | | | Trough | ug/mL for meningitis, | | LAB | | | | osteomyelitis, | | | | | | endocarditis, sepsis, or | | | | | | healthcare associated | | | | | | pneumonia, or an CAREY | | | | | | equal to or greater than | | | | | | 1.0 ug/mLTesting | | | | | | performed at [facility] | | | | | | [facility];[place], [place] | | | | | | [address] | | | | + + + + + + + + | Specimen | + + | Blood specimen | | (specimen) | + + + +---------+ + + | Performing | Address | City/State/Zipcode | Phone Number | | Organization | | | | + +---------+ + + | EXTERNAL LAB | | | | + +---------+ + + External Lab: CBC (06/14/2018 5:09 AM PST) + + + + + + | Component | Value | Ref Range | Performed | Pathologist | | | | | At | Signature | + + + + + + | WBC | 9.72 | 3.80 - 11.00 | EXTERNAL | | | | | K/uL | LAB | | + + + + + + | Red Blood | 3.99 | 3.70 - 5.10 | EXTERNAL | | | Cells | | M/uL | LAB | | | Counted | | | | | + + + + + + | Hemoglobin | 10.5 (L) | 11.3 - 15.5 | EXTERNAL | | | | | g/dL | LAB | | + + + + + + | Hematocrit, | 32.2 (L) | 34.0 - 46.0 % | EXTERNAL | | | POC | | | LAB | | + + + + + + | MCV | 80.7 | 80.0 - 100.0 fl | EXTERNAL | | | | | | LAB | | + + + + + + | MCH | 26.2 (L) | 27.0 - 34.0 pg | EXTERNAL | | | | | | LAB | | + + + + + + | MCHC | 32.5 | 32.0 - 35.5 | EXTERNAL | | | | | g/dL | LAB | | + + + + + + | RDW-CV | 39.4 | 37 - 53 fl | EXTERNAL | | | | | | LAB | | + + + + + + | Platelet | 383 | 150 - 400 K/uL | EXTERNAL | | | Count | | | LAB | | | Plasma | | | | | + + + + + + | MPV | 7.0 | fl | EXTERNAL | | | | | | LAB | | + + + + + + | Differentia | AUTOMATED | | EXTERNAL | | | l Type | | | LAB | | + + + + + + | % Segmented | 67.37 | % | EXTERNAL | | | | | | LAB | | | Neutrophils | | | | | + + + + + + | % | 22.23 | % | EXTERNAL | | | Lymphocytes | | | LAB | | + + + + + + | % Monocytes | 5.74 | % | EXTERNAL | | | | | | LAB | | + + + + + + | % | 3.18 | % | EXTERNAL | | | Eosinophils | | | LAB | | + + + + + + | % Basophils | 1.48 | % | EXTERNAL | | | | | | LAB | | + + + + + + | Absolute | 6.55 | 1.90 - 7.40 | EXTERNAL | | | Segmented | | K/uL | LAB | | | Neutrophils | | | | | + + + + + + | Absolute | 2.16 | 1.00 - 3.90 | EXTERNAL | | | Lymphocytes | | K/uL | LAB | | + + + + + + | Absolute | 0.56 | 0.00 - 0.80 | EXTERNAL | | | Monocytes | | K/uL | LAB | | + + + + + + | Absolute | 0.31 | 0.00 - 0.50 | EXTERNAL | | | Eosinophils | | K/uL | LAB | | + + + + + + | Absolute | 0.14 (H)Comment: Testing | 0.00 - 0.10 | EXTERNAL | | | Basophils | performed at [facility], [address] | [address] | | | | [address], | | | | | | [place] [address] | | | | + + + + + + + + | Specimen | + + | Blood specimen | | (specimen) | + + + +---------+ + + | Performing | Address | City/State/Zipcode | Phone Number | | Organization | | | | + +---------+ + + | EXTERNAL LAB | | | | + +---------+ + + Magnesium (06/14/2018 5:09 AM PST) + + + + + + | Component | Value | Ref Range | Performed | Pathologist | | | | | At | Signature | + + + + + + | Magnesium | 2.1Comment: Testing | 1.7 - 2.4 mg/dL | EXTERNAL | | | | performed at [facility], [address] | | LAB | | | | [address], | | | | | | [place] [address] | | | | + + + + + + + + | Specimen | + + | Blood specimen | | (specimen) | + + + +---------+ + + | Performing | Address | City/State/Zipcode | Phone Number | | Organization | | | | + +---------+ + + | EXTERNAL LAB | | | | + +---------+ + + Comprehensive Metabolic Panel (06/14/2018 5:09 AM PST) + + + + + + | Component | Value | Ref Range | Performed | Pathologist | | | | | At | Signature | + + + + + + | Na | 140 | 135 - 145 | EXTERNAL | | | | | mmol/L | LAB | | + + + + + + | K | 3.8 | 3.5 - 4.9 | EXTERNAL | | | | | mmol/L | LAB | | + + + + + + | Cl | 105 | 99 - 109 mmol/L | EXTERNAL | | | | | | LAB | | + + + + + + | CO2 | 26 | 23 - 32 mmol/L | EXTERNAL | | | | | | LAB | | + + + + + + | Anion Gap | 13 | 5 - 20 mmol/L | EXTERNAL | | | | | | LAB | | + + + + + + | Glucose, | 79 | 65 - 99 mg/dL | EXTERNAL | | | Fasting | | | LAB | | + + + + + + | BUN | 10 | 8 - 25 mg/dL | EXTERNAL | | | | | | LAB | | + + + + + + | Creatinine | 0.5 | 0.50 - 1.00 | EXTERNAL | | | | | mg/dL | LAB | | + + + + + + | BUN/Creatin | 20 | | EXTERNAL | | | ine Ratio | | | LAB | | + + + + + + | Calcium | 8.5 | 8.5 - 10.5 | EXTERNAL | | | | | mg/dL | LAB | | + + + + + + | Protein, | 6.8 | 6.3 - 8.2 g/dL | EXTERNAL | | | Total | | | LAB | | + + + + + + | Albumin | 2.3 (L) | 3.6 - 5.0 g/dL | EXTERNAL | | | | | | LAB | | + + + + + + | Globulin | 4.5 | 1.3 - 4.9 g/dL | EXTERNAL | | | | | | LAB | | + + + + + + | A/G Ratio | 0.5 (L) | 1.0 - 2.4 | EXTERNAL | | | | | | LAB | | + + + + + + | Bilirubin | 0.1 | 0.1 - 1.5 mg/dL | EXTERNAL | | | Total | | | LAB | | + + + + + + | ALP, | 101 | 35 - 115 U/L | EXTERNAL | | | External | | | LAB | | + + + + + + | AST | 11 | 10 - 45 U/L | EXTERNAL | | | | | | LAB | | + + + + + + | ALT | 14 | 10 - 65 U/L | EXTERNAL | | | | | | LAB | | + + + + + + | Estimated | >60Comment: GFR <60: | mL/min/1.73m2 | EXTERNAL | | | GFR | CHRONIC KIDNEY DISEASE, | | LAB | | | | IF FOUND OVER [...] | | | | | performed at [facility], [address] | | | | | | [facility], | | | | | | [place], [place] [address] | | | | + + + + + + + + | Specimen | + + | Blood specimen | | (specimen) | + + + +---------+ + + | Performing | Address | City/State/Zipcode | Phone Number | | Organization | | | | + +---------+ + + | EXTERNAL LAB | | | | + +---------+ + + Vancomycin, Trough (06/13/2018 12:42 PM PST) + + + + + + | Component | Value | Ref Range | Performed | Pathologist | | | | | At | Signature | + + + + + + | Vancomycin | 14.9Comment: 15 to 20 | 10 - 20 ug/mL | EXTERNAL | | | Trough | ug/mL for meningitis, | | LAB | | | | osteomyelitis, | | | | | | endocarditis, sepsis, or | | | | | | healthcare associated | | | | | | pneumonia, or an CAREY | | | | | | equal to or greater than | | | | | | 1.0 ug/mLTesting | | | | | | performed at [facility];[address] | | | | | | [facility];[place], [place] | | | | | | [address] | | | | + + + + + + + + | Specimen | + + | Blood specimen | | (specimen) | + + + +---------+ + + | Performing | Address | City/State/Zipcode | Phone Number | | Organization | | | | + +---------+ + + | EXTERNAL LAB | | | | + +---------+ + + External Lab: CBC (06/13/2018 4:54 AM PST) + + + + + + | Component | Value | Ref Range | Performed | Pathologist | | | | | At | Signature | + + + + + + | WBC | 9.84 | 3.80 - 11.00 | EXTERNAL | | | | | K/uL | LAB | | + + + + + + | Red Blood | 4.00 | 3.70 - 5.10 | EXTERNAL | | | Cells | | M/uL | LAB | | | Counted | | | | | + + + + + + | Hemoglobin | 10.5 (L) | 11.3 - 15.5 | EXTERNAL | | | | | g/dL | LAB | | + + + + + + | Hematocrit, | 32.5 (L) | 34.0 - 46.0 % | EXTERNAL | | | POC | | | LAB | | + + + + + + | MCV | 81.3 | 80.0 - 100.0 fl | EXTERNAL | | | | | | LAB | | + + + + + + | MCH | 26.2 (L) | 27.0 - 34.0 pg | EXTERNAL | | | | | | LAB | | + + + + + + | MCHC | 32.2 | 32.0 - 35.5 | EXTERNAL | | | | | g/dL | LAB | | + + + + + + | RDW-CV | 40.3 | 37 - 53 fl | EXTERNAL | | | | | | LAB | | + + + + + + | Platelet | 365 | 150 - 400 K/uL | EXTERNAL | | | Count | | | LAB | | | Plasma | | | | | + + + + + + | MPV | 7.1 | fl | EXTERNAL | | | | | | LAB | | + + + + + + | Differentia | AUTOMATED | | EXTERNAL | | | l Type | | | LAB | | + + + + + + | % Segmented | 66.20 | % | EXTERNAL | | | | | | LAB | | | Neutrophils | | | | | + + + + + + | % | 24.51 | % | EXTERNAL | | | Lymphocytes | | | LAB | | + + + + + + | % Monocytes | 6.15 | % | EXTERNAL | | | | | | LAB | | + + + + + + | % | 2.04 | % | EXTERNAL | | | Eosinophils | | | LAB | | + + + + + + | % Basophils | 1.10 | % | EXTERNAL | | | | | | LAB | | + + + + + + | Absolute | 6.52 | 1.90 - 7.40 | EXTERNAL | | | Segmented | | K/uL | LAB | | | Neutrophils | | | | | + + + + + + | Absolute | 2.41 | 1.00 - 3.90 | EXTERNAL | | | Lymphocytes | | K/uL | LAB | | + + + + + + | Absolute | 0.61 | 0.00 - 0.80 | EXTERNAL | | | Monocytes | | K/uL | LAB | | + + + + + + | Absolute | 0.20 | 0.00 - 0.50 | EXTERNAL | | | Eosinophils | | K/uL | LAB | | + + + + + + | Absolute | 0.11 (H)Comment: Testing | 0.00 - 0.10 | EXTERNAL | | | Basophils | performed at [facility], [address] | LAB | | | | [address], | | | | | | [place] [address] | | | | + + + + + + + + | Specimen | + + | Blood specimen | | (specimen) | + + + +---------+ + + | Performing | Address | City/State/Zipcode | Phone Number | | Organization | | | | + +---------+ + + | EXTERNAL LAB | | | | + +---------+ + + Magnesium (06/13/2018 4:54 AM PST) + + + + + + | Component | Value | Ref Range | Performed | Pathologist | | | | | At | Signature | + + + + + + | Magnesium | 2.2Comment: Testing | 1.7 - 2.4 mg/dL | EXTERNAL | | | | performed at [facility], [address] | | LAB | | | | [address], | | | | | | [place] [address] | | | | + + + + + + + + | Specimen | + + | Blood specimen | | (specimen) | + + + +---------+ + + | Performing | Address | City/State/Zipcode | Phone Number | | Organization | | | | + +---------+ + + | EXTERNAL LAB | | | | + +---------+ + + Comprehensive Metabolic Panel (06/13/2018 4:54 AM PST) + + + + + + | Component | Value | Ref Range | Performed | Pathologist | | | | | At | Signature | + + + + + + | Na | 141 | 135 - 145 | EXTERNAL | | | | | mmol/L | LAB | | + + + + + + | K | 4.1 | 3.5 - 4.9 | EXTERNAL | | | | | mmol/L | LAB | | + + + + + + | Cl | 106 | 99 - 109 mmol/L | EXTERNAL | | | | | | LAB | | + + + + + + | CO2 | 28 | 23 - 32 mmol/L | EXTERNAL | | | | | | LAB | | + + + + + + | Anion Gap | 11 | 5 - 20 mmol/L | EXTERNAL | | | | | | LAB | | + + + + + + | Glucose, | 76 | 65 - 99 mg/dL | EXTERNAL | | | Fasting | | | LAB | | + + + + + + | BUN | 10 | 8 - 25 mg/dL | EXTERNAL | | | | | | LAB | | + + + + + + | Creatinine | 0.5 | 0.50 - 1.00 | EXTERNAL | | | | | mg/dL | LAB | | + + + + + + | BUN/Creatin | 20 | | EXTERNAL | | | ine Ratio | | | LAB | | + + + + + + | Calcium | 8.6 | 8.5 - 10.5 | EXTERNAL | | | | | mg/dL | LAB | | + + + + + + | Protein, | 6.9 | 6.3 - 8.2 g/dL | EXTERNAL | | | Total | | | LAB | | + + + + + + | Albumin | 2.4 (L) | 3.6 - 5.0 g/dL | EXTERNAL | | | | | | LAB | | + + + + + + | Globulin | 4.5 | 1.3 - 4.9 g/dL | EXTERNAL | | | | | | LAB | | + + + + + + | A/G Ratio | 0.5 (L) | 1.0 - 2.4 | EXTERNAL | | | | | | LAB | | + + + + + + | Bilirubin | 0.2 | 0.1 - 1.5 mg/dL | EXTERNAL | | | Total | | | LAB | | + + + + + + | ALP, | 102 | 35 - 115 U/L | EXTERNAL | | | External | | | LAB | | + + + + + + | AST | 9 (L) | 10 - 45 U/L | EXTERNAL | | | | | | LAB | | + + + + + + | ALT | 11 | 10 - 65 U/L | EXTERNAL | | | | | | LAB | | + + + + + + | Estimated | >60Comment: GFR <60: | mL/min/1.73m2 | EXTERNAL | | | GFR | CHRONIC KIDNEY DISEASE, | | LAB | | | | IF FOUND OVER [...] | | | | | performed at [facility], [address] | | | | | | [facility], | | | | | | [place] [address] | | | | + + + + + + + + | Specimen | + + | Blood specimen | | (specimen) | + + + +---------+ + + | Performing | Address | City/State/Zipcode | Phone Number | | Organization | | | | + +---------+ + + | EXTERNAL LAB | | | | + +---------+ + + Vancomycin, Trough (06/12/2018 11:51 AM PST) + + + + + + | Component | Value | Ref Range | Performed | Pathologist | | | | | At | Signature | + + + + + + | Vancomycin | 18.8Comment: 15 to 20 | 10 - 20 ug/mL | EXTERNAL | | | Trough | ug/mL for meningitis, | | LAB | | | | osteomyelitis, | | | | | | endocarditis, sepsis, or | | | | | | healthcare associated | | | | | | pneumonia, or an CAREY | | | | | | equal to or greater than | | | | | | 1.0 ug/mLTesting | | | | | | performed at [facility];[address] | | | | | | [facility];[place], [place] | | | | | | [address] | | | | + + + + + + + + | Specimen | + + | Blood specimen | | (specimen) | + + + +---------+ + + | Performing | Address | City/State/Zipcode | Phone Number | | Organization | | | | + +---------+ + + | EXTERNAL LAB | | | | + +---------+ + + External Lab: CBC (06/12/2018 5:40 AM PST) + + + + + + | Component | Value | Ref Range | Performed | Pathologist | | | | | At | Signature | + + + + + + | WBC | 11.51 (H) | 3.80 - 11.00 | EXTERNAL | | | | | K/uL | LAB | | + + + + + + | Red Blood | 3.88 | 3.70 - 5.10 | EXTERNAL | | | Cells | | M/uL | LAB | | | Counted | | | | | + + + + + + | Hemoglobin | 10.5 (L) | 11.3 - 15.5 | EXTERNAL | | | | | g/dL | LAB | | + + + + + + | Hematocrit, | 31.3 (L) | 34.0 - 46.0 % | EXTERNAL | | | POC | | | LAB | | + + + + + + | MCV | 80.5 | 80.0 - 100.0 fl | EXTERNAL | | | | | | LAB | | + + + + + + | MCH | 27.0 | 27.0 - 34.0 pg | EXTERNAL | | | | | | LAB | | + + + + + + | MCHC | 33.6 | 32.0 - 35.5 | EXTERNAL | | | | | g/dL | LAB | | + + + + + + | RDW-CV | 39.4 | 37 - 53 fl | EXTERNAL | | | | | | LAB | | + + + + + + | Platelet | 370 | 150 - 400 K/uL | EXTERNAL | | | Count | | | LAB | | | Plasma | | | | | + + + + + + | MPV | 6.9 | fl | EXTERNAL | | | | | | LAB | | + + + + + + | Differentia | AUTOMATED | | EXTERNAL | | | l Type | | | LAB | | + + + + + + | % Segmented | 76.84 | % | EXTERNAL | | | | | | LAB | | | Neutrophils | | | | | + + + + + + | % | 16.71 | % | EXTERNAL | | | Lymphocytes | | | LAB | | + + + + + + | % Monocytes | 4.77 | % | EXTERNAL | | | | | | LAB | | + + + + + + | % | 1.05 | % | EXTERNAL | | | Eosinophils | | | LAB | | + + + + + + | % Basophils | 0.63 | % | EXTERNAL | | | | | | LAB | | + + + + + + | Absolute | 8.84 (H) | 1.90 - 7.40 | EXTERNAL | | | Segmented | | K/uL | LAB | | | Neutrophils | | | | | + + + + + + | Absolute | 1.92 | 1.00 - 3.90 | EXTERNAL | | | Lymphocytes | | K/uL | LAB | | + + + + + + | Absolute | 0.55 | 0.00 - 0.80 | EXTERNAL | | | Monocytes | | K/uL | LAB | | + + + + + + | Absolute | 0.12 | 0.00 - 0.50 | EXTERNAL | | | Eosinophils | | K/uL | LAB | | + + + + + + | Absolute | 0.07Comment: Testing | 0.00 - 0.10 | EXTERNAL | | | Basophils | performed at [facility], [address] | [address] | LAB | | | | [address], | | | | | | [place] [address] | | | | + + + + + + + + | Specimen | + + | Blood specimen | | (specimen) | + + + +---------+ + + | Performing | Address | City/State/Zipcode | Phone Number | | Organization | | | | + +---------+ + + | EXTERNAL LAB | | | | + +---------+ + + Magnesium (06/12/2018 5:40 AM PST) + + + + + + | Component | Value | Ref Range | Performed | Pathologist | | | | | At | Signature | + + + + + + | Magnesium | 2.1Comment: Testing | 1.7 - 2.4 mg/dL | EXTERNAL | | | | performed at [facility], [address] | | LAB | | | | [address], | | | | | | [place] [address] | | | | + + + + + + + + | Specimen | + + | Blood specimen | | (specimen) | + + + +---------+ + + | Performing | Address | City/State/Zipcode | Phone Number | | Organization | | | | + +---------+ + + | EXTERNAL LAB | | | | + +---------+ + + Comprehensive Metabolic Panel (06/12/2018 5:40 AM PST) + + + + + + | Component | Value | Ref Range | Performed | Pathologist | | | | | At | Signature | + + + + + + | Na | 140 | 135 - 145 | EXTERNAL | | | | | mmol/L | LAB | | + + + + + + | K | 4.0 | 3.5 - 4.9 | EXTERNAL | | | | | mmol/L | LAB | | + + + + + + | Cl | 103 | 99 - 109 mmol/L | EXTERNAL | | | | | | LAB | | + + + + + + | CO2 | 25 | 23 - 32 mmol/L | EXTERNAL | | | | | | LAB | | + + + + + + | Anion Gap | 16 | 5 - 20 mmol/L | EXTERNAL | | | | | | LAB | | + + + + + + | Glucose, | 91 | 65 - 99 mg/dL | EXTERNAL | | | Fasting | | | LAB | | + + + + + + | BUN | 7 (L) | 8 - 25 mg/dL | EXTERNAL | | | | | | LAB | | + + + + + + | Creatinine | 0.5 | 0.50 - 1.00 | EXTERNAL | | | | | mg/dL | LAB | | + + + + + + | BUN/Creatin | 14 | | EXTERNAL | | | ine Ratio | | | LAB | | + + + + + + | Calcium | 8.7 | 8.5 - 10.5 | EXTERNAL | | | | | mg/dL | LAB | | + + + + + + | Protein, | 7.4 | 6.3 - 8.2 g/dL | EXTERNAL | | | Total | | | LAB | | + + + + + + | Albumin | 2.4 (L) | 3.6 - 5.0 g/dL | EXTERNAL | | | | | | LAB | | + + + + + + | Globulin | 5.0 (H) | 1.3 - 4.9 g/dL | EXTERNAL | | | | | | LAB | | + + + + + + | A/G Ratio | 0.5 (L) | 1.0 - 2.4 | EXTERNAL | | | | | | LAB | | + + + + + + | Bilirubin | 0.2 | 0.1 - 1.5 mg/dL | EXTERNAL | | | Total | | | LAB | | + + + + + + | ALP, | 106 | 35 - 115 U/L | EXTERNAL | | | External | | | LAB | | + + + + + + | AST | 7 (L) | 10 - 45 U/L | EXTERNAL | | | | | | LAB | | + + + + + + | ALT | 10 | 10 - 65 U/L | EXTERNAL | | | | | | LAB | | + + + + + + | Estimated | >60Comment: GFR <60: | mL/min/1.73m2 | EXTERNAL | | | GFR | CHRONIC KIDNEY DISEASE, | | LAB | | | | IF FOUND OVER [...] | | | | | performed at [facility], [address] | | | | | | [facility], | | | | | | [place] [address] | | | | + + + + + + + + | Specimen | + + | Blood specimen | | (specimen) | + + + +---------+ + + | Performing | Address | City/State/Zipcode | Phone Number | | Organization | | | | + +---------+ + + | EXTERNAL LAB | | | | + +---------+ + + Vancomycin Level (06/11/2018 11:44 AM PST) + + + + + + | Component | Value | Ref Range | Performed | Pathologist | | | | | At | Signature | + + + + + + | Vancomycin | 15.52Comment: Testing | ug/mL | EXTERNAL | | | Random | performed at [facility] | | LAB | | | | [address];[place], [place] | | | | | | [address] | | | | + + + + + + + + | Specimen | + + | Blood specimen | | (specimen) | + + + +---------+ + + | Performing | Address | City/State/Zipcode | Phone Number | | Organization | | | | + +---------+ + + | EXTERNAL LAB | | | | + +---------+ + + Hepatitis Panel, Chronic (06/11/2018 5:36 AM PST) + + + + + + | Component | Value | Ref Range | Performed | Pathologist | | | | | At | Signature | + + + + + + | Hep A Total | NON REACTIVE | | EXTERNAL | | | Ab Interp | | | LAB | | + + + + + + | HEP B | NON REACTIVE | | EXTERNAL | | | SURFACE | | | LAB | | | ANTIBODY | | | | | + + + + + + | Hepatitis B | NON REACTIVE | | EXTERNAL | | | Core Ab | | | LAB | | | Total | | | | | + + + + + + | HEP B | 2.76 (H)Comment: <1.00 | IV | EXTERNAL | | | SURFACE | Non | | LAB | | | ANTIBODY | Immune1.00 OR MORE | | | | | | Indicates vaccine | | | | | | response or response to | | | | | | HBV infection. An Index | | | | | | Value (IV) of 1.00 is | | | | | | equivalent to 10 mIU/mL. | | | | | | Samples with an IV of | | | | | | 1.00 or greater are | | | | | | considered reactive | | | | | | (protected) in | | | | | | accordance with CDC | | | | | | Guidelines. | | | | + + + + + + | HCV Ab | NON REACTIVE | | EXTERNAL | | | | | | LAB | | + + + + + + | Hepatitis | No serologic evidence of | | EXTERNAL | | | Interpretat | HAV or HCV infection. | | LAB | | | ion | Reactive anti HBs | | | | | | suggests vaccine or | | | | | | previous Hepatitis | | | | | | B.Comment: Testing | | | | | | performed at [facility], [address] | | | | | | [facility] [facility], | | | | | | [place] [address] | | | | + + + + + + + + | Specimen | + + | | + + + +---------+ + + | Performing | Address | City/State/Zipcode | Phone Number | | Organization | | | | + +---------+ + + | EXTERNAL LAB | | | | + +---------+ + + HIV 1 and 2 Antibody Differentiation (06/11/2018 5:36 AM PST) + + + + + + | Component | Value | Ref Range | Performed | Pathologist | | | | | At | Signature | + + + + + + | HIV 1 and 2 | NON REACTIVEComment: THE | | EXTERNAL | | | Ab | NON REACTIVE HIV 1/2 | | LAB | | | | RESULT INDICATES THAT | | | | | | NEITHER ANTIBODIES NOR | | | | | | P24 ANTIGEN TO HIV 1/2 | | | | | | HAVE BEEN DETECTED IN | | | | | | THIS SPECIMEN. THIS | | | | | | RESULT DOES NOT PRECLUDE | | | | | | PREVIOUS EXPOSURE OR | | | | | | INFECTION.Testing | | | | | | performed at [facility], [address] | | | | | | [facility], | | | | | | [place] [address] | | | | + + + + + + + + | Specimen | + + | Blood specimen | | (specimen) | + + + +---------+ + + | Performing | Address | City/State/Zipcode | Phone Number | | Organization | | | | + +---------+ + + | EXTERNAL LAB | | | | + +---------+ + + External Lab: CBC (06/11/2018 5:36 AM PST) + + + + + + | Component | Value | Ref Range | Performed | Pathologist | | | | | At | Signature | + + + + + + | WBC | 11.12 (H) | 3.80 - 11.00 | EXTERNAL | | | | | K/uL | LAB | | + + + + + + | Red Blood | 4.31 | 3.70 - 5.10 | EXTERNAL | | | Cells | | M/uL | LAB | | | Counted | | | | | + + + + + + | Hemoglobin | 11.1 (L) | 11.3 - 15.5 | EXTERNAL | | | | | g/dL | LAB | | + + + + + + | Hematocrit, | 34.9 | 34.0 - 46.0 % | EXTERNAL | | | POC | | | LAB | | + + + + + + | MCV | 80.9 | 80.0 - 100.0 fl | EXTERNAL | | | | | | LAB | | + + + + + + | MCH | 25.7 (L) | 27.0 - 34.0 pg | EXTERNAL | | | | | | LAB | | + + + + + + | MCHC | 31.7 (L) | 32.0 - 35.5 | EXTERNAL | | | | | g/dL | LAB | | + + + + + + | RDW-CV | 39.8 | 37 - 53 fl | EXTERNAL | | | | | | LAB | | + + + + + + | Platelet | 396 | 150 - 400 K/uL | EXTERNAL | | | Count | | | LAB | | | Plasma | | | | | + + + + + + | MPV | 6.9 | fl | EXTERNAL | | | | | | LAB | | + + + + + + | Differentia | AUTOMATED | | EXTERNAL | | | l Type | | | LAB | | + + + + + + | % Segmented | 76.83 | % | EXTERNAL | | | | | | LAB | | | Neutrophils | | | | | + + + + + + | % | 15.40 | % | EXTERNAL | | | Lymphocytes | | | LAB | | + + + + + + | % Monocytes | 4.91 | % | EXTERNAL | | | | | | LAB | | + + + + + + | % | 1.87 | % | EXTERNAL | | | Eosinophils | | | LAB | | + + + + + + | % Basophils | 0.99 | % | EXTERNAL | | | | | | LAB | | + + + + + + | Absolute | 8.54 (H) | 1.90 - 7.40 | EXTERNAL | | | Segmented | | K/uL | LAB | | | Neutrophils | | | | | + + + + + + | Absolute | 1.71 | 1.00 - 3.90 | EXTERNAL | | | Lymphocytes | | K/uL | LAB | | + + + + + + | Absolute | 0.55 | 0.00 - 0.80 | EXTERNAL | | | Monocytes | | K/uL | LAB | | + + + + + + | Absolute | 0.21 | 0.00 - 0.50 | EXTERNAL | | | Eosinophils | | K/uL | LAB | | + + + + + + | Absolute | 0.11 (H)Comment: Testing | 0.00 - 0.10 | EXTERNAL | | | Basophils | performed at [facility], [address] | K/uL | LAB | | | | [address] [facility], | | | | | | [place] [address] | | | | + + + + + + + + | Specimen | + + | Blood specimen | | (specimen) | + + + +---------+ + + | Performing | Address | City/State/Zipcode | Phone Number | | Organization | | | | + +---------+ + + | EXTERNAL LAB | | | | + +---------+ + + Basic Metabolic Panel (06/11/2018 5:36 AM PST) + + + + + + | Component | Value | Ref Range | Performed | Pathologist | | | | | At | Signature | + + + + + + | Na | 139 | 135 - 145 | EXTERNAL | | | | | mmol/L | LAB | | + + + + + + | K | 4.1 | 3.5 - 4.9 | EXTERNAL | | | | | mmol/L | LAB | | + + + + + + | Cl | 104 | 99 - 109 mmol/L | EXTERNAL | | | | | | LAB | | + + + + + + | CO2 | 25 | 23 - 32 mmol/L | EXTERNAL | | | | | | LAB | | + + + + + + | Anion Gap | 14 | 5 - 20 mmol/L | EXTERNAL | | | | | | LAB | | + + + + + + | Glucose, | 83 | 65 - 99 mg/dL | EXTERNAL | | | Fasting | | | LAB | | + + + + + + | BUN | 10 | 8 - 25 mg/dL | EXTERNAL | | | | | | LAB | | + + + + + + | Creatinine | 0.5 | 0.50 - 1.00 | EXTERNAL | | | | | mg/dL | LAB | | + + + + + + | BUN/Creatin | 20 | | EXTERNAL | | | ine Ratio | | | LAB | | + + + + + + | Calcium | 8.8 | 8.5 - 10.5 | EXTERNAL | | | | | mg/dL | LAB | | + + + + + + | Estimated | >60Comment: GFR <60: | mL/min/1.73m2 | EXTERNAL | | | GFR | CHRONIC KIDNEY DISEASE, | | LAB | | | | IF FOUND OVER [...] | | | | | performed at [facility], [address] | | | | | [facility], | | | | | | [place] [address] | | | | + + + + + + + + | Specimen | + + | Blood specimen | | (specimen) | + + + +---------+ + + | Performing | Address | City/State/Zipcode | Phone Number | | Organization | | | | + +---------+ + + | EXTERNAL LAB | | | | + +---------+ + + , Urine, Qual (06/10/2018 5:43 PM PST) + + + + + + | Component | Value | Ref Range | Performed | Pathologist | | | | | At | Signature | + + + + + + | Preg Test, | NEGATIVEComment: Testing | | EXTERNAL | | | Ur | performed at [facility];[address] | | LAB | | | | [address];[place], [place] | | | | | | [address] | | | | + + + + + + + + | Specimen | + + | Urine specimen | | (specimen) | + + + +---------+ + + | Performing | Address | City/State/Zipcode | Phone Number | | Organization | | | | + +---------+ + + | EXTERNAL LAB | | | | + +---------+ + + CT Guided Needle Placement (06/10/2018 12:37 PM PST) + + | Specimen | + + | | + + + + + | Impressions | Performed At | + + + | CT-guided aspiration of L4-L5 disc. | | + + + + + + | Narrative | Performed At | + + + | ELIZABETH PEDERSON [address] GUIDED NEEDLE | | | PLACEMENT 06/10/2018 12:37 PM HISTORY: 28 years. Female. | | | Discitis osteomyelitis. COMPARISON: MRI lumbar spine on | | | 06/10/2018 at 5:43 AM. DESCRIPTION OF PROCEDURE: Written informed | | | consent was obtained. A timeout was performed. Where and as | | | appropriate, marking of side and/or site upon the patient was directly | | | performed by the physician performing the procedure, antecedent to | | | both imaging and intervention Patient positioning: Prone. Axial | | | distribution systems serviceperson images were obtained through region of interest with a skin | | | marker grid over the right flank and appropriate site of entry marked. | | | The skin was then prepped and draped in the usual sterile fashion and | | | anesthetized with 1% lidocaine buffered with sodium bicarbonate. | | | Subsequently, A 17-gauge introducer needle was advanced under CT | | | guidance into L4-L5 disc. Initial aspiration demonstrated no fluid. | | | Therefore small amount of sterile saline was instilled into the disc, | | | aspirated back. Sample was sent to microbiology for further | | | assessment. Post procedure images demonstrated no evidence of | | | complications. COMPLICATIONS: There were no immediate complications. | | | Dose reduction techniques were used including automated exposure | | | control (AEC), iterative reconstruction technique, and/or mA and/or kV | | | dose adjustments based on patient size. MEDICATIONS: I.V. | | | conscious sedation was supervised by Dr. Rico using Versed and | | | Fentanyl for 30 minutes. Using automated blood pressure, EKG and pulse | | | oximetry, the patient was independently monitored by a radiology | | | nurse certified to give conscious sedation. There were no sedation | | | complications. | | + + + + + | Procedure Note | + + | Nima, Rad Conversion - 02/15/2019 4:32 AM PDT ELIZABETH PEDERSON years | | FemaleCT GUIDED NEEDLE [id number]/7/2018 12:37 PM HISTORY: 28 years. Female. | | Discitis osteomyelitis. COMPARISON: MRI lumbar spine on 06/10/2018 at 5:43 AM. | | DESCRIPTION OF PROCEDURE:Written informed consent was obtained. A timeout was | | performed. Where and as appropriate, marking of side and/or site upon the patient was | | directly performed by the physician performing the procedure, antecedent to both imaging | | and intervention Patient positioning: Prone.Axial distribution systems serviceperson images were obtained through | | region of interest with a skin marker grid over the right flank and appropriate site of | | entry marked. The skin was then prepped and draped in the usual sterile fashion and | | anesthetized with 1% lidocaine buffered with sodium bicarbonate. Subsequently, A | | 17-gauge introducer needle was advanced under CT guidance into L4-L5 disc. Initial | | aspiration demonstrated no fluid. Therefore small amount of sterile saline was instilled | | into the disc, aspirated back. Sample was sent to microbiology for further assessment. | | Post procedure images demonstrated no evidence of complications.COMPLICATIONS:There were | | no immediate complications. Dose reduction techniques were used including automated | | exposure control (AEC), iterative reconstruction technique, and/or mA and/or kV dose | | adjustments based on patient size. MEDICATIONS:I.V. conscious sedation was supervised by | | Dr. Rico using Versed and Fentanyl for 30 minutes. Using automated blood pressure, EKG | | and pulse oximetry, the patient was independently monitored by a radiology nurse | | certified to give conscious sedation. There were no sedation complications. IMPRESSION: | | CT-guided aspiration of L4-L5 disc. Electronically signed by Hank Rico MD on | | 06/10/2018 1:23 PM | | | |MEDICATIONS: | |I.V. conscious sedation was supervised by Dr. Rico using Versed and Fentanyl for 30 minute s. Using automated blood pressure, EKG and pulse oximetry, the patient was independently mon itored by a radiology nurse | |certified to give conscious sedation. There | | were no sedation complications. | | | |IMPRESSION: | | | |CT-guided aspiration of L4-L5 disc. | | | | | + + ECHO Complete (06/10/2018 11:20 AM PST) + + | Specimen | + + | | + + + + + | Impressions | Performed At | + + + | 1. No vegetation visualized. | | + + + + + + | Narrative | Performed At | + + + | Patient Name: ELIZABETH PEDERSON Date of : 1990 | | | Performing Physician: Sukhwinder Knapp | | | MD | | | ------REPORT ADDENDED------ INDICATIONS R/O | | | ENDOCARDITIS, PAIN, OSTEMYELITIS OF LUMBAR SPINE CONCLUSIONS | | | 1. No vegetation visualized. FINDINGS -------- ECG | | | rhythm: Sinus rhythm. Study: A 2-dimensional transthoracic | | | echocardiogram with m-mode, spectral and color flow Doppler was | | | perfomed. Study: This was a technically adequate study. Left | | | Ventricle: Overall left ventricular systolic function is normal with, | | | an EF between 60 - 65 %. Left Ventricle: The left ventricle cavity | | | size is normal. Left Ventricle: Left ventricular wall thickness is | | | normal. Left Ventricle: No regional wall motion abnormalities. Left | | | Ventricle: The diastolic filling pattern is normal for the age of the | | | patient. Right Ventricle: The right ventricle is normal in size. | | | Right Ventricle: The right ventricular systolic function is normal. | | | Left Atrium: The left atrium is mildly dilated. Right Atrium: The | | | right atrial size is normal. Aortic Valve: The aortic valve is | | | trileaflet. Aortic Valve: There is no evidence of aortic | | | regurgitation. Aortic Valve: There is no evidence of aortic stenosis. | | | Mitral Valve: The mitral valve is normal. Mitral Valve: Mild mitral | | | regurgitation is present. Tricuspid Valve: The tricuspid valve | | | appears structurally normal. Tricuspid Valve: Mild tricuspid | | | regurgitation present. Tricuspid Valve: The right ventricular | | | systolic pressure (pulmonary artery systolic pressure), as measured by | | | Doppler, is 39.26mmHg. Pulmonic Valve: The pulmonic valve was not | | | well visualized. Pulmonic Valve: Trace pulmonic regurgitation. | | | Pericardium: There is no pericardial effusion. IVC/Hepatic Veins: The | | | IVC is normal size and collapses >50% with sniff, consistent with | | | central venous pressures of 3 mmHg. Aorta: The aortic root, ascending | | | aorta and aortic arch are normal. Thrombus: No vegetation | | | visualized. Septum: No ASD or VSD observed by color Doppler. | | | MEASUREMENTS RA Area: 16.81 cm2 Ao asc: 3.07 cm | | | Ao sinus: 2.82 cm IVC: 1.49 cm LA Major: 5.55 cm | | | EDV(Teich): 100.20 ml IVSd: 0.95 cm LVIDd: 4.65 cm LVPWd: | | | 1.05 cm LVOT Diam: 2.14 cm %FS: 31.48 % EF(Teich): | | | 59.40 % ESV(Teich): 40.67 ml IVSs: 1.23 cm LVIDs: 3.19 cm | | | LVPWs: 1.81 cm SV(Teich): 59.52 ml RA Major: 4.52 cm | | | RVIDd: 2.58 cm RVOT Diam: 2.15 cm LVEF MOD A2C: 65.43 % SV | | | MOD A2C: 54.56 ml LVEF MOD A4C: 60.68 % SV MOD A4C: 58.01 | | | ml EF Biplane: 61.83 % LVEDV MOD BP: 88.81 ml LVESV MOD BP: | | | 33.89 ml LVEDV MOD A2C: 83.38 ml LVLd A2C: 7.94 cm LVEDV | | | MOD A4C: 95.59 ml LVLd A4C: 7.95 cm LVESV MOD A2C: 28.82 ml | | | LVLs A2C: 6.97 cm LVESV MOD A4C: 37.58 ml LVLs A4C: 6.54 | | | cm LAESV(A-L): 76.83 ml LAESV Index (A-L): 41.53 ml/m2 LAAs | | | A2C: 20.21 cm2 LAESV A-L A2C: 63.90 ml LALs A2C: 5.42 cm | | | LAAs A4C: 24.29 cm2 LAESV A-L A4C: 91.31 ml LALs A4C: 5.48 | | | cm Ao Diam: 2.79 cm AV Cusp: 1.91 cm LA Diam: 3.97 cm | | | LA/Ao: 1.42 D-E Excursion: 1.63 cm E-F Stafford: 0.13 m/s | | | TAPSE: 2.76 cm HR: 69.91 BPM AV maxP.30 mmHg AV | | | meanP.92 mmHg AV Vmax: 1.52 m/s AV Vmean: 1.03 m/s AV | | | VTI: 33.10 cm LEONOR Vmax: 2.65 cm2 LEONOR (VTI): 2.49 cm2 AVAI | | | Vmax: 0.00 cm2/m2 AVAI (VTI): 0.00 cm2/m2 LVCI Dopp: 2.99 | | | l/minm2 LVCO Dopp: 5.53 l/min HR: 66.94 BPM LVOT maxPG: | | | 5.05 mmHg LVOT meanP.57 mmHg LVSI Dopp: 44.69 ml/m2 LVSV | | | Dopp: 82.68 ml LVOT Vmax: 1.12 m/s LVOT Vmean: 0.76 m/s | | | LVOT VTI: 22.98 cm MV A Ino: 0.80 m/s MV DecT: 128.76 ms | | | MV E Ino: 1.11 m/s MV E/A Ratio: 1.38 E/E' Av.12 E' | | | Av.18 m/s E/E' Lat: 5.78 E/E' Sept: 6.52 E' Lat: | | | 0.19 m/s E' Sept: 0.17 m/s P Vein D: 0.54 m/s P Vein S/D | | | Ratio: 1.20 P Vein S: 0.65 m/s HR: 73.95 BPM PV maxPG: | | | 3.96 mmHg PV meanP.39 mmHg PV Vmax: 0.99 m/s PV Vmean: | | | 0.74 m/s PV VTI: 21.70 cm RVOT maxP.43 mmHg RVOT Vmax: | | | 0.78 m/s RAP: 3 mmHg RV S': 0.16 m/s RVSP: 39.26 mmHg | | | TR maxP.26 mmHg TR Vmax: 3.01 m/s Ballet Dancer: SAQIB | | | Authenticated by: Sukhwinder Knapp MD Report Date/Time: 06-10-2018 | | | 14:16:10 | | + + + + + | Procedure Note | + + | Nima, Rad Conversion - 02/15/2019 4:32 AM PDT Patient Name: Madison PEDERSON of | | : 1990 Performing Physician: Sukhwinder Knapp | | MD ------REPORT | | ADDENDED------INDICATIONS R/O ENDOCARDITIS, PAIN, OSTEMYELITIS OF LUMBAR SPINE | | CONCLUSIONS 1. No vegetation visualized. FINDINGS--------ECG rhythm: Sinus | | rhythm.Study: A 2-dimensional transthoracic echocardiogram with m-mode, spectral and | | color flow Doppler was perfomed.Study: This was a technically adequate study.Left | | Ventricle: Overall left ventricular systolic function is normal with, an EF between 60 - | | 65 %.Left Ventricle: The left ventricle cavity size is normal.Left Ventricle: Left | | ventricular wall thickness is normal.Left Ventricle: No regional wall motion | | abnormalities.Left Ventricle: The diastolic filling pattern is normal for the age of the | | patient.Right Ventricle: The right ventricle is normal in size.Right Ventricle: The | | right ventricular systolic function is normal.Left Atrium: The left atrium is mildly | | dilated.Right Atrium: The right atrial size is normal.Aortic Valve: The aortic valve is | | trileaflet.Aortic Valve: There is no evidence of aortic regurgitation.Aortic Valve: | | There is no evidence of aortic stenosis.Mitral Valve: The mitral valve is normal.Mitral | | Valve: Mild mitral regurgitation is present.Tricuspid Valve: The tricuspid valve appears | | structurally normal.Tricuspid Valve: Mild tricuspid regurgitation present.Tricuspid | | Valve: The right ventricular systolic pressure (pulmonary artery systolic pressure), as | | measured by Doppler, is 39.26mmHg.Pulmonic Valve: The pulmonic valve was not well | | visualized.Pulmonic Valve: Trace pulmonic regurgitation.Pericardium: There is no | | pericardial effusion.IVC/Hepatic Veins: The IVC is normal size and collapses >50% with | | sniff, consistent with central venous pressures of 3 mmHg.Aorta: The aortic root, | | ascending aorta and aortic arch are normal.Thrombus: No vegetation visualized.Septum: No | | ASD or VSD observed by color Doppler. MEASUREMENTS RA Area: 16.81 cm2Ao | | asc: 3.07 cmAo sinus: 2.82 cmIVC: 1.49 cmLA Major: 5.55 cmEDV(Teich): 100.20 | | mlIVSd: 0.95 cmLVIDd: 4.65 cmLVPWd: 1.05 cmLVOT Diam: 2.14 cm%FS: 31.48 | | %EF(Teich): 59.40 %ESV(Teich): 40.67 mlIVSs: 1.23 cmLVIDs: 3.19 cmLVPWs: 1.81 | | cmSV(Teich): 59.52 mlRA Major: 4.52 cmRVIDd: 2.58 cmRVOT Diam: 2.15 cmLVEF MOD | | A2C: 65.43 %SV MOD A2C: 54.56 mlLVEF MOD A4C: 60.68 %SV MOD A4C: 58.01 mlEF | | Biplane: 61.83 %LVEDV MOD BP: 88.81 mlLVESV MOD BP: 33.89 mlLVEDV MOD A2C: 83.38 | | mlLVLd A2C: 7.94 cmLVEDV MOD A4C: 95.59 mlLVLd A4C: 7.95 cmLVESV MOD A2C: 28.82 | | mlLVLs A2C: 6.97 cmLVESV MOD A4C: 37.58 mlLVLs A4C: 6.54 cmLAESV(A-L): 76.83 | | mlLAESV Index (A-L): 41.53 ml/m2LAAs A2C: 20.21 [id number] A-L A2C: 63.90 mlLALs | | A2C: 5.42 cmLAAs A4C: 24.29 [id number] A-L A4C: 91.31 mlLALs A4C: 5.48 cmAo Diam: | | 2.79 cmAV Cusp: 1.91 cmLA Diam: 3.97 cmLA/Ao: 1.42D-E Excursion: 1.63 cmE-F | | Stafford: 0.13 m/sTAPSE: 2.76 cmHR: 69.91 BPMAV maxP.30 mmHgAV meanP.92 | | mmHgAV Vmax: 1.52 m/Adriel Vmean: 1.03 m/Adriel VTI: 33.10 cmAVA Vmax: 2.65 cm2AVA | | (VTI): 2.49 [id number] Vmax: 0.00 cm2/m2AVAI (VTI): 0.00 cm2/m2LVCI Dopp: 2.99 | | l/[id number] Dopp: 5.53 l/minHR: 66.94 BPMLVOT maxP.05 mmHgLVOT meanP.57 | | mmHgLVSI Dopp: 44.69 ml/m2LVSV Dopp: 82.68 mlLVOT Vmax: 1.12 m/sLVOT Vmean: 0.76 | | m/sLVOT VTI: 22.98 cmMV A Ino: 0.80 m/sMV DecT: 128.76 msMV E Ino: 1.11 m/sMV | | E/A Ratio: 1.38E/E' Av.12E' Av.18 m/sE/E' Lat: 5.78E/E' Sept: 6.52E' | | Lat: 0.19 m/sE' Sept: 0.17 m/sP Vein D: 0.54 m/sP Vein S/D Ratio: 1.20P Vein S: | | 0.65 m/sHR: 73.95 BPMPV maxP.96 mmHgPV meanP.39 mmHgPV Vmax: 0.99 | | m/sPV Vmean: 0.74 m/sPV VTI: 21.70 cmRVOT maxP.43 mmHgRVOT Vmax: 0.78 | | m/sRAP: 3 mmHgRV S': 0.16 m/sRVSP: 39.26 mmHgTR maxP.26 mmHgTR Vmax: 3.01 | | m/s Ballet Dancer: JBAuthenticated by: Sukhwinder Knapp MDReport Date/Time: 06-10-2018 | | 14:16:10 IMPRESSION: 1. No vegetation visualized. | | | |RA Area: 16.81 cm2 | |Ao asc: 3.07 cm | |Ao sinus: 2.82 cm | |IVC: 1.49 cm | |LA Major: 5.55 cm | |EDV(Teich): 100.20 ml | |IVSd: 0.95 cm | |LVIDd: 4.65 cm | |LVPWd: 1.05 cm | |LVOT Diam: 2.14 cm | |%FS: 31.48 % | |EF(Teich): 59.40 % | |ESV(Teich): 40.67 ml | |IVSs: 1.23 cm | |LVIDs: 3.19 cm | |LVPWs: 1.81 cm | |SV(Teich): 59.52 ml | |RA Major: 4.52 cm | |RVIDd: 2.58 cm | |RVOT Diam: 2.15 cm | |LVEF MOD A2C: 65.43 % | |SV MOD A2C: 54.56 ml | |LVEF MOD A4C: 60.68 % | |SV MOD A4C: 58.01 ml | |EF Biplane: 61.83 % | |LVEDV MOD BP: 88.81 ml | |LVESV MOD BP: 33.89 ml | |LVEDV MOD A2C: 83.38 ml | |LVLd A2C: 7.94 cm | |LVEDV MOD A4C: 95.59 ml | |LVLd A4C: 7.95 cm | |LVESV MOD A2C: 28.82 ml | |LVLs A2C: 6.97 cm | |LVESV MOD A4C: 37.58 ml | |LVLs A4C: 6.54 cm | |LAESV(A-L): 76.83 ml | |LAESV Index (A-L): 41.53 ml/m2 | |LAAs A2C: 20.21 cm2 | |LAESV A-L A2C: 63.90 ml | |LALs A2C: 5.42 cm | |LAAs A4C: 24.29 cm2 | |LAESV A-L A4C: 91.31 ml | |LALs A4C: 5.48 cm | |Ao Diam: 2.79 cm | |AV Cusp: 1.91 cm | |LA Diam: 3.97 cm | |LA/Ao: 1.42 | |D-E Excursion: 1.63 cm | |E-F Stafford: 0.13 m/s | |TAPSE: 2.76 cm | |HR: 69.91 BPM | |AV maxP.30 mmHg | |AV meanP.92 mmHg | |AV Vmax: 1.52 m/s | |AV Vmean: 1.03 m/s | |AV VTI: 33.10 cm | |LEONOR Vmax: 2.65 cm2 | |LEONOR (VTI): 2.49 cm2 | |AVAI Vmax: 0.00 cm2/m2 | |AVAI (VTI): 0.00 cm2/m2 | |LVCI Dopp: 2.99 l/minm2 | |LVCO Dopp: 5.53 l/min | |HR: 66.94 BPM | |LVOT maxP.05 mmHg | |LVOT meanP.57 mmHg | |LVSI Dopp: 44.69 ml/m2 | |LVSV Dopp: 82.68 ml | |LVOT Vmax: 1.12 m/s | |LVOT Vmean: 0.76 m/s | |LVOT VTI: 22.98 cm | |MV A Ino: 0.80 m/s | |MV DecT: 128.76 ms | |MV E Ino: 1.11 m/s | |MV E/A Ratio: 1.38 | |E/E' Av.12 | |E' Av.18 m/s | |E/E' Lat: 5.78 | |E/E' Sept: 6.52 | |E' Lat: 0.19 m/s | |E' Sept: 0.17 m/s | |P Vein D: 0.54 m/s | |P Vein S/D Ratio: 1.20 | |P Vein S: 0.65 m/s | |HR: 73.95 BPM | |PV maxP.96 mmHg | |PV meanP.39 mmHg | |PV Vmax: 0.99 m/s | |PV Vmean: 0.74 m/s | |PV VTI: 21.70 cm | |RVOT maxP.43 mmHg | |RVOT Vmax: 0.78 m/s | |RAP: 3 mmHg | |RV S': 0.16 m/s | |RVSP: 39.26 mmHg | |TR maxP.26 mmHg | |TR Vmax: 3.01 m/s | | | |Ballet Dancer: SAQIB | |Authenticated by: Sukhwinder Knapp MD | |Report Date/Time: 06-10-2018 14:16:10 | | | |IMPRESSION: | |1. No vegetation visualized. | + + Culture, Blood, 2nd Specimen (06/10/2018 7:47 AM PST) + + | Specimen | + + | Blood specimen | | (specimen) | + + + + + | Narrative | Performed At | + + + | Specimen Description BLOOD, PERIPHERAL DRAW | EXTERNAL LAB | | SPECIAL REQUESTS LHAND CULTURE | | | NO GROWTH 6 DAYS | | + + + + +---------+ + + | Performing | Address | City/State/Zipcode | Phone Number | | Organization | | | | + +---------+ + + | EXTERNAL LAB | | | | + +---------+ + + Culture, Blood (06/10/2018 7:46 AM PST) + + | Specimen | + + | Blood specimen | | (specimen) | + + + + + | Narrative | Performed At | + + + | Specimen Description BLOOD, PERIPHERAL DRAW | EXTERNAL LAB | | SPECIAL REQUESTS RFA CULTURE | | | NO GROWTH 6 DAYS | | + + + + +---------+ + + | Performing | Address | City/State/Zipcode | Phone Number | | Organization | | | | + +---------+ + + | EXTERNAL LAB | | | | + +---------+ + + PTT (06/10/2018 7:45 AM PST) + + + + + + | Component | Value | Ref Range | Performed | Pathologist | | | | | At | Signature | + + + + + + | aPTT, | 34 (H)Comment: Testing | 23 - 32 seconds | EXTERNAL | | | Patient | performed at [facility];[address] | | LAB | | | | [address];[place] | | | | | | [address] | | | | + + + + + + + + | Specimen | + + | Blood specimen | | (specimen) | + + + +---------+ + + | Performing | Address | City/State/Zipcode | Phone Number | | Organization | | | | + +---------+ + + | EXTERNAL LAB | | | | + +---------+ + + Sedimentation rate, automated (06/10/2018 7:45 AM PST) + + + + + + | Component | Value | Ref Range | Performed | Pathologist | | | | | At | Signature | + + + + + + | Sed Rate | 79 (H)Comment: Testing | 0 - 20 mm/Hr | EXTERNAL | | | | performed at [facility] | | LAB | | | | [address];[place], [place] | | | | | | [address] | | | | + + + + + + + + | Specimen | + + | Blood specimen | | (specimen) | + + + +---------+ + + | Performing | Address | City/State/Zipcode | Phone Number | | Organization | | | | + +---------+ + + | EXTERNAL LAB | | | | + +---------+ + + Protime INR (06/10/2018 7:45 AM PST) + + + + + + | Component | Value | Ref Range | Performed | Pathologist | | | | | At | Signature | + + + + + + | INR | 1.0Comment: REFERENCE | | EXTERNAL | | | | RANGE:0.9 - 1.2 | | LAB | | | | NON-ANTICOAGULATED2.0 | | | | | | - 3.0 ALL OTHER | | | | | | THERAPEUTIC | | | | | | INDICATIONS2.5 - 3.5 | | | | | | MECHANICAL HEART VALVES, | | | | | | RECURRENT OR SYSTEMIC | | | | | | EMBOLISMTesting | | | | | | performed at [facility];[address] | | | | | | [address] [facility];[place], [place] | | | | | | [address] | | | | + + + + + + + + | Specimen | + + | Blood specimen | | (specimen) | + + + +---------+ + + | Performing | Address | City/State/Zipcode | Phone Number | | Organization | | | | + +---------+ + + | EXTERNAL LAB | | | | + +---------+ + + External Lab: CBC (06/10/2018 7:45 AM PST) + + + + + + | Component | Value | Ref Range | Performed | Pathologist | | | | | At | Signature | + + + + + + | WBC | 8.96 | 3.80 - 11.00 | EXTERNAL | | | | | K/uL | LAB | | + + + + + + | Red Blood | 3.92 | 3.70 - 5.10 | EXTERNAL | | | Cells | | M/uL | LAB | | | Counted | | | | | + + + + + + | Hemoglobin | 10.4 (L) | 11.3 - 15.5 | EXTERNAL | | | | | g/dL | LAB | | + + + + + + | Hematocrit, | 31.3 (L) | 34.0 - 46.0 % | EXTERNAL | | | POC | | | LAB | | + + + + + + | MCV | 79.8 (L) | 80.0 - 100.0 fl | EXTERNAL | | | | | | LAB | | + + + + + + | MCH | 26.5 (L) | 27.0 - 34.0 pg | EXTERNAL | | | | | | LAB | | + + + + + + | MCHC | 33.2 | 32.0 - 35.5 | EXTERNAL | | | | | g/dL | LAB | | + + + + + + | RDW-CV | 41.6 | 37 - 53 fl | EXTERNAL | | | | | | LAB | | + + + + + + | Platelet | 335 | 150 - 400 K/uL | EXTERNAL | | | Count | | | LAB | | | Plasma | | | | | + + + + + + | MPV | 6.5 | fl | EXTERNAL | | | | | | LAB | | + + + + + + | Differentia | AUTOMATED | | EXTERNAL | | | l Type | | | LAB | | + + + + + + | % Segmented | 64.76 | % | EXTERNAL | | | | | | LAB | | | Neutrophils | | | | | + + + + + + | % | 22.44 | % | EXTERNAL | | | Lymphocytes | | | LAB | | + + + + + + | % Monocytes | 5.46 | % | EXTERNAL | | | | | | LAB | | + + + + + + | % | 5.92 | % | EXTERNAL | | | Eosinophils | | | LAB | | + + + + + + | % Basophils | 1.42 | % | EXTERNAL | | | | | | LAB | | + + + + + + | Absolute | 5.80 | 1.90 - 7.40 | EXTERNAL | | | Segmented | | K/uL | LAB | | | Neutrophils | | | | | + + + + + + | Absolute | 2.01 | 1.00 - 3.90 | EXTERNAL | | | Lymphocytes | | K/uL | LAB | | + + + + + + | Absolute | 0.49 | 0.00 - 0.80 | EXTERNAL | | | Monocytes | | K/uL | LAB | | + + + + + + | Absolute | 0.53 (H) | 0.00 - 0.50 | EXTERNAL | | | Eosinophils | | K/uL | LAB | | + + + + + + | Absolute | 0.13 (H)Comment: Testing | 0.00 - 0.10 | EXTERNAL | | | Basophils | performed at [facility];[address] | K/uL | LAB | | | | [address];[place] | | | | | | [address] | | | | + + + + + + + + | Specimen | + + | Blood specimen | | (specimen) | + + + +---------+ + + | Performing | Address | City/State/Zipcode | Phone Number | | Organization | | | | + +---------+ + + | EXTERNAL LAB | | | | + +---------+ + + C-Reactive Protein (06/10/2018 7:45 AM PST) + + + + + + | Component | Value | Ref Range | Performed | Pathologist | | | | | At | Signature | + + + + + + | CRP | 13.0 (H)Comment: Testing | mg/dL | EXTERNAL | | | | performed at [facility];[address] | | LAB | | | | [address];[place], [place] | | | | | | [address] | | | | + + + + + + + + | Specimen | + + | Blood specimen | | (specimen) | + + + +---------+ + + | Performing | Address | City/State/Zipcode | Phone Number | | Organization | | | | + +---------+ + + | EXTERNAL LAB | | | | + +---------+ + + Lactic Acid (06/10/2018 7:45 AM PST) + + + + + + | Component | Value | Ref Range | Performed | Pathologist | | | | | At | Signature | + + + + + + | Lactate | 0.5Comment: Testing | 0.4 - 2.0 | EXTERNAL | | | | performed at [facility];[id number] | mmol/L | LAB | | | | Timothy Becker;[place] | | | | | | [id number] | | | | + + + + + + + + | Specimen | + + | Blood specimen | | (specimen) | + + + +---------+ + + | Performing | Address | City/State/Zipcode | Phone Number | | Organization | | | | + +---------+ + + | EXTERNAL LAB | | | | + +---------+ + + Comprehensive Metabolic Panel (06/10/2018 7:45 AM PST) + + + + + + | Component | Value | Ref Range | Performed | Pathologist | | | | | At | Signature | + + + + + + | Na | 138 | 135 - 145 | EXTERNAL | | | | | mmol/L | LAB | | + + + + + + | K | 4.0 | 3.5 - 4.9 | EXTERNAL | | | | | mmol/L | LAB | | + + + + + + | Cl | 102 | 99 - 109 mmol/L | EXTERNAL | | | | | | LAB | | + + + + + + | CO2 | 32 | 23 - 32 mmol/L | EXTERNAL | | | | | | LAB | | + + + + + + | Anion Gap | 9 | 5 - 20 mmol/L | EXTERNAL | | | | | | LAB | | + + + + + + | Glucose, | 80 | 65 - 99 mg/dL | EXTERNAL | | | Fasting | | | LAB | | + + + + + + | BUN | 16 | 8 - 25 mg/dL | EXTERNAL | | | | | | LAB | | + + + + + + | Creatinine | 0.61 | 0.50 - 1.00 | EXTERNAL | | | | | mg/dL | LAB | | + + + + + + | BUN/Creatin | 26 | | EXTERNAL | | | ine Ratio | | | LAB | | + + + + + + | Calcium | 8.7 | 8.5 - 10.5 | EXTERNAL | | | | | mg/dL | LAB | | + + + + + + | Protein, | 7.5 | 6.3 - 8.2 g/dL | EXTERNAL | | | Total | | | LAB | | + + + + + + | Albumin | 2.7 (L) | 3.6 - 5.0 g/dL | EXTERNAL | | | | | | LAB | | + + + + + + | Globulin | 4.8 | 1.3 - 4.9 g/dL | EXTERNAL | | | | | | LAB | | + + + + + + | A/G Ratio | 0.6 (L) | 1.0 - 2.4 | EXTERNAL | | | | | | LAB | | + + + + + + | Bilirubin | 0.2 | 0.1 - 1.5 mg/dL | EXTERNAL | | | Total | | | LAB | | + + + + + + | ALP, | 115 | 35 - 115 U/L | EXTERNAL | | | External | | | LAB | | + + + + + + | AST | 8 (L) | 10 - 45 U/L | EXTERNAL | | | | | | LAB | | + + + + + + | ALT | 8 (L) | 10 - 65 U/L | EXTERNAL | | | | | | LAB | | + + + + + + | Estimated | >60Comment: GFR <60: | mL/min/1.73m2 | EXTERNAL | | | GFR | CHRONIC KIDNEY DISEASE, | | LAB | | | | IF FOUND OVER [...] | | | | | | MDRD [facility] traceable | | | | | | equation.Testing | | | | | | performed at [facility] | | | | | | [facility];[place], [place] | | | | | | [address] | | | | + + + + + + + + | Specimen | + + | Blood specimen | | (specimen) | + + + +---------+ + + | Performing | Address | City/State/Zipcode | Phone Number | | Organization | | | | + +---------+ + + | EXTERNAL LAB | | | | + +---------+ + + MRI Lumbar Spine w wo Contrast (06/10/2018 5:43 AM PST) + + | Specimen | + + | | + + + + + | Impressions | Performed At | + + + | 1. L4-L5 diskitis and osteomyelitis. 2. L4 and L5 anterior | | | epidural phlegmon with moderate central canal narrowing. 3. | | | Enhancement of anterior paravertebral soft tissues at the L4 and L5 | | | levels consistent with cellulitis/myositis. No abscess identified. | | | RADIA Electronically signed by Jonas Olvera on Jun 10 | | | 2017 6:40AM Referring Provider Line: [phone] ID: [id number] | | + + + + + + | Narrative | Performed At | + + + | EXAM: MRI LUMBAR SPINE WITHOUT AND WITH CONTRAST EXAM DATE: | | | 06/10/2018 05:14 AM. CLINICAL HISTORY: Infection. COMPARISONS: | | | None. TECHNIQUE: Multiplanar, multisequence T1-weighted and | | | fluid-sensitive sequences of the lumbar spine from T12 to S1 before | | | and after administration of intravenous contrast. Other: None. IV | | | contrast: MULTIHANCE. FINDINGS: Neurologic Structures: The conus | | | terminates at L1. The conus medullaris and cauda equina are | | | unremarkable. Alignment: No scoliosis or spondylolisthesis. | | | Bone Marrow: There is diffuse edema of the L4 and L5 vertebral bodies | | | and pedicles. Vertebral heights are preserved. Alignment anatomic. | | | Disk Levels/Facets: T12-L1: Unremarkable. L1-L2: Unremarkable. | | | L2-L3: Unremarkable. L3-L4: Disk unremarkable. There is mild | | | bilateral facet hypertrophy. No central canal or neural foraminal | | | narrowing. L4-L5: There is disk height loss. There is a | | | broad-based disk bulge. There is an epidural phlegmon extending from | | | the upper T4 to inferior T5 levels. This measures 5 mm in AP | | | dimension. There is mild facet hypertrophy. There is resultant | | | moderate central canal narrowing. Enhancing material narrows neural | | | foramen. L5-S1: There is disk height loss and a disk bulge. There | | | is mild facet hypertrophy. No central canal narrowing. There is | | | moderate bilateral neural foraminal narrowing. Spinal Canal: | | | Enhancing epidural soft tissue anteriorly at the L4 and L5 levels. | | | Musculature: There is paravertebral edema and enhancement anteriorly | | | at the L4 and L5 levels with involvement of the medial psoas muscles | | | bilaterally (right worse than left) | | + + + + + | Procedure Note | + + | Nima, Rad Conversion - 02/15/2019 4:32 AM PDT EXAM:MRI LUMBAR SPINE WITHOUT AND WITH | | CONTRAST EXAM DATE: 06/10/2018 05:14 AM. CLINICAL HISTORY: Infection. COMPARISONS: None. | | TECHNIQUE: Multiplanar, multisequence T1-weighted and fluid-sensitive sequences of the | | lumbar spine from T12 to S1 before and after administration of intravenous contrast. | | Other: None. IV contrast: MULTIHANCE. FINDINGS:Neurologic Structures: The conus | | terminates at L1. The conus medullaris and cauda equina are unremarkable. Alignment: No | | scoliosis or spondylolisthesis. Bone Marrow: There is diffuse edema of the L4 and L5 | | vertebral bodies and pedicles. Vertebral heights are preserved. Alignment anatomic. Disk | | Levels/Facets:T12-L1: Unremarkable. L1-L2: Unremarkable. L2-L3: Unremarkable. L3-L4: | | Disk unremarkable. There is mild bilateral facet hypertrophy. No central canal or neural | | foraminal narrowing. L4-L5: There is disk height loss. There is a broad-based disk | | bulge. There is an epidural phlegmon extending from the upper T4 to inferior T5 levels. | | This measures 5 mm in AP dimension. There is mild facet hypertrophy. There is resultant | | moderate central canal narrowing. Enhancing material narrows neural foramen. L5-S1: | | There is disk height loss and a disk bulge. There is mild facet hypertrophy. No central | | canal narrowing. There is moderate bilateral neural foraminal narrowing. Spinal Canal: | | Enhancing epidural soft tissue anteriorly at the L4 and L5 levels. Musculature: There is | | paravertebral edema and enhancement anteriorly at the L4 and L5 levels with involvement | | of the medial psoas muscles bilaterally (right worse than left) IMPRESSION: 1. L4-L5 | | diskitis and osteomyelitis.2. L4 and L5 anterior epidural phlegmon with moderate central | | canal narrowing.3. Enhancement of anterior paravertebral soft tissues at the L4 and L5 | | levels consistent with cellulitis/myositis. No abscess identified. RADIA | | Electronically signed by Jonas Olvera, on Jun 10 2018 6:40AM Referring Provider Line: | | [phone] ID: [id number] | | | |L3-L4: Disk unremarkable. There is mild bilateral facet hypertrophy. No central canal or ne ural foraminal narrowing. | | | |L4-L5: There is disk height loss. There is a broad-based disk bulge. There is an epidural p hlegmon extending from the upper T4 to inferior T5 levels. This measures 5 mm in AP dimensio n. There is mild facet hypertrophy. There | |is resultant moderate central | | canal narrowing. Enhancing material narrows neural foramen. | | | |L5-S1: There is disk height loss and a disk bulge. There is mild facet hypertrophy. No cent ral canal narrowing. There is moderate bilateral neural foraminal narrowing. | | | |Spinal Canal: Enhancing epidural soft tissue anteriorly at the L4 and L5 levels. | | | |Musculature: There is paravertebral edema and enhancement anteriorly at the L4 and L5 level s with involvement of the medial psoas muscles bilaterally (right worse than left) | | | |IMPRESSION: | | | |1. L4-L5 diskitis and osteomyelitis. | |2. L4 and L5 anterior epidural phlegmon with moderate central canal narrowing. | |3. Enhancement of anterior paravertebral soft tissues at the L4 and L5 levels consistent wi th cellulitis/myositis. No abscess identified. | | | | | |RADIA | | | | Electronically signed by Jonas Olvera, on Jun 10 2018 6:40AM Referring Provider Line: [phone] ID: [id number] | + + XR Lumbar Spine 2 or 3 Vw (06/10/2018 3:12 AM PST) + + | Specimen | + + | | + + + + + | Narrative | Performed At | + + + | This is a non-reportable procedure without a radiologist report and | | | is used for image storage only | | + + + + + | Procedure Note | + + | NimaEnio Candis - 02/15/2019 4:32 AM PDT This is a non-reportable procedure | | without a radiologist report and isused for image storage only | + + documented in this encounter Visit Diagnoses + + | Diagnosis | + + | Pain Generalized pain | + + | Osteomyelitis of lumbar spine (HCC) | + + | Vertebral osteomyelitis (HCC) Unspecified osteomyelitis, other specified site | + + documented in this encounter
--- OUTSIDE RECORDS SUMMARY | ~2019-11-25 | XMS | Encounter Summary ---
Demographics + + + | Address | [address] | | | [place] [address] | + + + | Home Phone | | + + + | Preferred Language | Unknown | + + + | Marital Status | Single | + + + | Druze Affiliation | Unknown | + + + | Race | Unknown | + + + | Ethnic Group | Unknown | + + + Author + + + | Author | [facility] | | | and [place] | + + + | Organization | [facility] | | | [...] Team Providers + +------+ + | Care Leather Repairer Name | Role | Phone | + +------+ + PCP | Unavailable | + +------+ + Encounter Details +--------+ + + + + | Date | Type | Department | Care Team | Description | +--------+ + + + + | 03/29/ | Hospital | [facility] | [place], | | | 2013 | Encounter | [facility] | Maggy Leahy MD [address] | | | | | [address] | | | | | [address] | [place] [address] | | | | | [place], [place] | [phone] | | | | | [address] | | | | | | [phone] | | | +--------+ + + + [...] documented as of this encounter Discharge Summaries Maggy Adame MD - 09/29/2012 11:59 PM PDTFormatting of this note might be differe nt from the original. Discharge Summaries by Maggy Adame MD at 09/29/12 6712 Author: Maggy Adame MD Service: Obstetrics/Gynecology Author Type: Physician Filed: 11/14/12 1224 Date of Service: 09/29/122358 Status: Signed Missile And Missile Checkout Technician: Maggy Adame MD (Physician) Related Notes: Original Note by Maggy Adame MD (Physician) filed at 09/30/12 0203 [facility] Service: Obstetrics & Gynecology Discharge Summary Date of Admission: 09/27/2012 Date of Discharge: 09/29/2012 Discharge Provider: MAGGY ADAME MD Treatment Team: Admitting Provider: Maggy Adame MD Discharge Diagnoses: Active Problems: * No active hospital problems. * Resolved Problems: * No resolved hospital problems. * Procedures: * No surgery found * Significant Diagnostic Studies: none BRIEF HISTORY OF PRESENTATION: Patient is a 22 y.o. female presents with oligohydramnios as a transfer from [facility]. Onset of symptoms was abrupt starting 1 day ago with gradually worseni ng course since that time. Patient denies any fevers/night sweats/chills or changes in bowel /bladder habits. Symptoms are aggravated by nothing. Symptoms improve with nothing. Past his tory includes asthma/depression and history of methamphetamine use. Previous studies include obstetrical ultrasound. There are no active problems to display for this patient. HOSPITAL COURSE: The patient was admitted to [facility] with oligohydramnios as a transfer of care from [facility] in [place], [place]. Ultrasound was obtained on the day of admission, revealing an ISMAEL of 5.6 and a BPP of 8/8. Repeat ISMAEL on hospital day #2 revealed 7.1. On hospital day #3 decision made to discharge the patient to home. Please note most recent BPP noted to be 8/8. movement noted to be within normal limits. monitoring remained reassuring. The patient requesting discharge home. Decision made to discharge the patient to home, with close outpatient followup. The patient contracts for safety. The patient recognizes risks associated with continued methamphetamine use. The patient will be followed regularly as an outpatient with twice-weekly visits with Dr. Adame. Routine drug toxicology testing will be performed with each visit. The patient strongly counseled on the dangers of continued drug use. Warning precautions regarding decreased movement as well as labor and leakage of fluid were reviewed prior to discharge. Past Medical History Diagnosis Date Asthma Depression Anxiety Anemia STD (sexually transmitted disease) Hx of Chlamydia Treated Substance abuse Hx of meth last use 06-04-2012 Smoking 1/2 pack a day or less 1/2 ppd for 9 yrs Past Surgical History Procedure Date Ovarian cyst removal No Known Allergies No prescriptions prior to admission DISCHARGE EXAM Vital Signs: LMP 02/06/2012 | ? Yes Temp: [98.2 F (36.8 C)] 98.2 F (36.8 C) (09/29 924) BP: (135)/(85) 135/85 mmHg (09/29 924) Heart Rate: [86] 86 (09/29 924) Resp: [18] 18 (09/29 924) Physical Exam Deferred DATA CBC: Lab Results Component Value Date WBC 7.2 09/27/2012 RBC 3.36* 09/27/2012 HGB 10.1* 09/27/2012 HCT 30.3* 09/27/2012 MCV 90.2 09/27/2012 MCH 29.9 09/27/2012 MCHC 33.2 09/27/2012 RDW 45.1 09/27/2012 PLT 185 09/27/2012 MPV 7.3 09/27/2012 PLAN Patient Active Hospital Problem List: No active hospital problems. Disposition: Home Condition: Stable Code Status: Prior No discharge procedures on file. Follow up: No follow-up provider specified. Patient's Medications New Prescriptions No medications on file Previous Medications ALBUTEROL (PROVENTIL) (2.5 MG/3ML) 0.083% NEBULIZER SOLUTION Take 2.5 mg by nebulizatio n every 6 (six) hours as needed. Indications: Acute Bronchospasm HYDROCODONE-ACETAMINOPHEN (NORCO) 10-325 MG PER TABLET Take 1 tablet by mouth every 6 ( six) hours as needed. Indications: Moderate to Moderately Severe Pain HYDROXYZINE (VISTARIL) 50 MG CAPSULE Take 25 mg by mouth 3 (three) times daily as neede d. Indications: Anxiety Neurosis MV-MIN-FE FUM-FA-DHA ( 1 PO) Take by mouth. Modified Medications No medications on file Discontinued Medications No medications on file Discharge took 15 minutes, to include final examination, discussion of admission, and prepa ration of prescriptions, instructions for on-going care, follow-up and documentation of disc harge summary. MAGGY ADAME MD documente d in this encounter Medications at Time of Discharge + + [...] Progress Notes Conversion Transaction, Provider Unknown - 09/30/2012 6:30 PM PDTFormatting of this note m ight be different from the original. Progress Notes by Gretchen Wright RN at 09/30/121829 Author: Gretchen Wright RN Service: Obstetrics/Gynecology Author Type: Registered Nu michaelae Filed: 09/30/121902 Date of Service: 09/30/121829 Status: Signed Missile And Missile Checkout Technician: Gretchen Wright RN (Registered Nurse) Primary RN Иван Mccoy informed me that pt's son was on his way to [facility] h aving an asthma attack and pt was going to leave the hospital. As lead, I went to her room a nd talked with her. Pt stated concerns. She thought she was being admitted for induction. Sh e said she wanted a second opinion. I told her that her case was discussed with our perinato logist and the Chief of OB. The decision was to watch her now and proceed with additional te sting this weekend and delay the decision to be induced. [facility] asked [facility] either Dr Hiren Becker or Dr Martinez. Pt was given ph one number for L&D. Dr Hiren Becker is unrefered on Wednesday and aware of her case as chief o f OB. Иван ROMANO returned to the room with a verbal order for the patient to be treated as an obse rvation, discharge home and follow up at Dr Adame's on Wednesday. Gretchen Wright RNC docume nted in this encounter Plan of Treatment Not on filedocumented as of this encounter Procedures + +--------+ + + + | Procedure Name | Priori | Date/Time | Associated Diagnosis | Comments | | | ty | | | | + +--------+ + + + | US BIOPHYSICAL | Routin | 09/30/2012 | | Results for this | | PROFILE WO NON | e | 4:05 PM | | procedure are in the | | STRESS | | PDT | | results section. | + +--------+ + + + documented in this encounter Results US BPP wo Non Stress (09/30/2012 4:05 PM PDT) + + | Specimen | + + | | + + + + + | Narrative | Performed At | + + + | [facility] US BIOPHYSICAL PROFILE WO NON STRESS TESTING | | | 09/30/2012 3:18 PM HISTORY: 22 years. Female. Biophysical | | | profile TECHNIQUE: Imaging was performed using a curved array | | | transabdominal transducer. Grayscale, color flow and M-mode | | | techniques were utilized. COMPARISON: None. FINDINGS: The | | | position: Cephalic. No breech presentation identified | | | currently Placental position: Posterior. Placenta previa: No. | | | Amniotic fluid index: 7.8 cm. Previous amniotic fluid index measured | | | 7.1 cm on 09/28. The largest single pocket of amniotic fluid measures | | | 3.4 cm. BIOPHYSICAL PROFILE: Movement = 2 Tone = 2 Breathing | | | = 2 AFV = 2 Biophysical Profile Score = 8/8 heart rate = | | | 164 beats/min IMPRESSION: 1. Biophysical Profile Score = 8/8 | | | 2. heart rate = 164 beats/min 3. Amniotic fluid index: 7.8 | | | cm. | | | PM | | + + + + + | Procedure Note | + + | Enio Herring - 02/24/2019 10:43 PM PDT [facility] | | PROFILE WO NON STRESS TESTING09/30/2012 3:18 PM HISTORY:22 years. Female. Biophysical | | profile TECHNIQUE:Imaging was performed using a curved array transabdominal transducer. | | Grayscale, color flow and M-mode techniques were utilized. COMPARISON:None. | | FINDINGS:The position: Cephalic. No breech presentation identified | | currentlyPlacental position: Posterior.Placenta previa: No. Amniotic fluid index: 7.8 | | cm.Previous amniotic fluid index measured 7.1 cm on 09/28.The largest single pocket of | | amniotic fluid measures 3.4 cm. BIOPHYSICAL PROFILE:Movement = 2Tone = 2Breathing = | | 2AFV = 2Biophysical Profile Score = 8/8 heart rate = 164 beats/min IMPRESSION:1. | | Biophysical Profile Score = 8/82. heart rate = 164 beats/min3. Amniotic fluid | | index: 7.8 cm. | |None. | | | |FINDINGS: | |The position: Cephalic. No breech presentation identified currently | |Placental position: Posterior. | |Placenta previa: No. | | | |Amniotic fluid index: 7.8 cm. | |Previous amniotic fluid index measured 7.1 cm on 09/28. | |The largest single pocket of amniotic fluid measures 3.4 cm. | | | | | |BIOPHYSICAL PROFILE: | |Movement = 2 | |Tone = 2 | |Breathing = 2 | |AFV = 2 | |Biophysical Profile Score = 8/8 | | | | heart rate = 164 beats/min | | | |IMPRESSION: | |1. Biophysical Profile Score = 8/8 | |2. heart rate = 164 beats/min | |3. Amniotic fluid index: 7.8 cm. | | | | | + + documented in this encounter Visit Diagnoses Not on filedocumented in this encounter"
--- OUTSIDE RECORDS SUMMARY | ~2019-11-25 | XMS | Encounter Summary ---
Demographics + + + | Address | [address] | | | [place] [address] | + + + | Home Phone | | + + + | Preferred Language | Unknown | + + + | Marital Status | Single | + + + | Buddhism Affiliation | Unknown | + + + | Race | Unknown | + + + | Ethnic Group | Unknown | + + + Author + + + | Author | [facility] | | | and [place] | + + + | Organization | [facility] | | | [...] Team Providers + +------+ + | Care Movement Assembler Name | Role | Phone | + +------+ + PCP | Unavailable | + +------+ + Encounter Details +--------+ + + + + | Date | Type | Department | Care Team | Description | +--------+ + + + + | 01/27/ | Emergency | [facility] | Adal Hamilton | Abdominal Pain, | | 2007 | | [facility] | [place] [address] [facility] | | | | EMER[facility]ENTER | [address] [place], [place] | | | | | [address] | [address] | | | | | [place], [place] | [phone] | | | | | [address] | | | | | | [phone] | | | +--------+ + + + [...]
--- OUTSIDE RECORDS SUMMARY | ~2019-11-25 | XMS | Encounter Summary ---
Demographics + + + | Address | [address] | | | [place] [address] | + + + | Home Phone [...] Team Providers + +------+ + | Care Critical Care Registered Nurse Name | Role | Phone | + +------+ + | Evelyn Whitehead DO | PCP | | + +------+ + Encounter Details +--------+ + + + + | Date | Type | Department | Care Team | Description | +--------+ + + + + | 10/11/ | Orders Only | [facility] | Shlomo Wright, | Supervision of [facility] | | 2020 | | ASSOCIATED | MD [address] | risk , | | | | [facility] | [address], | antepartum (Primary | | | | [address] | [place] [address] | Dx); Methadone use | | | | [address], | [phone] | (HCC); Tobacco abuse | | | | [place] [address] | | | | | | [phone] | | | +--------+ + + + [...] Not on filedocumented as of this encounter Results US OB Follow Up Transabdominal (10/12/2019 3:12 [...] | EFW by | | | Hadlock ([id number]) Head / Face / Neck Biometry: Cephalic [...] | | | bpm | | | Landscape Artist Comments Measurements compatible | | | with [...] 8 oz EFW by | | Hadlock ([id number]) Head / Face / Neck Biometry: Cephalic [...] | | FHR 135 bpm | | Landscape Artist Comments Measurements compatible with dates. The | | patient received thermal prints. Impression ========= Nieto IUP. Biometrics reveal | | estimated weight of 2507 g, 28th percentile overall. Measurements relatively | | symmetric. Amniotic fluid normal with an ISMAEL of 12.6 Maximum vertical pocket of 4.3. | | Recommendation Good interval growth, normal fluid, Reassuring ultrasound | | findings. | |EFW by Hadlock ([id number]) | |Head / Face / Neck Biometry: | |Cephalic index 0.73 6% Chitty | |Extremities / Bony Struc Biometry: | |FL / BPD 0.79 -/- Hadlock | |FL / HC 0.21 -/- Hadlock | |FL / AC 0.22 -/- Hadlock | |Other Structures Biometry: | |AF MVP 4.3 cm | |ISMAEL 12.6 cm | |FHR 135 bpm | | | |Landscape Artist Comments | | | | | |Measurements [...] antepartum - Primary | + + | Methadone use (HCC) Opioid type dependence, unspecified | + + | Tobacco abuse Tobacco use disorder | + + documented in this encounter"
--- OUTSIDE RECORDS SUMMARY | ~2019-11-25 | XMS | Encounter Summary ---
Demographics + + + | Address | [address] | | | [place] [address] | + + + | Home Phone | | + + + | Preferred Language | Unknown | + + + | Marital Status | Single | + + + | Jewish Affiliation | Unknown | + + + | Race | Unknown | + + + | Ethnic Group | Unknown | + + + Author + + + | Author | [facility] | | | and [place] | + + + | Organization | [facility] | | | [...] Team Providers + +------+ + | Care Cancer Spec Name | Role | Phone | + +------+ + | Evelyn Whitehead DO | PCP | | + +------+ + Encounter Details +--------+ + + + + | Date | Type | Department | Care Team | Description | +--------+ + + + + | 09/27/ | Orders Only | [facility] | Conversion | | | 2013 | | [address]VERSION [address] | Transaction, | | | | | [address] | Provider Unknown | | | | | [place], [place] | [phone] | | | | | [address] | | | | | | [phone] | | | +--------+ + + + [...]
--- OUTSIDE RECORDS SUMMARY | ~2019-11-25 | XMS | Encounter Summary ---
Demographics + + + | Address | [address] | | | [place] [address] | + + + | Home Phone | | + + + | Preferred Language | Unknown | + + + | Marital Status | Single | + + + | Restorationism Affiliation | Unknown | + + + | Race | Unknown | + + + | Ethnic Group | Unknown | + + + Author + + + | Author | [facility] | | | and [place] | + + + | Organization | [facility] | | | [...] Team Providers + +------+ + | Care Tool Technician Name | Role | Phone | + +------+ + | Evelyn Whitehead DO | PCP | | + +------+ + Reason for Visit +--------+ + | Reason | Comments | +--------+ + | Other | [facility] | +--------+ + Encounter Details +--------+ + + + + | Date | Type | Department | Care Team | Description | +--------+ + + + + | 09/13/ | Documentati | [facility] | [place], | Other (Referral - | | 2020 | on | ASSOCIATED | Carol Gaviria MD [address] | [facility] | | | | [facility] | [address] | [facility], | | | | [address] | [place] [address] | ) | | | | [address], | [phone] | | | | | [place] [address] | | | | | | [phone] | | | +--------+ + + + [...]
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
--- OUTSIDE RECORDS SUMMARY | ~2019-11-25 | XMS | Encounter Summary ---
Demographics + + + | Address | [address] | | | [place] [address] | + + + | Home Phone | | + + + | Preferred Language | Unknown | + + + | Marital Status | Single | + + + | Evangelical Affiliation | Unknown | + + + [...] Team Providers + +------+ + | Care Wet Milling Wheel Operator Name | Role | Phone | + +------+ + PCP | Unavailable | + +------+ + Encounter Details +--------+ + + + + | Date | Type | Department | Care Team | Description | +--------+ + + + + | 04/10/ | Emergency | [facility] | Rodriguez Bridges, | Wheezing | | 2008 | | MEDICAL CENTER | MD [address] | | | | | EMERGENCY CENTER | [place], [place] | | | | | [address] | [address] | | | | | [place], [place] | [phone] | | | | | [address] | | | | | | [phone] | | | +--------+ + + + [...] + | Diagnosis | + + | Wheezing | + + documented in this encounter"
--- OUTSIDE RECORDS SUMMARY | ~2019-11-25 | XMS | Encounter Summary ---
Demographics + + + | Address | [address] | | | [place] [address] | + + + | Home Phone | | + + + | Preferred Language | Unknown | + + + | Marital Status | Single | + + + | Congregational Affiliation | Unknown | + + + | Race | Unknown | + + + | Ethnic Group | Unknown | + + + Author + + + | Author | [facility] | | | and [place] | + + + | Organization | [facility] | | | [...] Team Providers + +------+ + | Care Stock Cutter Name | Role | Phone | + +------+ + | Evelyn Whitehead DO | PCP | | + +------+ + Encounter Details +--------+ + + + + | Date | Type | Department | Care Team | Description | +--------+ + + + + | 11/09/ | Routine | [facility] | Ashley Ramirez, | [place]: 39w5d | | 2019 | | ASSOCIATED | [address] | | | | | [facility] | [address] [place], | | | | | [address] | [place] [address] | | | | | [address] [place], | [phone] | | | | | [place] [address] | | | | | | [phone] | | | +--------+ + + + [...] + + + | Blood Pressure | 132/72 | 11/10/2019 1:48 PM | | | | | PDT [...] + + + + | Weight | 100.7 kg (222 lb) | 11/10/2019 1:48 PM | | | | | PDT | | + + + + + | Height | - | - | | + + + + + | Body Mass Index | 36.38 | 10/19/2019 3:05 PM | | | | | PDT | | + + + + + documented in this encounter Progress Notes Ashley Ramirez MD - 11/10/2019 1:50 PM PDTFormatting of this note might be different fro m the original. See ACOG summary and flowsheet for additional documentation. Solange Pederson presents for follow-up. She denies vaginal bleeding, leakage of f luid, or contractions. She states the baby is moving well. Pt reports stable on current methadone dose of 75mg daily. Has noticed slight worsening of asthma with occasional additional use of inhaler. Desires elective IOL Vitals: 11/10/19 1348 BP: 132/72 FHR; 150bpm Body mass index is 36.38 kg/m. No results found for this or any previous visit (from the past 12 hour(s)). ASSESSMENT AND PLAN: 29 y.o. 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 She was counseled to call or return for vaginal blee ding, regular contractions, leakage of fluid or decreased movement. Ashley Ramirez MD Jessica Jones Medic al Senior Controls Analyst - 11/10/2019 1:50 PM [id number] 39w5d BP 132/72 | Wt 100.7 kg (222 lb) | BMI 36.38 kg/m TWG:Not found. IW lb Concerns: none docain abel in this encounter Plan of Treatment Not on filedocumented as of this encounter Visit Diagnoses + + | Diagnosis | + + | Supervision of high risk , antepartum - Primary | + + | Mild intermittent asthma without complication Unspecified asthma | + + | IV drug abuse (HCC) Other, mixed, or unspecified nondependent drug abuse, unspecified | + + | Tobacco abuse Tobacco use disorder | + + documented in this encounter"
--- OUTSIDE RECORDS SUMMARY | ~2019-11-25 | XMS | Encounter Summary ---
Demographics + + + | Address | [address] | | | [place] [address] | + + + | Home Phone | | + + + | Preferred Language | Unknown | + + + | Marital Status | Single | + + + | Jew Affiliation | Unknown | + + + | Race | Unknown | + + + | Ethnic Group | Unknown | + + + Author + + + | Author | [facility] | | | and [place] | + + + | Organization | [facility] | | | [...] Team Providers + +------+ + | Care Rope Tow Operator Name | Role | Phone | + +------+ + | Evelyn Whitehead DO | PCP | | + +------+ + Encounter Details +--------+ + + + + | Date | Type | Department | Care Team | Description | +--------+ + + + + | 10/11/ | Routine | [facility] | Shlomo Wright, | GA: 35w4d | | 2020 | | ASSOCIATED | [address] | | | | | [facility] | [address] [place], | | | | | [address] | [place] [address] | | | | | [address] [place], | [phone] | | | | | [place] [address] | | | | | | [phone] | | | +--------+ + + + [...] + + + | Blood Pressure | 131/86 | 10/12/2019 3:33 PM | | | | | PDT [...] + + + + | Weight | 97 kg (213 lb 13.5 | 10/12/2019 3:33 PM | | | | oz) | PDT | | + + + + + | Height | - | - | | + + + + + | Body Mass Index | 35.04 | 09/21/2019 2:07 PM | | | | | PDT | | + + + + + documented in this encounter Patient Instructions Patient Instructions Amelia Kerr Agents' Records Clerk - 10/12/2019 4:00 PM PDT documented in this encounter Progress Notes Shlomo [place] MD - 10/12/2019 4:00 PM [id number] 35w4d BP 131/86 | Wt 97 kg (213 lb 13.5 oz) | BMI 35.04 kg/m TWG:Not found. IWlb Concerns: Reports heartburn Ultrasound today: Nieto IUP. Biometrics reveal estimated weight of 2507 g, 28th percentile overall. Measurements relatively symmetric. Amniotic fluid normal with an ISMAEL of 12.6 Maximum vertical pocket of 4.3. Good interval growth, normal fluid, Reassuring ultrasound findings. Patient is still taking methadone and doing well Pepcid prescribed today for heartburn. Follow up in 1 week. "I, Shlomo Erickson, personally performed the services described in this documentation, as scribed by [facility]AB[facility] Andrews in my presence, and is both accurate and complete". melia Kerr , Agents' Records Clerk - 10/12/2019 4:00 PM [id number] 5 35w4d BP 131/86 | Wt 97 kg (213 lb 13.5 oz) | BMI 35.04 kg/m TWG:Not found. IWlb Concerns: none Ultrasound today d ocumented in this encounter Plan of [...] | | + +--------+ + + + documented in this encounter Visit Diagnoses + + | Diagnosis | + + | Heartburn in in third trimester - Primary | + + | Supervision of high risk , antepartum | + + documented in this encounter
--- OUTSIDE RECORDS SUMMARY | ~2019-11-25 | XMS | Encounter Summary ---
Demographics + + + | Address | [address] | | | [place] [address] | + + + | Home Phone | | + + + | Preferred Language | Unknown | + + + | Marital Status | Single | + + + | Yarsani Affiliation | Unknown | + + + | Race | Unknown | + + + | Ethnic Group | Unknown | + + + Author + + + | Author | [facility] | | | and [place] | + + + | Organization | [facility] | | | [...] Providers + +------+ + | Care Principal Planner Name | Role | Phone | + [...] [address] | | | | | [address] | [address] [place], [place] | | | | | [place], [place] | [address] | | | | | [address] | [phone] | | | | | [phone] | | | +--------+ + + + [...]
--- OUTSIDE RECORDS SUMMARY | ~2019-11-25 | XMS | Encounter Summary ---
Demographics + + + | Address | [address] | | | [place] [address] | + + + | Home Phone | | + + + | Preferred Language | Unknown | + + + | Marital Status | Single | + + + | Jewish Affiliation | Unknown | + + + | Race | Unknown | + + + | Ethnic Group | Unknown | + + + Author + + + | Author | [facility] | | | and [place] | + + + | Organization | [facility] | | [...] Team Providers + +------+ + | Care Medical Office Worker Name | Role | Phone | + +------+ + | Evelyn Whitehead DO | PCP | | + +------+ + Reason for Visit + + + | Reason | Comments | + + + | Initial | | | Visit | | + + + Evaluate & Treat (Routine) + +--------+ + + + + | Status | Reason | Specialty | Diagnoses / | Referred By | Referred To | | | | | Procedures | Contact | Contact | + +--------+ + + + + | Authorizatio | | Obstetrics | Diagnoses | Charley | [facility] | | n not | | and | Supervision | DO Evelyn | Phys For | | Required | | Gynecology | of high | [address] | Women [address] | | | | [address] | [address] | [address] | | | | | , | [place], | [address] | | | | | unspecified, | [place] [address] | [place], [place] | | | | | third | Phone: | [phone] | | | | | trimester | [phone] | Phone: | | | | | | Fax: | [phone] | | | | | | [phone] | Fax: | | | | | | | [phone] | + +--------+ + + + + Encounter Details +--------+ + + + + | Date | Type | Department | Care Team | Description | +--------+ + + + + | 09/20/ | Initial | [facility] | Shlomo Wright, | [place]: 32w4d | | 2020 | | ASSOCIATED | [address] | | | | | [facility] | [address] [place], | | | | | [address] | [place] [address] | | | | | [address] [place], | [phone] | | | | | [place] [address] | | | | | | [phone] | | | +--------+ + + + [...] + + + | Blood Pressure | 135/89 | 09/21/2019 2:07 PM | | | | | PDT | | + + + + + | Pulse | 98 | 09/21/2019 2:07 PM | | | | | PDT | | + + + + + | Temperature | 37 C (98.6 F) | 09/21/2019 2:07 PM | | | | | PDT | | + + + + + | Respiratory Rate | - | - | | + + + + + | Oxygen Saturation | 100% | 09/21/2019 2:07 PM | | | | | PDT | | + + + + + | Inhaled Oxygen | - | - | | | Concentration | | | | + + + + + | Weight | 96.2 kg (212 lb) | 09/21/2019 2:07 PM | | | | | PDT | | + + + + + | Height | 166.4 cm (5' 5.5") | 09/21/2019 2:07 PM | | | | | PDT | | + + + + + | Body Mass Index | 34.74 | 09/21/2019 2:07 PM | | | | | PDT | | + + + + + documented in this encounter Patient Instructions Patient Instructions Gisel Lucero, Vegetable Picker - 09/21/2019 2:00 PM Zac Solange , Thank you for coming to see us today. We hope you had a great experience and all your quest ions were answered. If you do have any further questions and concerns please feel free to contact me via email or phone. We are here to help you achieve your health care needs and will assist you in whatever way possible. You may also receive a survey asking you about your visit today. Please let us know how we did. Have a Great Day! Shlomo Wright MD We recommend you present to the Center or call the office for: 1. Regular, painful contractions every 5 minutes for more than 1 hour. 2. Any vaginal leaking of fluid, with or without pain (rupture of membranes). 3. Any bright red vaginal bleeding, with or without pain. 4. A perception of decreased movements. Kick Counts It s normal to worry about your baby s health. One way you can knowyour baby s doin g well is to record the baby s movements once a day. This is called a kick count.Li r to take your kick count records to all your appointments with your healthcare provider. How to count kicks Here are tips for counting kicks: Choose a time when the baby is active, such as after a meal. Sit comfortably or lie on your side. The first time the baby moves,write downthe time. Count each movement until the baby has [id number]. This can take from 20 minutes t o 2hours. Try to do it at the same time each day. When to call your healthcare provider Call your healthcare providerright awayif you notice any of the following: Your baby moves fewer than 10times [id number] while you re doing kick counts. Your baby moves much less often than on thedays before. You have not felt your baby move all day. Date Last Reviewed: 06/04/201719991287-7942 The [email or web address]. [address] [place] [address], [place] [address]. All righ ts reserved. This information is not intended as a substitute for professional medical care. Always follow your healthcare professional's instructions. One hour glucose testing brings about several changes in the body functions, one of which is the absorptio n and usage of sugar. In some women, the blood levels of glucose (a type of sugar) are consi stently high after meals. This conditions is called gestational hyperglycemia, in duced diabetes or gestational diabetes. This condition usually resolves after the baby is pat rn. Consistently elevated blood sugar can lead to complications with , which is why we screen all mothers at 28 weeks. If you are at high risk for developing gestational diabe kanchan based upon your health history, family history, or ethnicity, you will also be tested be tween 8 and 16 weeks gestation. If detected at either stage in , gestational diabet es can be managed to minimize further complications. You can go to ANY [facility] to have this done, but there is a lab on the second floor of the [address] [place] [address] ([place] office) with operating hours of Wednesday-Wednesday 830-530 with lunch from 1230-130 . Please check the [facility] website for additional hours and locations. Please follow these instructions to ensure the results of your test are accurate: 1) You will be given a sugary drink called "Glucola" when you check in with the lab. Drink the entire content of this bottle within 5 minutes. 2) You will wait at the lab after finishing the Glucola because they will need to draw your blood exactly 1 hour after. 3) You do not need to be fasting for this test. You may eat and drink regularly prior to co nsuming the Glucola, however we recommend avoiding sugary or starchy foods since this may al ter the testing and cause a false elevation in you serum glucose levels. Examples of food/dr inks to avoid including breakfast cereal, candy, drinks high in sugar, ice cream and syrup. 4) Please do not eat or drink anything, including gum after you have finished the Glucola. If you have any additional questions, please contact our office [phone] documented in this encounter Progress Notes Shlomo Wright MD - 09/21/2019 2:00 PM Xuan is a SVDx5 largest infant 6lb 9 oz who is 32w4d Dates established by early ultrasound. Transfer of care, history of IV drug use, history of methamphetamine use, she is presently on methadone maintenance therapy, managed through clinic in [place]. And reports an obstetrical history significant for: smoker and drug abuse- Heroine and meth . Currently on Methadone being treated at [facility]. She is a transfer of care from [facility]. She will need to deliver at [facility] due to risk of withdrawal syndrome. Records received and reviewed with patient. Labs transferred to our records. Complaints: no complaints. Patient reports Tdap was given at her previous clinic. Continue Methadone management with [facility]. Discussed growth ultrasound in 1 week- per previous clinic recommendations. History of UTI early in the . States that treatment of cure was negative, but I d o not have that information. Repeat urine culture to confirm resolved UTI. 1 hour GTT and CBC to be completed in 1 week. She had a early 1 hour glucose tolerance test in April, none since. She has a history of gestational hypertension, she is presently on low-dose aspirin. Denies VB, LoF, and ctx. Encouraged FKCs daily. F/U in 1w with growth US. Greater than 50% of this 30 minute exam was spent in the counseling and/or coordination of care regarding . I, Dr. Wright, personally performed the services described in this documentation, as scri bed by Gisel JOHNSON in my presence, and it is both accurate and complete. Gisel Pineda Med ical Roller Picker - 09/21/2019 2:00 PM [id number] 32w4d BP 135/89 | Pulse 98 | Temp 37 C (98.6 F) (Oral) | Ht 1.664 m (5' 5.5") | Wt 96.2 k g (212 lb) | SpO2 100% | BMI 34.74 kg/m Concerns: None. Tdap: given at previous clinic. docume nted in this encounter Plan of Treatment + +------+--------+ + + | Name | Type | Priori | Associated Diagnoses | Order Schedule | | | | ty | | | + +------+--------+ + + | Gestational Glucose | Lab | Routin | Supervision of | Expected: 09/28/2019 | | Test, 1Hr | | e | high risk , | (Approximate), | | | | | antepartum | Expires: 09/20/2020 | + +------+--------+ + + | CBC with | Lab | Routin | Supervision of | Expected: 09/28/2019 | | Differential | | e | high risk , | (Approximate), | | | | | antepartum | Expires: 09/20/2020 | + +------+--------+ + + documented as of this encounter Procedures + +--------+ + + + | Procedure Name | Priori | Date/Time | Associated Diagnosis | Comments | | | ty | | | | + +--------+ + + + | HIV AG/AB, 4TH GEN, | Routin | 04/13/2019 | | Results for this | | REFLEX | e | | | procedure are in the | | | | | | results section. | + +--------+ + + + | C. TRACHOMATIS AND | Routin | 04/13/2019 | | Results for this | | N. GONORRHOEAE AND | e | | | procedure are in the | | T. VAGINALIS, NAAT | | | | results section. | + +--------+ + + + | RPR, QUALITATIVE | Routin | 04/13/2019 | | Results for this | | | e | | | procedure are in the | | | | | | results section. | + +--------+ + + + | GESTATIONAL GLUCOSE | Routin | 04/13/2019 | | Results for this | | TEST, 1HR | e | | | procedure are in the | | | | | | results section. | + +--------+ + + + | HEMOGLOBIN AND | Routin | 04/13/2019 | | Results for this | | HEMATOCRIT | e | | | procedure are in the | | | | | | results section. | + +--------+ + + + | C. TRACHOMATIS AND | Routin | 04/13/2019 | | Results for this | | N. GONORRHOEAE, NAAT | e | | | procedure are in the | | | | | | results section. | + +--------+ + + + | ABO RH | Routin | 04/13/2019 | | Results for this | | | e | | | procedure are in the | | | | | | results section. | + +--------+ + + + | RUBELLA AB, IGG | Routin | 04/13/2019 | | Results for this | | | e | | | procedure are in the | | | | | | results section. | + +--------+ + + + | HEPATITIS B SURFACE | Routin | 04/13/2019 | | Results for this | | AG | e | | | procedure are in the | | | | | | results section. | + +--------+ + + + | ANTIBODY SCREEN | Routin | 04/13/2019 | | Results for this | | | e | | | procedure are in the | | | | | | results section. | + +--------+ + + + documented in this encounter Results MRSA NAAT (09/21/2019 2:56 PM PDT) + [...] | | | | | performed at TC;[address] | | | [address];[place], [place] [address] | | | | + + + + + + + + | Specimen | + + | Tissue - Both | | anterior nares (body | | structure) | + + + + + + + | Performing | Address | City/State/Zipcode | Phone Number | | Organization | | | | + + + + + | REFERENCE LAB | [address] [place] [address] | [place] | [phone] | | [facility] | Bl[address] | [address] | | | LABORATORY | | | | + + + + + | REFERENCE LAB | [address] [place] [address] | [place] | | | [facility] | Blvd. | [address] | | | LABORATORY | | | | + + + + + Rubella Ab, IgG (04/13/2019) + + + + + + | Component | Value | Ref Range | Performed | Pathologist | | | | | At | Signature | + + + + + + | Rubella IgG | Negative | | | | | Ab | | | | | + + + + + + + + | Specimen | + + | Blood | + + Hepatitis B Surface Ag (04/13/2019) + + + + + + | Component | Value | Ref Range | Performed | Pathologist | | | | | At | Signature | + + + + + + | Hepatitis B | negative | | | | | Surface Ag | | | | | + + + + + + + + | Specimen | + + | Blood | + + Hemoglobin and Hematocrit (04/13/2019) + +-------+ + + + | Component | Value | Ref Range | Performed | Pathologist | | | | | At | Signature | + +-------+ + + + | Hematocrit | 34.3 | % | | | + +-------+ + + + + + | Specimen | + + | Blood | + + C. trachomatis and N. gonorrhoeae, NAAT (04/13/2019) + + + + + + | Component | Value | Ref Range | Performed | Pathologist | | | | | At | Signature | + + + + + + | Chlamydia | Negative | Negative | | | | trachomatis | | | | | | DNA PCR | | | | | + + + + + + ABO Rh (04/13/2019) + + + + + + | Component | Value | Ref Range | Performed | Pathologist | | | | | At | Signature | + + + + + + | ABO | O | | | | + + + + + + | Rh Type | Rh Positive | | | | + + + + + + + + | Specimen | + + | Blood | + + HIV AG/AB, 4th Gen, Reflex (04/13/2019) + + + + + + | Component | Value | Ref Range | Performed | Pathologist | | | | | At | Signature | + + + + + + | HIV 1/2 Ab | non reactive | | | | | and P24 Ag | | | | | + + + + + + + + | Specimen | + + | Blood | + + C. TRACHOMATIS AND N. GONORRHOEAE AND T. VAGINALIS, NAAT (04/13/2019) + + + + + + | Component | Value | Ref Range | Performed | Pathologist | | | | | At | Signature | + + + + + + | Neisseria | Negative | | | | | gonorrhoeae | | | | | | DNA PCR | | | | | + + + + + + RPR, Qualitative test (04/13/2019) + + + + + + | Component | Value | Ref Range | Performed | Pathologist | | | | | At | Signature | + + + + + + | Treponema | negative | | | | | Pallidum Ab | | | | | | Total | | | | | + + + + + + + + | Specimen | + + | Blood | + + Antibody Screen (04/13/2019) + + + + + + | Component | Value | Ref Range | Performed | Pathologist | | | | | At | Signature | + + + + + + | Antibody | negative | | | | | Screen | | | | | + + + + + + + + | Specimen | + + | Blood | + + Gestational Glucose Test, 1Hr (04/13/2019) + +-------+ + + + | Component | Value | Ref Range | Performed | Pathologist | | | | | At | Signature | + +-------+ + + + | Glucose, | 75 | | | | | GTT 1HR | | | | | | Preg | | | | | + +-------+ + + + + + | Specimen | + + | Blood | + + documented in this encounter Visit Diagnoses + + | Diagnosis | + + | Supervision of high risk , antepartum - Primary | + + | IVDA (intravenous drug abuse) complicating (HCC) Mental disorders of | | mother, complicating , childbirth, or the puerperium, unspecified as to episode | | of care | + + | High risk due to smoking, antepartum | + + | Mild intermittent asthma without complication Unspecified asthma | + + | IV drug abuse (HCC) Other, mixed, or unspecified nondependent drug abuse, unspecified | + + | Methadone use (HCC) Opioid type dependence, unspecified | + + | History of gestational hypertension | + + | H/O chlamydia infection Personal history of other infectious and parasitic disease | + + documented in this encounter
--- OUTSIDE RECORDS SUMMARY | ~2019-11-25 | XMS | Encounter Summary ---
Demographics + + + | Address | [address] | | | [place] [address] | + + + | Home Phone | | + + + | Preferred Language | Unknown | + + + | Marital Status | Single | + + + | Hoahaoism Affiliation | Unknown | + + + | Race | Unknown | + + + | Ethnic Group | Unknown | + + + Author + + + | Author | [facility] | | | and [place] | + + + | Organization | [facility] | | | and [...] Team Providers + +------+ + | Care Engraver Steel Plate Name | Role | Phone | + +------+ + | Evelyn Whitehead DO | PCP | | + +------+ + Reason for Visit Auth/Cert +--------+--------+ + + + + | Status | Reason | Specialty | Diagnoses / | Referred By | Referred To | | | | | Procedures | Contact | Contact | +--------+--------+ + + + + | | | | | | | +--------+--------+ + + + + Encounter Details +--------+ + + + + | Date | Type | Department | Care Team | Description | +--------+ + + + + | 11/17/ | Anesthesia | [facility] | Lebron Rodriguez, | | | 2019 | Event | [facility] | [employer]ICAL DES[employer]ER [address] | | | | | ANESTHESIA [address] | [place] [address] | | | | | [address] | [phone] | | | | | [place], [place] | | | | | | [address] | | | | | | [phone] | | | +--------+ + + + + Anesthesia Record + + + + + | Procedure Name | Responsible | Anesthesia Start | Anesthesia Stop Time | | | Anesthesiologist | Time | | + + + + + | NEURAXIAL LABOR | Lebron Rodriguez CRNA | 11/18/19 2311 | 11/19/19 0123 | | ANALGESIA/ANESTHESIA | | | | + + + + + +----+---+ + + | Da | T | Event | Comment | | te | i | | | | | m | | | | | e | | | +----+---+ + + | 05 | 2 | An Start | Reassessment prior to anesthesia induction/procedure. | | /1 | 3 | | | | 6/ | 1 | | | | 20 | 1 | | | | 20 | | | | +----+---+ + + | | 2 | Out of [place] | | | | 3 | Device Stop | | | | 1 | | | | | 1 | | | +----+---+ + + | | 2 | Epi/spinal | | | | 3 | Start | | | | 1 | | | | | 8 | | | +----+---+ + + | | 2 | Epi/spinal | | | | 3 | Stop | | | | 2 | | | | | 4 | | | +----+---+ + + | | 2 | Quick Note | Pt states she does not feel adequate pain relief. MELISSA catheter | | | 3 | | removed and replaced using sterile technique, L2-3 7.5 cm MADDIE | | | 5 | | saline, catheter fed 10 cm easily into epidural space, single | | | 0 | | needle pass, neg test dose. | +----+---+ + + | 05 | 0 | An Stop | Patient handed off to recovery nurse. | | 7/ | 2 | | | | 20 | 3 | | | | 20 | | | | +----+---+ + + +------+ | Meds | +------+ + +--------+ | Name | Total | + +--------+ | fentaNYL (intrathecal) | 10 mcg | + +--------+ | fentaNYL (epidural) | 90 mcg | + +--------+ | bupivacaine 0.25% (Intrathecal) | 0.4 mL | + +--------+ | lidocaine 2% (Epidural) | 10 mL | + +--------+ | fentaNYL 2 mcg/mL + bupivacaine | 0 mL | | 0.1% (Epidural) premix | | + +--------+ + + | No agents on file. | + + + + | No blood administrations on file. | + + +--------+ + + + | Type | Details | Placement | Removal | +--------+ + + + | Periph | 11/18/19; 2016; Left; Wrist; 20 | 11/18/192015 by | 11/19/19 1030 by | | eral | gauge; Chemistry, Blood Bank, | Sybil Sparrow RN | Isabella Shaw, | | IV | Hematology; 2; 11/19/19; 1030 | | RN | +--------+ + + + | Epidur | 11/18/19; 2317 (created via | 11/18/192317 by | 11/19/19154 by | | al/Susan | procedure documentation); | Lebron Rodriguez CRNA | Sybil Sparrow RN | | nal | 11/19/19; 0155 | | | +--------+ + + + | Urethr | 11/18/19; 2341; required for | 11/18/192341 by | 11/19/19 011 by | | al | prolonged immobilization due to | Sybil Sparrow RN | Sybil Sparrow RN | | Cathet | unstable fractures; Perineum | | | | er | cleaned, Patient/family educated | | | | | about Indication/CAUTI | | | | | prevention, All elements, Second | | | | | person present; All elements; | | | | | Catheter securement applied, | | | | | System checked to verify closed | | | | | connections & no dependent loops, | | | | | obstructions/kinks, All | | | | | elements, Bag positioned below | | | | | the bladder; indwelling single | | | | | lumen catheter; 100% silicone; | | | | | 16; None; 1; 5; 9; none; | | | | | distraction; leg bag to dependent | | | | | drainage; 11/19/19; 0115 | | | +--------+ + + + documented in this encounter Social History + +-------+ +--------+------+ | Tobacco [...] + + documented in this encounter Results Neuraxial (11/18/2019 11:43 PM PDT) + + [...] provider: Lebron Rodriguez CRNA Authorizing provider: Lebron | | | Brodie Rodriguez CRNA Please see anesthesia record or flowsheet | | | for vital sign documentation and see anesthesia record or MAR for | | | additional medication documentation. | | + + + documented in this encounter Visit Diagnoses Not on filedocumented in this encounter Administered Medications + +--------+ +---------+------+------+ | Medication Order | MAR | Action | Dose | Rate | Site | | | Action | Date | | | | + +--------+ +---------+------+------+ | bupivacaine (PF) (MARCAINE) | Given | 11/18/19 | 0.4 mLs | | | | 0.25% injection INTRATHECAL, | | 20 11:24 | | | | | PRN, Starting 11/18/19 at | | PM PDT | | | | | 2324, Anesthesia Intra-op | | | | | | + +--------+ +---------+------+------+ +---+---+ | | | +---+---+ + +-------+ +--------+---+---+ | fentaNYL (PF) injection | Given | 11/18/19 | 90 mcg | | | | EPIDURAL, PRN, Starting Sat | | 20 11:24 | | | | | 11/18/19 at 2324, Anesthesia | | PM PDT | | | | | Intra-op | | | | | | + +-------+ +--------+---+---+ +---+---+ | | | +---+---+ + +-------+ +--------+---+---+ | fentaNYL (PF) injection | Given | 11/18/19 | 10 mcg | | | | INTRATHECAL, PRN, Starting Sat | | 20 11:24 | | | | | 11/18/19 at 2324, Anesthesia | | PM PDT | | | | | Intra-op | | | | | | + +-------+ +--------+---+---+ +---+---+ | | | +---+---+ + +---------+ +---+ +---+ | fentaNYL 2 mcg/mL + bupivacaine | New Bag | 11/18/19 | | 16 mL/hr | | | 0.1% in saline (PF) EPIDURAL, | | 20 11:26 | | | | | CONTINUOUS PRN, Starting Sat | | PM PDT | | | | | 11/18/19 at 2326, Anesthesia | | | | | | | Intra-op | | | | | | + +---------+ +---+ +---+ +---+---+ | | | +---+---+ + +-------+ +--------+---+---+ | lidocaine (PF) 2% injection | Given | 11/19/19 | 10 mLs | | | | EPIDURAL, PRN, Starting Sun | | 20 12:00 | | | | | 11/19/19 at 0000, Anesthesia | | AM PDT | | | | | Intra-op | | | | | | + +-------+ +--------+---+---+ +---+---+ | | | +---+---+ documented in this encounter"
--- OUTSIDE RECORDS SUMMARY | ~2019-11-25 | XMS | Encounter Summary ---
Demographics + + + | Address | [address] | | | [place] [address] | + + + | Home Phone | | + + + | Preferred Language | Unknown | + + + | Marital Status | Single | + + + | Pentecostal Affiliation | Unknown | + + + | Race | Unknown | + + + | Ethnic Group | Unknown | + + + Author + + + | Author | [facility] | | | and [place] | + + + | Organization | [facility] [...] Team Providers + +------+ + | Care Clinical Unit Educator Name | Role | Phone | + +------+ + | Evelyn Whitehead DO | PCP | | + +------+ + Reason for Visit + + + | Reason | Comments | + + + | Scheduled Induction | | + + + Encounter Details +--------+ + + + + | Date | Type | Department | Care Team | Description | +--------+ + + + + | 11/12/ | Telephone | [facility] | Tanya Nix RN | Scheduled Induction | | 2020 | | [facility] | | | | | | [facility] | | | | | | [address] | | | | | | [address] [place], | | | | | | [place] [address] | | | | | | [phone] | | | +--------+ + + + [...]
--- OUTSIDE RECORDS SUMMARY | ~2019-11-25 | XMS | Encounter Summary ---
Demographics + + + | Address | [address] | | | [place] [address] | + + + | Home Phone | | + + + | Preferred Language | Unknown | + + + | Marital Status | Single | + + + | Jain Affiliation | Unknown | + + + | Race | Unknown | + + + | Ethnic Group | Unknown | + + + Author + + + | Author | [facility] | | | and [place] | + + + | Organization | [facility] | | | and [...] Team Providers + +------+ + | Care Nut Picker Name | Role | Phone | + +------+ + PCP | Unavailable | + +------+ + Encounter Details +--------+ + + + + | Date | Type | Department | Care Team | Description | +--------+ + + + + | 12// | Hospital | [facility] | Conversion | Diagnosis unknown | | 2018 | Encounter | CONVERSION DEP [address] | Transaction, | | | | | [address] | Provider Unknown | | | | | [place], [place] | [phone] | | | | | [address] | | | | | | [phone] | | | +--------+ + + + [...] LUMBAR SPINE 2 OR | Routin | 06/06/2018 | | Results for this | | 3 VW | e | 9:12 PM | | procedure are in the | | | | PST | | results section. | + +--------+ + + + documented in this encounter Results XR Lumbar Spine 2 or 3 Vw (06/06/2018 9:12 PM PST) + + | Specimen | + + | | + + + + + | Narrative | Performed At | + + + | This is a non-reportable procedure without a radiologist report and | | | is used for image storage only | | + + + + + | Procedure Note | + + | NimaEnio Conversion - 02/15/2019 4:32 AM PDT This is a non-reportable procedure | | without a radiologist report and isused for image storage only | + + documented in this encounter Visit Diagnoses + + | Diagnosis | + + | Diagnosis unknown Other unknown and unspecified cause of morbidity or mortality | + + documented in this encounter"
--- OUTSIDE RECORDS SUMMARY | ~2019-11-25 | XMS | Encounter Summary ---
Demographics + + + | Address | [address] | | | [place] [address] | + + + | Home Phone | | + + + | Preferred Language | Unknown | + + + | Marital Status | Single | + + + | Rastafarian Affiliation | Unknown | + + + [...] Team Providers + +------+ + | Care Attendant Child Activity Name | Role | Phone | + +------+ + | Evelyn Whitehead DO | PCP | | + +------+ + Encounter Details +--------+ + + + + | Date | Type | Department | Care Team | Description | +--------+ + + + + | 11/01/ | Routine | [facility] | Shlomo Wright, | GA: 38w4d | | 2020 | | ASSOCIATED | [address] | | | | | [facility] | [address] [place], | | | | | [address] | [place] [address] | | | | | [address] [place], | [phone] | | | | | [place] [address] | | | | | | [phone] | | | +--------+ + + + [...] Shlomo Wright MD - 11/02/2019 2:20 PM [id number] x5 38w4d BP 135/82 | Wt 99 kg (218 lb 4.1 oz) | BMI 35.77 kg/m TWG:Not found. Pre weight:Pregravid weight not on file Concerns: None She is doing well, continues methadone. Follow up in 1 week Consider induction next week. "I, Shlomo Wrgiht MD , personally performed the services described in this documentation, as scribed by ELIZABETH Andrews in my presence, and is both accurate and complete". Amelia Prajapati , Four Horse Hitch Driver - 11/02/2019 2:20 PM [id number] x5 38w4d BP 135/82 | Wt 99 [...]
--- OUTSIDE RECORDS SUMMARY | ~2019-11-25 | XMS | Encounter Summary ---
Demographics + + + | Address | [address] | | | [place] [address] | + + + | Home Phone | | + + + | Preferred Language | Unknown | + + + | Marital Status | Single | + + + | Quaker Affiliation | Unknown | + + + | Race | Unknown | + + + | Ethnic Group | Unknown | + + + Author + + + | Author | [facility] | | | and [place] | + + + | Organization | [facility] | | | [...] Team Providers + +------+ + | Care Bone Process Operator Name | Role | Phone | + +------+ + PCP | Unavailable | + +------+ + Encounter Details +--------+ + + + + | Date | Type | Department | Care Team | Description | +--------+ + + + + | 10/05/ | Emergency | [facility] | Sesar Rodrigues, | Abdominal Pain, | | 2007 - | | MEDICAL CENTER | MD [address] | Unspecified Site | | | | EMERGENCY CENTER | [place] [address] | | | 04/09/ | | [address] | [phone] | | | 2007 | | [place], [place] | | | | | | [address] | | | | | | [phone] | | | +--------+ + + + [...] Diagnosis | + + | Abdominal pain, unspecified site | + + documented in this encounter"
--- OUTSIDE RECORDS SUMMARY | ~2019-11-25 | XMS | Encounter Summary ---
Demographics + + + | Address | [address] | | | [place] [address] | + + + | Home Phone | | + + + | Preferred Language | Unknown | + + + | Marital Status | Single | + + + | Yarsani Affiliation | Unknown | + + + | Race | Unknown | + + + | Ethnic Group | Unknown | + + + Author + + + | Author | [facility] | | | and [place] | + + + | Organization | [facility] | | | [...] Team Providers + +------+ + | Care Client Integration Manager Name | Role | Phone | + +------+ + | Evelyn Whitehead DO | PCP | | + +------+ + Encounter Details +--------+ + + + + | Date | Type | Department | Care Team | Description | +--------+ + + + + | 11/09/ | Routine | [facility] | Ashley Ramirez, | GA: 39w5d | | 2019 | | ASSOCIATED | [address] | | | | | [facility] | [address] [place], | | | | | [address] | [place] [address] | | | | | [address] [place], | [phone] | | | | | [place] [address] | | | | | | [phone] | | | +--------+ + + + [...] Ashley Ramirez MD [facility] Associate Director Career Services - 11/10/2019 1:50 PM [id number] 39w5d BP 132/72 | Wt 100.7 kg [...]
--- OUTSIDE RECORDS SUMMARY | ~2019-11-25 | XMS | Encounter Summary ---
Demographics + + + | Address | [address] | | | [place] [address] | + + + | Home Phone | | + + + | Preferred Language | Unknown | + + + | Marital Status | Single | + + + | Zoroastrianism Affiliation | Unknown | + + + | Race | Unknown | + + + | Ethnic Group | Unknown | + + + Author + + + | Author | [facility] | | | and [place] | + + + | Organization | [facility] | | | [...] Team Providers + +------+ + | Care Binding Stitcher Name | Role | Phone | + +------+ + PCP | Unavailable | + +------+ + Encounter Details +--------+ + + + + | Date | Type | Department | Care Team | Description | +--------+ + + + + | 02/17/ | Orders Only | [facility] | [facility], | Osteomyelitis of | | 2019 | | MEDICAL CENTER ACUTE | MD [address] | vertebra ([facility]) | | | | CARE FLOOR [address] | | | | | [address] | [place] [address] | | | | | [place], [place] | [phone] | | | | | [address] | | | | | | [phone] | | | +--------+ + + + [...] of this encounter Plan of Treatment + +------+--------+ + + | Name | Type | Priori | Associated Diagnoses | Order Schedule | | | | ty | | | + +------+--------+ + + | Comprehensive | Lab | Routin | Osteomyelitis of | Expected: | | Metabolic Panel | | e | vertebra ([facility]) | 06/12/2018, Expires: | | | | | | 06/12/2019 | + +------+--------+ + + | Sedimentation Rate | Lab | Routin | Osteomyelitis of | Expected: | | | | e | vertebra ([facility]) | 06/12/2018, Expires: | | | | | | 06/12/2019 | + +------+--------+ + + | C-Reactive Protein | Lab | Routin | Osteomyelitis of | Expected: | | | | e | vertebra ([facility]) | 06/12/2018, Expires: | | | | | | 06/12/2019 | + +------+--------+ + + | CBC with Manual | Lab | Routin | Osteomyelitis of | Expected: | | Differential | | e | vertebra ([facility]) | 06/12/2018, Expires: | | | | | | 06/13/2019 | + +------+--------+ + + | Vancomycin, Trough | Lab | Routin | Osteomyelitis of | Expected: | | | | e | vertebra ([facility]) | 06/12/2018, Expires: | | | | | | 06/12/2019 | + +------+--------+ + + | Creatinine | Lab | Routin | Osteomyelitis of | Expected: | | | | e | vertebra ([facility]) | 06/12/2018, Expires: | | | | | | 06/12/2019 | + +------+--------+ + + documented as of this encounter Visit Diagnoses + + | Diagnosis | + + | Osteomyelitis of vertebra (HCC) Unspecified osteomyelitis, other specified site | + + documented in this encounter"
--- OUTSIDE RECORDS SUMMARY | ~2019-11-25 | XMS | Clinical Summary ---
Demographics + + + | Address | [address] | | | [place] [address] | + + + | Home Phone | | + + + | Preferred Language | Unknown | + + + | Marital Status | Single | + + + | Rastafarian Affiliation | Unknown | + + + | Race | Unknown | + + + | Ethnic Group | Unknown | + + + Author + + + | Author | [facility] (Historical as of | | | 02-18-19) | + + + | Organization | [facility] (Historical as of | | | 02-18-19) [...] Team Providers + +------+ + | Care Daycare Director Name | Role | Phone | [...] + + + | IV drug abuse ([facility]) | 06/11/2018 | + + + | IVDA (intravenous drug abuse) complicating ([facility]) | 06/10/2018 | + + + | Vertebral osteomyelitis ([facility]) | 06/10/2018 | + + + [...] Vaccine: Influenza | | | | | (Season Ended) | 0 | | | + + + + [...] +------+-------+ + | MEDICAID | [place] | [id number] | | | [address] | | | N | | | | [place] | | | [place] | | | | [address] | | | [employer]ING TECHNICIAN | | | | | + +--------+ +------+-------+ + + +--------+ +--------+ + + | Guarantor Name | Accoun | Relation to | Date | Phone | Billing Address | | | t Type | Patient | of | | | | | | | | | | + +--------+ +--------+ + + | SOLANGE MCKEON | Person | Self [birth year] Home: | [address] | | | al/[place]ji | | 1989 | [phone] | [address] [place] | | | maria fernanda | | | [phone] | + +--------+ +--------+ + +
--- OUTSIDE RECORDS SUMMARY | ~2019-11-25 | XMS | Encounter Summary ---
Demographics + + + | Address | [address] | | | [place] [address] | + + + | Home Phone [...] Team Providers + +------+ + | Care Overhead Crane Technician Name | Role | Phone | + +------+ + | Evelyn Whitehead DO | PCP | | + +------+ + Encounter Details +--------+ + + + + | Date | Type | Department | Care Team | Description | +--------+ + + + + | 09/20/ | Orders Only | [facility] | Lindsey Wu, | Supervision of [facility] | | 2019 | | [address] | Assistant Terminal Manager | risk , | | | | [place], [place] | | antepartum | | | | [address] | | | | | | [phone] | | | +--------+ + + + [...] | | | | | performed at [facility];[address] | [address] | [address];[place] [address] | | | | + + + + + + + + | Specimen | + + | Tissue - Both | | anterior nares (body | | structure) | + + + + + + + | Performing | Address | City/State/Zipcode | Phone Number | | Organization | | | | + + + + + | REFERENCE LAB | [address] [place] [address] | [place], [place] | [phone] | | [facility] | Bl[address] | [address] | | | LABORATORY | | | | + + + + + | REFERENCE LAB | [address] [place] [address] | [place], [place] | | | [facility] | Blvd. | [address] | | | LABORATORY | | | | + + + + + documented in this encounter Visit Diagnoses + + | Diagnosis | + + | Supervision of high risk , antepartum | + + documented in this encounter"
--- OUTSIDE RECORDS SUMMARY | ~2019-11-25 | XMS | Encounter Summary ---
Demographics + + + | Address | [address] | | | [place] [address] | + + + | Home Phone | | + + + | Preferred Language | Unknown | + + + | Marital Status | Single | + + + | Church Affiliation | Unknown | + + + [...] Team Providers + +------+ + | Care Fleet Operations Manager Name | Role | Phone | + +------+ + PCP | Unavailable | + +------+ + Encounter Details +--------+ + + + + | Date | Type | Department | Care Team | Description | +--------+ + + + + | 12// | Hospital | [facility] | Conversion | Diagnosis unknown | | 2018 | Encounter | CONVERSION [address] | Transaction, | | | | | [address] | Provider Unknown | | | | | [place], [place] | [phone] | | | | | [address] | | | | | | [phone] | | | +--------+ + + + [...]
--- OUTSIDE RECORDS SUMMARY | ~2019-11-25 | XMS | Encounter Summary ---
Demographics + + + | Address | [address] | | | [place] [address] | + + + | Home Phone | | + + + | Preferred Language | Unknown | + + + | Marital Status | Single | + + + | Hinduism Affiliation | Unknown | + + + | Race | Unknown | + + + | Ethnic Group | Unknown | + + + Author + + + | Author | [facility] | | | and [place] | + + + | Organization | [facility] | [...] Team Providers + +------+ + | Care Intensive Care Specialist Name | Role | Phone | + +------+ + | Evelyn Whitehead DO | PCP | | + +------+ + Reason for Visit + + + | Reason | Comments | + + + | Routine | 36w4d | | Visit | | + + + Encounter Details +--------+ + + + + | Date | Type | Department | Care Team | Description | +--------+ + + + + | 10/18/ | Routine | [facility] | Shlomo Wright, | GA: 36w4d | | 2020 | | ASSOCIATED | [address] | | | | | [facility] | [address] [place], | | | | | [address] | [place] [address] | | | | | [address] [place], | [phone] | | | | | [place] [address] | | | | | | [phone] | | | +--------+ + + + [...] + + + | Blood Pressure | 127/84 | 10/19/2019 3:05 PM | | | | | PDT | | + + + + + | Pulse | 100 | 10/19/2019 3:05 PM | | | | | PDT | | + + + + + | Temperature | - | - | | + + + + + | Respiratory Rate | - | - | | + + + + + | Oxygen Saturation | 98% | 10/19/2019 3:05 PM | | | | | PDT | | + + + + + | Inhaled Oxygen | - | - | | | Concentration | | | | + + + + + | Weight | 99.4 kg (219 lb 3.2 | 10/19/2019 3:05 PM | | | | oz) | PDT | | + + + + + | Height | 166.4 cm (5' 5.5") | 10/19/2019 3:05 PM | | | | | PDT | | + + + + + | Body Mass Index | 35.92 | 10/19/2019 3:05 PM | | | | | PDT | | + + + + + documented in this encounter Progress Notes Shlomo Wright MD - 10/19/2019 2:30 PM [id number], GP: TWG: Not found., IWG: +6lb . BP 127/84 | Pulse 100 | Ht 1.664 m (5' 5.5") | Wt 99.4 kg (219 lb 3.2 oz) | SpO2 98% | BMI 35.92 kg/m Concerns: reports shortness of breath, loss of taste and smell, and congestion. Further questioning reveals she has sinus pressure, has had a lot of thick yellow to green mucus/snot when she blows her nose. Denies fever. Denies cough. Notes that she started taking Prilosec two days ago for heartburn and is starting to improv e her symptoms. Prescription for Z-kemar provided. Masseur/Masseuse not chosen, reminded. GBS collected Note scribed by ELIZABETH Dennis for Shlomo Wright MD. I, Shlomo Wright MD, personally performed the services described in this documentatio n, as scribed by Whitney Walsh CMA in my presence, and it is both accurate and complete. documented in this e ncounter Plan of Treatment Not on filedocumented as [...] + + documented in this encounter Results Strep B screen (10/19/2019 3:31 PM PDT) [...] | | REFERENCE | | | | [facility];[address] | | LAB | | | | Bl;[place] | | [facility] | | | | [id number]: Testing | | LABORATORY | | | | performed at [facility], [address] | | | | | [facility], | | | | | | [place] [address] | | | | + + + [...] + + + | REFERENCE LAB | [address] | [place], [place] | [phone] | | [facility] | Blvd[address] | [address] | | | LABORATORY | | | | + + + + + | REFERENCE LAB | [address] [place] [address] | [place], [place] | | | [facility] | Blvd. | [address] | | | LABORATORY | | | | + + + + + documented in this encounter Visit Diagnoses + + | Diagnosis | + + | Nasal congestion - Primary Other diseases of nasal cavity and sinuses | + + | Supervision of high risk , antepartum | + + | Methadone use (HCC) Opioid type dependence, unspecified | + + | Tobacco abuse Tobacco use disorder | + + documented in this encounter
--- OUTSIDE RECORDS SUMMARY | ~2019-11-25 | XMS | Encounter Summary ---
Demographics + + + | Address | [address] | | | [place] [address] | + + + | Home Phone | | + + + | Preferred Language | Unknown | + + + | Marital Status | Single | + + + | Sikhism Affiliation | Unknown | + + + | Race | Unknown | + + + | Ethnic Group | Unknown | + + + Author + + + | Author | [facility] | | | and [place] | + + + | Organization | [facility] | | | [...] Team Providers + +------+ + | Care Home Administrator Name | Role | Phone | + +------+ + PCP | Unavailable | + +------+ + Encounter Details +--------+ + + + + | Date | Type | Department | Care Team | Description | +--------+ + + + + | 06/10/ | Hospital | [facility] | Ariel Bai DO | Pain; Osteomyelitis | | 2018 - | Encounter | [facility] | [address] | of lumbar spine | | | | CARE FLOOR [address] | [place] [address] | ([facility]); Vertebral | | 06/15/ | | [address] | [phone] | osteomyelitis ([facility]) | | 2018 | | [place], [place] | | | | | | [address] | | | | | | [phone] | | | +--------+ + + + [...] Service: Hospitalist Author Type: Physician Filed: 06/15/18 5610 Date of Service: 06/15/18 1220 Status: Signed Hose Inspector And Patcher: Chucky Perez DO (Physician) [facility] Service: Hospitalist Discharge Summary Date of Admission: [...] a 28 y.o. female who presented to [facility] with LBP x several weeks and some off and on fevers. Admits to active IVDA with heroin. Denies history of problems/infections with IVDA in the past. [facility] transferred patient to [facility] for MRI l-spine, which was done this morning and shows osteomyelitis L4-5 with phlegmon. T he patient denies major neurologic deficits and can still walk, albeit somewhat limited from the back pain. Last IV heroin use was yesterday. She was intending to check herself into a rehab in [place], [place] soon because "these days your heroin is cut with all kinds of crazy stuff, it's not even heroin any more, and I need to be around to take care of my 5 kids." Roselia pappas now the kids' dad is taking care of the kids in [place]. HOSPITAL COURSE: Patient was admitted and treated [...] Note by Lissette Rios RN at 06/15/18 3873 Author: Lissette Rios RN Service: (none) Author Type: Registered Nurse Filed: 06/15/18 3450 Date of Service: 06/15/181241 Status: Signed Hose Inspector And Patcher: Lissette Rios RN (Registered Nurse) Patient stating she wants to leave. Dr. Perez discussed risks involved. Patient states her g randmother just , and she needs to check on her family. This RN attempted to offer alter natives, suggesting her family visit from [place]. Patient states this isn't possible. Ashley knapp [...] Notes by Chucky Perez DO at 06/15/18 2780 Author: Chucky Perez DO Service: Hospitalist Author Type: Physician Filed: 12/06/21 1138 Date of Service: 06/15/181134 Status: Signed Hose Inspector And Patcher: Chucky Perez DO (Physician) [facility] Service: Hospitalist Progress Note Pt: Elizabeth Pederson AGE/SEX: 28 y.o. female ROOM: 7105/7105-1 PCP: Per PT None : 1990 TODAY'S DATE: 06/15/2018 Hospital Day: LOS: 5 days Post-Op Day: * No surgery found * SUBJECTIVE Patient Summary: Per H&P: presented to [facility] with LBP x several week s and some off and on fevers. Admits to active IVDA with heroin. Denies history of problems/ infections with IVDA in the past. [facility] transferred patient to [facility] ED for MRI l-s pine, which was done this morning and shows osteomyelitis L4-5 with phlegmon. The patient de nies major neurologic deficits and can still walk, albeit somewhat limited from the back telly n. Last IV heroin use was yesterday. She was intending to check herself into a rehab in [facility] soon because "these days your heroin is cut with all kinds of crazy stuff, it's n ot even heroin any more, and I need to be around to take care of my 5 kids." Right now the fadi mayo' dad is taking care of the kids in [place]. Events Overnight: Patient seen and examined. Reports [...] Jun 10 2018 6:40AM Referring Provider Line: [phone] ID: [id number] Echo Cardiac Adult Complete Result Date: 06/10/2018 1. No vegetation visualized. PROBLEM LIST Principal Problem: Vertebral osteomyelitis (HCC) Active Problems: LBP IV drug abuse ([facility]) ASSESSMENT & PLAN Vertebral osteomyelitis - Presented [...] 1227 Date of Service: 06/15/18828 Status: Signed Hose Inspector And Patcher: Carol Casillas MD (Physician) [facility] Service: Infectious Disease Progress Note Hospital Day: [...] bladder or bowel incontinence. She went to [facility] ER and transferred to the [facility] ER for lumbar spine MRI which [...] 10 2018 6:40AM Referring Provi pineda Line: [phone] ID: [id number] Transthoracic echocardiogram Impression 1. No [...] IV vancomycin/ceftriaxone, antibiotic stop date 07/22/2018 [facility] and paper art. Weekly lab orders also [...] 06/14/181424 Date of Service: 06/14/181424 Status: Signed Hose Inspector And Patcher: Carrie Covarrubias RPH (Pharmacist) Clinical Pharmacy Note: [...] Date of Service: 06/14/18 104 Status: Addendum Hose Inspector And Patcher: Mariya Sanchez RN (Registered Nurse) Related Notes: Original Note by Mariya Sanchez RN (Registered Nurse) filed at 06/14/18 1102 1045: spoke with Dr Perez- pt is medically ready for discharge. She will need a PICC placed once accepted. I called Darian at [facility] in [place]- no answer, left voice mail. 1055: Darian from [facility] called back saying that they are unable to accept the pt. She said that they have had these pt's in the past but that they seem to do better if they are not from the area. 1100: spoke with pt and informed him about other options- informed her about [facility] in [place], [place], and [place]. She said that she would prefer [place], referral sent to [facility]. Attended afternoon rounds with Dr Perez: working on placement. IV Abx for 6 weeks. Chucky Purvis MD - 06/14/2018 9:12 AM PSTFormatting of this note might be different from the origin al. Progress Notes by Chucky Perez DO at 06/14/18911 Author: Chucky Perez DO Service: Hospitalist Author Type: Physician Filed: 06/14/18914 Date of Service: 06/14/18911 Status: Signed Hose Inspector And Patcher: Chucky Perez DO (Physician) [facility] Service: Hospitalist Progress Note Pt: Elizabeth Pederson AGE/SEX: 28 y.o. female ROOM: [address] [place] [address] PCP: Per PT None : 1990 TODAY'S DATE: 06/14/2018 Hospital Day: LOS: 4 days Post-Op Day: * No surgery found * SUBJECTIVE Patient Summary: Per H&P: presented to [facility] with LBP x several week s and some off and on fevers. Admits to active IVDA with heroin. Denies history of problems/ infections with IVDA in the past. [facility] transferred patient to [facility] ED for MRI l-s pine, which was done this morning and shows osteomyelitis L4-5 with phlegmon. The patient de nies major neurologic deficits and can still walk, albeit somewhat limited from the back telly n. Last IV heroin use was yesterday. She was intending to check herself into a rehab in [facility] soon because "these days your heroin is cut with all kinds of crazy stuff, it's n ot even heroin any more, and I need to be around to take care of my 5 kids." Right now the fadi mayo' dad is taking care of the kids in [place]. Events Overnight: Patient seen and examined. Reports [...] Jun 10 2018 6:40AM Referring Provider Line: [phone] ID: [id number] Echo Cardiac Adult Complete Result [...] 103 Date of Service: 06/14/18829 Status: Signed Hose Inspector And Patcher: Carol Casillas MD (Physician) [facility] Service: Infectious Disease Progress Note Hospital Day: [...] bladder or bowel incontinence. She went to [facility] ER and transferred to the [facility] ER for lumbar spine MRI which [...] 10 2018 6:40AM Referring Provi pineda Line: [phone] ID: [id number] Transthoracic echocardiogram Impression 1. No [...] Patient pr efers discharge to SNF in [place] -Orders for IV vancomycin/ceftriaxone, antibiotic stop date [...] peripherally while in-hospital Code Status: Full Code CAORL CASILLAS MD 06/14/2018 onversion Membreno saction, Provider Unknown - 06/14/2018 6:34 AM PSTFormatting of this note might be differen t from the original. Nurse Progress Note by Cherry Sierra RN at 06/14/18633 Author: Cherry Sierra RN Service: (none) Author Type: Registered Nurse Filed: 06/14/18633 Date of Service: 06/14/18633 Status: Signed Hose Inspector And Patcher: Cherry Sierra RN (Registered Nurse) IV abx [...] 06/13/181326 Date of Service: 06/13/181326 Status: Signed Hose Inspector And Patcher: Ara Kraus RPH (Pharmacist) Clinical Pharmacy Note: Vancomycin Day 4 Goal Trough: 15-20 mcg/mL Current dose: 1250 mg IV Q8H Last trough: 14.9 mcg/mL 06/13 @ 1242 Serum creatinine: 0.5 mg/dL 06/13/18 0454 Estimated creatinine clearance: 165.2 mL/min. Plan: Continue same dose. Next trough level 06/14 @ 1300. Elsie Barry.D. 06/13/2018 1:24 PM Chucky Purvis MD - 06/13/2018 12:18 PM PSTFormatting of this note might be different from the origin al. Progress Notes by Chucky Perez DO at 06/13/18 1218 Author: Chucky Perez DO Service: Hospitalist Author Type: Physician Filed: 06/13/18 1222 Date of Service: 06/13/181217 Status: Signed Hose Inspector And Patcher: Chucky Perez DO (Physician) [facility] Service: Hospitalist Progress Note Pt: Elizabeth Pederson AGE/SEX: 28 y.o. female ROOM: [address] [place] [address] PCP: Per PT None : 1990 TODAY'S DATE: 06/13/2018 Hospital Day: LOS: 3 days Post-Op Day: * No surgery found * SUBJECTIVE Patient Summary: Per H&P: presented to [facility] with LBP x several week s and some off and on fevers. Admits to active IVDA with heroin. Denies history of problems/ infections with IVDA in the past. [facility] transferred patient to [facility] ED for MRI l-s pine, which was done this morning and shows osteomyelitis L4-5 with phlegmon. The patient de nies major neurologic deficits and can still walk, albeit somewhat limited from the back telly n. Last IV heroin use was yesterday. She was intending to check herself into a rehab in [facility] soon because "these days your heroin is cut with all kinds of crazy stuff, it's n ot even heroin any more, and I need to be around to take care of my 5 kids." Right now the fadi mayo' dad is taking care of the kids in [place]. Events Overnight: Patient seen and examined. Reports [...] Jun 10 2018 6:40AM Referring Provider Line: [phone] ID: [id number] Echo Cardiac Adult Complete Result [...] Date of Service: 06/13/18 1011 Status: Signed Hose Inspector And Patcher: Derick Ulloa RN (Registered Nurse) 10:11 AM Met with Elizabeth and discussed the need of six weeks of IVAB and the need for he to discharge to a facility. She is not a candidate for home IVAB. She expressed interest of being in [facility] and wanting to be near her kids. She asked that I send a referral to [facility] in [facility]. I sent that referral and will be looking into other options for her. Carol Diaz MD - 06/13/2018 8:01 AM PST Progress Notes by Carol Casillas MD at 06/13/18 08 Author: Carol Casillas MD Service: Infectious Disease Author Type: Physician Filed: 06/13/18 1239 Date of Service: 06/13/18 08 Status: Signed Hose Inspector And Patcher: Carol Casillas MD (Physician) [facility] Service: Infectious Disease Progress Note Hospital Day: [...] bladder or bowel incontinence. She went to [facility] ER and transferred to the [facility] ER for lumbar spine MRI which [...] Discharge planning ongoing.- Patient talked to her corporate development officer about her medical cond ition. Patient expresses wanting to go to [place] since her family is there Scheduled Medications [...] Gram stain shows no cells or [facility] Radiology data: MRI of the [...] 10 2018 6:40AM Referring Provi pineda Line: [phone] ID: [id number] Transthoracic echocardiogram Impression 1. No [...] Patient pr efers discharge to SNF in [place] -Orders for IV vancomycin/ceftriaxone, antibiotic stop date 07/22/2018 in [facility] and paper art. Weakly lab orders also [...] Note by Sandy Persaud RPH at 06/12/18 7157 Author: Sandy Persaud RPH Service: Pharmacy Author Type: Pharmacist Filed: 06/12/18 4857 Date of Service: 06/12/181253 Status: Signed Hose Inspector And Patcher: Sandy Persaud RPH (Pharmacist) Clinical Pharmacy Note: Vanco Day 3 Scr = 0.5 WBC = 11.51 Estimated CrCl 163.1 ml/min Current regimen Vanco 1250mg (16mg/kg) IV q8h. Vanco Tr done at 1151 today was 18.8 (15-20 mcg/ml). Only 6 hr between late AM dose & Trough (instead of 7hr). Continue same regimen & recheck level tomorrow. Change admin times to [id number]. INDICATION: Osteomyelitis Pharmacist; SANDY PERSAUD 06/12/2018 12:53 PM Chucky Purvis MD - 06/12/2018 11:36 AM PSTFormatting of this note might be different from the origin al. Progress Notes by Chucky Perez DO at 06/12/18 1136 Author: Chucky Perez DO Service: Hospitalist Author Type: Physician Filed: 06/12/18 1146 Date of Service: 06/12/181135 Status: Signed Hose Inspector And Patcher: Chucky Perez DO (Physician) [facility] Service: Hospitalist Progress Note Pt: Elizabeth Pederson AGE/SEX: 28 y.o. female ROOM: 7105/7105-1 PCP: Per PT None : 1990 TODAY'S DATE: 06/12/2018 Hospital Day: LOS: 2 days Post-Op Day: * No surgery found * SUBJECTIVE Patient Summary: Per H&P: presented to [facility] with LBP x several week s and some off and on fevers. Admits to active IVDA with heroin. Denies history of problems/ infections with IVDA in the past. [facility] transferred patient to [facility] ED for MRI l-s pine, which was done this morning and shows osteomyelitis L4-5 with phlegmon. The patient de nies major neurologic deficits and can still walk, albeit somewhat limited from the back telly n. Last IV heroin use was yesterday. She was intending to check herself into a rehab in [facility] soon because "these days your heroin is cut with all kinds of crazy stuff, it's n ot even heroin any more, and I need to be around to take care of my 5 kids." Right now the fadi mayo' dad is taking care of the kids in [place]. Events Overnight: Patient seen and examined. Reports [...] Jun 10 2018 6:40AM Referring Provider Line: [phone] ID: [id number] Echo Cardiac Adult Complete Result [...] Notes by Carol Casillas MD at 06/12/18 0966 Author: Carol Casillas MD Service: Infectious Disease Author Type: Physician Filed: 06/12/18 1149 Date of Service: 06/12/1854 Status: Addendum Hose Inspector And Patcher: Carol Casillas MD (Physician) Related Notes: Original Note by Carol Casillas MD (Physician) filed at 06/12/18 1142 [facility] Service: Infectious Disease Progress Note Hospital Day: [...] bladder or bowel incontinence. She went to [facility] ER and transferred to the [facility] ER for lumbar spine MRI which [...] Gram stain shows no cells or [facility] Radiology data: MRI of the [...] 10 2018 6:40AM Referring Provi pineda Line: [phone] ID: [id number] Transthoracic echocardiogram Impression 1. No [...] - 6 weeks duration. Would discharge to [facility] be viable with Behavioral Health consult? -PICC [...] the original. Nurse Progress Note by Hilda Guajardo RN at 06/12/18606 Author: Hilda Guajardo RN Service: (none) Author Type: Registered Nurse Filed: 06/12/18643 Date of Service: 06/12/18606 Status: Addendum Hose Inspector And Patcher: Hilda Guajardo RN (Registered Nurse) Related Notes: [...] 06/11/182009 Date of Service: 06/11/182006 Status: Signed Hose Inspector And Patcher: Elizabeth Lyons RN (Registered Nurse) Lead RN [...] some sleep. C onversation passed off to scene shifter nurse Hilda and she medicated the patient with the ativan. Elizabeth Lyons RN onver maureen Transaction, Provider Unknown - 06/11/2018 6:38 PM PST Progress Notes by Jyoti Sanders RN at 06/11/181837 Author: Jyoti Sanders RN Service: (none) Author Type: Registered Nurse Filed: 06/11/181840 Date of Service: 06/11/181837 Status: Signed Hose Inspector And Patcher: Jyoti Sanders RN (Registered Nurse) Pt A/O [...] 06/11/181247 Date of Service: 06/11/181247 Status: Signed Hose Inspector And Patcher: Sandy Persaud RPH (Pharmacist) Clinical Pharmacy Note: [...] Management by Nayla Julian RN at 06/11/18 0555 Author: Nayla Julian RN Service: (none) Author Type: Restaurant Assistant Filed: 06/11/18 2390 Date of Service: 06/11/18 1132 Status: Addendum Hose Inspector And Patcher: Nayla Julian RN (Restaurant Assistant) Related Notes: Original Note by Nayla Julian RN (Restaurant Assistant) filed at 06/11/18 1143 06/11/18 1135 Discharge Planning Evaluation Admitting Diagnosis vertebral osteomyelitis Readmission No Living Arrangements Parent Support Systems Parent;Children;Friends/neighbors Type of Residence Private residence House type Apartment Independent with ADL's Yes Independent with Mobility Yes Home Care Services No Caregiver after Discharge No Mental Status Oriented Prior functional status independent Power of [place] No Anticipated Discharge Plan Post Acute Care [...] wants to go to a rehab in [place]. Patient's PCP is: none, pt agreeable to having a new one in [place]- email sent to [employer] Patient's insurance: medicaid [...] Date of Service: 06/11/18 1034 Status: Signed Hose Inspector And Patcher: Chucky Perez DO (Physician) [facility] Service: Hospitalist Progress Note Pt: Elizabeth Pederson AGE/SEX: 28 y.o. female ROOM: 7105/7105-1 PCP: Per PT None : 1990 TODAY'S DATE: 06/11/2018 Hospital Day: LOS: 1 day Post-Op Day: * No surgery found * SUBJECTIVE Patient Summary: Per H&P: presented to [facility] with LBP x several week s and some off and on fevers. Admits to active IVDA with heroin. Denies history of problems/ infections with IVDA in the past. [facility] transferred patient to [facility] ED for MRI l-s pine, which was done this morning and shows osteomyelitis L4-5 with phlegmon. The patient de nies major neurologic deficits and can still walk, albeit somewhat limited from the back telly n. Last IV heroin use was yesterday. She was intending to check herself into a rehab in [facility] soon because "these days your heroin is cut with all kinds of crazy stuff, it's n ot even heroin any more, and I need to be around to take care of my 5 kids." Right now the fadi mayo' dad is taking care of the kids in [place]. Events Overnight: Patient seen and examined. Reports [...] Jun 10 2018 6:40AM Referring Provider Line: [phone] ID: [id number] Echo Cardiac Adult Complete Result [...] 1522 Date of Service: 06/11/18711 Status: Signed Hose Inspector And Patcher: Carol Casillas MD (Physician) [facility] Service: Infectious Disease Progress Note Hospital Day: [...] bladder or bowel incontinence. She went to [facility] ER and transferred to the [facility] ER for lumbar spine MRI which [...] Gram stain shows no cells or [facility] Radiology data: MRI of the [...] 10 2018 6:40AM Referring Provi pineda Line: [phone] ID: [id number] Transthoracic echocardiogram Impression 1. No [...] 06/11/18708 Date of Service: 06/11/18706 Status: Signed Hose Inspector And Patcher: Alexandra Torres RN (Registered Nurse) Patient rested [...] Date of Service: 06/10/18 1312 Status: Signed Hose Inspector And Patcher: Kristy Mantilla RN (Registered Nurse) Pt tolerated [...] Date of Service: 06/10/18 1233 Status: Attested Hose Inspector And Patcher: DEANDRE Hartley (Pharmacist) Cosigner: Carrie Covarrubias RPH [...] Date of Service: 06/10/18 1136 Status: Signed Hose Inspector And Patcher: Hank Rico MD (Physician) [facility] Service: Radiology Sedation Note See separate procedure [...] Capnometry: yes IV access: yes Suction: yes ekg monitor tech: yes Sedation agent(s) used: Versed, Fentanyl I personally supervised: sedation and procedure(s). Total sedation time: See nurse's notes for total time. Hank Rico MD 06/10/2018 onversion Transaction , Provider Unknown - 06/10/2018 9:59 AM PST Progress Notes by DEANDRE Hartley at 06/10/18958 Author: DEANDRE Hartley Service: Pharmacy Author Type: Pharmacist Filed: 06/10/18958 Date of Service: 06/10/18958 Status: Signed Hose Inspector And Patcher: DEANDRE Hartley (Pharmacist) Cosigner: Rosa Herrmann RPH [...] | | | Basophils | performed at [facility], [address] | [address] | | | | [address], | | | | | | [place] [address] | | | | + + + [...] | | | | | [place] [address] | | | | + + + [...] | | | | | | MDRD IDFL traceable | | | | | | equation.Testing | | | | | | performed at [facility], [address] | | | | | | [facility], | | | | | | [place] [address] | | | | + + + [...] | | | | | performed at [facility] | | | | | | [address] [facility];[place], [place] | | | | | | [address] | | | | + + + [...] | | | Basophils | performed at [facility], [address] | LAB | | | | [address], | | | | | | [place] [address] | | | | + + + [...] EXTERNAL | | | | performed at [facility], [address] | | LAB | | | | [address], | | | | | | [place] [address] | | | | + + + [...] | | | | | performed at [facility], [address] | | | | | | [address], | | | | | | [place], [place] [address] | | | | + + + [...] | | | | | performed at [facility];[address] | | | | | | [facility];[place], [place] | | | | | | [address] | | | | + + + [...] | | | Basophils | performed at [facility], [address] | [address] | LAB | | | | [address], | | | | | | [place] [address] | | | | + + + [...] EXTERNAL | | | | performed at [facility], [address] | | LAB | | | | [address], | | | | | | [place] [address] | | | | + + + [...] | | | | | performed at [facility], [address] | | | | | | [facility], | | | | | | [place] [address] | | | | + + + [...] | | | | | performed at [facility];[address] | | | | | | [address] [facility];[place], [place] | | | | | | [address] | | | | + + + [...] | | | Basophils | performed at [facility], [address] | [address] | LAB | | | | [address], | | | | | | [place] [address] | | | | + + + [...] EXTERNAL | | | | performed at [facility], [address] | | LAB | | | | [address], | | | | | | [place] [address] | | | | + + + [...] | | | | | performed at [facility], [address] | | | | | | [facility], | | | | | | [place] [address] | | | | + + + [...] | | | Random | performed at [facility] | | LAB | | | | [address];[place], [place] | | | | | | [address] | | | | + + + [...] | | | | | performed at [facility], [address] | | | | | | [address] [facility], | | | | | | [place] [address] | | | | + + + [...] | | | | | performed at [facility], [address] | | | | | | [facility], | | | | | | [place] [address] | | | | + + + [...] | | | Basophils | performed at [facility], [address] | K/uL | LAB | | | | [address] [facility], | | | | | | [place] [address] | | | | + + + [...] | | | | | performed at [facility], [address] | | | | | | [facility], | | | | | | [place] [address] | | | | + + + [...] | | | Ur | performed at [facility];[address] | | LAB | | | | [address];[place], [place] | | | | | | [address] | | | | + + + [...] Patient positioning: Prone. Axial | | | operator automated process images were obtained through region of interest [...] PEDERSON years | | FemaleCT GUIDED NEEDLE UGLRSPDAS48/7/2018 12:37 PM HISTORY: 28 years. Female. | [...] | | and intervention Patient positioning: Prone.Axial operator automated process images were obtained through | | region [...] LA/Ao: 1.42 D-E Excursion: 1.63 cm E-F Valley: 0.13 m/s | | | TAPSE: 2.76 [...] TR maxP.26 mmHg TR Vmax: 3.01 m/s Renovator Machine Operator: SAQIB | | | Authenticated by: Sukhwinder [...] mlLAESV Index (A-L): 41.53 ml/m2LAAs A2C: 20.21 [id number] A-L A2C: 63.90 mlLALs | | A2C: 5.42 cmLAAs A4C: 24.29 [id number] A-L A4C: 91.31 mlLALs A4C: 5.48 cmAo Diam: | | 2.79 cmAV Cusp: 1.91 cmLA Diam: 3.97 cmLA/Ao: 1.42D-E Excursion: 1.63 cmE-F | | Valley: 0.13 m/sTAPSE: 2.76 cmHR: 69.91 BPMAV maxP.30 mmHgAV meanP.92 | | mmHgAV Vmax: 1.52 m/Adriel Vmean: 1.03 m/Adriel VTI: 33.10 cmAVA Vmax: 2.65 cm2AVA | | (VTI): 2.49 oa0VKLV Vmax: 0.00 cm2/m2AVAI (VTI): 0.00 cm2/m2LVCI Dopp: 2.99 | | l/sdnx3WFSA Dopp: 5.53 l/minHR: 66.94 BPMLVOT maxP.05 mmHgLVOT [...] maxP.26 mmHgTR Vmax: 3.01 | | m/s Renovator Machine Operator: JBAuthenticated by: Sukhwinder Knapp MDReport Date/Time: 06-10-2018 [...] | |D-E Excursion: 1.63 cm | |E-F Valley: 0.13 m/s | |TAPSE: 2.76 cm | [...] |TR Vmax: 3.01 m/s | | | |Renovator Machine Operator: SAQIB | |Authenticated by: Sukhwinder Knapp MD [...] | | | Patient | performed at [facility];[address] | | LAB | | | | [address];[place] | | | | | | [address] | | | | + + + [...] EXTERNAL | | | | performed at [facility] | | LAB | | | | [address];[place], [place] | | | | | | [address] | | | | + + + [...] | | | | | performed at [facility];[address] | | | | | | [address] [facility];[place], [place] | | | | | | [address] | | | | + + + [...] | | | Basophils | performed at [facility];[address] | K/uL | LAB | | | | [address];[place] | | | | | | [address] | | | | + + + [...] EXTERNAL | | | | performed at [facility];[address] | | LAB | | | | [address];[place], [place] | | | | | | [address] | | | | + + + [...] EXTERNAL | | | | performed at [facility];[address] | mmol/L | LAB | | | | [address];[place] | | | | | | [address] | | | | + + + [...] | | | | | | MDRD [facility] traceable | | | | | | equation.Testing | | | | | | performed at [facility] | | | | | | [facility];[place], [place] | | | | | | [address] | | | | + + + [...] | | 2017 6:40AM Referring Provider Line: [phone] ID: [id number] | | + + + [...] 2018 6:40AM Referring Provider Line: | | [phone] ID: [id number] | | | |L3-L4: Disk [...] 10 2018 6:40AM Referring Provider Line: [phone] ID: [id number] | + + XR Lumbar [...]
--- OUTSIDE RECORDS SUMMARY | ~2019-11-25 | XMS | Encounter Summary ---
Demographics + + + | Address | [address] | | | [place] [address] | + + + | Home Phone | | + + + | Preferred Language | Unknown | + + + | Marital Status | Single | + + + | Taoist Affiliation | Unknown | + + + | Race | Unknown | + + + | Ethnic Group | Unknown | + + + Author + + + | Author | [facility] | | | and [place] | + + + | Organization | [facility] | [...] Team Providers + +------+ + | Care Senior Energy Consultant Name | Role | Phone | + +------+ + PCP | Unavailable | + +------+ + Encounter Details +--------+ + + + + | Date | Type | Department | Care Team | Description | +--------+ + + + + | 02/17/ | Orders Only | [facility] | [facility], | Osteomyelitis of | | 2019 | | MEDICAL [facility] | MD Carol [address] | vertebra ([facility]) | | | | CARE FLOOR [address] | | | | | [address] | [place] [address] | | | | | [place], [place] | [phone] | | | | | [address] | | | | | | [phone] | | | +--------+ + + + [...] Metabolic Panel | | e | vertebra ([facility]) | 06/12/2018, Expires: | | | | | | 06/12/2019 | + +------+--------+ + + | Sedimentation Rate | Lab | Routin | Osteomyelitis of | Expected: | | | | e | vertebra ([facility]) | 06/12/2018, Expires: | | | | | | 06/12/2019 | + +------+--------+ + + | C-Reactive Protein | Lab | Routin | Osteomyelitis of | Expected: | | | | e | vertebra ([facility]) | 06/12/2018, Expires: | | | | | | 06/12/2019 | + +------+--------+ + + | CBC with Manual | Lab | Routin | Osteomyelitis of | Expected: | | Differential | | e | vertebra ([facility]) | 06/12/2018, Expires: | | | | | | 06/13/2019 | + +------+--------+ + + | Vancomycin, Trough | Lab | Routin | Osteomyelitis of | Expected: | | | | e | vertebra ([facility]) | 06/12/2018, Expires: | | | | | | 06/12/2019 | + +------+--------+ + + | Creatinine | Lab | Routin | Osteomyelitis of | Expected: | | | | e | vertebra ([facility]) | 06/12/2018, Expires: | | | | | | 06/12/2019 | + +------+--------+ + + documented as of this encounter Visit Diagnoses + + | Diagnosis | + + | Osteomyelitis of vertebra (HCC) Unspecified osteomyelitis, other specified site | + + documented in this encounter"
--- OUTSIDE RECORDS SUMMARY | ~2019-11-25 | XMS | Encounter Summary ---
Demographics + + + | Address | [address] | | | [place] [address] | + + + | Home Phone | | + + + | Preferred Language | Unknown | + + + | Marital Status | Single | + + + | Christianity Affiliation | Unknown | + + + | Race | Unknown | + + + | Ethnic Group | Unknown | + + + Author + + + | Author | [facility] | | | and [place] | + + + | Organization | [facility] | | | [...] Team Providers + +------+ + | Care Retail Wireless Sales Consultant Name | Role | Phone | [...] Provider Unknown | | | | | [place], [place] | [phone] | | | | | [address] | | | | | | [phone] | | | +--------+ + + + [...]
--- OUTSIDE RECORDS SUMMARY | ~2019-11-25 | XMS | Clinical Summary ---
Demographics + + + | Address | [address] | | | [place] [address] | + + + | Home Phone | | + + + | Preferred Language | Unknown | + + + | Marital Status | Single | + + + | Yazdanism Affiliation | Unknown | + + + | Race | Unknown | + + + | Ethnic Group | Unknown | + + + Author + + + | Author | [facility] | | | and [place] | + + + | Organization | [facility] | | | [...] Team Providers + +------+ + | Care Hotel Assistant General Manager Name | Role | Phone | [...] methamphetamine use. Presently on | | methadone. [facility] | + + + + [...] methadone.Meds: Methadone 75mg | | dailyTreated the [facility] | |Treated the [facility] | + + + + + | [...] pack a day. Admitted Good | | [facility] 05/28/2015 | + + + + [...] | | 2019 | Event | | CORPORATE FINANCIAL ANALYST | | +--------+ + + + + [...] use | | | | | | ([facility]); Tobacco abuse | +--------+ + + + + | 09/20/ | Initial | Obstetrics and | Shlomo Wright, | GA: 32w4d | | 2019 | | Gynecology | MD | | +--------+ + + + + | 09/20/ | Orders Only | | Lindsey Wu, | Supervision of high | 2019 | | | Will Call Clerk | risk , | | | | | | antepartum | +--------+ + + + + | 09/13/ | Documentati | Obstetrics and | Tres, | Other (Referral - | | 2020 | on | Gynecology | Carol Gaviria MD | [facility] | | | | | | [facility], | | | | | | ) [...] LABORATORY | | | | performed at [facility], [address] | | | | | [address], | | | | | | [place] [address] | | | | + + + + + + + + | Specimen | + + | Blood | + + + + + + + | Performing | Address | City/State/Zipcode | Phone Number | | Organization | | | | + + + + + | [facility] | [address] | [place] [address] | [phone] | + + + + + Neuraxial [...] | | | | | | [place] [address] | | | | + + + [...] | + + + + + | [facility] | [address] | [place] [address] | [phone] | + + + + + Protein, [...] LABORATORY | | | | performed at [facility], [address] | | | | | | [address], | | | | | | [place] [address] | | | | + + + + + + + + | Specimen | + + | | + + + + + + + | Performing | Address | City/State/Zipcode | Phone Number | | Organization | | | | + + + + + | [facility] | [address] | [place] [address] | [phone] | + + + + + Creatinine, Urine, Random (11/18/2019 10:08 PM PDT) + + + + + + | Component | Value | Ref Range | Performed | Pathologist | | | | | At | Signature | + + + + + + | Creatinine, | 45.0Comment: NO NORMAL | mg/dL | [facility] | | | random | RANGE ESTABLISHEDTesting | | LABORATORY | | | urine | performed at [facility], [address] | | | | | | [address], | | | | | | [place] [address] | | | | + + + + + + + + | Specimen | + + | | + + + + + + + | Performing | Address | City/State/Zipcode | Phone Number | | Organization | | | | + + + + + | [facility] | [address] | [place] [address] | [phone] | + + + + + Type [...] | [facility] | | | | [facility];[address] | | LABORATORY | | | | [address];[place] [address] | | | | + + + + + + + + | Specimen | + + | Blood | + + + + + + + | Performing | Address | City/State/Zipcode | Phone Number | | Organization | | | | + + + + + | [facility] | [address] | [place] [address] | [phone] | + + + + + ALT (11/18/2019 8:16 PM PDT) + + + + + + | Component | Value | Ref Range | Performed | Pathologist | | | | | At | Signature | + + + + + + | ALT | 10Comment: Testing | 10 - 65 U/L | [facility] | | | | performed at [facility];[address] | | LABORATORY | | | | [address];[place] | | | | | | [address] | | | | + + + + + + + + | Specimen | + + | Blood | + + + + + + + | Performing | Address | City/State/Zipcode | Phone Number | | Organization | | | | + + + + + | [facility] | [address] [facility] | [place] [address] | [phone] | + + + + + Uric [...] | | | | performed at [facility];[address] | | LABORATORY | | | | [address];[place], [place] | | | | | | [address] | | | | + + + + + + + + | Specimen | + + | Blood | + + + + + + + | Performing | Address | City/State/Zipcode | Phone Number | | Organization | | | | + + + + + | [facility] | [address] | [place] [address] | [phone] | + + + + + BUN (11/18/2019 8:16 PM PDT) + + + + + + | Component | Value | Ref Range | Performed | Pathologist | | | | | At | Signature | + + + + + + | BUN | 9Comment: Testing | 8 - 25 mg/dL | [facility] | | | | performed at [facility];[address] | | LABORATORY | | | | [address];[place] | | | | | | [address] | | | | + + + + + + + + | Specimen | + + | Blood | + + + + + + + | Performing | Address | City/State/Zipcode | Phone Number | | Organization | | | | + + + + + | [facility] | [address] | [place] [address] | [phone] | + + + + + AST (11/18/2019 8:16 PM PDT) + + + + + + | Component | Value | Ref Range | Performed | Pathologist | | | | | At | Signature | + + + + + + | AST | 21Comment: Testing | 10 - 45 U/L | [facility] | | | | performed at [facility];[address] | | LABORATORY | | | | [address];[place], [place] | | | | | | [address] | | | | + + + + + + + + | Specimen | + + | Blood | + + + + + + + | Performing | Address | City/State/Zipcode | Phone Number | | Organization | | | | + + + + + | [facility] | [address] | [place] [address] | [phone] | + + + + + Lactate [...] | | | | performed at [facility];[address] | | LABORATORY | | | | [address];[place] | | | | | | [address] | | | | + + + + + + + + | Specimen | + + | Blood | + + + + + + + | Performing | Address | City/State/Zipcode | Phone Number | | Organization | | | | + + + + + | [facility] | [address] | [place] [address] | [phone] | + + + + + Creatinine [...] | | | | performed at [facility];[address] | | | | | | [facility];[place], [place] | | | | | | [address] | | | | + + + + + + + + | Specimen | + + | Blood | + + + + + + + | Performing | Address | City/State/Zipcode | Phone Number | | Organization | | | | + + + + + | [facility] | [address] | [place] [address] | [phone] | + + + + + Strep [...] | | [facility] | | | | [id number]: Testing | | LABORATORY | | | | performed at [facility], [address] | | | | [address], | | | | | | [place] [address] | | | | + + + [...] + + + | REFERENCE LAB | [address] [place] [address] | [place], [place] | [phone] | | [facility] | Blvd. | [address] | | | LABORATORY | | | | + + + + + | REFERENCE LAB | [address] [place], [place] [address] | [place] | | | [facility] | Blvd. | [address] | | | LABORATORY | | | [...] | EFW by | | | Hadlock ([id number]-AK-[id number]-FL) Head / Face / Neck Biometry: Cephalic [...] | | | bpm | | | Electric Blanket Packer Comments Measurements compatible | | | with [...] 8 oz EFW by | | Hadlock (BZE-GA-ST-FL) Head / Face / Neck Biometry: Cephalic [...] | | FHR 135 bpm | | Electric Blanket Packer Comments Measurements compatible with dates. The | | patient received thermal prints. Impression ========= Nieto IUP. Biometrics reveal | | estimated weight of 2507 g, 28th percentile overall. Measurements relatively | | symmetric. Amniotic fluid normal with an ISMAEL of 12.6 Maximum vertical pocket of 4.3. | | Recommendation Good interval growth, normal fluid, Reassuring ultrasound | | findings. | |EFW by Hadgelacio (ERA-QC-CN-FL) | |Head / Face / Neck Biometry: | |Cephalic index 0.73 6% Chitty | |Extremities / Bony Struc Biometry: | |FL / BPD 0.79 -/- Hadlock | |FL / HC 0.21 -/- Hadlock | |FL / AC 0.22 -/- Hadlock | |Other Structures Biometry: | |AF MVP 4.3 cm | |ISMAEL 12.6 cm | |FHR 135 bpm | | | |Electric Blanket Packer Comments | | | | | |Measurements [...] | | | | | performed at [facility];[address] | | | | | | [address] | | | | | | [address];[place] [address] | | | | + + + + + + + + | Specimen | + + | Tissue - Both | | anterior nares (body | | structure) | + + + + + + + | Performing | Address | City/State/Zipcode | Phone Number | | Organization | | | | + + + + + | REFERENCE LAB | [address] [place], [place] [address] | [place], [place] | [phone] | | [facility] | Blvd. | [address] | | | LABORATORY | | | | + + + + + | REFERENCE LAB | [facility] | [place], [place] | | | [facility] | Blvd. | [address] | | | LABORATORY | | | [...] | [employer] | [facility] | [id number] | | [phone] | | [employer] | [...] fernanda | | | 9 (Home) | [address] | + +--------+ +--------+ + + Advance Directives + + + + + | Type | Date Recorded | Patient | Explanation | | | | Senior Mechanical Project Manager | | + + + + + | Power of | | | | | Unattended Ground Sensor Specialist | | | | + + [...]
--- OUTSIDE RECORDS SUMMARY | ~2019-11-25 | XMS | Encounter Summary ---
Demographics + + + | Address | [address] | | | [place] [address] | + + + | Home Phone | | + + + | Preferred Language | Unknown | + + + | Marital Status | Single | + + + | Buddhism Affiliation | Unknown | + + + | Race | Unknown | + + + | Ethnic Group | Unknown | + + + Author + + + | Author | [facility] | | | and [place] | + + + | Organization | [facility] | | | [...] Providers + +------+ + | Care Manager Drilling Name | Role | Phone | + +------+ + | Evelyn Whitehead DO | PCP | | + +------+ + Encounter Details +--------+ + + + + | Date | Type | Department | Care Team | Description | +--------+ + + + + | 10/11/ | Hospital | [facility] | Shlomo Wright, | Methadone use (HCC); | | 2019 | Encounter | [facility] | MD [address] | Tobacco abuse; | | | | ULTR[address]OUND [address], | Supervision of high | | | | [address] | [place] [address] | risk , | | | | [place], [place] | [phone] | antepartum | | | | [address] | | | | | | [phone] | | | +--------+ + + + [...] + + +---------+ + + | albuterol 90 | Inhale 2 puffs into | 1 | 0 | 09/21/19 | | | mcg/puff inhaler | the lungs every 4 | Inhaler | | 20 | 1 | | | hours as needed. | | | | | + + + +---------+ + + | aspirin 81 mg | | | 0 | 07/01/20 | | | chewable tablet | | | | 19 | | + + + +---------+ + + | methadone 10 mg | Take 75 mg by mouth | | 0 | | | | tablet | Daily. | | | | | + + + +---------+ + + | NARCAN 4 MG/0.1ML | | | 0 | 03/27/20 | | | | | | | 19 | | + + + +---------+ + + | MV-MIN-FE | Take by mouth. | | 0 | // | | | FUM-FA-DHA PO | | | | 13 | | + + + +---------+ + + | famotidine | Take 1 tablet by | 60 | 0 | 10/16/19 | | | (PEPCID) 20 mg | mouth 2 times daily. | tablet | | 20 | 0 | | tabletIndications: | | | | | | | Heartburn in | | | | | | | in third | | | | | | | trimester | | | | | | + [...] + documented in this encounter Results US OB Follow Up [...] | EFW by | | | Hadlock (UEC-DH-XO-FL) Head / Face / Neck Biometry: Cephalic [...] | | | bpm | | | [employer] Director Comments Measurements compatible | | | with [...] 8 oz EFW by | | Hadlock (TCG-FI-NT-FL) Head / Face / Neck Biometry: Cephalic [...] | | FHR 135 bpm | | [employer] Director Comments Measurements compatible with dates. The | | patient received thermal prints. Impression ========= Nieto IUP. Biometrics reveal | | estimated weight of 2507 g, 28th percentile overall. Measurements relatively | | symmetric. Amniotic fluid normal with an ISMAEL of 12.6 Maximum vertical pocket of 4.3. | | Recommendation Good interval growth, normal fluid, Reassuring ultrasound | | findings. | |EFW by Hadlock (NHR-[id number]-FL) | |Head / Face / Neck Biometry: | |Cephalic index 0.73 6% Chitty | |Extremities / Bony Struc Biometry: | |FL / BPD 0.79 -/- Hadlock | |FL / HC 0.21 -/- Hadlock | |FL / AC 0.22 -/- Hadlock | |Other Structures Biometry: | |AF MVP 4.3 cm | |ISMAEL 12.6 cm | |FHR 135 bpm | | | |[employer]s [employer] Council Director Comments | | | | | |Measurements [...] + | Diagnosis | + + | Methadone use (HCC) Opioid type dependence, unspecified | + + | Tobacco abuse Tobacco use disorder | + + | Supervision of high risk , antepartum | + + documented in this encounter"
--- OUTSIDE RECORDS SUMMARY | ~2019-11-25 | XMS | Encounter Summary ---
Demographics + + + | Address | [address] | | | [place] [address] | + + + | Home Phone [...] Team Providers + +------+ + | Care Plumber Supervisor Name | Role | Phone | + +------+ + | Evelyn Whitehead DO | PCP | | + +------+ + Encounter Details +--------+ + + + + | Date | Type | Department | Care Team | Description | +--------+ + + + + | 10/11/ | Orders Only | [facility] | Shlomo Wright, | Supervision of [facility] | | 2020 | | [facility]OC[facility]ATED | MD [address] | risk , | | | | [facility] | [address], | antepartum (Primary | | | | [address] | [place] [address] | Dx); Methadone use | | | | [address], | [phone] | (HCC); Tobacco abuse | | | | [place] [address] | | | | | | [phone] | | | +--------+ + + + [...] | EFW by | | | Hadlock (FMB-PZ-OT-FL) Head / Face / Neck Biometry: Cephalic [...] cm | | | | | | ISAMEL | | | 12.6 | | | cm | | | FHR | | | 135 | | | bpm | | | Market Research Consultant Comments Measurements compatible | | | with [...] 8 oz EFW by | | Hadlock (VDL-MT-VG-FL) Head / Face / Neck Biometry: Cephalic [...] | | FHR 135 bpm | | Market Research Consultant Comments Measurements compatible with dates. The | | patient received thermal prints. Impression ========= Nieto IUP. Biometrics reveal | | estimated weight of 2507 g, 28th percentile overall. Measurements relatively | | symmetric. Amniotic fluid normal with an ISMAEL of 12.6 Maximum vertical pocket of 4.3. | | Recommendation Good interval growth, normal fluid, Reassuring ultrasound | | findings. | |EFW by Hadlock (OGV-UT-[place]-FL) | |Head / Face / Neck Biometry: | |Cephalic index 0.73 6% Chitty | |Extremities / Bony Struc Biometry: | |FL / BPD 0.79 -/- Hadlock | |FL / HC 0.21 -/- Hadlock | |FL / AC 0.22 -/- Hadlock | |Other Structures Biometry: | |AF MVP 4.3 cm | |ISMAEL 12.6 cm | |FHR 135 bpm | | | |Market Research Consultant Comments | | | | | |Measurements [...]
--- OUTSIDE RECORDS SUMMARY | ~2019-11-25 | XMS | Encounter Summary ---
Demographics + + + | Address | [address] | | | [place] [address] | + + + | Home Phone | | + + + | Preferred Language | Unknown | + + + | Marital Status | Single | + + + | Nondenominational Affiliation | Unknown | + + + | Race | Unknown | + + + | Ethnic Group | Unknown | + + + Author + + + | Author | [facility] | | | and [place] | + + + | Organization | [facility] | | | [...] Team Providers + +------+ + | Care Named Account Executive Name | Role | Phone | + +------+ + PCP | Unavailable | + +------+ + Encounter Details +--------+ + + + + | Date | Type | Department | Care Team | Description | +--------+ + + + + | 12/23/ | Hospital | [facility] | Deena, | | | 2014 - | Encounter | [facility] | MD Butch [address] | | | | [address] [place], [place] | | | 12/25/ | | [address] | [address] | | | 2013 | | [place], [place] | [phone] | | | | | [address] | | | | | | [phone] | | | +--------+ + + + [...] documented as of this encounter Discharge Summaries Khari Morales MD - 12/25/2013 1:28 PM PDTFormatting of this note might be diffe rent from the original. Discharge Summaries by Khari Morales MD at 12/25/13 4183 Author: Khari Morales MD Service: Obstetrics/Gynecology Author Type: Ana n Filed: 12/25/13 1343 Date of Service: 12/25/13 0108 Status: Signed Grinder Operator Tool: Khari Morales MD (Physician) [facility] Service: Obstetrics & Gynecology Discharge Summary Date of Admission: 12/23/2013 Date of Discharge: 12-25-2013 Discharge Provider: KHARI MORALES MD Treatment Team: Admitting Provider: Butch Shaffer MD Discharge Diagnoses: Active Problems: * No active hospital problems. * Resolved Problems: * No resolved hospital problems. * BRIEF HISTORY OF PRESENTATION: Elizabeth Pederson is a 23 y.o. female who present for labor management after SROM. HOSPITAL COURSE: 23yo @ 38.0 by LMP for an EDC 01/06 1. R/O labor-R/O SROM-will re-evaluate cvx dilation in 1-2hrs-FHts category I-Amnisure pend ing 2. Absent care-OB panel/GC/CT-Biometry US pending-discussed implications for pregn shimon 3. BPs in mild range w/o symptoms-R/O ffv-kfapukurx-VJO labs pending 4. Drug use-UDS pending-no signs of abruption currently 5. Asthma-albuterol Pt progressed to complete dilation After a series of pushes the 's head was delivered in RODRIGO position Spontaneous external rotation followed and the anterior shoulder delivered w/o difficulty, followed by the posterior shoulder, body and lower extremities Cord clamped and cut on waiting staff training and development manager IV oxytocin initiated Cord segment obtained for gases Cord blood sent Placenta delivered spontaneously, grossly intact and with a 3-vessel cord Bimanual uterine massage, controlled hemorrhage, with an EBL 400cc No uterotonics needed at this time Inspection of cervix did not reveal lacerations, while perineum is intact Mother and recovering in stable condition in delivery room Apgars 8/9, weight 2993g, delivery time 0636 PH art 7.22 pCO2 62.5 BE -2 Social work consult / CPS - significant social hx : meth PAtient d/c home f/u With social work eliot and CPS Past Medical History Diagnosis Date Asthma Depression Anxiety Anemia STD (sexually transmitted disease) Hx of Chlamydia Treated Substance abuse Hx of meth last use 06-04-2012 Smoking 1/2 pack a day or less 1/2 ppd for 9 yrs Past Surgical History Procedure Date Ovarian cyst removal No Known Allergies Prescriptions prior to admission Medication Sig Dispense Refill albuterol (PROVENTIL) (2.5 MG/3ML) 0.083% nebulizer solution Take 2.5 mg by nebulizatio n every 6 (six) hours as needed. Indications: Acute Bronchospasm MV-Min-Fe Fum-FA-DHA ( 1 PO) Take by mouth. DISCHARGE EXAM Vital Signs: BP 129/75 | Pulse 93 | Temp 97.7 F (36.5 C) (Oral) | Resp 18 | Ht 1.664 m (5' 5.5") | W t 107.502 kg (237 lb) | BMI 38.82 kg/m2 | SpO2 100% | LMP 02/06/2012 | ? No Temp: [97.7 F (36.5 C)-98.1 F (36.7 C)] 97.7 F (36.5 C) (12/25 1322) BP: (124-150)/(74-99) 129/75 mmHg (12/25 1322) Heart Rate: [85-105] 93 (12/25 1322) Resp: [18-20] 18 (12/25 1322) Physical Exam Constitutional: She appears well-developed. HENT: Head: Normocephalic. Cardiovascular: Normal rate. Pulmonary/Chest: Effort normal. Genitourinary: Uterus normal. Musculoskeletal: Normal range of motion. Skin: Skin is warm. Psychiatric: She has a normal mood and affect. Her behavior is normal. Thought content norm al. DATA CBC: Lab Results Component Value Date WBC 16.6* 12/25/2013 RBC 3.20* 12/25/2013 HGB 8.9* 12/25/2013 HCT 27.3* 12/25/2013 MCV 85.2 12/25/2013 MCH 27.8 12/25/2013 MCHC 32.6 12/25/2013 RDW 42.4 12/25/2013 PLT 170 12/25/2013 MPV 7.9 12/25/2013 DIFFTYPE AUTOMATED 12/24/2013 PLAN D/C home F/u in [facility] Dr Martha Shaffer F/U Karie Arias for substance abuse F/U CPS Rx motrin percocet fe and colace and Albuterol inhaler Pelvic rest x 6 weeks F/u in [facility] in 4 weeks for Pre-op Surgery - Tubal ligation - Forms signed 12-25-2013 Avoid trigger and company that incite patient to relapse Disposition: Home Condition: Stable Code Status: Full Code No discharge procedures on file. Follow up: Lupe Baires MD - Ajit F/u in [facility] with Dr. Shaffer - if pt continues to reside in [facility] Medication List As of 12/25/2013 1:28 PM START taking these medications * albuterol 108 (90 BASE) MCG/ACT inhaler QTY: 1 Inhaler Refills: 1 Commonly known as: PROVENTIL HFA;VENTOLIN HFA Inhale 2 puffs into the lungs every 6 (six) hours as needed for Wheezing. docusate calcium 240 MG capsule QTY: 90 capsule Refills: 3 Commonly known as: SURFAK Take 1 capsule by mouth daily. ferrous gluconate 324 MG tablet QTY: 90 tablet Refills: 3 Commonly known as: FERGON Take 1 tablet by mouth daily with breakfast. ibuprofen 600 MG tablet QTY: 30 tablet Refills: 2 Commonly known as: MOTRIN Take 1 tablet by mouth every 6 (six) hours as needed for Pain (for cramping). labetalol 200 MG tablet QTY: 60 tablet Refills: 11 Commonly known as: NORMODYNE Take 1 tablet by mouth every 12 (twelve) hours. oxyCODONE 5 MG immediate release tablet QTY: 30 tablet Refills: 0 Commonly known as: ROXICODONE Take 1 tablet by mouth every 4 (four) hours as needed for Pain (For pain scale 3-5 / 10). * Notice: This list has 1 medication(s) that are the same as other medications prescribed for you. Read the directions carefully, and ask your doctor or other care provider to review them with you. CONTINUE taking these medications * albuterol (2.5 MG/3ML) 0.083% nebulizer solution Refills: 0 Commonly known as: PROVENTIL 1 PO Refills: 0 * Notice: This list has 1 medication(s) that are the same as other medications prescribed for you. Read the directions carefully, and ask your doctor or other care provider to review them with you. Where to get your medications These are the prescriptions that you need to cotton picking machine operator. We sent them to a specific pharmacy, so you will need to go there to get them. [facility] - [place], [place] - [address] [facility] [phone] [place] [address] labetalol 200 MG tablet You may get these medications from any pharmacy. albuterol 108 (90 BASE) MCG/ACT inhaler docusate calcium 240 MG capsule ferrous gluconate 324 MG tablet ibuprofen 600 MG tablet oxyCODONE 5 MG immediate release tablet Discharge took 45 minutes, to include final examination, discussion of admission, and prepa ration of prescriptions, instructions for on-going care, follow-up and documentation of disc harge summary. KHARI MORALES MD 12/25/2013 documented i n this encounter Medications at Time of Discharge [...] + + + +---------+ + + | docusate calcium | Take 1 capsule by | 90 | 3 | 12/26/19 | | | (SURFAK) 240 mg | mouth daily. | capsule | | 14 | 5 | | capsule | | | | | | + + + +---------+ + + | ferrous gluconate | Take 1 tablet by | 90 | 3 | 12/26/19 | | | (FERGON) 324 (38 Fe) | mouth daily with | tablet | | 14 | 5 | | MG tablet | breakfast. | | | | | + + + +---------+ + + | labetalol | Take 1 tablet by | 60 | 11 | 12/26/19 | | | (NORMODYNE) 200 mg | mouth every 12 | tablet | | 14 | 5 | | tablet | (twelve) hours. | | | | | + + + +---------+ + + documented as of this encounter Progress Notes Khari Morales MD - 12/25/2013 1:43 PM PDTFormatting of this note might be diffe rent from the original. Progress Notes by Khari Morales MD at 12/25/13 1347 Author: Khari Morales MD Service: Obstetrics/Gynecology Author Type: Physicia n Filed: 12/25/13 1358 Date of Service: 12/25/13 1343 Status: Signed Grinder Operator Tool: Khari Morales MD (Physician) [facility] Service: Obstetrics & Gynecology Progress Note Day: 1 SUBJECTIVE The patient feels well. Pain is well controlled with current medications. The patient is am bulating well. The patient is tolerating a normal diet. Urinary output is adequate. Flatus has been passed. The baby is in NICU On antibiotics for GBS positive cultures . Patient is bottle feeding. Scheduled Medications docusate calcium 240 mg Oral Daily [COMPLETED] ibuprofen 600 mg Oral Q6H EDISON labetalol 200 mg Oral Q12H EDISON lactated ringers 500 mL Intravenous Once [] lidocaine lidocaine buffered 1% 0.5 mL Intradermal Once [] lidocaine buffered 1% [] povidone-iodine [DISCONTINUED] pneumococcal 23-valent vaccine 0.5 mL Intramuscular Once Immunization Continuous Infusions lactated ringers oxytocin oxytocin PRN Medications acetaminophen, albuterol, ufaherkeju-eokwyby-gzki vera, dibucaine, diphenhydrAMINE, diphenh ydrAMINE, ibuprofen, lactated ringers, lactated ringers, lanolin, naloxone, oxyCODONE, oxyCO DONE, simethicone, sodium chloride, witch chucky-glycerin, zolpidem OBJECTIVE Vital Signs: BP 129/75 | Pulse 93 | Temp 97.7 F (36.5 C) (Oral) | Resp 18 | Ht 1.664 m (5' 5.5") | W t 107.502 kg (237 lb) | BMI 38.82 kg/m2 | SpO2 100% | LMP 02/06/2012 | ? No General: alert, appears stated age and cooperative Bowel Sounds: active Uterine Fundus: firm @ -2 Lochia: appropriate Extremities: 2+ bilateral pedal edema DATA CBC: Lab Results Component Value Date WBC 16.6* 12/25/2013 RBC 3.20* 12/25/2013 HGB 8.9* 12/25/2013 HCT 27.3* 12/25/2013 MCV 85.2 12/25/2013 MCH 27.8 12/25/2013 MCHC 32.6 12/25/2013 RDW 42.4 12/25/2013 PLT 170 12/25/2013 MPV 7.9 12/25/2013 DIFFTYPE AUTOMATED 12/24/2013 Results for ELIZABETH PEDERSON ( ) as of 12/25/2013 13:46 Ref. Range 12/23/2013 00:29 AMPHETAMINE/METHAMPHETAMINE Latest Range: NEGATIVE POSITIVE (A) PROBLEM LIST Active Problems: * No active hospital problems. * ASSESSMENT & PLAN Doing well ambulating well with out sy/ sx of anemia Pain well controlled Fair breast feeding progress Will rx pain med - perocet motrin Anemia- asymptomatic, No orthostasis - recommend supplementation and diet modification F/u in 2 weeks Family planning d/w patient- Opts for BTL Forms signed - Pelvic rest and bleeding precautions Patient is presently being seen by CPS to determine the disposition of the new born due to her significant hx of substance abuse Status vaginal delivery. Doing well. Discharge home with standard precautions and return to clinic in 1 weeks. KHARI MORALES MD 12/25/2013 onversion T ransaction, Provider Unknown - 12/25/2013 9:21 AM PDTFormatting of this note might be diffe rent from the original. Case Management by ALBINO Charles at 12/25/13920 Author: ALBINO Charles Service: (none) Author Type: Bilingual Counter Sales Retail Filed: 12/25/13 1500 Date of Service: 12/25/13920 Status: Addendum Grinder Operator Tool: ALBINO Charles (Bilingual Counter Sales Retail) Related Notes: Original Note by ALBINO Charles (Bilingual Counter Sales Retail) filed at 12/25/13 09 30 Update: DEVIN spoke with Tom Ontiveros, assigned CPS SW in [place]. He will be assigned to t he case on the [place] end. His number is [phone] (desk), (cell), (fax). DEVIN spoke with Batsheva Alvarez, CPS SW from [place] office [phone]. Batsheva is assing ed to the case on the [place] end. Batsheva came to hospital and met with MOB and saw baby. There will be a Family Team Decision Making (FTDM) meeting tomorrow at 1:30pm. MOB stated she wou ld have the FOB with her and we will call MOB's brother Satish on the speaker phone. Satish live s in [place] and currently has MOB's 7yo. The 13 mo is currently staying with the FOB, Fausto doss. DEVIN spoke with Mihcelle in the [place] CPS office. Case had not made it to [place] yet. DEVIN talked with [place] CPS and front end architect sending an email to CPS supervisors to s who was assigned to the case. DEVIN informed them that baby was in NICU for NWI and IVABx a nd MOB would be discharging possibly tomorrow. DEVIN provided [facility] work cell number to call [facility] information on case. ALBINO Charles Butch Regalado MD - 12/24/2013 6:34 PM PDTFormatting of this note might be different fro m the original. Progress Notes by Butch Shaffer MD at 12/24/131833 Author: Butch Shaffer MD Service: Obstetrics/Gynecology Author Type: Physician Filed: 12/24/131835 Date of Service: 12/24/131833 Status: Signed Grinder Operator Tool: Butch Shaffer MD (Physician) [facility] Service: Obstetrics & Gynecology Progress Note Hospital Day: LOS: 1 day SUBJECTIVE Overall pt doing well BPs remain the mild range w/o specific pre-eclamptic s/s Will initiate labetalol 200mg PO BID and re-evaluate Scheduled Medications docusate calcium 240 mg Oral Daily ibuprofen 600 mg Oral Q6H EDISON lactated ringers 500 mL Intravenous Once [] lidocaine lidocaine buffered 1% 0.5 mL Intradermal Once [COMPLETED] lidocaine buffered 1% [] lidocaine buffered 1% misoprostol [COMPLETED] penicillin G potassium 5 Million Units Intravenous Once [START ON 12/25/2013] pneumococcal 23-valent vaccine 0.5 mL Intramuscular Once Immuniza tion [] povidone-iodine [DISCONTINUED] penicillin G potassium 2.5 Million Units Intravenous Q4H [DISCONTINUED] sodium chloride 10 mL Intravenous Q8H Continuous Infusions lactated ringers oxytocin oxytocin [DISCONTINUED] fentaNYL 3 mcg/mL-BUpivacaine 0.1% [DISCONTINUED] lactated ringers 125 mL/hr (12/24/13 0234) [DISCONTINUED] oxytocin [DISCONTINUED] oxytocin 2 gallo-units/min (12/24/13 0450) PRN Medications acetaminophen, albuterol, cdnuqvjqcy-rohewyh-unze vera, dibucaine, diphenhydrAMINE, diphenh ydrAMINE, [START ON 12/25/2013] ibuprofen, lactated ringers, lactated ringers, lanolin, nalox one, oxyCODONE, oxyCODONE, simethicone, sodium chloride, witch chucky-glycerin, zolpidem, [DI SCONTINUED] ephedrine, [DISCONTINUED] lactated ringers, [DISCONTINUED] lidocaine, [DISCONTIN UED] nalbuphine, [DISCONTINUED] nalbuphine, [DISCONTINUED] nalbuphine [DISCONTINUED] oxytocin, [DISCONTINUED] povidone-iodine OBJECTIVE Vital Signs: BP 150/88 | Pulse 105 | Temp 98.2 F (36.8 C) (Oral) | Resp 18 | Ht 1.664 m (5' 5.5") | Wt 107.502 kg (237 lb) | BMI 38.82 kg/m2 | SpO2 100% | LMP 02/06/2012 | ? No General: alert, appears stated age and cooperative DATA CBC: Lab Results Component Value Date WBC 11.7* 12/24/2013 RBC 3.65* 12/24/2013 HGB 10.1* 12/24/2013 HCT 30.3* 12/24/2013 MCV 83.0 12/24/2013 MCH 27.8 12/24/2013 MCHC 33.5 12/24/2013 RDW 41.1 12/24/2013 PLT 221 12/24/2013 MPV 7.5 12/24/2013 DIFFTYPE AUTOMATED 12/24/2013 PROBLEM LIST ASSESSMENT & PLAN Will follow BPs after labetalol administration Butch Shaffer MD 12/24/2013 onversio n Transaction, Provider Unknown - 12/24/2013 2:55 PM PDTFormatting of this note might be di fferent from the original. Case Management by ALBINO Richardson at 12/24/13 2875 Author: LABINO Richardson Service: (none) Author Type: (none) Filed: 12/24/13 6613 Date of Service: 12/24/13 7830 Status: Signed Grinder Operator Tool: ALBINO Richardson (Bilingual Counter Sales Retail) rec'd referral to meet with patient for social service consult due to patient drug use a nd concern re: safety of baby & other children in the patient's care. See prior note for general d/c info. Patient's friend Kristal was in the room sleeping on the couch throug hout the assessment. Patient stated that she was fine with Kristal being there during the as sessment. Living Situation: Current address per patient is [address] [place] [address], [place] [address] . However, address on face sheet is [address] [place] [address], [place] [address].This is a house owned by her brother. No other adults live in the home. Patient previously reported to RN that she recently moved out of a "crack house" and reported to CM that it was at that time t hat her brother allowed her to move into his empty home. Patient states that she hopes to m ove to [place] to start a new drug-free life. Transportation: Patient uses a taxi (private pay), friends, or medicaid transport. DL is currently suspende d for unpaid fines. Social/Family history: Mother of patient "clean" from meth for over 10 years. CM witnessed phone interaction with patient's mother which seemed appropriate and supportive. Mother resides in [place] and is "anabaptism." Father of patient "clean" from meth for 1 year, but has been in and out of assisted. Brother & shcesj-xu-lab, Tara, live in [place], [place]. Satish & Carrie have no kristy g or ETOH history. Satish is the eldest sibling, 8 years old than patient, employed, has 4 ch ildren ages 5-16 years. Patient describes Satish as a "father figure." Children: 7 yr old son currently in her care, father is incarcerated. Patient's brother Satish real orarily had legal guardianship of this child for over a year. 3 year old son- whereabouts of this child are unknown by the patient, she states that th e father of this child took him and left and she currently has no contact with the father or the child. Patient states there is no court order regarding custody or guardianship. 13 month old son currently in her care, father is Fausto Solomon. Baby Girl Elizabeth Pederson, in [facility] NICU, 2994 grams at , gestational age of 38 weeks based on Baca exam, jittery/tremors during sleep. Patient states that the 7 year old and 13 month old went to stay the summer at her broth er Satish's house. CPS history: Patient has had CPS involvement in the past. Patient states she voluntarily and temporaril y gave up custody of the 7 year old several years ago. Most recent involvement was 12 months ago. When the 13 month old was born, CPS opened a case for 30 days for monitoring. Álvaro moy to patient, CPS case was closed and patient was undergoing drug testing at that time. history: Patient states that she found out about a month ago that she was , and that she has been to [facility] 2x in the past month. She says she thought she had "more time" to g et clean because [facility] told her she was only 9 weeks . Education/Financial/Jumpbasting Lining Baster: Patient earned her GED. Currently is receiving food and medicaid assistance from [place]; d id not qualify for deng assistance due to Fausto's income. CM inquired about this as patient previously told CM that Fausto did not live with her. Patient said that he has moved out so she will reapply for benefits now. 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 Patient states that she hopes to become a nurse someday. Patient has utilized [place] services in the past & still [place] for [place] 13 month old. Family Planning: Patient states that she would like to talk to a doctor about a tubal ligation. CM discusse d importance of a PCP and regular gas pump attendant care to assist with her family planning. Recent Drug Use & hx: Patient denies drug use since admission to [facility] and states that it has been 3 weeks since s he last used. She expressed concern over her drug screening results stating that the result s are "f-up" because it has been at least 3 weeks since use. Patient behaviors during asse ssment included fidgeting, sudden dramatic movements (patient stated she was "cramping" in h er limbs) and itching of legs and neck. Patient was also occasionally tearful during the in terview, stating that she "will do whatever it takes" to not have her kids taken from her ag ain. Patient appeared to attempt to get out of bed several times during the assessment. P atient states she started using meth in 2010, and denies use of prescription drugs, ETOH, or any other drugs besides marijuana. FOB Involvement: Patient states FOB Fausto Solomon is on his way to [facility] today to help "make a plan." Patie nt states he is a good father, that he has not used meth in over a year and that they curren tly do not live together but are good friends. He is the father of the 13 month old and Bab y Girl Elizabeth Pederson. CM contacted Holly at CPS. CPS will attempt to see patient today. Nursing staff notified. onver maureen Transaction, Provider Unknown - 12/24/2013 2:47 PM PDT Case Management by ALBINO Richardson at 12/24/13 6444 Author: ALBINO Richardson Service: (none) Author Type: (none) Filed: 12/24/13 7799 Date of Service: 12/24/137 Status: Signed Grinder Operator Tool: ALBINO Richardson (Bilingual Counter Sales Retail) 12/24/13 1419 Discharge Planning Evaluation Admitting Diagnosis L&D Readmission No Living Arrangements Alone Support Systems Parent;Family members Type of Residence Private residence Independent with ADL's Yes Independent with Mobility Yes Home Care Services No Caregiver after Discharge No Mental Status Oriented Anticipated Discharge Plan Post Acute Care Needs None at this time Plan communicated to patient/family Yes Resources Financial concerns Yes Transportation issues No Patient/Family concerns Yes Prescription Plan Yes [facility] of [facility] [place], [place] Previous home health equipment No Vascular access device No Ostomy/Drains/Appliances No Anticipated Disposition Facility Type Other (Comment) (home) Met with patient and discussed discharge planning, Pt is a 23 y.o., female who currently r esides at [address] [place] [address]. Patient's PCP is: LUPE BAIRES- patient states this is her OB from when she was pregnan t with her 13-month old son. She does not have a current PCP or OB. Most recently seen by [facility] in [place], [place]. Patient's insurance:[employer] Health Plan Coverage concerns: none Medication coverage/concerns: none, uses [facility] in [address] Hospital resources utilized / needed: drug rehab treatment options Assistance in transportation: Transportation provided by friends, uses private-pay taxi [employer], also uses [place] transport occasionally, currently has a suspended driving license Identification of any specific education / training: n/a Barriers to Discharge / Alternative housing needed: possible rehab Anticipated DCP: TBD Kenisha Echevarria onver maureen Huynh, Provider Unknown - 12/24/2013 1:03 PM PDT Progress Notes by Yi Cruz RN at 12/24/13 5916 Author: Yi Cruz RN Service: (none) Author Type: Registered Nurse Filed: 12/24/13 1314 Date of Service: 12/24/13 1303 Status: Signed Grinder Operator Tool: Yi Cruz RN (Registered Nurse) In discussing pt's hx further, pt states that she hasn't done meth in a few weeks. She rece ntly moved out of a "crack house" to live with friends. Pt continues to be agitated, shaky, fidgety while awake and then easily falls asleep/ difficult to arouse. She states her other 3 children are currently with her brother for awhile (he also has 4 kids and is ). P t states the FOB is working and will be in to see baby; she states he is supportive although they are not currently dating. She also states he has not used meth in over a year. I advis ed pt that social svcs/ CPS would be in to see her at some point - she did not question this . She has appropriate concerns for baby/ is worried about withdrawal. States she has not use d any drugs other than Meth. Pt aware baby will be admitted to NICU - did not show concern o r ask questions. financial services internship advised of pt status/ hx of leaving AMA from another hospit al. Social svcs in to see pt. Butch Regalado MD - 12/24/2013 6:55 AM PDTFormatting of this note might be different fro m the original. Progress Notes by Butch Shaffer MD at 12/24/13 0669 Author: Butch Shaffer MD Service: Obstetrics/Gynecology Author Type: Physician Filed: 12/24/13 0731 Date of Service: 12/24/13 0604 Status: Addendum Grinder Operator Tool: Butch Shaffer MD (Physician) Related Notes: Original Note by Butch Shaffer MD (Physician) filed at 12/24/13 0 703 [facility]ly [facility] Service: Obstetrics & Gynecology Delivery note Pt progressed to complete dilation After a series of pushes the 's head was delivered in RODRIGO position Spontaneous external rotation followed and the anterior shoulder delivered w/o difficulty, followed by the posterior shoulder, body and lower extremities Cord clamped and cut on waiting staff training and development manager IV oxytocin initiated Cord segment obtained for gases Cord blood sent Placenta delivered spontaneously, grossly intact and with a 3-vessel cord Bimanual uterine massage, controlled hemorrhage, with an EBL 400cc No uterotonics needed at this time Inspection of cervix did not reveal lacerations, while perineum is intact Mother and recovering in stable condition in delivery room Apgars 8/9, weight 2993g, delivery time 0636 PH art 7.22 pCO2 62.5 BE -2 Butch Shaffer MD 12/24/2013 onversio n Transaction, Provider Unknown - 12/24/2013 6:30 AM PDTFormatting of this note might be di fferent from the original. Progress Notes by Yi Cruz RN at 12/24/13629 Author: Yi Cruz RN Service: (none) Author Type: Registered Nurse Filed: 12/24/13826 Date of Service: 12/24/13629 Status: Signed Grinder Operator Tool: Yi Cruz RN (Registered Nurse) Assumed care of pt, pt reports adequate pain relief after epid placement, appears fidgety/ agitated. Discussed POC, discussed +amph results. Pt initially denied use stating she's not sure how this happened. At [address] Shaffer was 6cm. At 0633 pt c/o pelvic press ure- SVE complete, Dr Shaffer/ NICU notified. at 0636. After delivery pt started to cry/ became increasingly agitated. Pt admitted to meth use, states she is not worried about herself but is worried about the affects on her baby. She is aware/ understands that we hav e to monitor the baby closely, states the FOB is on his way to see her. Pt is unable to taylor in still/ very shaky; Doctor/ other staff aware/ agree that she is not to hold baby without RN supervision at this time. - baby taken to nursery for further examination Butch Regalado MD - 12/24/2013 6:11 AM PDTFormatting of this note might be different fro m the original. Progress Notes by Butch Shaffer MD at 12/24/13610 Author: Butch Shaffer MD Service: Obstetrics/Gynecology Author Type: Physician Filed: 12/24/13629 Date of Service: 12/24/13610 Status: Signed Grinder Operator Tool: Butch Shaffer MD (Physician) [facility]ly [facility] Service: Obstetrics & Gynecology Labor Progress Note Hospital Day: LOS: 1 day SUBJECTIVE 23 y.o. @ 35.4 by formal US today 1. Overall feeling well, s/p epidural 2. No RUQ pain, headache, epigastric pain 3. No shortness of breath 4. Tolerating ctx, oxytocin @ 6 units Scheduled Medications lactated ringers 500 mL Intravenous Once lidocaine lidocaine buffered 1% 0.5 mL Intradermal Once [COMPLETED] lidocaine buffered 1% lidocaine buffered 1% [COMPLETED] penicillin G potassium 5 Million Units Intravenous Once Followed by penicillin G potassium 2.5 Million Units Intravenous Q4H [START ON 12/25/2013] pneumococcal 23-valent vaccine 0.5 mL Intramuscular Once Immuniza tion povidone-iodine sodium chloride 10 mL Intravenous Q8H Continuous Infusions fentaNYL 3 mcg/mL-BUpivacaine 0.1% lactated ringers 125 mL/hr (12/24/13 0234) oxytocin oxytocin oxytocin 2 gallo-units/min (12/24/13 0450) PRN Medications albuterol, diphenhydrAMINE, ephedrine, lactated ringers, lactated ringers, lidocaine, nalbu phine, nalbuphine, nalbuphine, naloxone, oxytocin, povidone-iodine OBJECTIVE Vital Signs: BP 121/63 | Pulse 100 | Temp 98.2 F (36.8 C) (Oral) | Resp 18 | Ht 1.664 m (5' 5.5") | Wt 107.502 kg (237 lb) | BMI 38.82 kg/m2 | SpO2 100% | LMP 02/06/2012 | ? No General: alert, appears stated age and cooperative Fundal Height: FHT: 150s moderate variability, accels present, no decels, overall cathegory I TOCO: Ctx q 2-3 Cervical Exam: /- Roper Score: DATA CBC: Lab Results Component Value Date WBC 11.7* 12/24/2013 RBC 3.65* 12/24/2013 HGB 10.1* 12/24/2013 HCT 30.3* 12/24/2013 MCV 83.0 12/24/2013 MCH 27.8 12/24/2013 MCHC 33.5 12/24/2013 RDW 41.1 12/24/2013 PLT 221 12/24/2013 MPV 7.5 12/24/2013 DIFFTYPE AUTOMATED 12/24/2013 CMP: Lab Results Component Value Date NA 139 12/24/2013 K 3.7 12/24/2013 CL 108 12/24/2013 CO2 22* 12/24/2013 ANIONGAP 12 12/24/2013 GLUF 77 12/24/2013 BUN 12 12/24/2013 CREATININE 0.55 12/24/2013 BCR 22 12/24/2013 CA 8.1* 12/24/2013 PROT 6.2* 12/24/2013 ALB 2.0* 12/24/2013 GLOB 4.2 12/24/2013 BILITOT 0.2 12/24/2013 ALP 225* 12/24/2013 AST 18 12/24/2013 ALT 12 12/24/2013 EGFR >60 12/24/2013 ASSESSMENT & PLAN 23 y.o. @ 35.4 by formal US today 1. Rh pos/Rub unknown/ unknown (positive on rapid GBS testing)-Penicillin 2. PPROM with subsequent spontaneous fvfpg-hrreeintuqnm-vfqkbvwhv stable-FHTs reassuring-ox y on 6 units-will continue to follow closely 3. BPs in the mild range-labs WNL-no pre-eclamptic symptoms-will continue to follow 4. Positive UDS for meth 5. Asthma-albuterol PRN 6. Absent care Butch Shaffer MD 12/24/2013 Butch Collier MD - 12/24/2013 1:57 AM PDTFormatting of this note might be different from t beau original. Progress Notes by Butch Shaffer MD at 12/24/13156 Author: Butch Shaffer MD Service: Obstetrics/Gynecology Author Type: Physician Filed: 12/24/13 0215 Date of Service: 12/24/13156 Status: Signed Grinder Operator Tool: Butch Shaffer MD (Physician) Formerly [facility] Service: Obstetrics & Gynecology Progress Note Hospital Day: LOS: 1 day SUBJECTIVE The patient is a 23 y.o. @ 35.4 by formal US today 1. R/O labor-pt has spontaneously progressed from 3 to 4 cm during her observation period i n triage 2. R/O PPROM/SROM-Amnisure test positive confirming PPROM 3. R/O Ycb-udryjewlb-QVR labs WNL-BPs mostly in mild range-will follow closely and repeat l abs 4. Absent prenetal care-OB panel sent-GBS unknown-US @ 35.4 EGA as above 5. H/O substance abuse-UDS positive for amphetamine 6. Asthma-albuterol PRN Scheduled Medications lidocaine [COMPLETED] lidocaine buffered 1% lidocaine buffered 1% povidone-iodine Continuous Infusions oxytocin PRN Medications OBJECTIVE Vital Signs: BP 140/92 | Pulse 88 | Temp 98.5 F (36.9 C) (Oral) | Resp 18 | LMP 02/06/2012 | Breastf eeding? Unknown General: alert, appears stated age and cooperative Fundal Height: FHT: Category I TOCO: Irritability Cervical Exam: 4/70/-3 Roper Score: DATA CBC: Lab Results Component Value Date WBC 11.7* 12/24/2013 RBC 3.65* 12/24/2013 HGB 10.1* 12/24/2013 HCT 30.3* 12/24/2013 MCV 83.0 12/24/2013 MCH 27.8 12/24/2013 MCHC 33.5 12/24/2013 RDW 41.1 12/24/2013 PLT 221 12/24/2013 MPV 7.5 12/24/2013 DIFFTYPE AUTOMATED 12/24/2013 CMP: Lab Results Component Value Date NA 139 12/24/2013 K 3.7 12/24/2013 CL 108 12/24/2013 CO2 22* 12/24/2013 ANIONGAP 12 12/24/2013 GLUF 77 12/24/2013 BUN 12 12/24/2013 CREATININE 0.55 12/24/2013 BCR 22 12/24/2013 CA 8.1* 12/24/2013 PROT 6.2* 12/24/2013 ALB 2.0* 12/24/2013 GLOB 4.2 12/24/2013 BILITOT 0.2 12/24/2013 ALP 225* 12/24/2013 AST 18 12/24/2013 ALT 12 12/24/2013 EGFR >60 12/24/2013 LDH: Lab Results Component Value Date LDH 178 12/24/2013 Amnisure positive UDS; amphetamine positive US; BPP 8/8 ISMAEL 4.8, cephalic, placenta fundal, composite EGA 35.4 ASSESSMENT & PLAN 23 y.o. @ 35.4 by formal US today 1. Rh pos/Rub unknown/GBS unknown 2. PPROM-given the EGA of 35.4 will proceed with augmentation of labor and delivery-will tr eat for GBS given the unknown GBS status in light of EGA R/B of augmentation discussed including elevated risks of delivery, non-reassuring tracing, other maternal/ complications 3. R/O Labor-pt has progressed spontaneously to active phase-will augment as above 4. BPs in the mild range-PIH labs WNL-will follow closely-repeat labs 5. Absent care-will obtain rapid HIV test 6. Positive for meth UDS screening 7. Asthma-Albuterol PRN Butch Shaffer MD 12/24/2013 documente d in this encounter Plan of Treatment Not on filedocumented as of this encounter Procedures + +--------+ + + + | Procedure Name | Priori | Date/Time | Associated Diagnosis | Comments | | | ty | | | | + +--------+ + + + | TISSUE REQUEST FOR | Routin | 12/26/2013 | | Results for this | | PATHOLOGY (NON-ORD) | e | 12:00 AM | | procedure are in the | | | | PDT | | results section. | + +--------+ + + + | CBC NO DIFFERENTIAL | Routin | 12/25/2013 | | Results for this | | | e | 4:17 AM | | procedure are in the | | | | PDT | | results section. | + +--------+ + + + | COMPREHENSIVE | Routin | 12/25/2013 | | Results for this | | METABOLIC PANEL | e | 4:17 AM | | procedure are in the | | | | PDT | | results section. | + +--------+ + + + | STREP B DNA PROBE, | Routin | 12/24/2013 | | Results for this | | NAAT | e | 2:45 AM | | procedure are in the | | | | PDT | | results section. | + +--------+ + + + | US BIOPHYSICAL | Routin | 12/24/2013 | | Results for this | | PROFILE WO NON | e | 1:30 AM | | procedure are in the | | STRESS | | PDT | | results section. | + +--------+ + + + | HISTORICAL | STAT | 12/24/2013 | | Results for this | | MICROBIOLOGY RESULT | | 1:07 AM | | procedure are in the | | | | PDT | | results section. | + +--------+ + + + | US OB LIMITED 1 OR | Routin | 12/24/2013 | | Results for this | | MORE FETUS | e | 12:43 AM | | procedure are in the | | | | PDT | | results section. | + +--------+ + + + | HIV 1 SCREEN, RAPID | Routin | 12/24/2013 | | Results for this | | | e | 12:00 AM | | procedure are in the | | | | PDT | | results section. | + +--------+ + + + | OBSTETRICS PANEL | Routin | 12/24/2013 | | Results for this | | | e | 12:00 AM | | procedure are in the | | | | PDT | | results section. | + +--------+ + + + | TYPE AND SCREEN | Routin | 12/24/2013 | | Results for this | | | e | 12:00 AM | | procedure are in the | | | | PDT | | results section. | + +--------+ + + + | URIC ACID | Routin | 12/24/2013 | | Results for this | | | e | 12:00 AM | | procedure are in the | | | | PDT | | results section. | + +--------+ + + + | LACTATE | Routin | 12/24/2013 | | Results for this | | DEHYDROGENASE | e | 12:00 AM | | procedure are in the | | | | PDT | | results section. | + +--------+ + + + | COMPREHENSIVE | Routin | 12/24/2013 | | Results for this | | METABOLIC PANEL | e | 12:00 AM | | procedure are in the | | | | PDT | | results section. | + +--------+ + + + | GC/CHLAM APTIMA | Routin | 12/23/2013 | | Results for this | | | e | 12:30 AM | | procedure are in the | | | | PDT | | results section. | + +--------+ + + + | DRUGS OF ABUSE | Routin | 12/23/2013 | | Results for this | | SCREEN, URINE (H) | e | 12:29 AM | | procedure are in the | | | | PDT | | results section. | + +--------+ + + + documented in this encounter Results Tissue Request For Pathology (12/26/2013 12:00 AM PDT) + + | Specimen | + + | Soft tissue sample | | (specimen) | + + + + + | Narrative | Performed At | + + + | SPECIMEN(S): A PLACENTA GROSS ONLY SPECIMEN SOURCE: A. PLACENTA | EXTERNAL LAB | | GROSS ONLY CLINICAL HISTORY: 12/24/2013 at 0636 H. Mother's Age: | | | 23. OB History: G 7. P: 3. A: 3 (spont/elect). | | | Gestation Age: __. 's Weight: 2993 grams. Score: | | | 8/9. Rh: O+ (Rhogam yes/no). Rubella: imm. RPR: neg. FINAL | | | PATHOLOGIC DIAGNOSIS: Term placenta and trivascular umbilical cord | | | (610g) as grossly described. GROSS DESCRIPTION: One specimen is | | | received in one container, labeled with the patient's name: Evelin. | | | Received designated "placenta and cord" consists of a 20.5 x 14.5 x | | | 3.2 cm discoid placenta with an attached accentuate lobe that is 6.5 | | | x 5.0 x 2.5 cm. The 15.0 x 1.4 cm umbilical cord inserts 5.5 cm from | | | the nearest placental margin; it shows increased spiraling. Cut | | | sections through the cord reveal three vessels. Separate within the | | | container is a 9.5 x 1.2 cm section of umbilical cord. In | | | accordance to protocol, approximately 18.0 cm of umbilical cord is | | | retained by the Center for possible future studies. The | | | placental membranes are translucent and wrinkled with adherent blood | | | clot. The surfaces are blue-purple and shiny with the usual | | | radiating vasculature. The maternal surface is liu-brown and spongy | | | with well-defined cotyledons appearing intact. The trimmed placenta | | | weighs 610 grams. Cut sections reveal a deep maroon placenta | | | parenchyma with one area of pink firm consolidation that is 1.1 cm in | | | greatest dimension. Basal plate fibrin is of normal thickness. No | | | areas of infarction are grossly identified. The specimen is submitted | | | for gross examination only. Diagnostician: Sesar Alvarado MD | | | Pathologist Electronically Signed 01/04/2014 | | + + + + +---------+ + + | Performing | Address | City/State/Zipcode | Phone Number | | Organization | | | | + +---------+ + + | EXTERNAL LAB | | | | + +---------+ + + CBC no Differential (12/25/2013 4:17 AM PDT) + + + + + + | Component | Value | Ref Range | Performed | Pathologist | | | | | At | Signature | + + + + + + | WBC | 16.6 (H)Comment: Testing | 3.8 - 11.0 K/uL | EXTERNAL | | | | performed at [facility], [address] | | LAB | | | | [address], | | | | | | [place] [address] | | | | + + + + + + | Red Blood | 3.20 (L)Comment: Testing | 3.70 - 5.10 | EXTERNAL | | | Cells | performed at [facility], [address] | M/uL | LAB | | | Counted | [address], | | | | | | [place] [address] | | | | + + + + + + | Hemoglobin | 8.9 (L)Comment: Testing | 11.3 - 15.5 | EXTERNAL | | | | performed at [facility], [address] | g/dL | LAB | | | | [address], | | | | | | [place] [address] | | | | + + + + + + | Hematocrit, | 27.3 (L)Comment: Testing | 34.0 - 46.0 % | EXTERNAL | | | POC | performed at [facility], [address] | | LAB | | | | [address], | | | | | | [place] [address] | | | | + + + + + + | MCV | 85.2Comment: Testing | 80.0 - 100.0 fl | EXTERNAL | | | | performed at [facility], [address] | | LAB | | | | [address], | | | | | | [place] [address] | | | | + + + + + + | MCH | 27.8Comment: Testing | 27.0 - 34.0 pg | EXTERNAL | | | | performed at [facility], [address] | | LAB | | | | [address], | | | | | | [place] [address] | | | | + + + + + + | MCHC | 32.6Comment: Testing | 32.0 - 35.5 | EXTERNAL | | | | performed at [facility], [address] | g/dL | LAB | | | | [address], | | | | | | [place] [address] | | | | + + + + + + | RDW-CV | 42.4Comment: Testing | 37 - 53 fl | EXTERNAL | | | | performed at [facility], [address] | | LAB | | | | [address], | | | | | | [place] [address] | | | | + + + + + + | Platelet | 170Comment: Testing | 150 - 400 K/uL | EXTERNAL | | | Count | performed at [facility], [address] | | LAB | | | Plasma | [address], | | | | | | [place] [address] | | | | + + + + + + | MPV | 7.9Comment: Testing | fl | EXTERNAL | | | | performed at [facility], [address] | | LAB | | | | [address], | | | | | | [place] [address] | | | | + + + + + + + + | Specimen | + + | | + + + +---------+ + + | Performing | Address | City/State/Zipcode | Phone Number | | Organization | | | | + +---------+ + + | EXTERNAL LAB | | | | + +---------+ + + Comprehensive Metabolic Panel (12/25/2013 4:17 AM PDT) + + + + + + | Component | Value | Ref Range | Performed | Pathologist | | | | | At | Signature | + + + + + + | Na | 137Comment: Testing | 135 - 143 | EXTERNAL | | | | performed at [facility], [address] | mmol/L | LAB | | | | [address], | | | | | | [place] [address] | | | | + + + + + + | K | 3.5Comment: Testing | 3.5 - 4.9 | EXTERNAL | | | | performed at [facility], [address] | mmol/L | LAB | | | | [address], | | | | | | [place] [address] | | | | + + + + + + | Cl | 110 (H)Comment: Testing | 99 - 109 mmol/L | EXTERNAL | | | | performed at [facility], [address] | | LAB | | | | [address], | | | | | | [place] [address] | | | | + + + + + + | CO2 | 21 (L)Comment: Testing | 23 - 32 mmol/L | EXTERNAL | | | | performed at [facility], [address] | | LAB | | | | [address], | | | | | | [place] [address] | | | | + + + + + + | Anion Gap | 10Comment: Testing | 5 - 20 mmol/L | EXTERNAL | | | | performed at [facility], [address] | | LAB | | | | [address], | | | | | | [place] [address] | | | | + + + + + + | Glucose, | 156 (H)Comment: Testing | 65 - 99 mg/dL | EXTERNAL | | | Fasting | performed at [facility], [address] | | LAB | | | | [address], | | | | | | [place] [address] | | | | + + + + + + | BUN | 9Comment: Testing | 8 - 25 mg/dL | EXTERNAL | | | | performed at [facility], [address] | | LAB | | | | [address], | | | | | | [place] [address] | | | | + + + + + + | Creatinine | 0.67Comment: Testing | 0.50 - 1.00 | EXTERNAL | | | | performed at [facility], [address] | mg/dL | LAB | | | | [address], | | | | | | [place] [address] | | | | + + + + + + | BUN/Creatin | 13Comment: Testing | | EXTERNAL | | | ine Ratio | performed at [facility], [address] | | LAB | | | | [address], | | | | | | [place] [address] | | | | + + + + + + | Calcium | 8.0 (L)Comment: Testing | 8.5 - 10.2 | EXTERNAL | | | | performed at [facility], [address] | mg/dL | LAB | | | | [address], | | | | | | [place] [address] | | | | + + + + + + | Protein, | 4.8 (L)Comment: Testing | 6.3 - 8.2 g/dL | EXTERNAL | | | Total | performed at [facility], [address] | | LAB | | | | [address], | | | | | | [place] [address] | | | | + + + + + + | Albumin | 2.1 (L)Comment: Testing | 3.6 - 5.0 g/dL | EXTERNAL | | | | performed at [facility], [address] | | LAB | | | | [address], | | | | | | [place] [address] | | | | + + + + + + | Globulin | 2.7Comment: Testing | 1.3 - 4.9 g/dL | EXTERNAL | | | | performed at [facility], [address] | | LAB | | | | [address], | | | | | | [place] [address] | | | | + + + + + + | A/G Ratio | 0.8 (L)Comment: Testing | 1.0 - 2.4 | EXTERNAL | | | | performed at [facility], [address] | | LAB | | | [address], | | | | | | [place] [address] | | | | + + + + + + | Bilirubin | 0.1Comment: Testing | 0.1 - 1.5 mg/dL | EXTERNAL | | | Total | performed at [facility], [address] | | LAB | | | | [address], | | | | | | [place] [address] | | | | + + + + + + | ALP, | 145 (H)Comment: Testing | 35 - 115 U/L | EXTERNAL | | | External | performed at [facility], [address] | | LAB | | | | [address], | | | | | | [place] [address] | | | | + + + + + + | AST | 13Comment: Testing | 10 - 45 U/L | EXTERNAL | | | | performed at [facility], [address] | | LAB | | | | [address], | | | | | | [place] [address] | | | | + + + + + + | ALT | 7 (L)Comment: Testing | 10 - 65 U/L | EXTERNAL | | | | performed at [facility], [address] | | LAB | | | | [address] [facility], | | | | | | [place] [address] | | | | + + + [...] BY | | | | | | 1.210.Testing performed | | | | | | at [facility], [address] | | | | | | [address], | | | | | | [place] [address] | | | | + + + + + + + + | Specimen | + + | Blood specimen | | (specimen) | + + + +---------+ + + | Performing | Address | City/State/Zipcode | Phone Number | | Organization | | | | + +---------+ + + | EXTERNAL LAB | | | | + +---------+ + + Strep B DNA probe, NAAT (12/24/2013 2:45 AM PDT) + + + + + + | Component | Value | Ref Range | Performed | Pathologist | | | | | At | Signature | + + + + + + | Group B | POSITIVE for GBS | | EXTERNAL | | | Strep | colonization by PCR | | LAB | | | | (A)Comment: Testing | | | | | | performed at [facility];[address] | | | | | | [address];[place] | | | | | | [address] | | | | + + + + + + + + | Specimen | + + | Soft tissue sample | | (specimen) | + + + +---------+ + + | Performing | Address | City/State/Zipcode | Phone Number | | Organization | | | | + +---------+ + + | EXTERNAL LAB | | | | + +---------+ + + US BPP wo Non Stress (12/24/2013 1:30 AM PDT) + + | Specimen | + + | | + + + + + | Impressions | Performed At | + + + | Biophysical profile 8 out of 8. ISMAEL 4.8 cm [facility] | | | Electronically signed by Jean Marie Jacobs MD on Dec 24 2013 | | | 1:49AM Referring Provider Line: [phone] ID: [id number] | | + + + + + + | Narrative | Performed At | + + + | EXAM: BIOPHYSICAL PROFILE EXAM DATE: 12/24/2013 01:31 AM. | | | CLINICAL HISTORY: Oligohydramnios. LMP COMPARISON: 12/24/2013. | | | TECHNIQUE: Real-time sonographic imaging of fetus, including | | | color-flow and Doppler imaging, was performed by the mounted police. | | | Multiple telesales representative static images were saved for review. | | | FINDINGS: Position: Vertex. Placental Position: Fundal | | | Heart Rate: 159 beats per minute. Amniotic Fluid Index: 4.8 | | | cm (Normal 8-20). Biophysical Profile: 8 8 Tone = 2 Breathing = | | | 2 Movement = 2 ISMAEL = 2 | | + + + + + | Procedure Note | + + | Nima, Rad Conversion - 02/18/2019 12:27 AM PDT EXAM:BIOPHYSICAL PROFILE EXAM DATE: | | 12/24/2013 01:31 AM. CLINICAL HISTORY: Oligohydramnios. LMP COMPARISON: 12/24/2013. | | TECHNIQUE: Real-time sonographic imaging of fetus, including color-flow and Doppler | | imaging, was performed by the mounted police. Multiple telesales representative static images were | | saved for review. FINDINGS: Position: Vertex. Placental Position: Fundal | | Heart Rate: 159 beats per minute. Amniotic Fluid Index: 4.8 cm (Normal 8-20). | | Biophysical Profile: Tone = 2Breathing = 2Movement = 2AFI = 2 IMPRESSION: | | Biophysical profile 8 out of 8. ISMAEL 4.8 cm [facility] Electronically signed by Jean Marie | | MD Reynaldo on Dec 24 2013 1:49AM Referring Provider Line: [phone] ID: | | [id number] | | | |FINDINGS: | | Position: Vertex. | | | |Placental Position: Fundal | | | | Heart Rate: 159 beats per minute. | | | |Amniotic Fluid Index: 4.8 cm (Normal 8-20). | | | |Biophysical Profile: 8 /8 | |Tone = 2 | |Breathing = 2 | |Movement = 2 | |ISMAEL = 2 | | | |IMPRESSION: | |Biophysical profile 8 out of 8. ISMAEL 4.8 cm | | | |RADIA | | | | Electronically signed by Jean Marie Jacobs MD on Dec 24 2013 1:49AM Referring Provider Line: [phone] ID: [id number] | + + HISTORICAL MICROBIOLOGY RESULT (12/24/2013 1:07 AM PDT) + + | Specimen | + + | | + + + + + | Narrative | Performed At | + + + | Placental Alpha1 Microglobulin POSITIVE Abnormal Testing | EXTERNAL LAB | | performed at [facility];[address] [place] [address];[place] [address] | | + + + + +---------+ + + | Performing | Address | City/State/Zipcode | Phone Number | | Organization | | | | + +---------+ + + | EXTERNAL LAB | | | | + +---------+ + + US OB Limited 1 or More Fetus (12/24/2013 12:43 AM PDT) + + | Specimen | + + | | + + + + + | Impressions | Performed At | + + + | 1. Composite ultrasound age is 35 weeks and 4 days. 2. | | | Oligohydramnios. ISMAEL equals 5.5 cm. Electronically signed by | | | Jean Marie Jacobs MD on Dec 24 2013 1:30AM Referring Provider | | | Line: [phone] ID: [id number] | | + + + + + + | Narrative | Performed At | + + + | EXAM: OB ULTRASOUND LIMITED EXAM DATE: 12/24/2013 12:44 AM. | | | CLINICAL HISTORY: No care. Evaluate gestational age. LMP | | | COMPARISON: None. TECHNIQUE: Real-time transabdominal scanning | | | performed with static images. FINDINGS: Single intrauterine fetus | | | in cephalic position. There is decreased amniotic fluid volume. ISMEAL | | | equals 5.5. Placenta is fundal. heart rate 156 beats per | | | minute. measurements. Biparietal diameter 9.2 cm 37 weeks 3 | | | days. Head circumference 32.6 cm 37 weeks 0 days. Abdomen | | | circumference 30.09 cm 34 weeks 0 days. Femur length 6.59 cm 34 weeks | | | 0 days. Composite ultrasound age 35 weeks 4 days. Estimated | | | weight 2478 grams. | | + + + + + | Procedure Note | + + | Nima Enio Conversion - 02/18/2019 12:27 AM PDT EXAM:OB ULTRASOUND LIMITED EXAM DATE: | | 12/24/2013 12:44 AM. CLINICAL HISTORY: No care. Evaluate gestational age. LMP | | COMPARISON: None. TECHNIQUE: Real-time transabdominal scanning performed with static | | images. FINDINGS:Single intrauterine fetus in cephalic position. There is decreased | | amniotic fluid volume. ISMAEL equals 5.5. Placenta is fundal. heart rate 156 beats | | per minute. measurements. Biparietal diameter 9.2 cm 37 weeks 3 days. Head | | circumference 32.6 cm 37 weeks 0 days. Abdomen circumference 30.09 cm 34 weeks 0 days. | | Femur length 6.59 cm 34 weeks 0 days. Composite ultrasound age 35 weeks 4 days. | | Estimated weight 2478 grams. IMPRESSION: 1. Composite ultrasound age is 35 weeks | | and 4 days.2. Oligohydramnios. ISAMEL equals 5.5 cm. Electronically signed by Jean Marie | | MD Reynaldo on Dec 24 2013 1:30AM Referring Provider Line: [phone] ID: | | [id number] | |Single intrauterine fetus in cephalic position. There is decreased amniotic fluid volume. A FI equals 5.5. | | | |Placenta is fundal. heart rate 156 beats per minute. | | | | measurements. Biparietal diameter 9.2 cm 37 weeks 3 days. Head circumference 32.6 cm 37 weeks 0 days. Abdomen circumference 30.09 cm 34 weeks 0 days. Femur length 6.59 cm 34 wee ks 0 days. Composite ultrasound age 35 weeks 4 days. Estimated | |weight 2478 grams. | | | |IMPRESSION: | | | |1. Composite ultrasound age is 35 weeks and 4 days. | |2. Oligohydramnios. ISMAEL equals 5.5 cm. | | | | Electronically signed by Jean Marie Jacobs MD on Dec 24 2013 1:30AM Referring Provider Line: [phone] ID: [id number] | + + Type and Screen (12/24/2013 12:00 AM PDT) + + + + + + | Component | Value | Ref Range | Performed | Pathologist | | | | | At | Signature | + + + + + + | ABO Rh | O POSITIVE | | EXTERNAL | | | | | | LAB | | + + + + + + | ABO Rh | Testing performed at | | EXTERNAL | | | | [facility];[address] | | | | [address];[place] [address] | | | | + + + + + + | Antibody | NEGATIVE | | EXTERNAL | | | Screen | | | LAB | | + + + + + + | Antibody | Testing performed at | | EXTERNAL | | | Screen | [facility];[address] | [address] | | | | [address];[place] [address] | | | | + + + + + + | BB BAND | [id number] | | EXTERNAL | | | | | | LAB | | + + + + + + | BB BAND | Testing performed at | | EXTERNAL | | | | [facility];[address] | [address] | | | | [address];[place] [address] | | | | + + + + + + + + | Specimen | + + | Blood specimen | | (specimen) | + + + +---------+ + + | Performing | Address | City/State/Zipcode | Phone Number | | Organization | | | | + +---------+ + + | EXTERNAL LAB | | | | + +---------+ + + HIV 1 Screen, Rapid (12/24/2013 12:00 AM PDT) + + + + + + | Component | Value | Ref Range | Performed | Pathologist | | | | | At | Signature | + + + + + + | HIV 1 and 2 | NON REACTIVEComment: | | EXTERNAL | | | Ab, Rapid | Testing performed at | | LAB | | | | [facility];[address] [place] [address] | | | | | | [address];[place] [address] | | | | + + + + + + + + | Specimen | + + | | + + + +---------+ + + | Performing | Address | City/State/Zipcode | Phone Number | | Organization | | | | + +---------+ + + | EXTERNAL LAB | | | | + +---------+ + + Obstetrics Panel (12/24/2013 12:00 AM PDT) + + + + + + | Component | Value | Ref Range | Performed | Pathologist | | | | | At | Signature | + + + + + + | WBC | 11.7 (H)Comment: Testing | 3.8 - 11.0 K/uL | EXTERNAL | | | | performed at [facility] | | LAB | | | | [address];[place] | | | | | | [address] | | | | + + + + + + | Red Blood | 3.65 (L)Comment: Testing | 3.70 - 5.10 | EXTERNAL | | | Cells | performed at [facility];[address] | M/uL | LAB | | | Counted | [address];[place] | | | | | | [address] | | | | + + + + + + | Hemoglobin | 10.1 (L)Comment: Testing | 11.3 - 15.5 | EXTERNAL | | | | performed at [facility];[address] | g/dL | LAB | | | | [address];[place] | | | | | | [address] | | | | + + + + + + | Hematocrit, | 30.3 (L)Comment: Testing | 34.0 - 46.0 % | EXTERNAL | | | POC | performed at [facility];[address] | | LAB | | | | [address];[place] | | | | | | [address] | | | | + + + + + + | MCV | 83.0Comment: Testing | 80.0 - 100.0 fl | EXTERNAL | | | | performed at [facility];[address] | | LAB | | | | [address];[place] | | | | | | [address] | | | | + + + + + + | MCH | 27.8Comment: Testing | 27.0 - 34.0 pg | EXTERNAL | | | | performed at [facility];[address] | | LAB | | | | [address];[place] | | | | | | [address] | | | | + + + + + + | MCHC | 33.5Comment: Testing | 32.0 - 35.5 | EXTERNAL | | | | performed at [facility];[address] | g/dL | LAB | | | | [address];[place] | | | | | | [address] | | | | + + + + + + | RDW-CV | 41.1Comment: Testing | 37 - 53 fl | EXTERNAL | | | | performed at [facility];[address] | | LAB | | | | [address];[place] | | | | | | [address] | | | | + + + + + + | Platelet | 221Comment: Testing | 150 - 400 K/uL | EXTERNAL | | | Count | performed at [facility];[address] | | LAB | | | Plasma | [address];[place] | | | | | | [address] | | | | + + + + + + | MPV | 7.5Comment: Testing | fl | EXTERNAL | | | | performed at [facility];[address] | | LAB | | | | [address];[place] | | | | | | [address] | | | | + + + + + + | Differentia | AUTOMATEDComment: | | EXTERNAL | | | l Type | Testing performed at | | LAB | | | | [facility];[address] | | [address];[place] [address] | | | | + + + + + + | % Segmented | 75.5Comment: Testing | % | EXTERNAL | | | | performed at [facility];[address] | | LAB | | | Neutrophils | [address];[place] | | | | | | [address] | | | | + + + + + + | % | 16.8Comment: Testing | % | EXTERNAL | | | Lymphocytes | performed at [facility];[address] | | LAB | | | | [address];[place] | | | | | | [address] | | | | + + + + + + | % Monocytes | 5.6Comment: Testing | % | EXTERNAL | | | | performed at [facility];[address] | | LAB | | | | [address];[place] | | | | | | [address] | | | | + + + + + + | % | 1.7Comment: Testing | % | EXTERNAL | | | Eosinophils | performed at [facility];[address] | | LAB | | | | [address];[place] | | | | | | [address] | | | | + + + + + + | % Basophils | 0.4Comment: Testing | % | EXTERNAL | | | | performed at [facility];[address] | | LAB | | | | [address];[place] | | | | | | [address] | | | | + + + + + + | Absolute | 8.8 (H)Comment: Testing | 1.9 - 7.4 K/uL | EXTERNAL | | | Segmented | performed at [facility];[address] | | LAB | | | Neutrophils | [address];[place] | | | | | | [address] | | | | + + + + + + | Absolute | 2.0Comment: Testing | 1.0 - 3.9 K/uL | EXTERNAL | | | Lymphocytes | performed at [facility];[address] | | LAB | | | | [address];[place] | | | | | | [address] | | | | + + + + + + | Absolute | 0.7Comment: Testing | 0 - 0.8 K/uL | EXTERNAL | | | Monocytes | performed at [facility];[address] | | LAB | | | | [address];[place] | | | | | | [address] | | | | + + + + + + | Absolute | 0.2Comment: Testing | 0 - 0.5 K/uL | EXTERNAL | | | Eosinophils | performed at [facility];[address] | | LAB | | | | [address];[place] | | | | | | [address] | | | | + + + + + + | Absolute | 0.0Comment: Testing | 0 - 0.1 K/uL | EXTERNAL | | | Basophils | performed at [facility];[address] | | LAB | | | | [address];[place] | | | | | | [address] | | | | + + + + + + | Rubella IgG | 21.1Comment: | IU/mL | EXTERNAL | | | Ab, Screen | Susceptible: | | LAB | | | | <5.0 Indeterminate: | | | | | | 5 to 10 Immune: | | | | | | >10Testing | | | | | | performed at [facility], [address] | | | | | | [facility], | | | | | | [place] [address] | | | | + + + + + + | Treponema | NEGATIVEComment: | | EXTERNAL | | | Pallidum Ab | NEGATIVE FOR SYPHILIS | | LAB | | | Total | ANTIBODIES.Testing | | | | | | performed at [facility], [address] | | | | | | [address] | | | | | | [place] [address] | | | | + + + + + + | Hepatitis B | NON REACTIVEComment: | | EXTERNAL | | | Surface Ag | Testing performed at | | LAB | | | | [facility], [address] [facility] | | | | | | [place] | | | | | | [address] | | | | + + + + + + + + | Specimen | + + | Blood specimen | | (specimen) | + + + +---------+ + + | Performing | Address | City/State/Zipcode | Phone Number | | Organization | | | | + +---------+ + + | EXTERNAL LAB | | | | + +---------+ + + Uric Acid (12/24/2013 12:00 AM PDT) + + + + + + | Component | Value | Ref Range | Performed | Pathologist | | | | | At | Signature | + + + + + + | Uric Acid | 6.0Comment: Testing | 2.2 - 7.1 mg/dL | EXTERNAL | | | | performed at [facility];[address] | | LAB | | | | [address];[place], [place] | | | | | | [address] | | | | + + + + + + + + | Specimen | + + | Blood specimen | | (specimen) | + + + +---------+ + + | Performing | Address | City/State/Zipcode | Phone Number | | Organization | | | | + +---------+ + + | EXTERNAL LAB | | | | + +---------+ + + Lactate Dehydrogenase (12/24/2013 12:00 AM PDT) + + + + + + | Component | Value | Ref Range | Performed | Pathologist | | | | | At | Signature | + + + + + + | LDH TOTAL | 178Comment: Testing | 115 - 225 U/L | EXTERNAL | | | | performed at [facility];[address] | | LAB | | | | [address];[place], [place] | | | | | | [address] | | | | + + + [...] + +---------+ + + Comprehensive Metabolic Panel (12/24/2013 12:00 AM PDT) + + + + + + | Component | Value | Ref Range | Performed | Pathologist | | | | | At | Signature | + + + + + + | Na | 139Comment: Testing | 135 - 143 | EXTERNAL | | | | performed at [facility];[address] | mmol/L | LAB | | | | [address];[place], [place] | | | | | | [address] | | | | + + + + + + | K | 3.7Comment: Testing | 3.5 - 4.9 | EXTERNAL | | | | performed at [facility];[address] | mmol/L | LAB | | | | [address];[place] | | | | | | [address] | | | | + + + + + + | Cl | 108Comment: Testing | 99 - 109 mmol/L | EXTERNAL | | | | performed at [facility];[address] | | LAB | | | | [address];[place] | | | | | | [address] | | | | + + + + + + | CO2 | 22 (L)Comment: Testing | 23 - 32 mmol/L | EXTERNAL | | | | performed at [facility];[address] | | LAB | | | | [address];[place] | | | | | | [address] | | | | + + + + + + | Anion Gap | 12Comment: Testing | 5 - 20 mmol/L | EXTERNAL | | | | performed at [facility];[address] | | LAB | | | | [address];[place] | | | | | | [address] | | | | + + + + + + | Glucose, | 77Comment: Testing | 65 - 99 mg/dL | EXTERNAL | | | Fasting | performed at [facility];[address] | | LAB | | | | [address];[place] | | | | | | [address] | | | | + + + + + + | BUN | 12Comment: Testing | 8 - 25 mg/dL | EXTERNAL | | | | performed at [facility];[address] | | LAB | | | | [address];[place] | | | | | | [address] | | | | + + + + + + | Creatinine | 0.55Comment: Testing | 0.50 - 1.00 | EXTERNAL | | | | performed at [facility];[address] | mg/dL | LAB | | | | [address];[place] | | | | | | [address] | | | | + + + + + + | BUN/Creatin | 22Comment: Testing | | EXTERNAL | | | ine Ratio | performed at [facility];[address] | | LAB | | | | [address];[place] | | | | | | [address] | | | | + + + + + + | Calcium | 8.1 (L)Comment: Testing | 8.5 - 10.2 | EXTERNAL | | | | performed at [facility];[address] | mg/dL | LAB | | | | [address];[place] | | | | | | [address] | | | | + + + + + + | Protein, | 6.2 (L)Comment: Testing | 6.3 - 8.2 g/dL | EXTERNAL | | | Total | performed at [facility];[address] | | LAB | | | | [address];[place] | | | | | | [address] | | | | + + + + + + | Albumin | 2.0 (L)Comment: Testing | 3.6 - 5.0 g/dL | EXTERNAL | | | | performed at [facility];[address] | | LAB | | | | [address];[place] | | | | | | [address] | | | | + + + + + + | Globulin | 4.2Comment: Testing | 1.3 - 4.9 g/dL | EXTERNAL | | | | performed at [facility];[address] | | LAB | | | | [address];[place] | | | | | | [address] | | | | + + + + + + | A/G Ratio | 0.5 (L)Comment: Testing | 1.0 - 2.4 | EXTERNAL | | | | performed at [facility];[address] | | LAB | | | | [address];[place] | | | | | | [address] | | | | + + + + + + | Bilirubin | 0.2Comment: Testing | 0.1 - 1.5 mg/dL | EXTERNAL | | | Total | performed at [facility];[address] | | LAB | | | | [address];[place] | | | | | | [address] | | | | + + + + + + | ALP, | 225 (H)Comment: Testing | 35 - 115 U/L | EXTERNAL | | | External | performed at [facility];[address] | | LAB | | | | [address];[place] | | | | | | [address] | | | | + + + + + + | AST | 18Comment: Testing | 10 - 45 U/L | EXTERNAL | | | | performed at [facility];[address] | | LAB | | | | [address];[place] | | | | | | [address] | | | | + + + + + + | ALT | 12Comment: Testing | 10 - 65 U/L | EXTERNAL | | | | performed at [facility];[address] | | LAB | | | | [address];[place] | | | | | | [address] | | | | + + + [...] BY | | | | | | 1.210.Testing performed | | | | | | at [facility];[address] [place] [address] | | | | | | [facility];[place] [address] | | | | + + + + + + + + | Specimen | + + | Blood specimen | | (specimen) | + + + +---------+ + + | Performing | Address | City/State/Zipcode | Phone Number | | Organization | | | | + +---------+ + + | EXTERNAL LAB | | | | + +---------+ + + GC/Chlam Aptima (12/23/2013 12:30 AM PDT) + + + + + + | Component | Value | Ref Range | Performed | Pathologist | | | | | At | Signature | + + + + + + | Source | URINEComment: Testing | | EXTERNAL | | | | performed at [facility] | | LAB | | | | [facility];[place], [place] | | | | | | [address] | | | | + + + + + + | Chlamydia | DETECTED (A)Comment: IN | | EXTERNAL | | | Trachomatis | A LOW PREVALENCE | | LAB | | | Naat | POPULATION, IT IS | | | | | | SUGGESTED THAT POSITIVE | | | | | | RESULTSBE CONFIRMED BY A | | | | | | TEST WITH AN | | | | | | ALTERNATIVE NUCLEIC ACID | | | | | | [employer]. THISWILL | | | | | | REQUIRE SUBMISSION OF | | | | | | ANOTHER SPECIMEN, USING | | | | | | A DIFFERENTCOLLECTION | | | | | | KIT.THIS IS A REPORTABLE | | | | | | DISEASE. PLEASE CONTACT | | | | | | YOUR COUNTY/STATE | | | | | | HEALTHDEPARTMENT.Testing | | | | | | performed at [facility], [address] | [address] | | | | | | [place] [address] | | | | + + + + + + | Result | NOT DETECTEDComment: | | EXTERNAL | | | | Testing performed at | | LAB | | | | [facility], [address] | | | | | | [place] | | | | | | [address] | | | | + + + + + + + + | Specimen | + + | | + + + +---------+ + + | Performing | Address | City/State/Zipcode | Phone Number | | Organization | | | | + +---------+ + + | EXTERNAL LAB | | | | + +---------+ + + Drugs Of ABuse Screen, Urine (H) (12/23/2013 12:29 AM PDT) + + + + + + | Component | Value | Ref Range | Performed | Pathologist | | | | | At | Signature | + + + + + + | Methampheta | POSITIVE (A)Comment: | | EXTERNAL | | | mine/ | Positive cutoff for | | LAB | | | Amphetamine | AMP = 1000 ng/mLTesting | | | | | Screen, | performed at [facility];[address] | | | | | UA, POC | [address];[place] | | | | | | [address] | | | | + + + + + + | Barbiturate | NEGATIVEComment: | | EXTERNAL | | | s Screen, | Positive cutoff for | | LAB | | | Urine | ONEIL = 200 ng/mLTesting | | | | | | performed at [facility];[address] | | | | | | [address];[place] | | | | | | [address] | | | | + + + + + + | Benzodiazep | NEGATIVEComment: | | EXTERNAL | | | melissa | Positive cutoff for | | LAB | | | Screen, | BENZO = 200 ng/mLTesting | | | | | Urine | performed at [facility];[address] | | | | | | [address];[place] | | | | | | [address] | | | | + + + + + + | Cocaine | NEGATIVEComment: | | EXTERNAL | | | | Positive cutoff for | | LAB | | | | OBINNA = 300 ng/mLTesting | | | | | | performed at [facility];[address] | | | | | | [address];[place] | | | | | | [address] | | | | + + + + + + | Methadone | NEGATIVEComment: | | EXTERNAL | | | | Positive cutoff for | | LAB | | | | MTD = 300 ng/mLTesting | | | | | | performed at [facility];[address] | | | | | | [address];[place] | | | | | | [address] | | | | + + + + + + | Opiates | NEGATIVEComment: | | EXTERNAL | | | | Positive cutoff for | | LAB | | | | OPI = 300 ng/mLTesting | | | | | | performed at [facility];[address] | | | | | | [address];[place] | | | | | | [address] | | | | + + + + + + | PCP | NEGATIVEComment: | | EXTERNAL | | | | Positive cutoff for PCP | | LAB | | | | = 25 ng/mLTesting | | | | | | performed at [facility];[address] | | | | | | [address];[place] | | | | | | [address] | | | | + + + + + + | Cannabinoid | NEGATIVEComment: | | EXTERNAL | | | s Screen, | Positive cutoff for THC | | LAB | | | Serum | = 50 ng/mLThe above are | | | | | | unconfirmed screening | | | | | | results. These results | | | | | | are to be used only for | | | | | | medical | | | | | | (i.e.,treatment) | | | | | | purposes. Unconfirmed | | | | | | screening results must | | | | | | not be used for | | | | | | non-medical purposes | | | | | | (e.g., employment | | | | | | testing, legal | | | | | | testing).Testing | | | | | | performed at [facility];[address] | | | | | | [address];[place] | | | | | | [address] | | | | + + + [...]
--- OUTSIDE RECORDS SUMMARY | ~2019-11-25 | XMS | Encounter Summary ---
Demographics + + + | Address | [address] | | | [place] [address] | + + + | Home Phone | | + + + | Preferred Language | Unknown | + + + | Marital Status | Single | + + + | Zoroastrianism Affiliation | Unknown | + + + | Race | Unknown | + + + | Ethnic Group | Unknown | + + + Author + + + | Author | [facility] | | | and [place] | + + + | Organization | [facility] | | | [...] Team Providers + +------+ + | Care Ventilation Equipment Tender Name | Role | Phone | + +------+ + PCP | Unavailable | + +------+ + Encounter Details +--------+ + + + + | Date | Type | Department | Care Team | Description | +--------+ + + + + | 12/23/ | Hospital | [facility] | Deena, | | | 2014 - | Encounter | [facility] LABOR | MD Butch [address] | | | | [address] [place], [place] | | | 12/25/ | | [address] | [address] | | | 2013 | | [place], [place] | [phone] | | | | | [address] | | | | | | [phone] | | | +--------+ + + + [...] Summaries by Khari Morales MD at 12/25/13 2673 Author: Khari Morales MD Service: Obstetrics/Gynecology Author Type: Ana n Filed: 12/25/13 1343 Date of Service: 12/25/13 7498 Status: Signed Clay Dry Press Operator: Khari Morales MD (Physician) [facility] Service: Obstetrics & Gynecology Discharge Summary Date [...] 3. BPs in mild range w/o symptoms-R/O axh-dokjfjxie-DWX labs pending 4. Drug use-UDS pending-no signs of abruption currently 5. Asthma-albuterol Pt progressed to complete dilation After a series of pushes the 's head was delivered in RODRIGO position Spontaneous external rotation followed and the anterior shoulder delivered w/o difficulty, followed by the posterior shoulder, body and lower extremities Cord clamped and cut on waiting direct support staff member IV oxytocin initiated Cord segment obtained for [...] D/C home F/u in 2 weeks at [facility] with Dr Martha Shaffer F/U Kraie Arias for substance abuse F/U CPS Rx motrin percocet fe and colace and Albuterol inhaler Pelvic rest x 6 weeks F/u in [facility] in 4 weeks for Pre-op Surgery - Tubal ligation - Forms signed 12-25-2013 Avoid trigger and company that incite patient to relapse Disposition: Home Condition: Stable Code Status: Full Code No discharge procedures on file. Follow up: Lupe Baires MD - Ajit F/u in [facility] with Dr. Shaffer - if pt continues to reside in [facility] Medication List As of 12/25/2013 1:28 PM [...] are the prescriptions that you need to picker feeder. We sent them to a specific pharmacy, so you will need to go there to get them. [facility] - [place], [place] - [address] [facility] [phone] [place] [address] labetalol 200 MG tablet You may get [...] Notes by Khari Morales MD at 12/25/13 1340 Author: Khari Morales MD Service: Obstetrics/Gynecology Author Type: Physicia n Filed: 12/25/13 1357 Date of Service: 12/25/13 1343 Status: Signed Clay Dry Press Operator: Khari Morales MD (Physician) [facility] Service: Obstetrics & Gynecology Progress Note Day: [...] ringers oxytocin oxytocin PRN Medications acetaminophen, albuterol, sbpcqlzbrn-uelxily-ocaw vera, dibucaine, diphenhydrAMINE, diphenh ydrAMINE, ibuprofen, lactated [...] Author: ALBINO Charles Service: (none) Author Type: Clerical Supervisor Filed: 12/25/13 1500 Date of Service: 12/25/13920 Status: Addendum Clay Dry Press Operator: ALBINO Charles (Clerical Supervisor) Related Notes: Original Note by ALBINO Charles (Clerical Supervisor) filed at 12/25/13 09 30 Update: DEVIN spoke with Tom Ontiveros, assigned CPS SW in [place]. He will be assigned to t he case on the [place] end. His number is [phone] (desk), (cell), (fax). DEVIN spoke with Batsheva Alvarez, CPS SW from [place] office [phone]. Batsheva is assing ed to the case on the [place] end. Batsheva came to hospital and met with MOB and saw baby. There will be a Family Team Decision Making (FTDM) meeting tomorrow at 1:30pm. MOB stated she wou ld have the FOB with her and we will call MOB's brother Satish on the speaker phone. Satish live s in [place] and currently has MOB's 7yo. The 13 mo is currently staying with the FOB, Fausto doss. DEVIN spoke with Michelle in the [place] CPS office. Case had not made it to [place] yet. DEVIN talked with [place] CPS and front office representative sending an email to CPS supervisors to s who was assigned to the case. DEVIN informed them that baby was in NICU for NWI and IVABx a nd MOB would be discharging possibly tomorrow. DEVIN provided [facility] work cell number to call [facility] information on case. ALBINO Charles Butch Regalado MD - 12/24/2013 6:34 PM PDTFormatting of this note might be different fro m the original. Progress Notes by Butch Shaffer MD at 12/24/131833 Author: Butch Shaffer MD Service: Obstetrics/Gynecology Author Type: Physician Filed: 12/24/131835 Date of Service: 12/24/131833 Status: Signed Clay Dry Press Operator: Butch Shaffer MD (Physician) [facility] Service: Obstetrics & Gynecology Progress Note Hospital [...] gallo-units/min (12/24/13 0450) PRN Medications acetaminophen, albuterol, iwoqkwfxma-hamouha-ksmz vera, dibucaine, diphenhydrAMINE, diphenh ydrAMINE, [START ON [...] Case Management by ALBINO Richardson at 12/24/13 9278 Author: ALBINO Richardson Service: (none) Author Type: (none) Filed: 12/24/13 2878 Date of Service: 12/24/13 9552 Status: Signed Clay Dry Press Operator: ALBINO Richardson (Clerical Supervisor) rec'd referral to meet with patient for [...] Living Situation: Current address per patient is [address] [place] [address], [place] [address] . However, address on face sheet is [address] [place] [address], [place] [address].This is a house owned by her brother. No other adults live in the home. Patient previously reported to RN that she recently moved out of a "crack house" and reported to CM that it was at that time t hat her brother allowed her to move into his empty home. Patient states that she hopes to m ove to [place] to start a new drug-free life. Transportation: Patient uses a taxi (private pay), friends, or medicaid transport. DL is currently suspende d for unpaid fines. Social/Family history: Mother of patient "clean" from meth for over 10 years. CM witnessed phone interaction with patient's mother which seemed appropriate and supportive. Mother resides in [place] and is "adventism." Father of patient "clean" from meth for 1 year, but has been in and out of intermediate. Brother & ocofan-hd-amt, Tara, live in [place], [place]. Satish & Carrie have no kristy [...] Fausto Solomon. Baby Girl Elizabeth Pederson, in [facility] NICU, 2994 grams at , gestational age [...] , and that she has been to [facility] 2x in the past month. She says she thought she had "more time" to g et clean because [facility] told her she was only 9 weeks . Education/Financial/Education Director: Patient earned her GED. Currently is receiving food and medicaid assistance from [place]; d id not qualify for deng assistance due to Fausto's income. CM inquired about this as patient previously told CM that Fausto did not live with her. Patient said that he has moved out so she will reapply for benefits now. 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 Recent Drug Use & hx: Patient denies drug use since admission to [facility] and states that it has been 3 [...] Fausto Solomon is on his way to [facility] today to help "make a plan." Patie [...] Case Management by ALBINO Richardson at 12/24/13 4495 Author: ALBINO Richardson Service: (none) Author Type: (none) Filed: 12/24/13 9380 Date of Service: 12/24/137 Status: Signed Clay Dry Press Operator: ALBINO Richardson (Clerical Supervisor) 12/24/13 1415 Discharge Planning Evaluation Admitting Diagnosis L&D Readmission [...] Yes Prescription Plan Yes Name of Pharmacy [facility] [place], [place] Previous home health equipment No Vascular access device No Ostomy/Drains/Appliances No Anticipated Disposition Facility Type Other (Comment) (home) Met with patient and discussed discharge planning, Pt is a 23 y.o., female who currently r esides at [address] [place] [address]. Patient's PCP is: LUPE BAIRES- patient states this is her OB from when she was pregnan t with her 13-month old son. She does not have a current PCP or OB. Most recently seen by [facility] in [place], [place]. Patient's insurance:[employer] Health Plan Coverage concerns: none Medication coverage/concerns: none, uses [facility] in [facility] resources utilized / needed: drug rehab treatment options Assistance in transportation: Transportation provided by friends, uses private-pay taxi [employer], also uses [place] medicaid transport occasionally, currently has a suspended driving license Identification of any specific education / training: n/a Barriers to Discharge / Alternative housing needed: possible rehab Anticipated DCP: TBD Kenisha Echevarria onver maureen Huynh, Provider Unknown - 12/24/2013 1:03 PM PDT Progress Notes by Yi Cruz RN at 12/24/13 0143 Author: Yi Cruz RN Service: (none) Author Type: Registered Nurse Filed: 12/24/13 1314 Date of Service: 12/24/13 1303 Status: Signed Clay Dry Press Operator: Yi Cruz RN (Registered Nurse) In discussing [...] not show concern o r ask questions. registered nurse surgical services advised of pt status/ hx of leaving AMA from another hospit al. Social svcs in to see pt. Butch Regalado MD - 12/24/2013 6:55 AM PDTFormatting of this note might be different fro m the original. Progress Notes by Butch Shaffer MD at 12/24/13 0690 Author: Butch Shaffer MD Service: Obstetrics/Gynecology Author Type: Physician Filed: 12/24/13 0731 Date of Service: 12/24/13 0677 Status: Addendum Clay Dry Press Operator: Butch Shaffer MD (Physician) Related Notes: Original Note by Butch Shaffer MD (Physician) filed at 12/24/13 0 703 [facility] Service: Obstetrics & Gynecology Delivery note Pt progressed to complete dilation After a series of pushes the 's head was delivered in RODRIGO position Spontaneous external rotation followed and the anterior shoulder delivered w/o difficulty, followed by the posterior shoulder, body and lower extremities Cord clamped and cut on waiting direct support staff member IV oxytocin initiated Cord segment obtained for [...] 12/24/13826 Date of Service: 12/24/13629 Status: Signed Clay Dry Press Operator: Yi Cruz RN (Registered Nurse) Assumed care [...] 12/24/13629 Date of Service: 12/24/13610 Status: Signed Clay Dry Press Operator: Butch Shaffer MD (Physician) [facility] Service: Obstetrics & Gynecology Labor Progress Note [...] GBS testing)-Penicillin 2. PPROM with subsequent spontaneous rlkaf-xmgitjxzzomg-gecvveaha stable-FHTs reassuring-ox y on 6 units-will continue [...] 0215 Date of Service: 12/24/13156 Status: Signed Clay Dry Press Operator: Butch Shaffer MD (Physician) [facility] Service: Obstetrics & Gynecology Progress Note Hospital Day: LOS: 1 day SUBJECTIVE The patient is a 23 y.o. @ 35.4 by formal US today 1. R/O labor-pt has spontaneously progressed from 3 to 4 cm during her observation period i n triage 2. R/O PPROM/SROM-Amnisure test positive confirming PPROM 3. R/O Kjp-exogccccd-TTH labs WNL-BPs mostly in mild range-will follow [...] EXTERNAL | | | | performed at [facility], [address] | | LAB | | | | [address], | | | | | | [place] [address] | | | | + + + + + + | Red Blood | 3.20 (L)Comment: Testing | 3.70 - 5.10 | EXTERNAL | | | Cells | performed at [facility], [address] | M/uL | LAB | | | Counted | [address], | | | | | | [place] [address] | | | | + + + + + + | Hemoglobin | 8.9 (L)Comment: Testing | 11.3 - 15.5 | EXTERNAL | | | | performed at [facility], [address] | g/dL | LAB | | | | [address], | | | | | | [place] [address] | | | | + + + + + + | Hematocrit, | 27.3 (L)Comment: Testing | 34.0 - 46.0 % | EXTERNAL | | | POC | performed at [facility], [address] | | LAB | | | | [address], | | | | | | [place] [address] | | | | + + + + + + | MCV | 85.2Comment: Testing | 80.0 - 100.0 fl | EXTERNAL | | | | performed at [facility], [address] | | LAB | | | [address], | | | | | | [place] [address] | | | | + + + + + + | MCH | 27.8Comment: Testing | 27.0 - 34.0 pg | EXTERNAL | | | | performed at [facility], [address] | | LAB | | | | [address], | | | | | | [place] [address] | | | | + + + + + + | MCHC | 32.6Comment: Testing | 32.0 - 35.5 | EXTERNAL | | | | performed at [facility], [address] | g/dL | LAB | | | | [address], | | | | | | [place] [address] | | | | + + + + + + | RDW-CV | 42.4Comment: Testing | 37 - 53 fl | EXTERNAL | | | | performed at [facility], [address] | | LAB | | | | [address], | | | | | | [place] [address] | | | | + + + + + + | Platelet | 170Comment: Testing | 150 - 400 K/uL | EXTERNAL | | | Count | performed at [facility], [address] | | LAB | | | Plasma | [address], | | | | | | [place] [address] | | | | + + + + + + | MPV | 7.9Comment: Testing | fl | EXTERNAL | | | | performed at [facility], [address] | | LAB | | | | [address], | | | | | | [place] [address] | | | | + + + [...] | | | | | [place] [address] | | | | + + + + + + | K | 3.5Comment: Testing | 3.5 - 4.9 | EXTERNAL | | | | performed at [facility], [address] | mmol/L | LAB | | | | [address], | | | | | | [place] [address] | | | | + + + + + + | Cl | 110 (H)Comment: Testing | 99 - 109 mmol/L | EXTERNAL | | | | performed at [facility], [address] | | LAB | | | | [address], | | | | | | [place] [address] | | | | + + + + + + | CO2 | 21 (L)Comment: Testing | 23 - 32 mmol/L | EXTERNAL | | | | performed at [facility], [address] | | LAB | | | | [address], | | | | | | [place] [address] | | | | + + + + + + | Anion Gap | 10Comment: Testing | 5 - 20 mmol/L | EXTERNAL | | | | performed at [facility], [address] | | LAB | | | | [address], | | | | | | [place] [address] | | | | + + + + + + | Glucose, | 156 (H)Comment: Testing | 65 - 99 mg/dL | EXTERNAL | | | Fasting | performed at [facility], [address] | | LAB | | | | [address], | | | | | | [place] [address] | | | | + + + + + + | BUN | 9Comment: Testing | 8 - 25 mg/dL | EXTERNAL | | | | performed at [facility], [address] | | LAB | | | | [address], | | | | | | [place] [address] | | | | + + + + + + | Creatinine | 0.67Comment: Testing | 0.50 - 1.00 | EXTERNAL | | | | performed at [facility], [address] | mg/dL | LAB | | | | [address], | | | | | | [place] [address] | | | | + + + + + + | BUN/Creatin | 13Comment: Testing | | EXTERNAL | | | ine Ratio | performed at [facility], [address] | | LAB | | | | [address], | | | | | | [place] [address] | | | | + + + + + + | Calcium | 8.0 (L)Comment: Testing | 8.5 - 10.2 | EXTERNAL | | | | performed at [facility], [address] | mg/dL | LAB | | | | [address], | | | | | | [place] [address] | | | | + + + + + + | Protein, | 4.8 (L)Comment: Testing | 6.3 - 8.2 g/dL | EXTERNAL | | | Total | performed at [facility], [address] | | LAB | | | | [address], | | | | | | [place] [address] | | | | + + + + + + | Albumin | 2.1 (L)Comment: Testing | 3.6 - 5.0 g/dL | EXTERNAL | | | | performed at [facility], [address] | | LAB | | | | [address], | | | | | | [place] [address] | | | | + + + + + + | Globulin | 2.7Comment: Testing | 1.3 - 4.9 g/dL | EXTERNAL | | | | performed at [facility], [address] | | LAB | | | | [address], | | | | | | [place] [address] | | | | + + + + + + | A/G Ratio | 0.8 (L)Comment: Testing | 1.0 - 2.4 | EXTERNAL | | | | performed at [facility], [address] | | LAB | | | | [address], | | | | | | [place] [address] | | | | + + + + + + | Bilirubin | 0.1Comment: Testing | 0.1 - 1.5 mg/dL | EXTERNAL | | | Total | performed at [facility], [address] | | LAB | | | | [address], | | | | | | [place] [address] | | | | + + + + + + | ALP, | 145 (H)Comment: Testing | 35 - 115 U/L | EXTERNAL | | | External | performed at [facility], [address] | | LAB | | | | [address], | | | | | | [place] [address] | | | | + + + + + + | AST | 13Comment: Testing | 10 - 45 U/L | EXTERNAL | | | | performed at [facility], [address] | | LAB | | | | [address], | | | | | | [place] [address] | | | | + + + + + + | ALT | 7 (L)Comment: Testing | 10 - 65 U/L | EXTERNAL | | | | performed at [facility], [address] | | LAB | | | | [address] [facility], | | | | | | [place] [address] | | | | + + + [...] | | | | | [place] [address] | | | | + + + [...] | | | | | performed at [facility];[address] | | | | | | [address];[place] | | | | | | [address] | | | | + + + [...] | | | 1:49AM Referring Provider Line: [phone] ID: [id number] | | + + + + + + | Narrative | Performed At | + + + | EXAM: BIOPHYSICAL PROFILE EXAM DATE: 12/24/2013 01:31 AM. | | | CLINICAL HISTORY: Oligohydramnios. LMP COMPARISON: 12/24/2013. | | | TECHNIQUE: Real-time sonographic imaging of fetus, including | | | color-flow and Doppler imaging, was performed by the herbarium worker. | | | Multiple solar sales representative static images were saved for review. [...] | | imaging, was performed by the herbarium worker. Multiple solar sales representative static images were | | saved [...] Dec 24 2013 1:49AM Referring Provider Line: [phone] ID: | | [id number] | | | [...] Dec 24 2013 1:49AM Referring Provider Line: [phone] ID: [id number] | + + HISTORICAL MICROBIOLOGY RESULT (12/24/2013 1:07 AM PDT) + + | Specimen | + + | | + + + + + | Narrative | Performed At | + + + | Placental Alpha1 Microglobulin POSITIVE Abnormal Testing | EXTERNAL LAB | | performed at [facility];[address] [place] [address];[place] [address] | | + + + + +---------+ [...] 1:30AM Referring Provider | | | Line: [phone] ID: [id number] | | + + + [...] position. There is decreased amniotic fluid volume. ISMAEL | | | equals 5.5. Placenta is [...] weeks | | and 4 days.2. Oligohydramnios. ISMAEL equals 5.5 cm. Electronically signed by Jean Marie | | MD Reynaldo on Dec 24 2013 1:30AM Referring Provider Line: [phone] ID: | | [id number] | |Single intrauterine [...] Dec 24 2013 1:30AM Referring Provider Line: [phone] ID: [id number] | + + Type and [...] | | LAB | | | | Blvd;[place] [address] | | | | + + + + + + | Antibody | NEGATIVE | | EXTERNAL | | | Screen | | | LAB | | + + + + + + | Antibody | Testing performed at | | EXTERNAL | | | Screen | [facility];[address] | | LAB | | | | [address];[place] [address] | | | | + + + + + + | BB BAND | [id number] | | EXTERNAL | | | | | | LAB | | + + + + + + | BB BAND | Testing performed at | | EXTERNAL | | | | [facility];[address] | | LAB | | | | [address];[place] [address] | | | | + + + [...] | | LAB | | | | [facility];[address] [place] [address] | | | | | | Eugenio;[place] [address] | | | | + + + [...] EXTERNAL | | | | performed at [facility] | | LAB | | | | [address];[place] | | | | | | [address] | | | | + + + + + + | Red Blood | 3.65 (L)Comment: Testing | 3.70 - 5.10 | EXTERNAL | | | Cells | performed at [facility];[address] | M/uL | LAB | | | Counted | [address];[place] | | | | | | [address] | | | | + + + + + + | Hemoglobin | 10.1 (L)Comment: Testing | 11.3 - 15.5 | EXTERNAL | | | | performed at [facility];[address] | g/dL | LAB | | | | [address];[place] | | | | | | [address] | | | | + + + + + + | Hematocrit, | 30.3 (L)Comment: Testing | 34.0 - 46.0 % | EXTERNAL | | | POC | performed at [facility];[address] | | LAB | | | | [address];[place] | | | | | | [address] | | | | + + + + + + | MCV | 83.0Comment: Testing | 80.0 - 100.0 fl | EXTERNAL | | | | performed at [facility];[address] | | LAB | | | | [address];[place] | | | | | | [address] | | | | + + + + + + | MCH | 27.8Comment: Testing | 27.0 - 34.0 pg | EXTERNAL | | | | performed at [facility];[address] | | LAB | | | | [address];[place] | | | | | | [address] | | | | + + + + + + | MCHC | 33.5Comment: Testing | 32.0 - 35.5 | EXTERNAL | | | | performed at [facility];[address] | g/dL | LAB | | | | [address];[place] | | | | | | [address] | | | | + + + + + + | RDW-CV | 41.1Comment: Testing | 37 - 53 fl | EXTERNAL | | | | performed at [facility];[address] | | LAB | | | | [address];[place] | | | | | | [address] | | | | + + + + + + | Platelet | 221Comment: Testing | 150 - 400 K/uL | EXTERNAL | | | Count | performed at [facility];[address] | | LAB | | | Plasma | [address];[place] | | | | | | [address] | | | | + + + + + + | MPV | 7.5Comment: Testing | fl | EXTERNAL | | | | performed at [facility];[address] | | LAB | | | | [address];[place] | | | | | | [address] | | | | + + + + + + | Differentia | AUTOMATEDComment: | | EXTERNAL | | | l Type | Testing performed at | | LAB | | | | [facility];[address] | | | | | [address];[place] [address] | | | | + + + + + + | % Segmented | 75.5Comment: Testing | % | EXTERNAL | | | | performed at [facility];[address] | | LAB | | | Neutrophils | [address];[place] | | | | | | [address] | | | | + + + + + + | % | 16.8Comment: Testing | % | EXTERNAL | | | Lymphocytes | performed at [facility];[address] | | LAB | | | | [address];[place] | | | | | | [address] | | | | + + + + + + | % Monocytes | 5.6Comment: Testing | % | EXTERNAL | | | | performed at [facility];[address] | | LAB | | | | [address];[place] | | | | | | [address] | | | | + + + + + + | % | 1.7Comment: Testing | % | EXTERNAL | | | Eosinophils | performed at [facility];[address] | | LAB | | | | [address];[place] | | | | | | [address] | | | | + + + + + + | % Basophils | 0.4Comment: Testing | % | EXTERNAL | | | | performed at [facility];[address] | | LAB | | | | [address];[place] | | | | | | [address] | | | | + + + + + + | Absolute | 8.8 (H)Comment: Testing | 1.9 - 7.4 K/uL | EXTERNAL | | | Segmented | performed at [facility];[address] | | LAB | | | Neutrophils | [address];[place] | | | | | | [address] | | | | + + + + + + | Absolute | 2.0Comment: Testing | 1.0 - 3.9 K/uL | EXTERNAL | | | Lymphocytes | performed at [facility];[address] | | LAB | | | | [address];[place] | | | | | | [address] | | | | + + + + + + | Absolute | 0.7Comment: Testing | 0 - 0.8 K/uL | EXTERNAL | | | Monocytes | performed at [facility];[address] | | LAB | | | | [address];[place] | | | | | | [address] | | | | + + + + + + | Absolute | 0.2Comment: Testing | 0 - 0.5 K/uL | EXTERNAL | | | Eosinophils | performed at [facility];[address] | | LAB | | | | [address];[place] | | | | | | [address] | | | | + + + + + + | Absolute | 0.0Comment: Testing | 0 - 0.1 K/uL | EXTERNAL | | | Basophils | performed at [facility];[address] | | LAB | | | | [address];[place] | | | | | | [address] | | | | + + + + + + | Rubella IgG | 21.1Comment: | IU/mL | EXTERNAL | | | Ab, Screen | Susceptible: | | LAB | | | | <5.0 Indeterminate: | | | | | | 5 to 10 Immune: | | | | | | >10Testing | | | | | | performed at [facility], [address] | | | | | | [facility], | | | | | | [place] [address] | | | | + + + + + + | Treponema | NEGATIVEComment: | | EXTERNAL | | | Pallidum Ab | NEGATIVE FOR SYPHILIS | | LAB | | | Total | ANTIBODIES.Testing | | | | | | performed at [facility], [address] | | | | | | [address] | | | | | | [place] [address] | | | | + + + + + + | Hepatitis B | NON REACTIVEComment: | | EXTERNAL | | | Surface Ag | Testing performed at | | LAB | | | | [facility], [address] [facility] | | | | | | [place] | | | | | | [address] | | | | + + + [...] EXTERNAL | | | | performed at [facility];888 | | LAB | | | | [address];[place], [place] | | | | | | [address] | | | | + + + [...] EXTERNAL | | | | performed at [facility];888 | | LAB | | | | Timothy Becker;[place], [place] | | | | | | [address] | | | | + + + [...] EXTERNAL | | | | performed at [facility];888 | mmol/L | LAB | | | | Timothy Becker;[place], [place] | | | | | | [address] | | | | + + + + + + | K | 3.7Comment: Testing | 3.5 - 4.9 | EXTERNAL | | | | performed at [facility];888 | mmol/L | LAB | | | | [address];[place] | | | | | | [address] | | | | + + + + + + | Cl | 108Comment: Testing | 99 - 109 mmol/L | EXTERNAL | | | | performed at [facility];888 | | LAB | | | | [address];[place] | | | | | | [address] | | | | + + + + + + | CO2 | 22 (L)Comment: Testing | 23 - 32 mmol/L | EXTERNAL | | | | performed at [facility];888 | | LAB | | | | [address];[place] | | | | | | [address] | | | | + + + + + + | Anion Gap | 12Comment: Testing | 5 - 20 mmol/L | EXTERNAL | | | | performed at [facility];888 | | LAB | | | | [address];[place] | | | | | | [address] | | | | + + + + + + | Glucose, | 77Comment: Testing | 65 - 99 mg/dL | EXTERNAL | | | Fasting | performed at [facility];888 | | LAB | | | | [address];[place] | | | | | | [address] | | | | + + + + + + | BUN | 12Comment: Testing | 8 - 25 mg/dL | EXTERNAL | | | | performed at [facility];[address] | | LAB | | | | [address];[place] | | | | | | [address] | | | | + + + + + + | Creatinine | 0.55Comment: Testing | 0.50 - 1.00 | EXTERNAL | | | | performed at [facility];888 | mg/dL | LAB | | | | [address];[place] | | | | | | [address] | | | | + + + + + + | BUN/Creatin | 22Comment: Testing | | EXTERNAL | | | ine Ratio | performed at [facility];888 | | LAB | | | | [address];[place] | | | | | | [address] | | | | + + + + + + | Calcium | 8.1 (L)Comment: Testing | 8.5 - 10.2 | EXTERNAL | | | | performed at [facility];888 | mg/dL | LAB | | | | [address];[place] | | | | | | [address] | | | | + + + + + + | Protein, | 6.2 (L)Comment: Testing | 6.3 - 8.2 g/dL | EXTERNAL | | | Total | performed at [facility];888 | | LAB | | | | [address];[place] | | | | | | [address] | | | | + + + + + + | Albumin | 2.0 (L)Comment: Testing | 3.6 - 5.0 g/dL | EXTERNAL | | | | performed at [facility];888 | | LAB | | | | [address];[place] | | | | | | [address] | | | | + + + + + + | Globulin | 4.2Comment: Testing | 1.3 - 4.9 g/dL | EXTERNAL | | | | performed at [facility];888 | | LAB | | | | [address];[place] | | | | | | [address] | | | | + + + + + + | A/G Ratio | 0.5 (L)Comment: Testing | 1.0 - 2.4 | EXTERNAL | | | | performed at [facility];888 | | LAB | | | | [address];[place] | | | | | | [address] | | | | + + + + + + | Bilirubin | 0.2Comment: Testing | 0.1 - 1.5 mg/dL | EXTERNAL | | | Total | performed at [facility];888 | | LAB | | | | [address];[place] | | | | | | [address] | | | | + + + + + + | ALP, | 225 (H)Comment: Testing | 35 - 115 U/L | EXTERNAL | | | External | performed at [facility];[address] | | LAB | | | | [address];[place] | | | | | | [address] | | | | + + + + + + | AST | 18Comment: Testing | 10 - 45 U/L | EXTERNAL | | | | performed at [facility];[address] | | LAB | | | | [address];[place] | | | | | | [address] | | | | + + + + + + | ALT | 12Comment: Testing | 10 - 65 U/L | EXTERNAL | | | | performed at [facility];[address] | | LAB | | | | [address];[place] | | | | | | [address] | | | | + + + [...] | | | | | | at [facility];[address] [place] [address] | | | | | | [facility];[place] [address] | | | | + + + [...] EXTERNAL | | | | performed at [facility] | | LAB | | | | [facility];[place], [place] | | | | | | [address] | | | | + + + [...] | | | | | performed at [facility], [address] | | | | | | [address] | | | | | | [place] [address] | | | | + + + + + + | Result | NOT DETECTEDComment: | | EXTERNAL | | | | Testing performed at | | LAB | | | | [facility], [address] | | | | | | [place] | | | | | | [address] | | | | + + + [...] | | | Screen, | performed at [facility];888 | | | | | UA, POC | [address];[place] | | | | | | [address] | | | | + + + + + + | Barbiturate | NEGATIVEComment: | | EXTERNAL | | | s Screen, | Positive cutoff for | | LAB | | | Urine | ONEIL = 200 ng/mLTesting | | | | | | performed at [facility];888 | | | | | | [address];[place] | | | | | | [address] | | | | + + + + + + | Benzodiazep | NEGATIVEComment: | | EXTERNAL | | | melissa | Positive cutoff for | | LAB | | | Screen, | BENZO = 200 ng/mLTesting | | | | | Urine | performed at [facility];888 | | | | | | [address];[place] | | | | | | [address] | | | | + + + + + + | Cocaine | NEGATIVEComment: | | EXTERNAL | | | | Positive cutoff for | | LAB | | | | OBINNA = 300 ng/mLTesting | | | | | | performed at [facility];[address] | | | | | | [address];[place] | | | | | | [address] | | | | + + + + + + | Methadone | NEGATIVEComment: | | EXTERNAL | | | | Positive cutoff for | | LAB | | | | MTD = 300 ng/mLTesting | | | | | | performed at [facility];888 | | | | | | [address];[place] | | | | | | [address] | | | | + + + + + + | Opiates | NEGATIVEComment: | | EXTERNAL | | | | Positive cutoff for | | LAB | | | | OPI = 300 ng/mLTesting | | | | | | performed at [facility];[address] | | | | | | [address];[place] | | | | | | [address] | | | | + + + + + + | PCP | NEGATIVEComment: | | EXTERNAL | | | | Positive cutoff for PCP | | LAB | | | | = 25 ng/mLTesting | | | | | | performed at [facility];888 | | | | | | [address];[place] | | | | | | [address] | | | | + + + [...] | | | | | performed at [facility];[address] | | | | | | [address];[place] | | | | | | [address] | | | | + + + [...]
--- OUTSIDE RECORDS SUMMARY | ~2019-11-25 | XMS | Encounter Summary ---
Demographics + + + | Address | [address] | | | [place] [address] | + + + | Home Phone | | + + + | Preferred Language | Unknown | + + + | Marital Status | Single | + + + | Baptism Affiliation | Unknown | + + + | Race | Unknown | + + + | Ethnic Group | Unknown | + + + Author + + + | Author | [facility] | | | and [place] | + + + | Organization | [facility] | | | and [place] | + + + | Address | Unknown | + + + | Phone | Unavailable | + + + Support + + +---------+ + | Name | Relationship | Address | Phone | + + +---------+ + | Adrianna Reynoso | ECON | Unknown | | + + +---------+ + | iVcente Scott | ECON | Unknown | | + + +---------+ + Care Team Providers + +------+ + | Care Health Outreach Worker Name | Role | Phone | + +------+ + PCP | Unavailable | + +------+ + Encounter Details +--------+ + + + + | Date | Type | Department | Care Team | Description | +--------+ + + + + | 02/23/ | Orders Only | [facility] | [place], | Vertebral | | 2019 | | [facility] | MD [address] | osteomyelitis ([facility]) | | | | CARE FLOOR [address] | (Primary Dx) | | | | [address] | [place] [address] | | | | | [place], [place] | [phone] | | | | | [address] | | | | | | [phone] | | | +--------+ + + + [...] | | + +------+--------+ + + | Misc Lab Referral | Lab | Routin | Vertebral | 1 Occurrences | | | | e | osteomyelitis (HCC) | starting 02/23/2019 | | | | | | until 06/12/2019 | + +------+--------+ + + documented as of this encounter Visit Diagnoses + + | Diagnosis | + + | Vertebral osteomyelitis (HCC) - Primary Unspecified osteomyelitis, other specified | | site | + + documented in this encounter"
--- OUTSIDE RECORDS SUMMARY | ~2019-11-25 | XMS | Encounter Summary ---
Demographics + + + | Address | [address] | | | [place] [address] | + + + | Home Phone | | + + + | Preferred Language | Unknown | + + + | Marital Status | Single | + + + | Lutheran Affiliation | Unknown | + + + [...] Team Providers + +------+ + | Care Community Relations Representative Name | Role | Phone | + [...] + + | 11/13/ | Refill | [facility] | Shlomo Wright, | Medication Refill | | 2019 | | [facility] | [address] | | | | | [facility] | [address] [place], | | | | | [address] | [place] [address] | | | | | [address] [place], | [phone] | | | | | [place] [address] | | | | | | [phone] | | | +--------+--------+ + + + [...]
--- OUTSIDE RECORDS SUMMARY | ~2019-11-25 | XMS | Clinical Summary ---
Demographics + + + | Address | [address] | | | [place] [address] | + + + | Home Phone | | + + + | Preferred Language | Unknown | + + + | Marital Status | Single | + + + | Holiness Affiliation | Unknown | + + + | Race | Unknown | + + + | Ethnic Group | Unknown | + + + Author + + + | Author | [facility] [facility] (Historical as of | | | 02-18-19) | + + + | Organization | [facility] (Historical as of | | | [...] Team Providers + +------+ + | Care Ethanol Maintenance Mechanic Name | Role | Phone | + [...] + + + | IV drug abuse ([facility]) | 06/11/2018 | + + + | IVDA (intravenous drug abuse) complicating ([facility]) | 06/10/2018 | + + + | Vertebral osteomyelitis ([facility]) | 06/10/2018 | + + + | [...] +------+-------+ + | MEDICAID | [place] | [id number] | | | [address] | | | N | | | | [place] | | | [place] | | | | [address] | | | SALES AND PRODUCTION MANAGER | | | | | + +--------+ [...] Self | [birth year] Home: | [address] | | | al/[place] | | 1989 | [phone] | [address] [place] | | | [place] | | | [phone] | + +--------+ +--------+ + +
--- OUTSIDE RECORDS SUMMARY | ~2019-11-25 | XMS | Encounter Summary ---
Demographics + + + | Address | [address] | | | [place] [address] | + + + | Home Phone [...] Team Providers + +------+ + | Care Coroner Technician Name | Role | Phone | + +------+ + PCP | Unavailable | + +------+ + Encounter Details +--------+ + + + + | Date | Type | Department | Care Team | Description | +--------+ + + + + | 10/05/ | Emergency | [facility] | Sesar Rodrigues, | Abdominal Pain, | | 2007 - | | [facility] | MD [address] | Unspecified Site | | | | EMERGENCY CENTER | [place] [address] | | | 04/09/ | | [address] | [phone] | | | 2007 | | [place], [place] | | | | | | [address] | | | | | | [phone] | | | +--------+ + + + [...]
--- OUTSIDE RECORDS SUMMARY | ~2019-11-25 | XMS | Encounter Summary ---
Demographics + + + | Address | [address] | | | [place] [address] | + + + | Home Phone | | + + + | Preferred Language | Unknown | + + + | Marital Status | Single | + + + | Hinduism Affiliation | Unknown | + + + | Race | Unknown | + + + | Ethnic Group | Unknown | + + + Author + + + | Author | [facility] | | | and [place] | + + + | Organization | [facility] | | | and [...] Team Providers + +------+ + | Care Day Care Director Name | Role | Phone | [...] + + | 11/15/ | Routine | [facility] | Henrietta Soto | [place]: 40w4d | | 2020 | | [facility] | [address] | | | | | [facility] | [address] | | | | | [address] | [place] [address] | | | | | [address] [place], | [phone] | | | | | [place] [address] | | | | | | [phone] | | | +--------+ + + + [...] PDTInduction on Wednesday at 4pm. Go to [facility] to check in. documented [...] labor. F/U at induction. P Yaa Chino, Clinic Scheduler - 11/16/2019 3:40 PM [id number] BP 144/86 | Wt 90.7 kg [...]
--- OUTSIDE RECORDS SUMMARY | ~2019-11-25 | XMS | Encounter Summary ---
Demographics + + + | Address | [address] | | | [place] [address] | + + + | Home Phone | | + + + | Preferred Language | Unknown | + + + | Marital Status | Single | + + + | Rastafari Affiliation | Unknown | + + + [...] Team Providers + +------+ + | Care First Sampler Name | Role | Phone | + [...] + + | 11/12/ | Telephone | [facility] | Tanya Nix RN | Scheduled Induction | | 2020 | | [facility] | | | | | | [facility] | | | | | | [address] | | | | | | [address] [place], | | | | | | [place] [address] | | | | | | [phone] | | | +--------+ + + + [...]
--- OUTSIDE RECORDS SUMMARY | ~2019-11-25 | XMS | Encounter Summary ---
Demographics + + + | Address | [address] | | | [place] [address] | + + + | Home Phone | | + + + | Preferred Language | Unknown | + + + | Marital Status | Single | + + + | Temple Affiliation | Unknown | + + + | Race | Unknown | + + + | Ethnic Group | Unknown | + + + Author + + + | Author | [facility] | | | and [place] | + + + | Organization | [facility] | | | and [...] Team Providers + +------+ + | Care Book Coverer Name | Role | Phone | + +------+ + | Evelyn Whitehead DO | PCP | | + +------+ + Reason for Visit + + + | Reason | Comments | + + + | Scheduled Induction | contractions today | + + + Auth/Cert +--------+--------+ + + + + | [...] + + | 11/17/ | Hospital | [facility] | Sammy [place], | | | 2020 - | Encounter | [facility] | [address] | | | | | [address] | [address], | | | 11/19/ | | [address] [place] | [place] [address] | | | 2020 | | [place], [place] | [phone] | | | | | [address] | | | | | | [phone] | | | +--------+ + + + [...] + + + documented in this encounter Functional Status + + + + | Functional Status | Response | Date of Assessment | + + + + | Are you deaf or do you have serious | No | 11/18/2019 | | difficulty hearing? | | | + + + + | Are you blind or do you have serious | No | 11/18/2019 | | difficulty seeing, even when wearing | | | | glasses? | | | + + + + | Do you have serious difficulty walking or | No | 11/18/2019 | | climbing stairs? (5 years old or older) | | | + + + + | Do you have difficulty dressing or bathing? | No | 11/18/2019 | | (5 years old or older) | | | + + + + | Because of a physical, mental, or emotional | No | 11/18/2019 | | condition, do you have difficulty doing | | | | errands alone such as visiting a doctor's | | | | office or shopping? [15 years old or | | | | older)] | | | + + + + + + + + | Cognitive Status | Response | Date of Assessment | + + + + | Because of a physical, mental, or emotional | No | 11/18/2019 | | condition, do you have serious difficulty | | | | concentrating, remembering, or making | | | | decisions? (5 years old or older) | | | + + + + documented as of this encounter Discharge Summaries Shivam Allen MD - 11/20/2019 7:34 AM PDTFormatting of this note might be different fr om the original. Service: Obstetrics Physician Discharge Summary Solange Pederson - 11/20/2019 APW Zoning Technician: Dr. Joshua Admitted on: 11/18/2019 Discharged on 11/20/2019 DISCHARGE DIAGNOSES: status post normal spontaneous vaginal delivery Active Problems: Methadone use Tobacco abuse Obesity Mild intermittent asthma without complication Depression during in third trimester Gestational hypertension, third trimester Normal spontaneous vaginal delivery Delivery outcome of single liveborn male PROCEDURES: Normal spontaneous vaginal delivery HOSPITAL COURSE: Solange Pederson is a 41w0d on methadone who was admitted on 11/18/2019 for medical i nduction of labor due to post dates. She delivered vaginally on 11/19/19. Please see delivery note for specific details regarding delivery. Briefly, mother progresse d to second stage of labor. delivered spontaneously and passed off to NICU nurse for evaluation and transitional care. Mother and both tolerated the procedure well. Solange Pederson's course was complicated by some elevated diastolic blood pressu re's >100, asymptomatic. She was started on labetalol 200mg BID with improvement in blood pr essure. Patient was was provided nicotine patch due to her dependance. Patient and s/o noted to have left room to smoke and RN with lead RN reviewed behavior contract again with patien t due to violation. Patient and s/o apologized for violation and agreed to contract. She was afebrile, tolerated diet, ambulated, regained bowel function and voided with no difficulty. Uterus well contracted with minimal bleeding. At discharge she was ambulating well, eating a regular diet and her pain was well controlle d on oral pain medication. On 11/19 patient was clinically stable for discharge with instruc tions to check her blood pressure daily, continue her labetalol BID, prescription provided, and to follow up in 1 week for blood pressure check as well as 6 weeks for post check . Patient noted understanding. PHYSICAL EXAM BP 138/88 | Pulse 87 | Temp 36.7 C (98.1 F) (Oral) | Resp 16 | Ht 1.664 m (5' 5.5") | Wt 103 kg (227 lb 1.2 oz) | SpO2 96% | Unknown | BMI 37.21 kg/m General: no apparent distress, standing up next to sink preparing to leave HEENT: normocephalic atraumatic Neck: supple Cardiac: regular rate and rhythm Chest/Pulmonary: CTAB Abdominal: Soft, appropriately tender to palpation, nondistended. Fundus firm and at level of umbilicus. Extremities: moves all extremities equally. 1+ bilateral lower extremity edema Skin: warm and well-perfused Neurological: nonfocal. Alert LABS: Lab Results Component Value Date WBC 16.77 (H) 11/19/2019 HGB 11.5 11/19/2019 HCT 35.2 11/19/2019 MCV 86.1 11/19/2019 PLT 204 11/19/2019 DISCHARGE INSTRUCTIONS: Patient stable in good condition Discharge to home visit 6 weeks Follow-up for fever (greater than 100.4 F), Heavy vaginal bleeding, signs of incisional i nfection, increasing pain or tenderness, signs of mastitis. Vaginal Rest: No tampons, douching or intercourse until final post-operative visit. No heavy lifting (greater than 15 pounds) for 1 month DISCHARGE MEDICATIONS: Discharge Medications New Medications Details acetaminophen 500 mg tablet Take 2 tablets by mouth every 8 hours. aka: TYLENOL docusate sodium 100 MG capsule Take 100 mg by mouth Twice daily as needed for Constipation. aka: COLACE ibuprofen 800 MG tablet Take 1 tablet by mouth every 8 hours. aka: ADVIL,MOTRIN labetalol 200 mg tablet Take 1 tablet by mouth 2 times daily. aka: NORMODYNE Unchanged Medications Details albuterol 2.5 mg/3 mL nebulizer solution Take 2.5 mg by nebulization every 6 (six) hours as needed. Indications: Acute Bronchospasm albuterol 90 mcg/puff inhaler Inhale 2 puffs into the lungs every 4 hours as needed. aspirin 81 mg chewable tablet famotidine 20 mg tablet take 1 tablet by mouth twice a day aka: PEPCID methadone 10 mg tablet Take 75 mg by mouth Daily. NARCAN 4 mg/nasal spray Generic drug: naloxone MV-MIN-FE FUM-FA-DHA PO Take by mouth. Discontinued Medications azithromycin 250 mg tablet aka: ZITHROMAX The preceding was discussed with Carol Joshua MD who agreed with the assessment a nd plan. Shivam Allen MD Resident Physician [facility] [place], [place] 11/20/2019 7:44 AM Associated attestation - Carol Joshua MD - 11/20/2019 8:45 AM PDTRoutine postpa rtum course Discharged PPD1 Normal vitals F/u 6 weeksdocumented in this encounter Discharge Instructions Instructions Lizabeth Polanco RN - 11/20/2019POSTPARTUM DISCHARGE INSTRUCTIONS Warning Signs Check List Notify your clinician immediately if you are experiencing any of the following: Heavy bleeding from the vagina (blood is bright-red and soaks a pad in an hour or less) Normal bleeding decreases in amount over time and is: Bright-red (lasts two to three days). Pinkish or brown (lasts from about the third day to the tenth day). Creamy or yellow (usually lasts one to two weeks). Discharge from the vagina that has a bad odor. Temperature over 100.4 (38 C) or you feel cold and have the chills (you are shiv ering). Urination that is painful, difficult, or too frequent. Difficulty having a bowel movement. Painful, very red, and swollen incision or leaking of any fluids. Breasts that are full and or/painful (swollen, hot, tight, itchy, lumpy, shiny, flat nip ples, or sore spots with flu-like symptoms). Pain that becomes worse and unrelieved by medication. Trouble breathing, dizziness, or faintness. Crying spells or mood swings that feel out of control. Pain, redness, warmth or firmness in the lower calf. Unusual or excessive swelling in your face or hands. Severe or constant headaches. Blurred vision or spots in front of your eyes. Sudden weight gain of more than one pound a day for several days. Persistent pain in the upper right part of your abdomen. Activity/Exercise Do not drive while you are taking narcotics. If you had a section, try driving maneuvers while parked to ensure no increase in incisional pain. Gradually increase your daily activities until you are back to your normal routine. Rest frequently. Remember to continue to drink plenty of fluids and eat frequently if yo u are . Heavy lifting or other strenuous exertion is unlikely to disrupt your incision or lacera tion but it may cause an increase in pain. Your provider will tell you if additional restric tions apply to you. Bowels and Regularity constipation is common; you make take Docusate sodium or Milk of Magnesia to alleviate discomfort Painful bowel movements or rectal pain may result from hemorrhoids; use Tucks and/or top ical treatment like Anusol-HC. Sitz baths can also help. Normal Bleeding Vaginal spotting may last up to six weeks. It is important that you change your pad on a regular basis. Your menstrual period may occur as early as six weeks to two months after your delivery. Care of Stitches You should feel less discomfort every day from your stitches. Perineal stitches will dissolve within 2-4 weeks. You may shower or bathe with stitches; drip plain or soapy water over the incision and d ry gently with a clean towel. If you have nabil you may shower (no tub bathing), and dry g ently with a clean towel. If you had any nabil that were not removed during your hospitalization they will need to be removed in your provider's office. Steri-strips may fall off on their own or can be removed at post-op visit. Sex/Douching/Tampons Do not place anything in the vagina for the first six weeks after delivery. Your healthcare provider may advise you to wait up to six weeks for intercourse. Once th e bleeding has stopped, it is alright to have intercourse if you feel ready. Keep in mind yo u are at risk of getting . You may find your vagina feels dry, making sex uncomfortable. This can last several bandar hs due to changing hormone levels. To help lubricate your vagina, you may purchase a waterso luble lubricant (e.g., Astroglide) from your local drug store. This will help make intercour se more comfortable. documented in this encounter Medications at Time of Discharge + + + +---------+ + + | Medication | Sig | Dispensed | Refills | Start | End Date | | | | | | Date | | + + + +---------+ + + | acetaminophen | Take 2 tablets by | 30 | 0 | 11/20/19 | | | (TYLENOL) 500 mg | mouth every 8 hours. | tablet | | 20 | | | tablet | | | | | | + [...] + + +---------+ + + | docusate sodium | Take 100 mg by mouth | 60 | 0 | 11/20/19 | | | (COLACE) 100 MG | Twice daily as | capsule | | 20 | | | capsule | needed for | | | | | | | Constipation. | | | | | + + + +---------+ + + | famotidine | take 1 tablet by | 60 | 0 | 11/15/19 | | | (PEPCID) 20 mg | mouth twice a day | tablet | | 20 | | | tabletIndications: | | | | | | | Heartburn in | | | | | | | in third | | | | | | | trimester | | | | | | + + + +---------+ + + | ibuprofen | Take 1 tablet by | 30 | 0 | 11/20/19 | | | (ADVIL,MOTRIN) 800 | mouth every 8 hours. | tablet | | 20 | | | MG tablet | | | | | | + + + +---------+ + + | labetalol | Take 1 tablet by | 60 | 0 | 11/20/19 | | | (NORMODYNE) 200 mg | mouth 2 times daily. | tablet | | 20 | | | tablet | | | | | | + [...] documented as of this encounter Progress Notes Ava Guy RN - 11/20/2019 3:15 AM PDTPt out with significant other in h all. RN asked if pt was heading to NICU to visit infant. Pt replied "yes, probably." After R N escorted another pt to NICU, RN checked with ANIMAL HUSBANDRY WORKER about pt visiting . ANIMAL HUSBANDRY WORKER rep orted not seeing parents since earlier in shift. Pt not in room either. RN reported to lead RN of situation and security was notified of behavior contract violation. RN and lead RN rev iewed contract with pt and s/o who were agreeable and apologized for leaving room to go smok e. angsAva Colby RN - 11/19/2019 9:00 PM PDTRN to pt room. Pt in NICU skin to skin wit h . RN requested pt back to room when done in 30 min to acquire VS and perform assessm ent. sabella Kent RN - 11/19/2019 10:30 AM PDTPt called me in to room to inform me that she acc identally pulled her iv out and her nicotene patch fell off in the shower. Pt states she is ok without new patch. documented in this encounter Plan of Treatment [...] + + documented in this encounter Results CBC no Differential (11/19/2019 5:22 AM PDT) + + + + + [...] performed at [facility], [address] | | | | | [address], | | | | | | [place] [address] | | | | + + + + + + + + | Specimen | + + | Blood | + + + + + + + | Performing | Address | City/State/Zipcode | Phone Number | | Organization | | | | + + + + + | [facility] | [address] | [place] [address] | [phone] | + + + + + Protein, Urine, Random (11/18/2019 10:08 PM PDT) + + + + + + | Component | Value | Ref Range | Performed | Pathologist | | | | | At | Signature | + + + + + + | Protein, | 10Comment: NO NORMAL | mg/dL | [facility] | | | Urine | [facility] | | [facility] | | | | performed at [facility], [address] | | | | | [address], | | | | | | [place] [address] | | | | + + + + + + + + | Specimen | + + | | + + + + + + + | Performing | Address | City/State/Zipcode | Phone Number | | Organization | | | | + + + + + | [facility] | [address] | [place] [address] | [phone] | + + + + + Creatinine, Urine, Random (11/18/2019 10:08 PM PDT) + + + + + + | Component | Value | Ref Range | Performed | Pathologist | | | | | At | Signature | + + + + + + | Creatinine, | 45.0Comment: NO NORMAL | mg/dL | [facility] | | | random | [facility] | | LAB[facility]ATORY | | | urine | performed at [facility], [address] | | | | | [address], | | | | | | [place] [address] | | | | + + + + + + + + | Specimen | + + | | + + + + + + + | Performing | Address | City/State/Zipcode | Phone Number | | Organization | | | | + + + + + | [facility] | [address] | [place] [address] | [phone] | + + + + + Protein/Creatinine Ratio, Urine (11/18/2019 10:08 PM PDT) + + + + + + | Component | Value | Ref Range | Performed | Pathologist | | | | | At | Signature | + + + + + + | PRO/CREA | 0.222Comment: Testing | | [facility] | | | RATIO,URINE | performed at [facility], [address] | | LABORATORY | | | | [address], | | | | | | [place] [address] | | | | + + + [...] | + + + + + | [facility] | [address] | [place] [address] | [phone] | + + + + + Type [...] | | [facility] | | | | [facility] | LABORATORY | | | | [address];[place] [address] | | | | + + + + + + + + | Specimen | + + | Blood | + + + + + + + | Performing | Address | City/State/Zipcode | Phone Number | | Organization | | | | + + + + + | [facility] | [address] | [place] [address] | [phone] | + + + + + Uric Acid (11/18/2019 8:16 PM PDT) + + + + + + | Component | Value | Ref Range | Performed | Pathologist | | | | | At | Signature | + + + + + + | Uric Acid | 6.7Comment: Testing | 2.2 - 7.1 mg/dL | [facility] | | | | performed at [facility];[address] | | LABORATORY | | | | [address];[place], [place] | | | | | | [address] | | | | + + + + + + + + | Specimen | + + | Blood | + + + + + + + | Performing | Address | City/State/Zipcode | Phone Number | | Organization | | | | + + + + + | [facility] | [address] [facility] | [place] [address] | [phone] | + + + + + Lactate [...] [facility] | | | | performed at [facility];[address] | | LABORATORY | | | | [address];[place], [place] | | | | | | [address] | | | | + + + + + + + + | Specimen | + + | Blood | + + + + + + + | Performing | Address | City/State/Zipcode | Phone Number | | Organization | | | | + + + + + | [facility] | [address] | [place] [address] | [phone] | + + + + + ALT (11/18/2019 8:16 PM PDT) + + + + + + | Component | Value | Ref Range | Performed | Pathologist | | | | | At | Signature | + + + + + + | ALT | 10Comment: Testing | 10 - 65 U/L | [facility] | | | | performed at [facility];[address] | | LABORATORY | | | | [address];[place], [place] | | | | | | [address] | | | | + + + + + + + + | Specimen | + + | Blood | + + + + + + + | Performing | Address | City/State/Zipcode | Phone Number | | Organization | | | | + + + + + | [facility] | [address] | [place] [address] | [phone] | + + + + + AST (11/18/2019 8:16 PM PDT) + + + + + + | Component | Value | Ref Range | Performed | Pathologist | | | | | At | Signature | + + + + + + | AST | 21Comment: Testing | 10 - 45 U/L | [facility] | | | | performed at [facility];[address] | | LABORATORY | | | | [address];[place], [place] | | | | | | [address] | | | | + + + + + + + + | Specimen | + + | Blood | + + + + + + + | Performing | Address | City/State/Zipcode | Phone Number | | Organization | | | | + + + + + | [facility] | [address] | [place] [address] | [phone] | + + + + + Creatinine (11/18/2019 8:16 PM PDT) + + + + + + | Component | Value | Ref Range | Performed | Pathologist | | | | | At | Signature | + + + + + + | Creatinine | 0.66 | 0.50 - 1.00 | [facility] | | | | | mg/dL | LABORATORY | | + + + + + + | Estimated | >60Comment: GFR <60: | >60 | [facility] | | | GFR | CHRONIC KIDNEY [...] | | | | | performed at [facility];[address] | | | | | | [address] [facility];[place], [place] | | | | | | [address] | | | | + + + + + + + + | Specimen | + + | Blood | + + + + + + + | Performing | Address | City/State/Zipcode | Phone Number | | Organization | | | | + + + + + | [facility] | [address] | [place] [address] | [phone] | + + + + + BUN (11/18/2019 8:16 PM PDT) + + + + + + | Component | Value | Ref Range | Performed | Pathologist | | | | | At | Signature | + + + + + + | BUN | 9Comment: Testing | 8 - 25 mg/dL | [facility] | | | | performed at [facility];[address] | | LABORATORY | | | | [address];[place] | | | | | | [address] | | | | + + + + + + + + | Specimen | + + | Blood | + + + + + + + | Performing | Address | City/State/Zipcode | Phone Number | | Organization | | | | + + + + + | [facility] | [address] | [place] [address] | [phone] | + + + + + CBC no Differential (11/18/2019 8:16 PM PDT) + + + + + + | Component | Value | Ref Range | Performed | Pathologist | | | | | At | Signature | + + + + + + | WBC | 11.94 (H) | 3.80 - 11.00 | [facility] | | | | | K/uL | LABORATORY | | + + + + + + | RBC | 3.60 (L) | 3.70 - 5.10 | [facility] | | | | | M/uL | LABORATORY | | + + + + + + | Hemoglobin | 10.3 (L) | 11.3 - 15.5 | [facility] | | | | | g/dL | LABORATORY | | + + + + + + | Hematocrit | 31.7 (L) | 34.0 - 46.0 % | [facility] | | | | | | LABORATORY | | + + + + + + | MCV | 88.1 | 80.0 - 100.0 fl | [facility] | | | | | | LABORATORY | | + + + + + + | MCH | 28.6 | 27.0 - 34.0 pg | [facility] | | | | | | LABORATORY | | + + + + + + | MCHC | 32.5 | 32.0 - 35.5 | [facility] | | | | | g/dL | LABORATORY | | + + + + + + | RDW-SD | 43.3 | 37 - 53 fl | [facility] | | | | | | LABORATORY | | + + + + + + | Platelet | 207 | 150 - 400 K/uL | [facility] | | | Count | | | LABORATORY | | + + + + + + | MPV | 10.1Comment: NO NORMAL | fl | [facility] | | | | [facility] | | LAB[facility]ATORY | | | | performed at [facility];[address] | | | | | | [address];[place], [place] | | | | | | [address] | | | | + + + + + + + + | Specimen | + + | Blood | + + + + + + + | Performing | Address | City/State/Zipcode | Phone Number | | Organization | | | | + + + + + | [facility] | [address] | [place] [address] | [phone] | + + + + + documented in this encounter Visit Diagnoses + + | Diagnosis | + + | Encounter for induction of labor - Primary | + + | Depression during in third trimester | + + | History of retained placenta | + + | Mild intermittent asthma without complication Unspecified asthma | + + | Methadone use (HCC) Opioid type dependence, unspecified | + + | Obesity Obesity, unspecified | + + | Tobacco abuse Tobacco use disorder | + + | Gestational hypertension, third trimester | + + | Normal spontaneous vaginal delivery Normal delivery | + + | Delivery outcome of single liveborn male | + + documented in this encounter Administered Medications + +--------+ + +------+------+ | Medication Order | MAR | Action | Dose | Rate | Site | | | Action | Date | | | | + +--------+ + +------+------+ | acetaminophen (TYLENOL) tablet | Given | 11/20/19 | 1,000 mg | | | | 1,000 mg 1,000 mg, Oral, EVERY 8 | | 20 5:34 | | | | | HOURS INTERVAL, First dose on | | AM PDT | | | | | 11/19/19 at 0245, May be | | | | | | | administered in conjunction with | | | | | | | ibuprofen as Multimodal Pain | | | | | | | Management.., | | | | | | + +--------+ + +------+------+ +-------+ + +---+---+ | Given | 11/19/19 | 1,000 mg | | | | | 20 9:01 | | | | | | PM PDT | | | | +-------+ + +---+---+ | Given | 11/19/19 | 1,000 mg | | | | | 20 1:08 | | | | | | PM PDT | | | | +-------+ + +---+---+ +---+---+ | | | +---+---+ + +-------+ +---+---+---+ | benzocaine 20%-menthol | Given | 11/19/19 | | | | | (DERMOPLAST) topical spray | | 20 3:57 | | | | | Topical, EVERY 6 HOURS PRN, Pain, | | AM PDT | | | | | Starting 11/19/19 at 0219, | | | | | | | , Apply to: Other | | | | | | | (Comment), Other location: | | | | | | | Perineal swelling | | | | | | + +-------+ +---+---+---+ +---+---+ | | | +---+---+ + +-------+ +--------+---+---+ | ibuprofen (ADVIL,MOTRIN) tablet | Given | 11/20/19 | 800 mg | | | | 800 mg 800 mg, Oral, EVERY 8 | | 20 5:34 | | | | | HOURS INTERVAL, First dose on Sun | | AM PDT | | | | | 11/19/19 at 0245, If urine output | | | | | | | is less than 240 mL/8 hours (30 | | | | | | | mL/hr) or if signs of bleeding, | | | | | | | contact MD and hold ibuprofen. | | | | | | | May be administered in | | | | | | | conjunction with acetaminophen as | | | | | | | Multimodal Pain Management., | | | | | | | | | | | | | + +-------+ +--------+---+---+ +-------+ +--------+---+---+ | Given | 11/19/19 | 800 mg | | | | | 20 9:01 | | | | | | PM PDT | | | | +-------+ +--------+---+---+ | Given | 11/19/19 | 800 mg | | | | | 20 1:08 | | | | | | PM PDT | | | | +-------+ +--------+---+---+ +---+---+ | | | +---+---+ + +-------+ +--------+---+---+ | labetalol (NORMODYNE) tablet | Given | 11/19/19 | 200 mg | | | | 200 mg 200 mg, Oral, ONCE, Sun | | 20 6:11 | | | | | 11/19/19 at 0615, For 1 dose | | AM PDT | | | | + +-------+ +--------+---+---+ +---+---+ | | | +---+---+ + +-------+ +--------+---+---+ | labetalol (NORMODYNE) tablet | Given | 11/20/19 | 200 mg | | | | 200 mg 200 mg, Oral, 2 TIMES | | 20 5:35 | | | | | DAILY, First dose on 11/19/19 | | AM PDT | | | | | at 1800 | | | | | | + +-------+ +--------+---+---+ +-------+ +--------+---+---+ | Given | 11/19/19 | 200 mg | | | | | 20 6:10 | | | | | | PM PDT | | | | +-------+ +--------+---+---+ +---+---+ | | | +---+---+ + +---------+ +--------+-------+---+ | lactated ringers (LR) bolus | New Bag | 11/19/19 | 1,000 | 125 | | | 1,000 mL 1,000 mL, Intravenous, | | 20 12:58 | mLs | mL/hr | | | Administer over 2 Hours, ONCE | | AM PDT | | | | | PRN, For SBP < 90mmHg, Starting | | | | | | | 11/18/19 at 2343, For 1 dose | | | | | | + +---------+ +--------+-------+---+ +---+---+ | | | +---+---+ + +---------+ +---+-------+---+ | lactated ringers (LR) infusion | New Bag | 11/18/19 | | 125 | | | at 125 mL/hr, Intravenous, | | 20 10:01 | | mL/hr | | | CONTINUOUS, Starting 11/18/19 | | PM PDT | | | | | at 2045, Labor and Delivery | | | | | | + +---------+ +---+-------+---+ +---------+ +---+-------+---+ | New Bag | 11/18/19 | | 125 | | | | 20 8:40 | | mL/hr | | | | PM PDT | | | | +---------+ +---+-------+---+ +---+---+ | | | +---+---+ + +-------+ +-------+---+---+ | methadone tablet 75 mg 75 mg, | Given | 11/20/19 | 75 mg | | | | Oral, DAILY, First dose on Sun | | 20 5:35 | | | | | 11/19/19 at 0600 | | AM PDT | | | | + +-------+ +-------+---+---+ +-------+ +-------+---+---+ | Given | 11/19/19 | 75 mg | | | | | 20 6:07 | | | | | | AM PDT | | | | +-------+ +-------+---+---+ +---+---+ | | | +---+---+ + +-------+ +---------+---+---+ | miSOPROStol (CYTOTEC) tablet | Given | 11/19/19 | 600 mcg | | | | 600 mcg 600 mcg, Oral, PRN, | | 20 2:10 | | | | | Post- hemorrhage, Starting | | AM PDT | | | | | 11/18/19 at 2022, For 1 dose, | | | | | | | If general anesthesia give per | | | | | | | rectum. May give only after | | | | | | | delivery., | | | | | | + +-------+ +---------+---+---+ + +---+ | | | + +---+ | miSOPROStol (CYTOTEC) tablet | | | 600 mcg 600 mcg, Oral, PRN, | | | Post- hemorrhage, Starting | | | 11/19/19 at 0219, For 1 dose, | | | If general anesthesia give per | | | rectum. May give only after | | | delivery., | | + +---+ | | | + +---+ | miSOPROStol (CYTOTEC) tablet | | | 800 mcg 800 mcg, Rectal, PRN, | | | Post- hemorrhage, Starting | | | 11/19/19 at 0219, For 1 dose, | | | If unable to administer orally. | | | May give only after delivery., | | | | | + +---+ | | | + +---+ + +---------+ +---------+---+ + | nicotine (NICODERM) 21 mg/24 hr | Patch | 11/19/19 | 1 patch | | Deltoid- | | 1 patch 1 patch, Transdermal, | Applied | 20 5:00 | | | Right | | DAILY, First dose on 11/19/19 | | AM PDT | | | | | at 0900 | | | | | | + +---------+ +---------+---+ + +---+---+ | | | +---+---+ + + + + +---------+---+ | oxytocin in saline (PITOCIN) 30 | Rate/Dos | 11/18/19 | 6 | 6 mL/hr | | | units/500 mL (60 gallo-units/mL) | e Change | 20 10:39 | gallo-un | | | | infusion 0-40 gallo-units/min | | PM PDT | its/min | | | | (0-40 mL/hr), at 0-40 mL/hr, | | | | | | | Intravenous, TITRATED, Starting | | | | | | | 11/18/19 at 2045, Do not | | | | | | | increase rate if there is | | | | | | | tachysystole (Greater than 5 | | | | | | | contractions in 10 minutes | | | | | | | averaged over 30 minutes) or | | | | | | | concern regarding tracing. | | | | | | | For tachysystole, | | | | | | | indications or increased baseline | | | | | | | uterine tone, notify provider | | | | | | | and stop or decrease oxytocin | | | | | | | infusion per unit policy until | | | | | | | the indication has ceased. | | | | | | | Restart the infusion per policy | | | | | | | or at 50% or less of the previous | | | | | | | rate., Standard | | | | | | | (Augmentation/Induction) | | | | | | | Management: Dose 0-40 | | | | | | | gallo-units/min, Initial dose: | | | | | | | 1-2 gallo-units/min, Increase | | | | | | | rate by: no greater than 2 | | | | | | | gallo-units/min every 30 minutes, | | | | | | | Max dose for | | | | | | | augmentation/induction: 20 | | | | | | | gallo-units/min, Call provider to | | | | | | | increase above 20 | | | | | | | gallo-units/min. Do not increase | | | | | | | above 40 gallo-units/min. | | | | | | + + + + +---------+---+ + + + +---------+---+ | Rate/Dose Change | 11/18/19 | 4 | 4 mL/hr | | | | 20 10:28 | gallo-un | | | | | PM PDT | its/min | | | + + + +---------+---+ | New Bag | 11/18/19 | 2 | 2 mL/hr | | | | 20 10:01 | gallo-un | | | | | PM PDT | its/min | | | + + + +---------+---+ +---+---+ | | | +---+---+ + +-------+ + +---+---+ | 27-0.8 mg multivitamin | Given | 11/19/19 | 1 tablet | | | | 1 tablet 1 tablet, Oral, DAILY, | | 20 1:08 | | | | | First dose on 11/19/19 at | | PM PDT | | | | | 0900, | | | | | | + +-------+ + +---+---+ +---+---+ | | | +---+---+ + +-------+ +--------+---+---+ | witagustin chucky-glycerin (TANIA) | Given | 11/19/19 | 1 each | | | | pad 1 each 1 each, Topical, | | 20 3:57 | | | | | EVERY 1 HOUR PRN, Discomfort, | | AM PDT | | | | | Starting 11/19/19 at 0219, | | | | | | | , Apply to: Other | | | | | | | (Comment), Other location: | | | | | | | Perineal swelling | | | | | | + +-------+ +--------+---+---+ +---+---+ | | | +---+---+ documented in this encounter
--- OUTSIDE RECORDS SUMMARY | ~2019-11-25 | XMS | Encounter Summary ---
Demographics + + + | Address | [address] | | | [place] [address] | + + + | Home Phone [...] + + + | Author | [facility] | | | and [place] | + + + | Organization | [facility] | | | [...] Team Providers + +------+ + | Care Laboratory Geneticist Name | Role | Phone | + [...] + + | 11/17/ | Hospital | [facility] | Sammy Colunga, | | | 2020 - | Encounter | MEDICAL CENTER | [address] | | | | | [address] | [address], | | | 11/19/ | | [address] | [place] [address] | | | 2020 | | [place], [place] | [phone] | | | | | [address] | | | | | | [phone] | | | +--------+ + + + [...] might be different fr om the original. [facility] Service: Obstetrics Physician Discharge Summary Solange Pederson - 11/20/2019 APW Gas Line Servicer: Dr. Joshua Admitted on: 11/18/2019 Discharged on [...] nd plan. Shivam Allen MD Resident Physician [facility] [place], [place] 11/20/2019 7:44 AM Associated attestation - [...] another pt to NICU, RN checked with CLERICAL SUPPORT about pt visiting . CLERICAL SUPPORT rep orted not seeing parents since earlier [...] LABORATORY | | | | performed at [facility], [address] | | | | | [address], | | | | | | [place] [address] | | | | + + + + + + + + | Specimen | + + | Blood | + + + + + + + | Performing | Address | City/State/Zipcode | Phone Number | | Organization | | | | + + + + + | [facility] | [address] | [place] [address] | [phone] | + + + + + Protein, Urine, Random (11/18/2019 10:08 PM PDT) + + + + + + | Component | Value | Ref Range | Performed | Pathologist | | | | | At | Signature | + + + + + + | Protein, | 10Comment: NO NORMAL | mg/dL | [facility] | | | Urine | [facility] | | LABORATORY | | | | performed at [facility], [address] | | | | | [address], | | | | | | [place] [address] | | | | + + + + + + + + | Specimen | + + | | + + + + + + + | Performing | Address | City/State/Zipcode | Phone Number | | Organization | | | | + + + + + | [facility] | [address] | [place] [address] | [phone] | + + + + + Creatinine, Urine, Random (11/18/2019 10:08 PM PDT) + + + + + + | Component | Value | Ref Range | Performed | Pathologist | | | | | At | Signature | + + + + + + | Creatinine, | 45.0Comment: NO NORMAL | mg/dL | [facility] | | | random | [facility] | | LABORATORY | | | urine | performed at [facility], [address] | | | | | [address], | | | | | | [place] [address] | | | | + + + + + + + + | Specimen | + + | | + + + + + + + | Performing | Address | City/State/Zipcode | Phone Number | | Organization | | | | + + + + + | [facility] | [address] | [place] [address] | [phone] | + + + + + Protein/Creatinine Ratio, Urine (11/18/2019 10:08 PM PDT) + + + + + + | Component | Value | Ref Range | Performed | Pathologist | | | | | At | Signature | + + + + + + | PRO/CREA | 0.222Comment: Testing | | [facility] | | | RATIO,URINE | performed at [facility], [address] | | LABORATORY | | | | [address], | | | | | | [place] [address] | | | | + + + [...] | + + + + + | [facility] | [address] | [place] [address] | [phone] | + + + + + Type [...] | | LABORATORY | | | | Blvd;[place] [address] | | | | + + + + + + + + | Specimen | + + | Blood | + + + + + + + | Performing | Address | City/State/Zipcode | Phone Number | | Organization | | | | + + + + + | [facility] | [address] | [place] [address] | [phone] | + + + + + Uric Acid (11/18/2019 8:16 PM PDT) + + + + + + | Component | Value | Ref Range | Performed | Pathologist | | | | | At | Signature | + + + + + + | Uric Acid | 6.7Comment: Testing | 2.2 - 7.1 mg/dL | [facility] | | | | performed at [facility];[address] | | LABORATORY | | | | [address];[place], [place] | | | | | | [address] | | | | + + + + + + + + | Specimen | + + | Blood | + + + + + + + | Performing | Address | City/State/Zipcode | Phone Number | | Organization | | | | + + + + + | [facility] | [address] | [place] [address] | [phone] | + + + + + Lactate [...] [facility] | | | | performed at [facility];[address] | | LABORATORY | | | | [address];[place], [place] | | | | | | [address] | | | | + + + + + + + + | Specimen | + + | Blood | + + + + + + + | Performing | Address | City/State/Zipcode | Phone Number | | Organization | | | | + + + + + | [facility] | [address] | [place] [address] | [phone] | + + + + + ALT (11/18/2019 8:16 PM PDT) + + + + + + | Component | Value | Ref Range | Performed | Pathologist | | | | | At | Signature | + + + + + + | ALT | 10Comment: Testing | 10 - 65 U/L | [facility] | | | | performed at [facility];[address] | | LABORATORY | | | | [address];[place], [place] | | | | | | [address] | | | | + + + + + + + + | Specimen | + + | Blood | + + + + + + + | Performing | Address | City/State/Zipcode | Phone Number | | Organization | | | | + + + + + | [facility] | [address] | [place] [address] | [phone] | + + + + + AST (11/18/2019 8:16 PM PDT) + + + + + + | Component | Value | Ref Range | Performed | Pathologist | | | | | At | Signature | + + + + + + | AST | 21Comment: Testing | 10 - 45 U/L | [facility] | | | | performed at [facility];[address] | | LABORATORY | | | | [address];[place], [place] | | | | | | [address] | | | | + + + + + + + + | Specimen | + + | Blood | + + + + + + + | Performing | Address | City/State/Zipcode | Phone Number | | Organization | | | | + + + + + | [facility] | [address] | [place] [address] | [phone] | + + + + + Creatinine [...] | | | | | performed at [facility];[address] | | | | | | [address] [facility] [address];[place], [place] | | | | | | [address] | | | | + + + + + + + + | Specimen | + + | Blood | + + + + + + + | Performing | Address | City/State/Zipcode | Phone Number | | Organization | | | | + + + + + | [facility] | [address] | [place] [address] | [phone] | + + + + + BUN (11/18/2019 8:16 PM PDT) + + + + + + | Component | Value | Ref Range | Performed | Pathologist | | | | | At | Signature | + + + + + + | BUN | 9Comment: Testing | 8 - 25 mg/dL | [facility] | | | | performed at [facility];[address] | | LABORATORY | | | | [address];[place] | | | | | | [address] | | | | + + + + + + + + | Specimen | + + | Blood | + + + + + + + | Performing | Address | City/State/Zipcode | Phone Number | | Organization | | | | + + + + + | [facility] | [address] | [place] [address] | [phone] | + + + + + CBC [...] LABORATORY | | | | performed at [facility];[address] | | | | | | [address];[place], [place] | | | | | | [address] | | | | + + + + + + + + | Specimen | + + | Blood | + + + + + + + | Performing | Address | City/State/Zipcode | Phone Number | | Organization | | | | + + + + + | [facility] | [address] | [place] [address] | [phone] | + + + + + documented [...]
--- OUTSIDE RECORDS SUMMARY | ~2019-11-25 | XMS | Encounter Summary ---
Demographics + + + | Address | [address] | | | [place] [address] | + + + | Home Phone | | + + + | Preferred Language | Unknown | + + + | Marital Status | Single | + + + | Mormonism Affiliation | Unknown | + + + | Race | Unknown | + + + | Ethnic Group | Unknown | + + + Author + + + | Author | [facility] | | | and [place] | + + + | Organization | [facility] | | | and [...] Team Providers + +------+ + | Care News Library Director Name | Role | Phone | [...] + + | 10/18/ | Routine | [facility] | Shlomo Wright, | GA: 36w4d | | 2020 | | ASSOCIATED | MD [address] | | | | | [facility] | [address], | | | | | [address] | [place] [address] | | | | | [address], | [phone] | | | | | [place] [address] | | | | | | [phone] | | | +--------+ + + + [...] Shlomo Wright MD - 10/19/2019 2:30 PM [id number], GP: TWG: Not found., IWG: +6lb . [...] e her symptoms. Prescription for Z-kemar provided. Pool Player not chosen, reminded. GBS collected Note scribed [...] | | REFERENCE | | | | [facility];[address] [facility] | | LAB | | | | Bl;[place] | | [facility] | | | | [id number]: Testing | | LABORATORY | | | | performed at [facility], [address] | | | | | | [facility], | | | | | | [place] [address] | | | | + + + [...] + | REFERENCE LAB | [address] | [place], [place] | [phone] | | [facility] | Blvd. | [address] | | | LABORATORY | | | | + + + + + | REFERENCE LAB | [address] [place] [address] | [place], [place] | | | [facility] | Blvd. | [address] | | | LABORATORY | | | [...]
--- OUTSIDE RECORDS SUMMARY | ~2019-11-25 | XMS | Encounter Summary ---
Demographics + + + | Address | [address] | | | [place] [address] | + + + | Home Phone | | + + + | Preferred Language | Unknown | + + + | Marital Status | Single | + + + | Yazidi Affiliation | Unknown | + + + | Race | Unknown | + + + | Ethnic Group | Unknown | + + + Author + + + | Author | [facility] | | | and [place] | + + + | Organization | [facility] | | | and [...] Team Providers + +------+ + | Care Marine Steamfitter Name | Role | Phone | + +------+ + | Evelyn Whitehead DO | PCP | | + +------+ + Encounter Details +--------+ + + + + | Date | Type | Department | Care Team | Description | +--------+ + + + + | 10/11/ | Hospital | [facility] | Shlomo Wright, | Methadone use (HCC); | | 2019 | Encounter | [facility] | MD [address] | Tobacco abuse; | | | | ULTRASOUND [address] | [address], | Supervision of high | | | | [address] | [place] [address] | risk , | | | | [place], [place] | [phone] | antepartum | | | | [address] | | | | | | [phone] | | | +--------+ + + + [...] | EFW by | | | Hadlock (FYM-XS-XX-FL) Head / Face / Neck Biometry: Cephalic [...] | | | bpm | | | Monitoring Tech Comments Measurements compatible | | | with [...] 8 oz EFW by | | Hadlock (STK-RP-AR-FL) Head / Face / Neck Biometry: Cephalic [...] | | FHR 135 bpm | | Monitoring Tech Comments Measurements compatible with dates. The | | patient received thermal prints. Impression ========= Nieto IUP. Biometrics reveal | | estimated weight of 2507 g, 28th percentile overall. Measurements relatively | | symmetric. Amniotic fluid normal with an ISMAEL of 12.6 Maximum vertical pocket of 4.3. | | Recommendation Good interval growth, normal fluid, Reassuring ultrasound | | findings. | |EFW by Hadlock (TIR-DL-DP-FL) | |Head / Face / Neck Biometry: | |Cephalic index 0.73 6% Chitty | |Extremities / Bony Struc Biometry: | |FL / BPD 0.79 -/- Hadlock | |FL / HC 0.21 -/- Hadlock | |FL / AC 0.22 -/- Hadlock | |Other Structures Biometry: | |AF MVP 4.3 cm | |ISMAEL 12.6 cm | |FHR 135 bpm | | | |Monitoring Tech Comments | | | | | |Measurements [...]
--- OUTSIDE RECORDS SUMMARY | ~2019-11-25 | XMS | Encounter Summary ---
Demographics + + + | Address | [address] | | | [place] [address] | + + + | Home Phone | | + + + | Preferred Language | Unknown | + + + | Marital Status | Single | + + + | Yarsanism Affiliation | Unknown | + + + | Race | Unknown | + + + | Ethnic Group | Unknown | + + + Author + + + | Author | [facility] | | | and [place] | + + + | Organization | [facility] | | | [...] Team Providers + +------+ + | Care Service Learning Coordinator Name | Role | Phone | + +------+ + | Evelyn Whitehead DO | PCP | | + +------+ + Reason for Visit +--------+ + | Reason | Comments | +--------+ + | Other | [facility] | +--------+ + Encounter Details +--------+ + + + + | Date | Type | Department | Care Team | Description | +--------+ + + + + | 09/13/ | Documentati | [facility] | [place], | Other (Referral - | | 2020 | on | ASSOCIATED | Carol Gaviria MD [address] | [facility] | | | | [facility] | [address] | [facility], | | | | [address] | [place] [address] | ) | | | | [address] [place], | [phone] | | | | | [place] [address] | | | | | | [phone] | | | +--------+ + + + [...]
--- OUTSIDE RECORDS SUMMARY | ~2019-11-25 | XMS | Encounter Summary ---
Demographics + + + | Address | [address] | | | [place] [address] | + + + | Home Phone | | + + + | Preferred Language | Unknown | + + + | Marital Status | Single | + + + | Sabianist Affiliation | Unknown | + + + | Race | Unknown | + + + | Ethnic Group | Unknown | + + + Author + + + | Author | [facility] | | | and [place] | + + + | Organization | [facility] | | | and [place] | + + + | Address | Unknown | + + + | Phone | Unavailable | + + + Support + + +---------+ + | Name | Relationship | Address | Phone | + + +---------+ + | Adrianna Reynoos | ECON | Unknown | | + + +---------+ + | Vicente Scott | ECON | Unknown | | + + +---------+ + Care Team Providers + +------+ + | Care Aluminum Fabrication Supervisor Name | Role | Phone | + +------+ + | Evelyn Whitehead DO | PCP | | + +------+ + Encounter Details +--------+ + + + + | Date | Type | Department | Care Team | Description | +--------+ + + + + | 10/11/ | Routine | [facility] | Shlomo Wright, | GA: 35w4d | | 2020 | | ASSOC[facility]ATED | [address] | | | | | [facility] | [address], | | | | | [address] | [place] [address] | | | | | [address], | [phone] | | | | | [place] [address] | | | | | | [phone] | | | +--------+ + + + [...] encounter Patient Instructions Patient Instructions Amelia Kerr Claims Agent Right Of Way - 10/12/2019 4:00 PM PDT documented in this encounter Progress Notes Shlomo Wright MD - 10/12/2019 4:00 PM [id number] 35w4d BP 131/86 | [address] [...] both accurate and complete". melia Kerr , Claims Agent Right Of Way - 10/12/2019 4:00 PM [id number] 35w4d BP 131/86 | [address] [...]
--- OUTSIDE RECORDS SUMMARY | ~2019-11-25 | XMS | Encounter Summary ---
Demographics + + + | Address | [address] | | | [place] [address] | + + + | Home Phone | | + + + | Preferred Language | Unknown | + + + | Marital Status | Single | + + + | Jain Affiliation | Unknown | + + + | Race | Unknown | + + + | Ethnic Group | Unknown | + + + Author + + + | Author | [facility] | | | and [place] | + + + | Organization | [facility] | | | and [...] Team Providers + +------+ + | Care Perlite Grinder Name | Role | Phone | + +------+ + PCP | Unavailable | + +------+ + Encounter Details +--------+ + + + + | Date | Type | Department | Care Team | Description | +--------+ + + + + | 04/10/ | Emergency | [facility] | Rodriguez Bridges, | Wheezing | | 2008 | | MEDICAL CENTER | MD [address] | | | | | EMERGENCY CENTER | [place], [place] | | | | | [address] | [address] | | | | | [place], [place] | [phone] | | | | | [address] | | | | | | [phone] | | | +--------+ + + + [...]
--- OUTSIDE RECORDS SUMMARY | ~2019-11-25 | XMS | Encounter Summary ---
Demographics + + + | Address | [address] | | | [place] [address] | + + + | Home Phone | | + + + | Preferred Language | Unknown | + + + | Marital Status | Single | + + + | Anglican Affiliation | Unknown | + + + [...] Team Providers + +------+ + | Care Patent Agent Name | Role | Phone | + [...] | | | | [address] | [place] [address] | | | | | [place], [place] | [phone] | | | | | [address] | | | | | | [phone] | | | +--------+ + + + [...] Summaries by Maggy Adame MD at 09/29/12 2174 Author: Maggy Adame MD Service: Obstetrics/Gynecology Author Type: Physician Filed: 11/14/12 1224 Date of Service: 09/29/122358 Status: Signed Membership Correspondent: Maggy Adame MD (Physician) Related Notes: Original Note by Maggy Adame MD (Physician) filed at 09/30/12 0203 [facility] Service: Obstetrics & Gynecology Discharge Summary [...] presents with oligohydramnios as a transfer from [facility]. Onset of symptoms was abrupt starting 1 [...] HOSPITAL COURSE: The patient was admitted to [facility] with oligohydramnios as a transfer of care from [facility] in [place], [place]. Ultrasound was obtained on the day [...] an outpatient with twice-weekly visits with Dr. Adaem. Routine drug toxicology testing will be performed [...] 09/30/121902 Date of Service: 09/30/121829 Status: Signed Membership Correspondent: Gretchen Wright RN (Registered Nurse) Primary RN Иван Mccoy informed me that pt's son was on his way to [facility] h aving an asthma attack and pt [...] asked [facility] Dr Hiren [...]
--- OUTSIDE RECORDS SUMMARY | ~2019-11-25 | XMS | Encounter Summary ---
Demographics + + + | Address | [address] | | | [place] [address] | + + + | Home Phone [...] Team Providers + +------+ + | Care Photographic Machine Operator Name | Role | Phone | + +------+ + PCP | Unavailable | + +------+ + Encounter Details +--------+ + + + + | Date | Type | Department | Care Team | Description | +--------+ + + + + | 06/10/ | Orders Only | [facility] | aHnk Rico MD | | | 2017 | | CONVERSION DEP [address] | [address] | | | | | [address] | [place] [address] | | | | | [place], [place] | [phone] | | | | | [address] | | | | | | [phone] | | | +--------+ + + + [...]
--- OUTSIDE RECORDS SUMMARY | ~2019-11-25 | XMS | Encounter Summary ---
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
--- OUTSIDE RECORDS SUMMARY | ~2019-11-25 | XMS | Encounter Summary ---
Demographics + + + | Address | [address] | | | [place] [address] | + + + | Home Phone | | + + + | Preferred Language | Unknown | + + + | Marital Status | Single | + + + | Anabaptist Affiliation | Unknown | + + + | Race | Unknown | + + + | Ethnic Group | Unknown | + + + Author + + + | Author | [facility] | | | and [place] | + + + | Organization | [facility] | | | and [...] Team Providers + +------+ + | Care Drafter Electronic Name | Role | Phone | + [...] + + | 11/17/ | Anesthesia | [facility] | Lebron Rodriguez, | | | 2019 | Event | [facility] | FIXER BOARDING ROOM [address] | | | | | [address] | [place] [address] | | | | | [address] | [phone] | | | | | [place], [place] | | | | | | [address] | | | | | | [phone] | | | +--------+ + + + [...]
--- OUTSIDE RECORDS SUMMARY | ~2019-11-25 | XMS | Encounter Summary ---
Demographics + + + | Address | [address] | | | [place] [address] | + + + | Home Phone [...] + + + | Author | [facility] | | | and [place] | + + + | Organization | [facility] | | | [...] Team Providers + +------+ + | Care Physician Relations Specialist Name | Role | Phone | [...] | [address]/ | [address] | [place] [address] | | | 2012 | | [place], [place] | [phone] | | | | | [address] | | | | | | [phone] | | | +--------+ + + + [...] Author: ALBINO Orourke Service: (none) Author Type: Rail Operations Controller Filed: 09/29/12 3345 Date of Service: 09/29/121452 Status: Signed Bench Inspector: ALBINO Orourke (Rail Operations Controller) ALBINO p/c to Doris Green [facility] surveillance investigator Ajit ([phone] ext [phone]) informed her that she d/c from hospital this morning, still , p/c to recreational drug during pregnan cy. Doris states they will continue to follow this Pt. Hang Hurst MD - 09/28/2012 10:43 PM PDT Progress Notes by Hang Adame MD at 09/28/122242 Author: Hnag Adame MD Service: Obstetrics/Gynecology Author Type: Physician Filed: 09/28/122246 Date of Service: 09/28/122242 Status: Signed Bench Inspector: Hang Adame MD (Physician) [facility] Service: Obstetrics & Gynecology Antepartum Progress Note [...] Notes by Neema Loredo RN at 09/28/12 1359 Author: Neema Loredo RN Service: (none) Author Type: Registered Nurse Filed: 09/28/12 4380 Date of Service: 09/28/12 1350 Status: Signed Bench Inspector: Neema Loredo RN (Registered Nurse) Legal urine given to kristina in lab [facility]en Transaction, Provider Unknown - 09/28/2012 1:35 PM PDT Progress Notes by Neema Loredo RN at 09/28/12 0008 Author: Neema Loredo RN Service: (none) Author Type: Registered Nurse Filed: 09/28/12 3975 Date of Service: 09/28/125 Status: Signed Bench Inspector: Neema Loredo RN (Registered Nurse) Legal urine drug screen received from patient. on[facility] maureen Transaction, Provider Unknown - 09/28/2012 11:11 AM PDT Progress Notes by Neema Loredo RN at 09/28/12 1111 Author: Neema Loredo RN Service: (none) Author Type: Registered Nurse Filed: 09/28/12 1112 Date of Service: 09/28/12 1111 Status: Signed Bench Inspector: Neema Loredo RN (Registered Nurse) [facility] annie Green ext 250 on[facility] ma[facility]en Transaction, Provider Unknown - 09/27/2012 7:30 PM PDT Progress Notes by Gretchen Hdz RN at 09/27/121929 Author: Gretchen Hdz RN Service: (none) Author Type: Registered Nurse Filed: 09/27/122048 Date of Service: 09/27/121929 Status: Signed Bench Inspector: Gretchen Hdz RN (Registered Nurse) Pt transported here for oligohydramnios. Pt informed of positive urine drug screen at [facility]. Pt became teary crying. Told me that [...] reassured h er we would get social media project manager to help and I appreciated her honesty. [...]
--- OUTSIDE RECORDS SUMMARY | ~2019-11-25 | XMS | Encounter Summary ---
Demographics + + + | Address | [address] | | | [place] [address] | + + + | Home Phone [...] Providers + +------+ + | Care Manager Unix Name | Role | Phone | + [...] | | | | unspecified, | [place] [address] | [place], [place] | | | | | third | Phone: | [phone] | | | | | trimester | [phone] | Phone: | | | | | | Fax: | [phone] | | | | | | [phone] | Fax: | | | | | | | [phone] | + +--------+ + + + + Encounter Details +--------+ + + + + | Date | Type | Department | Care Team | Description | +--------+ + + + + | 09/20/ | Initial | [facility] | Shlomo Wright, | [place]: 32w4d | | 2020 | | ASSOCIATED | [address] | | | | | [facility] | [address], | | | | | [address] | [place] [address] | | | | | [address], | [phone] | | | | | [place] [address] | | | | | | [phone] | | | +--------+ + + + [...] encounter Patient Instructions Patient Instructions Gisel Lucero, Stunt Driver - 09/21/2019 2:00 PM Zac Solange , [...] Count each movement until the baby has [id number]. This can take from 20 minutes t o 2hours. Try to do it at the same time each day. When to call your healthcare provider Call your healthcare providerright awayif you notice any of the following: Your baby moves fewer than 10times [id number] while you re doing kick counts. Your baby moves much less often than on thedays before. You have not felt your baby move all day. Date Last Reviewed: 06/04/201719990836-8836 [employer]. [address] [place] [address], [place] [address]. All righ ts reserved. This information is [...] further complications. You can go to [facility] to have this done, but there is a lab on the second floor of the [address] [place] [address] ([place] office) with operating hours of Wednesday-Wednesday 830-530 with lunch from 1230-130 . Please check the [facility] website for additional hours and locations. [...] any additional questions, please contact our office [phone] documented in this encounter Progress Notes Shlomo Wright MD - 09/21/2019 2:00 PM Xuan is a SVDx5 largest infant 6lb 9 oz who is 32w4d Dates established by early ultrasound. 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 And reports an obstetrical history significant for: smoker and drug abuse- Heroine and meth . Currently on Methadone being treated at [facility]. She is a transfer of care from [facility]. She will need to deliver at [facility] due to risk of withdrawal syndrome. Records received and reviewed with patient. Labs transferred to our records. Complaints: no complaints. Patient reports Tdap was given at her previous clinic. Continue Methadone management with [facility]. Discussed growth ultrasound in 1 week- per [...] accurate and complete. Gisel Pineda Med ical Sap Business Objects Developer - 09/21/2019 2:00 PM [id number] 32w4d BP 135/89 | Pulse 98 | [...] [address] | | | | | | [address];[place], [place] [address] | | | | + + + + + + + + | Specimen | + + | Tissue - Both | | anterior nares (body | | structure) | + + + + + + + | Performing | Address | City/State/Zipcode | Phone Number | | Organization | | | | + + + + + | REFERENCE LAB | [address] [place] [address] | [place] | [phone] | | [email or web address] | Bl[address] | [address] | | | LABORATORY | | | | + + + + + | REFERENCE LAB | [address] [place] [address] | [place] | | | [facility] | Blvd. | [address] | | | LABORATORY | | | [...]
--- OUTSIDE RECORDS SUMMARY | ~2019-11-25 | XMS | Encounter Summary ---
Demographics + + + | Address | [address] | | | [place] [address] | + + + | Home Phone [...] Team Providers + +------+ + | Care General Manager Road Production Name | Role | Phone | + +------+ + | Evelyn Whitehead DO | PCP | | + +------+ + Encounter Details +--------+ + + + + | Date | Type | Department | Care Team | Description | +--------+ + + + + | 09/20/ | Orders Only | [facility] | Lindsey Wu, | Supervision of [facility] | | 2019 | | [address] | Rn Transplant | risk , | | | | [place], [place] | | antepartum | | | | [address] | | | | | | [phone] | | | +--------+ + + + [...] | | | | | performed at [facility];[address] | | | | [address] | | | | [address];[place] [address] | | | | + + + + + + + + | Specimen | + + | Tissue - Both | | anterior nares (body | | structure) | + + + + + + + | Performing | Address | City/State/Zipcode | Phone Number | | Organization | | | | + + + + + | REFERENCE LAB | [address] [place] [address] | [place], [place] | [phone] | | [facility] | Blvd[address] | [address] | | | LABORATORY | | | | + + + + + | REFERENCE LAB | [address] [place] [address] | [place], [place] | | | [facility] | Blvd. | [address] | | | LABORATORY | | | | + + + + + documented in this encounter Visit Diagnoses + + | Diagnosis | + + | Supervision of high risk , antepartum | + + documented in this encounter"
--- OUTSIDE RECORDS SUMMARY | 2019-11-25 18:42 | XMS ---
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 - Has Care Guidelines CARE PROVIDERS There are no care providers on record at this time. Guidelines Source: [facility] [place] Guidelines Date: 03/20/2019 Care Coordination: Receives mental health services with [facility].\T\nbsp; Please contact [facility] for mental health concerns.\T\nbsp; Myriam/Dre Ramos:\T\nbsp; \T\nbsp; Ajit:\T\nbsp; [phone]. Care History Medical/Surgical 04/05/2019 [facility] CASE MANAGEMENT REFERRAL MADE- PATIENT HAS [facility] AND NO PCP. E.D. VISIT COUNT (12 MO.) 4 [facility] TOTAL 4 NOTE: Visits indicate total known visits. ED/UCC VISIT TRACKING (12 MO.) 11/25/2019 18:40 [facility] [place] TYPE: Emergency COMPLAINT: - POSSIBLE STROKE 04/05/2019 13:42 [facility] [place] [place] TYPE: Emergency COMPLAINT: - ABD PAIN DIAGNOSES: - Unspecified abdominal pain - Urinary tract infection, site not specified - Personal history of nicotine dependence 04/04/2019 17:59 [facility] [place] TYPE: Emergency COMPLAINT: - ABDOMINAL CRAMPING DIAGNOSES: - Smoking (tobacco) complicating , first trimester - Unspecified abdominal pain - Nicotine dependence, unspecified, uncomplicated - Threatened 03/11/2019 09:34 [facility] [place] TYPE: Emergency COMPLAINT: - WITHDRAWLS, VOMMITING DIAGNOSES: - Nausea with vomiting, unspecified - Nicotine dependence, unspecified, uncomplicated INPATIENT VISIT TRACKING (12 MO.) 11/18/2019 19:17 [facility] [place] TYPE: Obstetrics DIAGNOSES: - Scheduled Induction [email or web address]
[2019-11-25] MEDS ORDERED: FAMOTIDINE20 MG PO (22:32)
[2019-11-25] MEDS ORDERED: AZITHROMYCIN250 MG (22:32)
[2019-11-25] MEDS ORDERED: VENTOLIN HFA18 GM INH (22:32)
--- NOTE | 2019-11-26 12:10 | EKG ---
[facility] [address] [place], [place] [address] Signed Normal sinus rhythm Normal ECG No previous ECGs available Confirmed by YANNICK SMALL MD ([id number]) on 11/26/2019 12:09:44 PM Electronically Signed By: YANNICK SMALL MD 11/26/19 1210 PATIENT NAME: ELIZABETH MCKEON Electrocardiogram DATE OF : 86 PHYSICIAN: YANNICK SMALL MD REPORT #: [id number] REPORT IS CONFIDENTIAL AND NOT TO BE RELEASED WITHOUT AUTHORIZATION
== END 2019-11-25 19:45 | disposition short-term general hospital (02) ==
LOC: ED 18:39
DX: I62.9 Nontraumatic intracranial hemorrhage, unspecified (principal); J45.909 Unspecified asthma, uncomplicated; F17.200 Nicotine dependence, unspecified, uncomplicated; Z79.899 Other long term (current) drug therapy
CPT/HCPCS: 70450; 71045; 80053; 84484; 85025; 85610; 85730; 93005; 93010; 96374; 99285-25; J1953